=== PATIENT | male | born 1930 | race Caucasian/White ===

== ENCOUNTER 2016-09-23 10:10 | Inpatient (IN) | payer MEDICARE, BC ==
[2016-09-23] MEDS ORDERED: MIDAZOLAM 2 MG/2 ML VIAL IV ONE (12:30)
[2016-09-23] MEDS ORDERED: MIDAZOLAM 2 MG/2 ML VIAL ONE (12:30)
[2016-09-23] MEDS ORDERED: LIDOCAINE 2% INJ 20 MG/ML (20 ML MDV) ONE (12:31)
[2016-09-23] MEDS ORDERED: LIDOCAINE 2% INJ 20 MG/ML SQ ONE (12:31)
[2016-09-23] MEDS ORDERED: SODIUM CHLORIDE 0.9% 1,000 ML IV ONE ×2 (12:31→13:40)
[2016-09-23] MEDS ORDERED: SODIUM CHLORIDE 0.9% 500 ML IV ONE (12:31)
[2016-09-23] MEDS ORDERED: BIVALIRUDIN BOLUS 250 MG/50 ML IV ONE (12:40)
[2016-09-23] MEDS ORDERED: BIVALIRUDIN 250 MG in SODIUM CHLORIDE 0.9% 50 ML IV ONE ×2 (12:41→13:16)
[2016-09-23] MEDS ORDERED: CLOPIDOGREL 75 MG TAB ONE (12:43)
[2016-09-23] MEDS ORDERED: CLOPIDOGREL 75 MG TAB PO ONE (12:47)
[2016-09-23] MEDS: niCARdipine Syringe (1,000 mcg/10 mL) INTRACORON ONE ×3 (13:19→13:39)
[2016-09-23] MEDS ORDERED: NITROGLYCERIN 1000MCG/10ML SYRINGE INTRACORON ONE (13:31)
[2016-09-23] MEDS ORDERED: NITROGLYCERIN SL TABS 0.4 MG TAB SUBLINGUAL PRN (13:48)
[2016-09-23] MEDS ORDERED: RX INFO: IV CONTRAST WAS GIVEN 1 EACH MISC MISCELLANE PRN (13:48)
[2016-09-23] MEDS ORDERED: ATROPINE SULFATE 0.1 MG/ML 10ML SYRINGE IV PRN (13:48)
[2016-09-23] MEDS ORDERED: MAG HYDROX/AL HYDROX/SIMETH 30 ML CUP PO PRN (13:48)
[2016-09-23] MEDS ORDERED: ZOLPIDEM 5 MG TAB PO PRN (13:48)
[2016-09-23] MEDS ORDERED: IOHEXOL 350 MG/ML 125ML BOTTLE INJ ONE (13:48)
[2016-09-23] MEDS ORDERED: SODIUM CHLORIDE 0.9% 1,000 ML IV SCH (14:00)
[2016-09-23 14:13] LABS: Glucose,Whole Blood 116 mg/dL (75-99)
[2016-09-23 19:02] LABS: Basophils % (A) 0 %; CHCM 33.4; Eosinophils % (A) 0 %; HCT 43.3 % (39.0-53.0); HDW 2.32; HGB 14.3 gm/dL (13.0-17.5); Luc # (Auto) 0.32; Luc % (Auto) 3; Lymphocytes # (A) 0.7 k/uL (1.0-4.8); Lymphocytes % (A) 7 %; MCH 32.9 pg (25.0-35.0); MCV 99.4 fL (80.0-100.0); Mean Platelet Volume 9.6; Monocytes # (A) 0.9 k/uL (0-1.0); Monocytes % (A) 9 %; Neutrophils # (A) 8.3 k/uL (1.3-7.7); Neutrophils % (A) 81 %; RBC 4.35 m/uL (4.30-5.90); RDW 13.8 % (11.5-15.5); WBC 10.3 k/uL (3.8-10.6)
[2016-09-23 19:19] LABS: ALT 76 U/L (21-72); AST 156 U/L (17-59); Alkaline Phosphatase 58 U/L (38-126); Anion Gap 8 mmol/L; Blood Urea Nitrogen 38 mg/dL (9-20); Calcium 8.2 mg/dL (8.4-10.2); Carbon Dioxide 24 mmol/L (22-30); Chloride 108 mmol/L (98-107); Glucose 133 mg/dL (74-99); Magnesium 2.1 mg/dL (1.6-2.3); Non-African American GFR(MDRD) 52 (>60 ml/min/1.73 sqM); Sodium 140 mmol/L (137-145); Total Bilirubin 2.4 mg/dL (0.2-1.3); Total Protein 5.6 g/dL (6.3-8.2)
[2016-09-23] MEDS: METOPROLOL TARTRATE 25 MG TAB PO SCH (20:15)
[2016-09-23] MEDS: ATORVASTATIN 80 MG TAB PO SCH (20:15)
--- NOTE | 2016-09-23 22:04 | P.CRDCN ---
History of Present Illness Consult date: 09/23/16 Chief complaint: Chest pain History of present illness: This is a pleasant 85-year-old gentleman was no significant past medical history who presented to the emergency room at [facility] complaining of chest discomfort and was diagnosed with acute inferior ST elevation myocardial infarction. 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 He underwent successful stenting of the RCA with good angiographic results and without any complication. Beside that the patient was found to have intermediate disease involving the proximal LAD by the bifurcation of large diagonal branch. The patient tolerated the procedure very well and he was chest pain-free by the end of the procedure and he was also hemodynamically stable. Past Medical History Past Medical History: Hypertension Additional Past Medical History / Comment(s): Peripheral Neuropathy History of Any Multi-Drug Resistant Organisms: None Reported Past Surgical History: Hernia Repair Past Anesthesia/Blood Transfusion Reactions: No Reported Reaction Past Psychological History: No Psychological Hx Reported Smoking Status: Former smoker Past Alcohol Use History: Rare Past Drug Use History: None Reported - Past Family History Mother History Unknown: Yes Family Medical History: Myocardial Infarction ([place]) Father History Unknown: Yes Family Medical History: Cancer Medications and Allergies Home Medications Medication Instructions Recorded Confirmed Type Aspirin EC [Ecotrin Low Dose] 81 mg PO Q48H 09/23/16 09/23/16 History Biotin 5 mg PO QAM 09/23/16 09/23/16 History Losartan Potassium [Cozaar] 100 mg PO QAM 09/23/16 09/23/16 History Multivitamins, Thera [Multivitamin 1 tab PO DAILY 09/23/16 09/23/16 History (formulary)] Norman-3/Dha/Epa/Fish Oil [Fish Oil 1 cap PO QAM 09/23/16 09/23/16 History EC 1,200 mg Softgel] Allergies Allergy/AdvReac Type Severity Reaction Status Date / Time Penicillins Allergy Anaphylaxis Verified 09/23/16 15:49 prednisone Allergy Anaphylaxis Verified 09/23/16 15:49 Sulfa (Sulfonamide Allergy Anaphylaxis Verified 09/23/16 15:49 Antibiotics) Physical Exam Vitals: Vital Signs Temp Pulse Resp BP Pulse Ox 09/23/16 21:30 63 25 H 113/60 95 09/23/16 21:00 67 12 121/58 95 09/23/16 20:30 72 14 125/66 95 09/23/16 20:00 99 F 76 18 105/57 95 09/23/16 19:30 72 119/64 95 09/23/16 19:10 98.7 F 76 101/51 92 L 09/23/16 19:00 76 101/51 92 L 09/23/16 18:50 98.0 F 76 16 110/53 94 L 09/23/16 18:40 99.0 F 77 108/59 94 L 09/23/16 18:30 73 18 108/59 94 L 09/23/16 18:20 71 114/56 94 L 09/23/16 18:10 73 114/56 95 09/23/16 18:00 83 16 114/56 96 09/23/16 17:50 98.4 F 79 16 119/65 96 09/23/16 17:40 71 116/64 95 09/23/16 17:37 16 09/23/16 17:30 77 18 116/64 96 09/23/16 17:20 72 123/69 96 09/23/16 17:10 74 109/61 96 09/23/16 16:30 65 110/65 97 09/23/16 16:00 98.2 F 66 119/76 97 09/23/16 15:50 98.4 F 69 103/67 97 09/23/16 15:40 70 108/62 97 09/23/16 15:30 98.1 F 67 108/62 88 L 09/23/16 15:20 68 110/62 97 09/23/16 15:10 68 111/60 96 09/23/16 15:00 97.6 F 67 103/62 96 09/23/16 14:50 64 105/58 95 09/23/16 14:40 71 116/67 96 09/23/16 14:30 69 116/67 96 09/23/16 14:10 97.9 F 68 111/62 90 L Intake and Output 09/23/16 09/23/16 09/23/16 06:59 14:59 22:59 Intake Total 434 800 Output Total 750 Balance 434 50 Intake: IV 434 200 Sodium Chloride 0.9% 1, 200 000 ml @ 100 mls/hr IV . Q10H [facility] Rx#:[id number] Intake, IV Titration 400 Amount Sodium Chloride 0.9% 1, 400 000 ml @ 100 mls/hr IV . Q10H [facility] Rx#:[id number] Oral 200 Output: Urine 750 Other: Voiding Method Urinal # Voids 0 Weight 99.79 kg 99.79 kg Patient Weight 09/24/16 06:59 Weight 99.79 kg - Constitutional General appearance: no acute distress - Respiratory Respiratory: bilateral: CTA - Cardiovascular Rhythm: regular Heart sounds: normal: S1, S2 Results 09/24/16 04:45 09/24/16 04:45 Cardiac Enzymes 09/23/16 09/23/16 Range/Units 18:50 18:50 AST 156 H (17-59) U/L Troponin I 40.900 H* (0.000-0.034) ng/mL CBC 09/23/16 Range/Units 18:50 WBC 10.3 (3.8-10.6) k/uL RBC 4.35 (4.30-5.90) m/uL Hgb 14.3 (13.0-17.5) gm/dL Hct 43.3 (39.0-53.0) % Plt Count 124 L (150-450) k/uL Comprehensive Metabolic Panel 09/23/16 Range/Units 18:50 Sodium 140 (137-145) mmol/L Potassium 4.0 (3.5-5.1) mmol/L Chloride 108 H (98-107) mmol/L Carbon Dioxide 24 (22-30) mmol/L BUN 38 H (9-20) mg/dL Creatinine 1.32 H (0.66-1.25) mg/dL Glucose 133 H (74-99) mg/dL Calcium 8.2 L (8.4-10.2) mg/dL AST 156 H (17-59) U/L ALT 76 H (21-72) U/L Alkaline Phosphatase 58 (38-126) U/L Total Protein 5.6 L (6.3-8.2) g/dL Albumin 3.1 L (3.5-5.0) g/dL Current Medications Generic Name Dose Route Start Last Admin Trade Name Freq PRN Reason Stop Dose Admin Al Hydroxide/Mg Hydroxide 30 ml 09/23/16 13:48 Maalox PO Q4HR PRN Heartburn Aspirin 325 mg 09/24/16 09:00 Aspirin PO DAILY [facility] Atorvastatin Calcium 80 mg 09/23/16 21:00 Lipitor PO HS [facility] Atropine Sulfate 0.5 mg 09/23/16 13:48 Atropine IV ONCE PRN Symptomatic Bradycardia Clopidogrel Bisulfate 75 mg 09/24/16 12:00 Plavix PO DAILY [facility] Lisinopril 10 mg 09/24/16 09:00 Zestril PO DAILY [facility] Metoprolol Tartrate 25 mg 09/23/16 21:00 Lopressor PO BID [facility] Miscellaneous Information 1 each 09/23/16 13:48 Rx Info: Iv Contrast Was Given MISCELLANE 09/25/16 13:49 DAILY PRN Per Protocol Nitroglycerin 0.4 mg 09/23/16 13:48 Nitrostat SUBLINGUAL Q5M PRN Chest Pain Zolpidem Tartrate 5 mg 09/23/16 13:48 Ambien PO HS PRN Insomnia Intake and Output 09/23/16 09/23/16 09/23/16 06:59 14:59 22:59 Intake Total 434 800 Output Total 750 Balance 434 50 Intake: IV 434 200 Sodium Chloride 0.9% 1, 200 000 ml @ 100 mls/hr IV . Q10H [facility] Rx#:[id number] Intake, IV Titration 400 Amount Sodium Chloride 0.9% 1, 400 000 ml @ 100 mls/hr IV . Q10H [facility] Rx#:[id number] Oral 200 Output: Urine 750 Other: Voiding Method Urinal # Voids 0 Weight 99.79 kg 99.79 kg Patient Weight 09/24/16 06:59 Weight 99.79 kg 09/23/16 18:50 09/23/16 18:50 Assessment and Plan Plan: This is a pleasant 85-year-old gentleman who was diagnosed with acute inferior ST elevation myocardial infarction and underwent an emergent heart catheterization unsuccessful stenting of the RCA with good angiographic results. The patient will be admitted to the intensive care unit. He will be on dual antiplatelet therapy and statin. We'll obtain an echocardiogram to assess LV function. Follow-up with him.
[2016-09-24] MEDS ORDERED: HEPARIN SODIUM,PORCINE 5,000 UNIT/ML 1 ML VIAL IV ONE (00:23)
[2016-09-24] MEDS ORDERED: DILTIAZEM 125 MG in SODIUM CHLORIDE 0.9% 100 ML IV SCH (00:30)
[2016-09-24] MEDS: HEPARIN SODIUM,PORCINE/D5W PMX 25,000 UNIT in DEXTROSE/WATER 1 500ML.BAG IV SCH (00:52)
[2016-09-24 04:57] LABS: Basophils % (A) 0 %; CH 33.2; CHCM 33.1; Eosinophils % (A) 0 %; HCT 43.3 % (39.0-53.0); HDW 2.33; HGB 14.3 gm/dL (13.0-17.5); Luc # (Auto) 0.42; Luc % (Auto) 4; Lymphocytes # (A) 0.8 k/uL (1.0-4.8); Lymphocytes % (A) 7 %; MCH 33.2 pg (25.0-35.0); MCV 100.6 fL (80.0-100.0); Macrocytosis Slight; Monocytes # (A) 0.9 k/uL (0-1.0); Monocytes % (A) 8 %; Neutrophils # (A) 9.3 k/uL (1.3-7.7); Neutrophils % (A) 81 %; RBC 4.31 m/uL (4.30-5.90); RDW 13.9 % (11.5-15.5); WBC 11.5 k/uL (3.8-10.6); WBC (Perox) 11.74
[2016-09-24] MEDS: HEPARIN SODIUM,PORCINE 5,000 UNIT/ML 1 ML VIAL IV PRN ×2 (05:26→13:16)
[2016-09-24 05:35] LABS: Calcium 8.4 mg/dL (8.4-10.2); Magnesium 2.2 mg/dL (1.6-2.3); Potassium 4.2 mmol/L (3.5-5.1)
[2016-09-24] MEDS ORDERED: DEXTROSE 5% IN WATER 100 ML with AMIODARONE 150 MG IV ONE (08:35)
--- NOTE | 2016-09-24 08:35 | P.PN ---
Subjective Principal diagnosis: Acute inferior ST elevation IL This is a pleasant 85-year-old gentleman with no significant past medical history who presented to the emergency room complaining of chest discomfort and it turned to be an acute inferior ST elevation myocardial infarction. He underwent an emergent heart catheterization and stenting of the RCA with good angiographic results. The presentation of the IL was ablated presentation and the patient was experiencing chest discomfort for the last 3 days. By the end of the procedure we were able to get good flow in the RCA but the PDA and PLV branches of the RCA were full of clots. On follow-up with the patient today, he denies having any chest pain or discomfort but he continues to be short of breath and he also has orthopnea. On physical examination he does have crackles in both lung bases. Hemodynamically he continues to be slightly hypotensive. He is on metoprolol as well as lisinopril. I am going to stop the lisinopril and continue the metoprolol. He went into an A. fib with RVR yesterday and he continues to be in A. fib with reasonably controlled heart rates. He was started on Cardizem which I am going to discontinue and start the patient on amiodarone with bolus and drip. Beside that I will obtain a chest x-ray and BNP. We'll also ask Dr. Schroeder to assess the patient. Objective - Vital Signs Vital signs: Vital Signs Temp 98.5 F 09/24/16 07:30 Pulse 81 09/24/16 07:30 Resp 18 09/24/16 07:30 BP 91/59 09/24/16 07:30 Pulse Ox 93 L 09/24/16 07:30 Intake & Output 09/23/16 09/24/16 09/24/16 18:59 06:59 18:59 Intake Total 1034 584.029 30 Output Total 500 600 Balance 534 -15.971 30 Weight 99.79 kg 94.5 kg Intake: IV 434 520 30 0.9% Normal Saline 140 20 Diltiazem 125 mg In 60 10 Sodium Chloride 0.9% 100 ml @ 10 MG/HR 10 mls/hr IV .[id number] [facility] Rx#: [id number] Sodium Chloride 0.9% 1, 320 000 ml @ 100 mls/hr IV . Q10H [facility] Rx#:[id number] Intake, IV Titration 400 64.029 Amount Heparin Sodium,Porcine/ 64.029 D5w Pmx 25,000 unit In Dextrose/Water 1 500ml. bag @ 7 UNITS/KG/HR 13.97 mls/hr IV .Q24H [facility] Rx#: [id number] Sodium Chloride 0.9% 1, 400 000 ml @ 100 mls/hr IV . Q10H [facility] Rx#:[id number] Oral 200 Output: Urine 500 600 Other: Voiding Method Urinal # Voids 0 # Bowel Movements 1 - Constitutional General appearance: Present: mild distress - Respiratory Respiratory: bilateral: rales - Cardiovascular Rhythm: irregularly irregular Heart sounds: normal: S1, S2 - Labs CBC & Chem 7: 09/24/16 04:45 09/24/16 04:45 Labs: Abnormal Lab Results - Last 24 Hours (Table) 09/23/16 09/23/16 09/23/16 Range/Units 14:10 18:50 18:50 WBC (3.8-10.6) k/uL MCV (80.0-100.0) fL Plt Count 124 L (150-450) k/uL Neutrophils # 8.3 H (1.3-7.7) k/uL Lymphocytes # 0.7 L (1.0-4.8) k/uL APTT (22.0-30.0) sec Chloride 108 H (98-107) mmol/L Carbon Dioxide (22-30) mmol/L BUN 38 H (9-20) mg/dL Creatinine 1.32 H (0.66-1.25) mg/dL Glucose 133 H (74-99) mg/dL POC Glucose (mg/dL) 116 H (75-99) mg/dL Calcium 8.2 L (8.4-10.2) mg/dL Total Bilirubin 2.4 H (0.2-1.3) mg/dL AST 156 H (17-59) U/L ALT 76 H (21-72) U/L Troponin I (0.000-0.034) ng/mL Total Protein 5.6 L (6.3-8.2) g/dL Albumin 3.1 L (3.5-5.0) g/dL 09/23/16 09/24/16 09/24/16 Range/Units 18:50 04:45 04:45 WBC 11.5 H (3.8-10.6) k/uL MCV 100.6 H (80.0-100.0) fL Plt Count 126 L (150-450) k/uL Neutrophils # 9.3 H (1.3-7.7) k/uL Lymphocytes # 0.8 L (1.0-4.8) k/uL APTT (22.0-30.0) sec Chloride 109 H (98-107) mmol/L Carbon Dioxide 20 L (22-30) mmol/L BUN 38 H (9-20) mg/dL Creatinine 1.40 H (0.66-1.25) mg/dL Glucose 121 H (74-99) mg/dL POC Glucose (mg/dL) (75-99) mg/dL Calcium (8.4-10.2) mg/dL Total Bilirubin (0.2-1.3) mg/dL AST (17-59) U/L ALT (21-72) U/L Troponin I 40.900 H* (0.000-0.034) ng/mL Total Protein (6.3-8.2) g/dL Albumin (3.5-5.0) g/dL 09/24/16 Range/Units 04:45 WBC (3.8-10.6) k/uL MCV (80.0-100.0) fL Plt Count (150-450) k/uL Neutrophils # (1.3-7.7) k/uL Lymphocytes # (1.0-4.8) k/uL APTT 37.9 H (22.0-30.0) sec Chloride (98-107) mmol/L Carbon Dioxide (22-30) mmol/L BUN (9-20) mg/dL Creatinine (0.66-1.25) mg/dL Glucose (74-99) mg/dL POC Glucose (mg/dL) (75-99) mg/dL Calcium (8.4-10.2) mg/dL Total Bilirubin (0.2-1.3) mg/dL AST (17-59) U/L ALT (21-72) U/L Troponin I (0.000-0.034) ng/mL Total Protein (6.3-8.2) g/dL Albumin (3.5-5.0) g/dL Assessment and Plan Plan: This is a pleasant 85-year-old gentleman who was diagnosed with acute inferior ST elevation myocardial infarction and underwent an emergent heart catheterization unsuccessful stenting of the RCA with good angiographic results. We'll continue dual antiplatelet therapy and statin. DC lisinopril and continue metoprolol. DC Cardizem drip and start the patient on amiodarone IV. Obtain a chest x-ray and BNP with possible diuresing the patient as well as.
--- NOTE | 2016-09-24 08:56 | XR ---
EXAMINATION TYPE: XR chest 1V portable DATE OF EXAM: 09/24/2016 COMPARISON: NONE HISTORY: Shortness of breath TECHNIQUE: Single frontal view of the chest is obtained. FINDINGS: Heart size is prominent. Patient is rotated however. There are overlying cardiac leads. Th ere is no evident pneumonia or pneumothorax. No sizable effusion. There may be some subsegmental atel ectatic change left lower lobe. IMPRESSION: Borderline enlarged heart size, subsegmental basilar atelectasis is suspected. Follow-up suggested.
[2016-09-24] MEDS ORDERED: LISINOPRIL 10 MG TAB PO SCH (09:00)
[2016-09-24] MEDS: METOPROLOL TARTRATE 25 MG TAB PO SCH (09:02)
[2016-09-24] MEDS: ASPIRIN 325 MG TAB PO SCH (09:02)
[2016-09-24] MEDS: CLOPIDOGREL 75 MG TAB PO SCH (09:03)
[2016-09-24] MEDS ORDERED: NOREPINEPHRIN 4 MG-0.9% NS PMX 4 MG/250 ML ML IV SCH (09:45)
--- NOTE | 2016-09-24 10:16 | HP ---
DATE OF SERVICE: 09/23/2016 CHIEF COMPLAINTS: Chest pains. HISTORY OF PRESENT ILLNESS: This 85-year-old gentleman with past medical history of multiple medical problems including hypertension, hyperlipidemia being followed by [facility] in the outpatient setting was admitted with chest pain. The patient initially went to [facility]. The patient also had some kind of confusion also. The patient also had some intrascapular pain and the ST segment elevation was noted on the EKG. The patient was taken to [facility] via EMS and underwent cardiac catheterization and patient underwent RCA stenting. The patient is being closely monitored at this time. The patient is in ICU at this time. The patient is in ICU at this time. There is no history of any fever, rigors. No history of headache, loss of consciousness or seizures. The initial CBC showed elevated high white count. The patient is followed by Dr. Hakan Quinn in the outpatient setting. PAST MEDICAL HISTORY: Hypertension, hyperlipidemia. Medication list: 1. [place]-3 fatty acid 1 p.o. daily. 2. Multivitamins 1 daily. 3. Cozaar 100 mg q.a.m. 4. Biotin 5 mg q.a.m. 5. Ecotrin 81 mg q.48 hours. ALLERGIES: PENICILLIN, PREDNISONE, SULFA. FAMILY HISTORY: No history of heart disease or strokes in the family. SOCIAL HISTORY: No history of current smoking or alcohol intake. REVIEW OF SYSTEMS: ENT: No diminished hearing or vision. CARDIOVASCULAR: As mentioned earlier. RESPIRATORY: As mentioned earlier. GI: No nausea. : No dysuria. NERVOUS SYSTEM: No numbness or weakness. ALLERGY/IMMUNOLOGY: No asthma or hayfever. MUSCULOSKELETAL: As mentioned earlier. HEMATOLOGY/ONCOLOGY: No history of anemia. ENDOCRINE: No history of diabetes or hypothyroidism. CONSTITUTIONAL: As mentioned earlier. DERMATOLOGY: Negative. RHEUMATOLOGY: Negative. PSYCHIATRY: As mentioned earlier. PHYSICAL EXAMINATION: The patient is alert and oriented x3. Pulse is 79, blood pressure 119/64, respirations 16, temperature 98.4, pulse ox 96% on 2-L. HEENT: Conjunctivae normal. NECK: No jugular venous distention. CARDIOVASCULAR: S1, S2 muffled. RESPIRATORY: Breath sounds diminished at the bases. A few scattered rhonchi and crackles. ABDOMEN: Soft, nontender, no mass palpable. LEGS: No edema, no swelling. NERVOUS SYSTEM: Higher function as mentioned. Moves all four limbs. No focal motor sensory deficits. LYMPHATICS: No lymphadenopathy in the neck, axillae or groin. SKIN: No rash, ulcer or bleeding. LABS: Accu-Cheks 116. ASSESSMENT: 1. Acute ST-segment elevation inferior wall myocardial infarction, status post cardiac catheterization and right coronary artery stenting. 2. Hypertension. 3. History of confusion and change in mental status for further evaluation. RECOMMENDATIONS AND DISCUSSION: In this 85-year-old gentleman who presented with multiple complex medical issues, we well monitor the patient closely. Continue the current medications. Continue symptomatic treatment. Continue with dual antiplatelet agents and beta-blockers, JAI inhibitors. Closely follow with Cardiology. 2-D echo with Doppler. Otherwise, repeat labs in the morning. Will also obtain a CT scan of the brain to rule out any other acute abnormalities. Otherwise will follow the patient closely. I will recommend to closely follow up with Dr. Quinn in the outpatient setting. Further recommendations to follow. [email or web address]
[2016-09-24] MEDS: AMIODARONE 450 MG in DEXTROSE 5% IN WATER 250 ML IV SCH ×4 (10:30→17:21)
--- NOTE | 2016-09-24 11:01 | ECHOF ---
Referral Reason:stemi MEASUREMENTS -------- HEIGHT: 182.9 cm WEIGHT: 99.8 kg BP: 108/59 IVSd: 1.3 cm (0.6 - 1.1) LVIDd: 5.6 cm (3.9 - 5.3) LVPWd: 1.3 cm (0.6 - 1.1) IVSs: 1.6 cm LVIDs: 5.1 cm LVPWs: 1.2 cm LA Diam: 3.1 cm (2.7 - 3.8) Ao Diam: 3.2 cm (2.0 - 3.7) AV Cusp: 1.7 cm (1.5 - 2.6) LA Diam: 3.8 cm (2.7 - 3.8) MV EXCURSION: 20.282 mm (> 18.000) MV EF SLOPE: 83 mm/s (70 - 150) EPSS: 1.2 cm MV E Bj: 0.33 m/s MV DecT: 303 ms MV A Bj: 0.80 m/s MV E/A Ratio: 0.41 RAP: 5.00 mmHg RVSP: 24.76 mmHg FINDINGS -------- Sinus rhythm. This was a technically adequate study. There is mild concentric left ventricular hypertrophy. Overall left ventricular systolic function is low-normal with, an EF between 50 - 55 %. Posterior hypokinesis Inferior basal Hypokinesis The right ventricle is normal in size. The right atrial size is normal. There is mild aortic valve sclerosis. There is no evidence of aortic regurgitation. Mild mitral annular calcification present. Mild mitral regurgitation is present. Mild tricuspid regurgitation present. There is no evidence of pulmonary hypertension. The right ventricular systolic pressure, as measured by Doppler, is 24.76mmHg. Trace/mild (physiologic) pulmonic regurgitation. The aortic root size is normal. There is no pericardial effusion. CONCLUSIONS -------- 1. There is mild concentric left ventricular hypertrophy. 2. The right ventricular systolic pressure, as measured by Doppler, is 24.76mmHg. 3. Trace/mild (physiologic) pulmonic regurgitation. 4. Overall left ventricular systolic function is low-normal with, an EF between 50 - 55 %. 5. Posterior hypokinesis 6. Inferior basal Hypokinesis 7. There is mild aortic valve sclerosis. 8. Mild mitral annular calcification present. 9. Mild mitral regurgitation is present. 10. Mild tricuspid regurgitation present. 11. There is no evidence of pulmonary hypertension. [employer]: Nay Espinoza RDCS
--- NOTE | 2016-09-24 11:35 | P.CNPUL ---
History of Present Illness Consult date: 09/24/16 Requesting physician: Puneet Enriquez Reason for consult: other (Status post acute ST elevation myocardial infarction) Chief complaint: Chest pain History of present illness: This is an 85-year-old white male with history of hypertension, presented yesterday to the ER at [facility] complaining of chest discomfort. Patient was noted to have inferior ST elevation myocardial infarction. 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 Patient underwent stenting of the RCA with good angiographic results. And had no immediate complications. Patient was later transferred to the ICU, overnight the patient developed relatively low blood pressure requiring placement on norepinephrine this morning, chest x-ray showed minimal bibasilar atelectasis, and heart was enlarged. No clear-cut evidence of interstitial edema, but his proBNP level was significantly elevated. Considering the patient's marginal O2 saturations, some shortness of breath, I was asked to see the patient on consultation. Patient is about to be started on norepinephrine as per cardiology for low blood pressure, and considering his blood pressure is marginal, I did not recommend any diuretics at this point yet. Patient denies any headaches no blurred vision no dizziness. Presently no chest pain but has some slight shortness of breath, no cough, no wheezing. No nausea no vomiting no abdominal pain no melena no hematemesis no dysuria and no frequency no urgency. Review of Systems 14 point review of systems were obtained, please refer to pertinent positives and negatives as per HPI. Past Medical History Past Medical History: Hypertension Additional Past Medical History / Comment(s): Peripheral Neuropathy History of Any Multi-Drug Resistant Organisms: None Reported Past Surgical History: Hernia Repair Past Anesthesia/Blood Transfusion Reactions: No Reported Reaction Past Psychological History: No Psychological Hx Reported Smoking Status: Former smoker Past Alcohol Use History: Rare Past Drug Use History: None Reported - Past Family History Mother History Unknown: Yes Family Medical History: Myocardial Infarction ([place]) Father History Unknown: Yes Family Medical History: Cancer Medications and Allergies Home Medications Medication Instructions Recorded Confirmed Type Aspirin EC [Ecotrin Low Dose] 81 mg PO Q48H 09/23/16 09/23/16 History Biotin 5 mg PO QAM 09/23/16 09/23/16 History Losartan Potassium [Cozaar] 100 mg PO QAM 09/23/16 09/23/16 History Multivitamins, Thera [Multivitamin 1 tab PO DAILY 09/23/16 09/23/16 History (formulary)] Valier-3/Dha/Epa/Fish Oil [Fish Oil 1 cap PO QAM 09/23/16 09/23/16 History EC 1,200 mg Softgel] Allergies Allergy/AdvReac Type Severity Reaction Status Date / Time Penicillins Allergy Anaphylaxis Verified 09/23/16 15:49 prednisone Allergy Anaphylaxis Verified 09/23/16 15:49 Sulfa (Sulfonamide Allergy Anaphylaxis Verified 09/23/16 15:49 Antibiotics) Physical Exam Vitals: Vital Signs Temp Pulse Pulse Resp BP BP Pulse Ox 09/24/16 11:00 98.2 F 74 19 96/52 94 L 09/24/16 10:30 85 28 H 77/44 92 L 09/24/16 10:00 79 26 H 82/42 95 09/24/16 09:30 96 26 H 96/49 09/24/16 09:00 91 70 24 88/48 77/49 93 L 09/24/16 08:30 87 28 H 130/74 94 L 09/24/16 08:00 110 H 28 H 91/59 92 L 09/24/16 07:30 98.5 F 81 18 91/59 93 L 09/24/16 07:00 85 27 H 96/62 94 L 09/24/16 06:30 91 21 85/58 95 09/24/16 06:00 92 27 H 85/53 93 L 09/24/16 05:30 91 33 H 92/56 93 L 09/24/16 05:00 96 24 99/55 93 L 09/24/16 04:30 86 13 102/53 94 L 09/24/16 04:00 98.6 F 108 H 20 107/59 94 L 09/24/16 03:56 18 09/24/16 03:30 100 25 H 92/58 92 L 09/24/16 03:00 109 H 25 H 92/58 93 L 09/24/16 02:30 113 H 18 103/60 93 L 09/24/16 02:00 113 H 15 97/58 93 L 09/24/16 01:00 105 H 10 L 94/55 91 L 08/18/17 00:00 98.9 F 69 18 117/58 93 L /17/17 23:34 24 17/17 23:30 72 24 109/58 93 L 17/17 23:00 70 24 108/55 94 L 17/17 22:30 66 15 111/60 94 L 09/23/17 22:00 67 24 106/57 92 L 17/17 21:30 63 25 H 113/60 95 17/17 21:00 67 12 121/58 95 17/17 20:30 72 14 125/66 95 17/17 20:00 99 F 76 18 105/57 95 17/17 19:30 72 119/64 95 17/17 19:10 98.7 F 76 101/51 92 L 17/17 19:00 76 101/51 92 L 17/17 18:50 98.0 F 76 16 110/53 94 L 17/17 18:40 99.0 F 77 108/59 94 L 17/17 18:30 73 18 108/59 94 L 17/17 18:20 71 114/56 94 L 17/17 18:10 73 114/56 95 17/17 18:00 83 16 114/56 96 17/17 17:50 98.4 F 79 16 119/65 96 17/17 17:40 71 116/64 95 17/17 17:37 16 17/17 17:30 77 18 116/64 96 17/17 17:20 72 123/69 96 17/17 17:10 74 109/61 96 17/17 16:30 65 110/65 97 /17/17 16:00 98.2 F 66 119/76 97 /17/17 15:50 98.4 F 69 103/67 97 /17/17 15:40 70 108/62 97 /17/17 15:30 98.1 F 67 108/62 88 L 08/17/17 15:20 68 110/62 97 /17/17 15:10 68 111/60 96 /17/17 15:00 97.6 F 67 103/62 96 /17/17 14:50 64 105/58 95 17/17 14:40 71 116/67 96 09/23/16 14:30 69 116/67 96 09/23/16 14:10 97.9 F 68 111/62 90 L Intake and Output 09/23/16 09/24/16 09/24/16 22:59 06:59 14:59 Intake Total 900 284.029 340.46 Output Total 750 350 350 Balance 150 -65.971 -9.54 Intake: IV 300 220 110 0.9% Normal Saline 140 100 Diltiazem 125 mg In 60 10 Sodium Chloride 0.9% 100 ml @ 10 MG/HR 10 mls/hr IV .[id number] KRUPA Rx#: [id number] Sodium Chloride 0.9% 1, 300 20 000 ml @ 100 mls/hr IV . Q10H KRUPA Rx#:[id number] Intake, IV Titration 400 64.029 230.46 Amount Amiodarone 450 mg In 99.96 Dextrose 5% in Water 250 ml @ 1 MG/MIN 33.33 mls/ hr IV .Q7H31M KRUPA Rx#: [id number] Dextrose 5% in Water 100 100 ml @ 618 mls/hr IV .Q10M ONE with Amiodarone 150 mg Rx#:[id number] Heparin Sodium,Porcine/ 64.029 D5w Pmx 25,000 unit In Dextrose/Water 1 500ml. bag @ 7 UNITS/KG/HR 13.97 mls/hr IV .Q24H KRUPA Rx#: [id number] Norepinephrin 4 mg-0.9% 30.5 Ns Pmx 4 mg In 250 ml @ Titrate IV .Q0M KRUPA Rx#: [id number] Sodium Chloride 0.9% 1, 400 000 ml @ 100 mls/hr IV . Q10H KRUPA Rx#:[id number] Oral 200 Output: Urine 750 350 350 Other: Voiding Method Urinal Urinal Urinal # Voids 1 # Bowel Movements 1 1 Weight 99.79 kg 94.5 kg 94.5 kg Patient Weight 09/25/16 06:59 Weight 94.5 kg Physical Exam: Revealed an 85-year-old white male in no distress. Presently on 4 L nasal cannula O2 saturation is 94%. HEENT:[Neck is supple.] [No neck masses.] [No thyromegaly.] [No JVD.] Chest: [Diminished breath sounds and crackles at the bases, no rhonchi, no wheezes. Cardiac Exam: [Normal S1 and S2, no S3 gallop, no murmur.] Abdomen: [Soft, nontender, no megaly, no rebound, no guarding, normal bowel sounds.] Extremities: [No clubbing, no edema, no cyanosis.] Neurological Exam: [No focal neurologic deficit.] Results - Laboratory Findings CBC and BMP: 09/24/16 04:45 09/24/16 04:45 Abnormal lab findings: Abnormal Labs 09/23/16 09/23/16 09/23/16 14:10 18:50 18:50 WBC MCV Plt Count 124 L Neutrophils # 8.3 H Lymphocytes # 0.7 L APTT Chloride 108 H Carbon Dioxide BUN 38 H Creatinine 1.32 H Glucose 133 H POC Glucose (mg/dL) 116 H Calcium 8.2 L Total Bilirubin 2.4 H AST 156 H ALT 76 H Troponin I Total Protein 5.6 L Albumin 3.1 L 09/23/16 09/24/16 09/24/16 18:50 04:45 04:45 WBC 11.5 H MCV 100.6 H Plt Count 126 L Neutrophils # 9.3 H Lymphocytes # 0.8 L APTT Chloride 109 H Carbon Dioxide 20 L BUN 38 H Creatinine 1.40 H Glucose 121 H POC Glucose (mg/dL) Calcium Total Bilirubin AST ALT Troponin I 40.900 H* Total Protein Albumin 09/24/16 09/24/16 04:45 04:45 WBC MCV Plt Count Neutrophils # Lymphocytes # APTT 37.9 H Chloride Carbon Dioxide BUN Creatinine Glucose POC Glucose (mg/dL) Calcium Total Bilirubin AST ALT Troponin I 44.000 H* Total Protein Albumin - Diagnostic Findings Chest x-ray: image reviewed (Refer to my dictation in the HPI.) Assessment and Plan Plan: Impression: Acute ST elevation inferior wall myocardial infarction, status post emergent cardiac catheterization and successful stenting of the RCA with good angiographic results. Suspect post UT mild congestive heart failure, and hypotension, most likely secondary to ischemic cardiomyopathy and LV dysfunction. Patient will be started on norepinephrine for low blood pressure, will hold on diuretics at this point, but once the blood pressure is better controlled, may even try a trial of diuresis. Remote smoking history, suspect mild component of COPD. Patient will likely benefit from bronchodilators, I will go ahead and recommend Xopenex. Atrial fibrillation with RVR, patient will be placed on amiodarone as per cardiology. He is now off Cardizem, and amiodarone will be started. Summary: Agree with the treatment plan as above, continue to monitor in the intensive care unit, follow-up chest x-ray in a.m., consider diuresis if his pulmonary status gets any worse. Continue incentive spirometry. Time with Patient: Greater than 30
[2016-09-24] MEDS ORDERED: LEVALBUTEROL NEB 1.25 MG/3 ML AMP INHALATION SCH (12:00)
--- NOTE | 2016-09-24 13:39 | P.PN ---
Subjective This is a 84-year-old gentleman that comes in to the hospital with acute chest pain patient is a transfer from [facility] with the ST elevations in to [address] depressions in the inferior leads. Patient underwent emergent cardiac catheterization received a PCI to the RCA. Patient overnight and into atrial fibrillation with rapid ventricular rate was started on Cardizem However patient continued to be in A. fib and was hypotensive hence patient was started on amiodarone patient is currently on a small dose of the vasopressor as well Patient is currently on 5 L supplement oxygen Was a remote smoker Is having any chest pain headaches blurry vision nausea vomiting diarrhea at this time. Objective - Vital Signs Vital signs: Vital Signs Temp 98.2 F 09/24/16 11:00 Pulse 98 09/24/16 13:00 Resp 29 H 09/24/16 13:00 BP 93/57 09/24/16 13:00 Pulse Ox 95 09/24/16 13:00 Intake & Output 09/23/16 09/24/16 09/24/16 18:59 06:59 18:59 Intake Total 1034 584.029 624.635 Output Total 500 600 700 Balance 534 -15.971 -75.365 Weight 99.79 kg 94.5 kg 94.5 kg Intake: IV 434 520 150 0.9% Normal Saline 140 140 Diltiazem 125 mg In 60 10 Sodium Chloride 0.9% 100 ml @ 10 MG/HR 10 mls/hr IV .[id number] KRUPA Rx#: [id number] Sodium Chloride 0.9% 1, 320 000 ml @ 100 mls/hr IV . Q10H KRUPA Rx#:[id number] Intake, IV Titration 400 64.029 474.635 Amount Amiodarone 450 mg In 166.59 Dextrose 5% in Water 250 ml @ 1 MG/MIN 33.33 mls/ hr IV .Q7H31M KRUPA Rx#: [id number] Dextrose 5% in Water 100 100 ml @ 618 mls/hr IV .Q10M ONE with Amiodarone 150 mg Rx#:[id number] Heparin Sodium,Porcine/ 64.029 154.945 D5w Pmx 25,000 unit In Dextrose/Water 1 500ml. bag @ 7 UNITS/KG/HR 13.97 mls/hr IV .Q24H KRUPA Rx#: [id number] Norepinephrin 4 mg-0.9% 53.1 Ns Pmx 4 mg In 250 ml @ Titrate IV .Q0M KRUPA Rx#: [id number] Sodium Chloride 0.9% 1, 400 000 ml @ 100 mls/hr IV . Q10H KRUPA Rx#:[id number] Oral 200 Output: Urine 500 600 700 Other: Voiding Method Urinal Urinal # Voids 0 1 # Bowel Movements 1 1 - Exam Physical exam Gen. appearance oriented 3 in no distress Neck is supple no JVD Lungs trace crackles at the bases. Heart S1-S2 heard regular rate and rhythm no murmurs appreciated Abdomen is soft nontender no organomegaly bowel sounds are intact Neurologically cranial nerves II-12 grossly intact no focal motor or sensory deficits noted Skin no abnormalities appreciated - Labs CBC & Chem 7: 09/24/16 04:45 09/24/16 04:45 Labs: Abnormal Lab Results - Last 24 Hours (Table) 09/23/16 09/23/16 09/23/16 Range/Units 14:10 18:50 18:50 WBC (3.8-10.6) k/uL MCV (80.0-100.0) fL Plt Count 124 L (150-450) k/uL Neutrophils # 8.3 H (1.3-7.7) k/uL Lymphocytes # 0.7 L (1.0-4.8) k/uL APTT (22.0-30.0) sec Chloride 108 H (98-107) mmol/L Carbon Dioxide (22-30) mmol/L BUN 38 H (9-20) mg/dL Creatinine 1.32 H (0.66-1.25) mg/dL Glucose 133 H (74-99) mg/dL POC Glucose (mg/dL) 116 H (75-99) mg/dL Calcium 8.2 L (8.4-10.2) mg/dL Total Bilirubin 2.4 H (0.2-1.3) mg/dL AST 156 H (17-59) U/L ALT 76 H (21-72) U/L Troponin I (0.000-0.034) ng/mL Total Protein 5.6 L (6.3-8.2) g/dL Albumin 3.1 L (3.5-5.0) g/dL 09/23/16 09/24/16 09/24/16 Range/Units 18:50 04:45 04:45 WBC 11.5 H (3.8-10.6) k/uL MCV 100.6 H (80.0-100.0) fL Plt Count 126 L (150-450) k/uL Neutrophils # 9.3 H (1.3-7.7) k/uL Lymphocytes # 0.8 L (1.0-4.8) k/uL APTT (22.0-30.0) sec Chloride 109 H (98-107) mmol/L Carbon Dioxide 20 L (22-30) mmol/L BUN 38 H (9-20) mg/dL Creatinine 1.40 H (0.66-1.25) mg/dL Glucose 121 H (74-99) mg/dL POC Glucose (mg/dL) (75-99) mg/dL Calcium (8.4-10.2) mg/dL Total Bilirubin (0.2-1.3) mg/dL AST (17-59) U/L ALT (21-72) U/L Troponin I 40.900 H* (0.000-0.034) ng/mL Total Protein (6.3-8.2) g/dL Albumin (3.5-5.0) g/dL 09/24/16 09/24/16 09/24/16 Range/Units 04:45 04:45 12:09 WBC (3.8-10.6) k/uL MCV (80.0-100.0) fL Plt Count (150-450) k/uL Neutrophils # (1.3-7.7) k/uL Lymphocytes # (1.0-4.8) k/uL APTT 37.9 H 37.5 H (22.0-30.0) sec Chloride (98-107) mmol/L Carbon Dioxide (22-30) mmol/L BUN (9-20) mg/dL Creatinine (0.66-1.25) mg/dL Glucose (74-99) mg/dL POC Glucose (mg/dL) (75-99) mg/dL Calcium (8.4-10.2) mg/dL Total Bilirubin (0.2-1.3) mg/dL AST (17-59) U/L ALT (21-72) U/L Troponin I 44.000 H* (0.000-0.034) ng/mL Total Protein (6.3-8.2) g/dL Albumin (3.5-5.0) g/dL 09/24/16 Range/Units 12:09 WBC (3.8-10.6) k/uL MCV (80.0-100.0) fL Plt Count (150-450) k/uL Neutrophils # (1.3-7.7) k/uL Lymphocytes # (1.0-4.8) k/uL APTT (22.0-30.0) sec Chloride (98-107) mmol/L Carbon Dioxide (22-30) mmol/L BUN (9-20) mg/dL Creatinine (0.66-1.25) mg/dL Glucose (74-99) mg/dL POC Glucose (mg/dL) (75-99) mg/dL Calcium (8.4-10.2) mg/dL Total Bilirubin (0.2-1.3) mg/dL AST (17-59) U/L ALT (21-72) U/L Troponin I 34.200 H* (0.000-0.034) ng/mL Total Protein (6.3-8.2) g/dL Albumin (3.5-5.0) g/dL Assessment and Plan Plan: #[address] elevation myocardial infarction #2 remote history of smoking #3 acute hypoxemic respiratory failure suspect underlying heart failure #4 hypotension likely due to pump failure #5 essential hypertension, history of #6 new-onset atrial fibrillation with rapid ventricular rate Plan Continue with the IV heparin Patient is undergoing an echocardiogram Chest x-ray was reviewed patient would benefit from a small dose of Lasix however patient is hypotensive and comfortable on 5 L supplemental oxygen continue full ICU support
--- NOTE | 2016-09-24 14:33 | CC ---
DATE OF SERVICE: 09/23/16 PERFORMING PHYSICIAN: Puneet Enriquez M.D., process coach. PROCEDURE PERFORMED: 1. Selective right and left coronary angiogram. 2. Left heart catheterization. 3. Aspiration thrombectomy from the right coronary artery. 4. Successful stenting of the mid right coronary artery using 3.0 x 23 mm Xience JOE with good angiographic results. INDICATIONS: This is a pleasant 85 year old gentleman who was transferred from [facility] after he presented with chest discomfort and he was found to have acute inferior ST elevation myocardial infarction. APPROACH: Right common femoral artery. COMPLICATIONS: None. LEVEL OF SEDATION: Moderate with a sedation length of 90 minutes. PROCEDURE DESCRIPTION: After obtaining informed consent, the patient was brought to the cardiac tree tapping laborer. The right common femoral artery was cannulated using micropuncture technique. The micropuncture wire passed easily. Then, I placed a 6 Slovenian sheath in the right common femoral artery. Then after that, I did selective right and left coronary angiogram using JR4 and JL4 catheters. I did after that, intervene on the RCA. Please see a separate paragraph for that. After that, I did left heart catheterization using 6 Slovenian pigtail catheter. The procedure was completed without any complications. SELECTIVE CORONARY ANGIOGRAM: 1. The right coronary artery is a large caliber vessel and it is a nondominant vessel. It is 100% occluded in the mid portion and seems to be an acute occlusion with contrast staining. 2. The left main is angiographically normal. It bifurcates into the left circumflex and left anterior descending artery. 3. The left circumflex is a large caliber vessel and it is a non-dominant vessel. The proximal circ appeared to have mild disease only and gives rise into the first and second obtuse marginal branches. They seem to be angiographically normal. The mid left circumflex appeared to have mild disease only. The left circumflex distally appeared to have mild disease only as well. 4. The left anterior descending coronary artery: The proximal left anterior descending artery by the bifurcation of a large diag branch appeared to have lesion in the range of 60%. It is involving the ostial of that diag. The LAD in the mid and distal portion appear to be angiographically normal. The diag itself without the ostium appeared to be angiographically normal. HEMODYNAMICS: The left ventricular end diastolic pressure was 12 mmHg and no gradient was identified across the aortic valve. PCI of the RCA: Anticoagulation was initiated using Angiomax. Subsequently I took the JR4 guide and the RCA was engaged. I wired it using the Whisper wire. Subsequently I did advance an aspiration thrombectomy. After that, I did balloon that RCA using 3-0 x 12 mm balloon which was inflated multiple times in the mid portion. The following angiogram showed no flow in the RCA. I decided to aspirate again which I did and then I ballooned RCA again using mid and distal portion using 3-0 balloon. After that, I was able to restore the flow in the RCA. Subsequently, I did deploy 3-0 x 23 mm Xience JOE where the stent was positioned under fluoroscopy guidance and deployed under its nominal pressure. The following angiogram showed good angiographic results. CONCLUSION: 1. Acute inferior ST elevation myocardial infarction. 2. 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 3. Normal left main coronary artery. 4. Normal left circumflex coronary artery. 5. Intermediate disease involving the proximal LAD by the bifurcation of a large diag branch which is involving the lesion as well. POSTPROCEDURE MANAGEMENT: 1. Maximize dual antiplatelet therapy. 2. Risk factor modifications. 3. Follow-up with the patient. ISABELLA
--- NOTE | 2016-09-24 15:15 | CDI ---
In responding to this query, please exercise your independent professional judgment. The [facility] Coding Staff and Clinical Documentation Specialists appreciate your assistance in clarifying documentation, maintaining compliance with coding guidelines, accurately documenting patients condition and capturing severity of illness. The fact that a question is asked does not imply that any particular answer is desired or expected. Communication forms are a method of clarifying documentation and are not made part of the Legal Health Record. Thank you in advance for your clarification. Last Revision, December 2014 Ramila Scott [address] [place] [address] Documentation Clarification Form Date: 09/24/2016 3:08:00 PM From: Mine Garza RN, CCDS Admit Date: 09/23/2016 12:15:00 PM Patient Name: Harrison Thompson Visit Number: [id number] Dr. Abner Burnett Atrial fibrillation is documented in the Progress Notes. History/Risk Factors: Acute inferior wall NM this admission with thrombectomy and stent, CHF, ischemic cardiomyopathy Clinical Indicators: 09/24 Attending Progress Note: "new-onset atrial fibrillation with rapid ventricular rate 09/24 Pulmonary progress Note: "Atrial fibrillation with RVR, patient will be placed on Amiodarone as per cardiology. He is now off Cardizem, and Amiodarone will be started." EKG/telemetry: Atrial Fib Treatment: Consults: Cardiology Cardizem Drip switched to Amio drip In your professional opinion, can you please clarify the type of atrial fibrillation, if known? Chronic/Permanent Paroxysmal Persistent Other, please specify Unable to determine Please document in your progress notes and discharge summary in order to capture severity of illness and risk of mortality. Include clinical findings that support your diagnosis. FYI: Press F11 to launch patient chart Place X here if this finding has no clinical significance, is not applicable or if you are not able to provide any additional documentation. ISABELLA
--- NOTE | 2016-09-24 15:23 | CDI ---
In responding to this query, please exercise your independent professional judgment. The [facility] Coding Staff and Clinical Documentation Specialists appreciate your assistance in clarifying documentation, maintaining compliance with coding guidelines, accurately documenting patients condition and capturing severity of illness. The fact that a question is asked does not imply that any particular answer is desired or expected. Communication forms are a method of clarifying documentation and are not made part of the Legal Health Record. Thank you in advance for your clarification. Last Revision, April 2016 Ramila Scott [address] [place] [address] Documentation Clarification Form Date: 09/24/2016 3:15:00 PM From: Mine Garza RN, CCDS Admit Date: 09/23/2016 12:15:00 PM Patient Name: Harrison Thompson Visit Number: [id number] Dr. Abner Burnett CHF is documented in the Attending and Pulmonary Progress notes. History/Risk Factors: Acute inferior wall [place] this admission with thrombectomy and stent, ischemic cardiomyopathy, hypotension, a-fib rvr Clinical Indicators: 09/24 VS/Pulse OX: HR 69, RR 23, B/P 78/55, Spo2 95% 5l NC BNP: 4510 Echocardiogram Results: 50-55% Chest X Ray: Borderline enlarged heart, subsegemenal basilar atelectasis." Treatment: Consults: cardiology 09/24 Pulmonary: "consider diuresis if his pulmonary status gets any worse." 09/24 Attending: "Chest x-ray was reviewed patient would benefit from a small dose of Lasix however patient is hypotensive and comfortable on 5 L supplemental oxygen. In your professional opinion, can you please clarify the acuity and type of CHF if known? Systolic Heart Failure: Acute Chronic Acute on Chronic Diastolic Heart Failure: Acute Chronic Acute on Chronic Systolic & Diastolic Heart Failure: Acute Chronic Acute on Chronic Unable to determine Other, please specify Please document in your progress notes and discharge summary in order to capture severity of illness and risk of mortality. Include clinical findings that support your diagnosis. FYI: Press F11 to launch patient chart. Place X here if this finding has no clinical significance, is not applicable or if you are not able to provide any additional documentation. [email or web address]
--- NOTE | 2016-09-24 15:44 | CDI ---
In responding to this query, please exercise your independent professional judgment. The [facility] Coding Staff and Clinical Documentation Specialists appreciate your assistance in clarifying documentation, maintaining compliance with coding guidelines, accurately documenting patients condition and capturing severity of illness. The fact that a question is asked does not imply that any particular answer is desired or expected. Communication forms are a method of clarifying documentation and are not made part of the Legal Health Record. Thank you in advance for your clarification. Last Revision, April 2015 Ramila [place] [address] [place] [address] Documentation Clarification Form Date: 09/24/2016 3:24:00 PM From: Mine Garza RN, CCDS Admit Date: 09/23/2016 12:15:00 PM Patient Name: Harrison Thompson Visit Number: [id number] Dr. Abner Burnett Hypotension d/t Pump failure is documented in the progress notes. Patient history/risk factors: Acute Inferior Mi, CHF, ischemic cardiomyopathy, atrial Fib RVR, Acute hypoxic respiratory failure Clinical Indicators: 09/24 Attending: "However patient continued to be in A. fib and was hypotensive hence patient was started on amiodarone patient is currently on a small dose of the vasopressor as well Chest x-ray was reviewed patient would benefit from a small dose of Lasix however patient is hypotensive and comfortable on 5 L supplemental oxygen continue full ICU support hypotension likely due to pump failure." 09/24 Pulmonary: "Suspect post [place] mild congestive heart failure, and hypotension , most likely secondary to ischemic cardiomyopathy and LV dysfunction." 09/24 Vitals: HR 91, RR 26-28, B/P 77/49, 88/48, 93% 4l Treatment: Levophed Gtt titrate for B/P In your professional opinion, can you please specify the type of shock if known ? Cardiogenic Shock o Cause Hypovolemic Shock o Cause Other, please specify Unable to determine Please document in your progress notes and discharge summary in order to capture severity of illness and risk of mortality. Include clinical findings that support your diagnosis. FYI: Press F11 to launch patient chart. Place X here if this finding has no clinical significance, is not applicable or if you are not able to provide any additional documentation. ISABELLA
[2016-09-24] MEDS: LEVALBUTEROL NEB 1.25 MG/3 ML AMP INHALATION SCH (19:54)
[2016-09-24] MEDS: ATORVASTATIN 80 MG TAB PO SCH (20:45)
[2016-09-25] MEDS: HEPARIN SODIUM,PORCINE/D5W PMX 25,000 UNIT in DEXTROSE/WATER 1 500ML.BAG IV SCH (00:15)
[2016-09-25 05:16] LABS: Basophils # (A) 0.1 k/uL (0-0.2); Basophils % (A) 1 %; CH 32.9; CHCM 32.4; Eosinophils % (A) 0 %; HCT 43.7 % (39.0-53.0); HDW 2.33; HGB 13.9 gm/dL (13.0-17.5); Luc % (Auto) 3; Lymphocytes % (A) 11 %; MCH 32.6 pg (25.0-35.0); MCHC 31.9 g/dL (31.0-37.0); MCV 102.1 fL (80.0-100.0); Macrocytosis Slight; Mean Platelet Volume 10.1; Monocytes # (A) 0.8 k/uL (0-1.0); Monocytes % (A) 9 %; Neutrophils # (A) 6.8 k/uL (1.3-7.7); Neutrophils % (A) 76 %; RBC 4.28 m/uL (4.30-5.90); RDW 13.5 % (11.5-15.5); WBC 9.1 k/uL (3.8-10.6); WBC (Perox) 8.74
[2016-09-25 05:31] LABS: Anion Gap 9 mmol/L; Calcium 8.1 mg/dL (8.4-10.2); Carbon Dioxide 18 mmol/L (22-30); Chloride 110 mmol/L (98-107); Glucose 121 mg/dL (74-99); Non-African American GFR(MDRD) 58 (>60 ml/min/1.73 sqM); Sodium 137 mmol/L (137-145)
[2016-09-25 05:35] LABS: Blood Urea Nitrogen 32 mg/dL (9-20); Magnesium 2.2 mg/dL (1.6-2.3); Potassium 4.1 mmol/L (3.5-5.1)
--- NOTE | 2016-09-25 07:17 | XR ---
EXAMINATION TYPE: XR chest 1V portable DATE OF EXAM: 09/25/2016 COMPARISON: Yesterday HISTORY: Short of breath TECHNIQUE: Single frontal view of the chest is obtained. FINDINGS: There is mild pulmonary vascular congestion. There is minimal infiltrate and atelectasis a t the left lung base. There are no hilar masses. There is no definite pleural effusion. IMPRESSION: There is mild congestion that is improved compared to yesterday. Mild infiltrate and ate lectasis at the left lung base without change.
[2016-09-25 07:44] LABS: INR 1.2 (<1.2); Partial Thromboplastin Time 37.9 sec (22.0-30.0); Prothrombin Time 11.7 sec (9.0-12.0)
[2016-09-25] MEDS: LEVALBUTEROL NEB 1.25 MG/3 ML AMP INHALATION SCH ×4 (08:00→19:27)
[2016-09-25] MEDS: AMIODARONE 450 MG in DEXTROSE 5% IN WATER 250 ML IV SCH ×4 (08:40→08:41)
[2016-09-25] MEDS: CLOPIDOGREL 75 MG TAB PO SCH (08:41)
[2016-09-25] MEDS: ASPIRIN 325 MG TAB PO SCH (08:41)
[2016-09-25] MEDS: HEPARIN SODIUM,PORCINE 5,000 UNIT/ML 1 ML VIAL IV PRN (08:44)
[2016-09-25] MEDS: METOPROLOL TARTRATE 25 MG TAB PO SCH ×2 (08:44→20:36)
[2016-09-25] MEDS: AMIODARONE 200 MG TAB PO SCH (08:47)
--- NOTE | 2016-09-25 08:48 | P.PN ---
Subjective Principal diagnosis: ami Patient is status post coronary intervention following an inferior wall NH. Denies any chest discomfort or angina like symptoms now alert and awake sitting in a chair postprocedure went into atrial fibrillation. Past history of atrial fibrillation not known and he was obviously not on anticoagulation for a few days prior to his NH he may have had subtle neurologic symptoms His heart rate is about 114 beats a minute irregular, respirations a mildly increased but I don't see him in any respiratory distress, blood pressure 108/ 52 mmHg. 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 and dominant vessel, mid RCA, successful stenting Also has intermediate disease of the proximal LAD near the bifurcation of a large diagonal branch Atrial fibrillation with RVR new diagnosis past history of smoking May have had mild neurologic symptoms in the days preceding his NH, no prior diagnosis of atrial fibrillation Suggest Start Coumadin for stroke prevention and stop heparin when INR is above 2 Continue aspirin and Plavix for now Start metoprolol 25 mg twice daily Stop IV amiodarone and switched to oral amiodarone 400 mg by mouth daily with a one-month stop date Further management of coronary artery disease and evaluation for peripheral vascular disease as an outpatient Objective - Vital Signs Vital signs: Vital Signs Temp 97.7 F 09/25/16 08:00 Pulse 114 H 09/25/16 08:30 Resp 33 H 09/25/16 08:30 BP 108/52 09/25/16 08:30 Pulse Ox 94 L 09/25/16 08:30 Intake & Output 09/24/16 09/25/16 09/25/16 18:59 06:59 18:59 Intake Total 1086.836 706.432 237.896 Output Total 1050 575 Balance 36.836 131.432 237.896 Weight 94.5 kg 95.3 kg Intake: IV 250 260 20 0.9% Normal Saline 240 260 20 Diltiazem 125 mg In 10 Sodium Chloride 0.9% 100 ml @ 10 MG/HR 10 mls/hr IV .[id number] [facility] Rx#: [id number] Intake, IV Titration 836.836 446.432 217.896 Amount Amiodarone 450 mg In 494.891 Dextrose 5% in Water 250 ml @ 1 MG/MIN 33.33 mls/ hr IV .Q7H31M [facility] Rx#: [id number] Dextrose 5% in Water 100 100 ml @ 618 mls/hr IV .Q10M ONE with Amiodarone 150 mg Rx#:[id number] Heparin Sodium,Porcine/ 154.945 281.026 217.896 D5w Pmx 25,000 unit In Dextrose/Water 1 500ml. bag @ 7 UNITS/KG/HR 13.97 mls/hr IV .Q24H [facility] Rx#: [id number] Norepinephrin 4 mg-0.9% 87.0 165.406 0 Ns Pmx 4 mg In 250 ml @ Titrate IV .Q0M [facility] Rx#: [id number] Output: Urine 1050 575 Other: Voiding Method Urinal Urinal # Voids 1 1 # Bowel Movements 1 1 1 - Labs CBC & Chem 7: 09/25/16 04:41 09/25/16 04:41 Labs: Abnormal Lab Results - Last 24 Hours (Table) 09/24/16 09/24/16 09/24/16 Range/Units 04:45 12:09 12:09 RBC (4.30-5.90) m/uL MCV (80.0-100.0) fL Plt Count (150-450) k/uL INR (<1.2) APTT 37.5 H (22.0-30.0) sec Chloride (98-107) mmol/L Carbon Dioxide (22-30) mmol/L BUN (9-20) mg/dL Glucose (74-99) mg/dL Calcium (8.4-10.2) mg/dL Troponin I 44.000 H* 34.200 H* (0.000-0.034) ng/mL 09/24/16 09/24/16 09/25/16 Range/Units 17:49 17:49 04:41 RBC 4.28 L (4.30-5.90) m/uL MCV 102.1 H (80.0-100.0) fL Plt Count 140 L (150-450) k/uL INR (<1.2) APTT 49.0 H (22.0-30.0) sec Chloride (98-107) mmol/L Carbon Dioxide (22-30) mmol/L BUN (9-20) mg/dL Glucose (74-99) mg/dL Calcium (8.4-10.2) mg/dL Troponin I 30.200 H* (0.000-0.034) ng/mL 09/25/16 09/25/16 Range/Units 04:41 07:25 RBC (4.30-5.90) m/uL MCV (80.0-100.0) fL Plt Count (150-450) k/uL INR 1.2 H (<1.2) APTT 37.9 H (22.0-30.0) sec Chloride 110 H (98-107) mmol/L Carbon Dioxide 18 L (22-30) mmol/L BUN 32 H (9-20) mg/dL Glucose 121 H (74-99) mg/dL Calcium 8.1 L (8.4-10.2) mg/dL Troponin I (0.000-0.034) ng/mL
[2016-09-25] MEDS ORDERED: ASPIRIN 81 MG CHEW PO SCH (09:00)
--- NOTE | 2016-09-25 10:54 | P.PN ---
Subjective This is a 84-year-old gentleman that comes in to the hospital with acute chest pain patient is a transfer from [facility] with the ST elevations in to [address] depressions in the inferior leads. Patient underwent emergent cardiac catheterization received a PCI to the RCA. Patient overnight and into atrial fibrillation with rapid ventricular rate was started on Cardizem However patient continued to be in A. fib and was hypotensive hence patient was started on amiodarone patient is currently on a small dose of the vasopressor as well Patient is currently on 5 L supplement oxygen Was a remote smoker Is having any chest pain headaches blurry vision nausea vomiting diarrhea at this time. Objective - Vital Signs Vital signs: Vital Signs Temp 97.7 F 09/25/16 08:00 Pulse 86 09/25/16 10:00 Resp 21 09/25/16 10:00 BP 97/56 09/25/16 10:00 Pulse Ox 95 09/25/16 10:00 Intake & Output 09/24/16 09/25/16 09/25/16 18:59 06:59 18:59 Intake Total 1086.836 706.432 237.896 Output Total 1050 575 Balance 36.836 131.432 237.896 Weight 94.5 kg 95.3 kg 95.3 kg Intake: IV 250 260 20 0.9% Normal Saline 240 260 20 Diltiazem 125 mg In 10 Sodium Chloride 0.9% 100 ml @ 10 MG/HR 10 mls/hr IV .[id number] [facility] Rx#: [id number] Intake, IV Titration 836.836 446.432 217.896 Amount Amiodarone 450 mg In 494.891 Dextrose 5% in Water 250 ml @ 1 MG/MIN 33.33 mls/ hr IV .Q7H31M [facility] Rx#: [id number] Dextrose 5% in Water 100 100 ml @ 618 mls/hr IV .Q10M ONE with Amiodarone 150 mg Rx#:[id number] Heparin Sodium,Porcine/ 154.945 281.026 217.896 D5w Pmx 25,000 unit In Dextrose/Water 1 500ml. bag @ 7 UNITS/KG/HR 13.97 mls/hr IV .Q24H [facility] Rx#: [id number] Norepinephrin 4 mg-0.9% 87.0 165.406 0 Ns Pmx 4 mg In 250 ml @ Titrate IV .Q0M [facility] Rx#: [id number] Output: Urine 1050 575 Other: Voiding Method Urinal Urinal # Voids 1 1 # Bowel Movements 1 1 1 - Exam Physical exam Gen. appearance oriented 3 in no distress Neck is supple no JVD Lungs trace crackles at the bases. Heart S1-S2 heard irregular no murmurs appreciated Abdomen is soft nontender no organomegaly bowel sounds are intact Neurologically cranial nerves II-12 grossly intact no focal motor or sensory deficits noted Skin no abnormalities appreciated - Labs CBC & Chem 7: 09/25/16 04:41 09/25/16 04:41 Labs: Abnormal Lab Results - Last 24 Hours (Table) 09/24/16 09/24/16 09/24/16 Range/Units 12:09 12:09 17:49 RBC (4.30-5.90) m/uL MCV (80.0-100.0) fL Plt Count (150-450) k/uL INR (<1.2) APTT 37.5 H (22.0-30.0) sec Chloride (98-107) mmol/L Carbon Dioxide (22-30) mmol/L BUN (9-20) mg/dL Glucose (74-99) mg/dL Calcium (8.4-10.2) mg/dL Troponin I 34.200 H* 30.200 H* (0.000-0.034) ng/mL 09/24/16 09/25/16 09/25/16 Range/Units 17:49 04:41 04:41 RBC 4.28 L (4.30-5.90) m/uL MCV 102.1 H (80.0-100.0) fL Plt Count 140 L (150-450) k/uL INR (<1.2) APTT 49.0 H (22.0-30.0) sec Chloride 110 H (98-107) mmol/L Carbon Dioxide 18 L (22-30) mmol/L BUN 32 H (9-20) mg/dL Glucose 121 H (74-99) mg/dL Calcium 8.1 L (8.4-10.2) mg/dL Troponin I (0.000-0.034) ng/mL 09/25/16 Range/Units 07:25 RBC (4.30-5.90) m/uL MCV (80.0-100.0) fL Plt Count (150-450) k/uL INR 1.2 H (<1.2) APTT 37.9 H (22.0-30.0) sec Chloride (98-107) mmol/L Carbon Dioxide (22-30) mmol/L BUN (9-20) mg/dL Glucose (74-99) mg/dL Calcium (8.4-10.2) mg/dL Troponin I (0.000-0.034) ng/mL Assessment and Plan Plan: #[address] elevation myocardial infarction #2 remote history of smoking #3 acute hypoxemic respiratory failure secondary to an 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
--- NOTE | 2016-09-25 12:13 | P.PN ---
Subjective Principal diagnosis: Acute ST elevation myocardial infarction This is an 85-year-old white male with history of hypertension, presented yesterday to the ER at [facility] complaining of chest discomfort. Patient was noted to have inferior ST elevation myocardial infarction. Subsequently, patient was transferred to [facility] and he underwent emergent cardiac catheterization which showed acute total occlusion of the right coronary artery with a large and dominant vessel with occlusion in the midportion. Patient underwent stenting of the RCA with good angiographic results. And had no immediate complications. Patient was later transferred to the ICU, overnight the patient developed relatively low blood pressure requiring placement on norepinephrine this morning, chest x-ray showed minimal bibasilar atelectasis, and heart was enlarged. No clear-cut evidence of interstitial edema, but his proBNP level was significantly elevated. Considering the patient's marginal O2 saturations, some shortness of breath, I was asked to see the patient on consultation. Patient is about to be started on norepinephrine as per cardiology for low blood pressure, and considering his blood pressure is marginal, I did not recommend any diuretics at this point yet. Patient denies any headaches no blurred vision no dizziness. Presently no chest pain but has some slight shortness of breath, no cough, no wheezing. No nausea no vomiting no abdominal pain no melena no hematemesis no dysuria and no frequency no urgency. Patient is doing much per her today on 09/25/2016, blood pressure seems to be improved, patient was treated with amiodarone for his atrial fibrillation with RVR, and responded well. Presently on Plavix, aspirin, and on Coumadin. Chest x-ray is reassuring. Patient feels better, no further episodes of shortness of breath, no chest pain. Urine output seems to be excellent and the patient is hemodynamically stable. Off norepinephrine. CBC is normal. PTT is therapeutic. Basic metabolic profile is normal. Creatinine is 1.20. Troponin is 30.2. Chest x-ray showed no evidence of congestive heart failure, minimal atelectasis noted at the left base. Objective - Vital Signs Vital signs: Vital Signs Temp 97.7 F 09/25/16 08:00 Pulse 90 09/25/16 11:00 Resp 22 09/25/16 11:00 BP 89/47 09/25/16 11:00 Pulse Ox 95 09/25/16 11:00 Intake & Output 09/24/16 09/25/16 09/25/16 18:59 06:59 18:59 Intake Total 1086.836 706.432 297.896 Output Total 1050 575 Balance 36.836 131.432 297.896 Weight 94.5 kg 95.3 kg 95.3 kg Intake: IV 250 260 80 0.9% Normal Saline 240 260 80 Diltiazem 125 mg In 10 Sodium Chloride 0.9% 100 ml @ 10 MG/HR 10 mls/hr IV .[id number] [facility] Rx#: [id number] Intake, IV Titration 836.836 446.432 217.896 Amount Amiodarone 450 mg In 494.891 Dextrose 5% in Water 250 ml @ 1 MG/MIN 33.33 mls/ hr IV .Q7H31M [facility] Rx#: [id number] Dextrose 5% in Water 100 100 ml @ 618 mls/hr IV .Q10M ONE with Amiodarone 150 mg Rx#:[id number] Heparin Sodium,Porcine/ 154.945 281.026 217.896 D5w Pmx 25,000 unit In Dextrose/Water 1 500ml. bag @ 7 UNITS/KG/HR 13.97 mls/hr IV .Q24H [facility] Rx#: [id number] Norepinephrin 4 mg-0.9% 87.0 165.406 0 Ns Pmx 4 mg In 250 ml @ Titrate IV .Q0M [facility] Rx#: [id number] Output: Urine 1050 575 Other: Voiding Method Urinal Urinal Bedside Commode Urinal # Voids 1 2 # Bowel Movements 1 1 1 - Exam Physical Exam: Revealed an 85-year-old white male in no distress. Presently on 4 L nasal cannula O2 saturation is 94%. HEENT:[Neck is supple.] [No neck masses.] [No thyromegaly.] [No JVD.] Chest: [Diminished breath sounds and crackles at the bases, no rhonchi, no wheezes. Cardiac Exam: [Normal S1 and S2, no S3 gallop, no murmur.] Abdomen: [Soft, nontender, no megaly, no rebound, no guarding, normal bowel sounds.] Extremities: [No clubbing, no edema, no cyanosis.] Neurological Exam: [No focal neurologic deficit.] - Labs CBC & Chem 7: 09/25/16 04:41 09/25/16 04:41 Labs: Abnormal Lab Results - Last 24 Hours (Table) 09/24/16 09/24/16 09/24/16 Range/Units 12:09 12:09 17:49 RBC (4.30-5.90) m/uL MCV (80.0-100.0) fL Plt Count (150-450) k/uL INR (<1.2) APTT 37.5 H (22.0-30.0) sec Chloride (98-107) mmol/L Carbon Dioxide (22-30) mmol/L BUN (9-20) mg/dL Glucose (74-99) mg/dL Calcium (8.4-10.2) mg/dL Troponin I 34.200 H* 30.200 H* (0.000-0.034) ng/mL 09/24/16 09/25/16 09/25/16 Range/Units 17:49 04:41 04:41 RBC 4.28 L (4.30-5.90) m/uL MCV 102.1 H (80.0-100.0) fL Plt Count 140 L (150-450) k/uL INR (<1.2) APTT 49.0 H (22.0-30.0) sec Chloride 110 H (98-107) mmol/L Carbon Dioxide 18 L (22-30) mmol/L BUN 32 H (9-20) mg/dL Glucose 121 H (74-99) mg/dL Calcium 8.1 L (8.4-10.2) mg/dL Troponin I (0.000-0.034) ng/mL 09/25/16 Range/Units 07:25 RBC (4.30-5.90) m/uL MCV (80.0-100.0) fL Plt Count (150-450) k/uL INR 1.2 H (<1.2) APTT 37.9 H (22.0-30.0) sec Chloride (98-107) mmol/L Carbon Dioxide (22-30) mmol/L BUN (9-20) mg/dL Glucose (74-99) mg/dL Calcium (8.4-10.2) mg/dL Troponin I (0.000-0.034) ng/mL Assessment and Plan Plan: Impression: Acute ST elevation inferior wall myocardial infarction, status post emergent cardiac catheterization and successful stenting of the RCA with good angiographic results. Suspect post [place] mild congestive heart failure, and hypotension, most likely secondary to ischemic cardiomyopathy and LV dysfunction. Patient will be started on norepinephrine for low blood pressure, will hold on diuretics at this point, but once the blood pressure is better controlled, may even try a trial of diuresis. Remote smoking history, suspect mild component of COPD. patient seems to be doing better with adding Xopenex updrafts 4 times a day and when necessary. Atrial fibrillation with RVR, patient will be placed on amiodarone as per cardiology. He is now off Cardizem, placed on amiodarone instead Summary: Agree with the treatment plan as above, continue updrafts, continue cardiac meds as ordered by cardiology, consider transferring the patient out of the ICU to a monitored bed on selective. Time with Patient: Less than 30
[2016-09-25] MEDS: ATORVASTATIN 80 MG TAB PO SCH (20:35)
[2016-09-25] MEDS: WARFARIN 2.5 MG TAB PO SCH (20:35)
[2016-09-26] MEDS: HEPARIN SODIUM,PORCINE/D5W PMX 25,000 UNIT in DEXTROSE/WATER 1 500ML.BAG IV SCH
[2016-09-26 04:42] LABS: Basophils % (A) 0 %; Eosinophils # (A) 0.1 k/uL (0-0.7); Eosinophils % (A) 1 %; HCT 44.2 % (39.0-53.0); HDW 2.38; HGB 13.8 gm/dL (13.0-17.5); Luc # (Auto) 0.25; Luc % (Auto) 3; Lymphocytes % (A) 13 %; MCH 31.5 pg (25.0-35.0); MCHC 31.3 g/dL (31.0-37.0); MCV 100.6 fL (80.0-100.0); Mean Platelet Volume 9.7; Monocytes # (A) 0.8 k/uL (0-1.0); Monocytes % (A) 10 %; Neutrophils # (A) 5.7 k/uL (1.3-7.7); Neutrophils % (A) 73 %; RDW 13.7 % (11.5-15.5); WBC 7.8 k/uL (3.8-10.6); WBC (Perox) 7.44
[2016-09-26 04:49] LABS: INR 1.2 (<1.2); Prothrombin Time 11.6 sec (9.0-12.0)
[2016-09-26 04:55] LABS: Chloride 110 mmol/L (98-107); Glucose 95 mg/dL (74-99); Potassium 4.4 mmol/L (3.5-5.1)
[2016-09-26 04:56] LABS: Anion Gap 7 mmol/L; Blood Urea Nitrogen 25 mg/dL (9-20); Calcium 8.2 mg/dL (8.4-10.2); Carbon Dioxide 23 mmol/L (22-30); Magnesium 2.1 mg/dL (1.6-2.3); Non-African American GFR(MDRD) 60 (>60 ml/min/1.73 sqM); Sodium 140 mmol/L (137-145)
[2016-09-26] MEDS: LEVALBUTEROL NEB 1.25 MG/3 ML AMP INHALATION SCH ×3 (07:21→20:31)
[2016-09-26] MEDS: AMIODARONE 200 MG TAB PO SCH (08:03)
[2016-09-26] MEDS: CLOPIDOGREL 75 MG TAB PO SCH (08:04)
[2016-09-26] MEDS: METOPROLOL TARTRATE 25 MG TAB PO SCH ×3 (08:04→20:31)
[2016-09-26] MEDS: ASPIRIN 81 MG CHEW PO SCH (08:04)
--- NOTE | 2016-09-26 11:03 | P.PN ---
Subjective Principal diagnosis: Acute ST elevation myocardial infarction This is an 85-year-old white male with history of hypertension, presented yesterday to the ER at [facility] complaining of chest discomfort. Patient was noted to have inferior ST elevation myocardial infarction. Subsequently, patient was transferred to [facility] and he underwent emergent cardiac catheterization which showed acute total occlusion of the right coronary artery with a large and dominant vessel with occlusion in the midportion. Patient underwent stenting of the RCA with good angiographic results. And had no immediate complications. Patient was later transferred to the ICU, overnight the patient developed relatively low blood pressure requiring placement on norepinephrine this morning, chest x-ray showed minimal bibasilar atelectasis, and heart was enlarged. No clear-cut evidence of interstitial edema, but his proBNP level was significantly elevated. Considering the patient's marginal O2 saturations, some shortness of breath, I was asked to see the patient on consultation. Patient is about to be started on norepinephrine as per cardiology for low blood pressure, and considering his blood pressure is marginal, I did not recommend any diuretics at this point yet. Patient denies any headaches no blurred vision no dizziness. Presently no chest pain but has some slight shortness of breath, no cough, no wheezing. No nausea no vomiting no abdominal pain no melena no hematemesis no dysuria and no frequency no urgency. Patient is doing much per her today on 09/25/2016, blood pressure seems to be improved, patient was treated with amiodarone for his atrial fibrillation with RVR, and responded well. Presently on Plavix, aspirin, and on Coumadin. Chest x-ray is reassuring. Patient feels better, no further episodes of shortness of breath, no chest pain. Urine output seems to be excellent and the patient is hemodynamically stable. Off norepinephrine. CBC is normal. PTT is therapeutic. Basic metabolic profile is normal. Creatinine is 1.20. Troponin is 30.2. Chest x-ray showed no evidence of congestive heart failure, minimal atelectasis noted at the left base. Reevaluated today on 09/26/2016, patient is doing well, he is in atrial fibrillation with RVR, his beta lito dose is being adjusted by cardiology. Patient is relatively asymptomatic, denies any chest pain, no shortness of breath, no palpitations, no nausea no vomiting. Labs were reviewed his PTT is therapeutic his CBC is normal basic metabolic profile is normal renal profile is improving BUN is down to 25 creatinine is down to 1.17. No chest x-ray was felt to be necessary today. Objective - Vital Signs Vital signs: Vital Signs Temp 97.8 F 09/26/16 08:00 Pulse 96 09/26/16 10:00 Resp 37 H 09/26/16 10:00 BP 131/62 09/26/16 10:00 Pulse Ox 96 09/26/16 10:00 Intake & Output 09/25/16 09/26/16 09/26/16 18:59 06:59 18:59 Intake Total 720.000 260 60 Output Total 800 300 Balance 720.000 -540 -240 Weight 95.3 kg 94.1 kg 94.1 kg Intake: IV 220 260 60 0.9% Normal Saline 220 260 60 Intake, IV Titration 500.000 Amount Heparin Sodium,Porcine/ 500.000 D5w Pmx 25,000 unit In Dextrose/Water 1 500ml. bag @ 7 UNITS/KG/HR 13.97 mls/hr IV .Q24H [facility] Rx#: [id number] Norepinephrin 4 mg-0.9% 0 Ns Pmx 4 mg In 250 ml @ Titrate IV .Q0M [facility] Rx#: [id number] Output: Urine 800 300 Other: Voiding Method Bedside Commode Bedside Commode Bedside Commode Urinal Urinal Urinal # Voids 1 1 # Bowel Movements 1 - Exam Physical Exam: Revealed an 85-year-old white male in no distress. Presently on 4 L nasal cannula O2 saturation is 94%. HEENT:[Neck is supple.] [No neck masses.] [No thyromegaly.] [No JVD.] Chest: [Diminished breath sounds and crackles at the bases, no rhonchi, no wheezes. Cardiac Exam: [Normal S1 and S2, no S3 gallop, no murmur.] Abdomen: [Soft, nontender, no megaly, no rebound, no guarding, normal bowel sounds.] Extremities: [No clubbing, no edema, no cyanosis.] Neurological Exam: [No focal neurologic deficit.] - Labs CBC & Chem 7: 09/26/16 04:21 09/26/16 04:21 Labs: Abnormal Lab Results - Last 24 Hours (Table) 09/25/16 09/26/16 09/26/16 Range/Units 12:50 04:21 04:21 MCV 100.6 H (80.0-100.0) fL Plt Count 143 L (150-450) k/uL INR (<1.2) APTT 61.4 H (22.0-30.0) sec Chloride 110 H (98-107) mmol/L BUN 25 H (9-20) mg/dL Calcium 8.2 L (8.4-10.2) mg/dL 09/26/16 Range/Units 04:21 MCV (80.0-100.0) fL Plt Count (150-450) k/uL INR 1.2 H (<1.2) APTT 48.0 H (22.0-30.0) sec Chloride (98-107) mmol/L BUN (9-20) mg/dL Calcium (8.4-10.2) mg/dL Assessment and Plan Plan: Impression: Acute ST elevation inferior wall myocardial infarction, status post emergent cardiac catheterization and successful stenting of the RCA with good angiographic results. Suspect post [place] mild congestive heart failure, and hypotension, most likely secondary to ischemic cardiomyopathy and LV dysfunction. Patient will be started on norepinephrine for low blood pressure, will hold on diuretics at this point, but once the blood pressure is better controlled, may even try a trial of diuresis. Remote smoking history, suspect mild component of COPD. patient seems to be doing better with adding Xopenex updrafts 4 times a day and when necessary. Atrial fibrillation with RVR, patient will be placed on amiodarone as per cardiology. He is now off Cardizem, placed on amiodarone instead Recommendation: Continue present treatment plan, continue present cardiac meds, consider transferring the patient out of the ICU to a monitored bed on selective today. Time with Patient: Less than 30
--- NOTE | 2016-09-26 12:29 | PN ---
Mr. Thompson is an 85-year-old male patient who came with ST elevation AR and he underwent coronary stenting. He is completely pain free. His discomfort was intrascapular. He does not remember being confused with slurred speech and not making sense but according to his for three days prior to admission he was having above mentioned symptoms. Today his heart sounds are irregular. He is in atrial fibrillation. This is a new diagnosis for him. I do not hear any carotid bruits bilaterally. Carotid pulses are well palpable. Heart sounds are irregular but there is no murmur, no gallop. Breath sounds are equal bilaterally. No rhonchi, no crackles. Abdomen soft. Extremities are warm. IMPRESSION: 1. Acute myocardial infarction status post coronary intervention and stenting. The patient is on aspirin and Plavix. 2. New diagnosis of atrial fibrillation with rapid ventricular response. 3. Transient ischemic attack-like symptoms which have completely resolved now and the most likely reason for this is uncoagulated atrial fibrillation which is a new diagnosis. Suggest continue triple drug therapy with aspirin, Plavix and Coumadin at this time; daily INRs, statins and I will increase the beta blockers to 25 mg three times a day because his rates at rest are about 100-110 beats per minute. MTDD
[2016-09-26] MEDS: WARFARIN 2.5 MG TAB PO SCH (17:15)
--- NOTE | 2016-09-26 19:37 | P.PN ---
Subjective This is a 84-year-old gentleman that comes in to the hospital with acute chest pain patient is a transfer from [facility] with the ST elevations in to [address] depressions in the inferior leads. Patient underwent emergent cardiac catheterization received a PCI to the RCA. Patient overnight and into atrial fibrillation with rapid ventricular rate was started on Cardizem However patient continued to be in A. fib and was hypotensive hence patient was started on amiodarone patient is currently on a small dose of the vasopressor as well Patient is currently on 5 L supplement oxygen Was a remote smoker Is having any chest pain headaches blurry vision nausea vomiting diarrhea at this time. 08/26/16 no cp, yovany, nausea, vomiting, diarrhea HR is borderline Isolated loose stools reported Objective - Vital Signs Vital signs: Vital Signs Temp 97.6 F 09/26/16 14:02 Pulse 64 09/26/16 14:02 Resp 26 H 09/26/16 14:02 BP 130/60 09/26/16 14:02 Pulse Ox 95 09/26/16 14:02 Intake & Output 09/26/16 09/26/16 09/27/16 06:59 18:59 06:59 Intake Total 260 80 Output Total 800 300 Balance -540 -220 Weight 94.1 kg 94.1 kg Intake: IV 260 80 0.9% Normal Saline 260 80 Output: Urine 800 300 Other: Voiding Method Bedside Commode Bedside Commode Urinal Urinal # Voids 1 - Exam Physical exam Gen. appearance oriented 3 in no distress Neck is supple no JVD Lungs tCTA b/l Heart S1-S2 heard irregular no murmurs appreciated Abdomen is soft nontender no organomegaly bowel sounds are intact Neurologically cranial nerves II-12 grossly intact no focal motor or sensory deficits noted Skin no abnormalities appreciated - Labs CBC & Chem 7: 09/26/16 04:21 09/26/16 04:21 Labs: Abnormal Lab Results - Last 24 Hours (Table) 09/26/16 09/26/16 09/26/16 Range/Units 04:21 04:21 04:21 MCV 100.6 H (80.0-100.0) fL Plt Count 143 L (150-450) k/uL INR 1.2 H (<1.2) APTT 48.0 H (22.0-30.0) sec Chloride 110 H (98-107) mmol/L BUN 25 H (9-20) mg/dL Calcium 8.2 L (8.4-10.2) mg/dL Assessment and Plan Plan: #[address] elevation myocardial infarction #2 remote history of smoking #3 acute hypoxemic respiratory failure secondary to an 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
[2016-09-26] MEDS: ATORVASTATIN 80 MG TAB PO SCH (20:31)
[2016-09-27 06:19] LABS: Basophils % (A) 0 %; CH 32.3; CHCM 32.7; Eosinophils # (A) 0.1 k/uL (0-0.7); Eosinophils % (A) 2 %; HCT 40.6 % (39.0-53.0); HDW 2.39; HGB 13.1 gm/dL (13.0-17.5); Luc # (Auto) 0.19; Luc % (Auto) 3; Lymphocytes # (A) 1.3 k/uL (1.0-4.8); Lymphocytes % (A) 17 %; MCH 32.1 pg (25.0-35.0); MCHC 32.3 g/dL (31.0-37.0); MCV 99.3 fL (80.0-100.0); Mean Platelet Volume 9.1; Monocytes # (A) 0.8 k/uL (0-1.0); Monocytes % (A) 10 %; Neutrophils # (A) 5.2 k/uL (1.3-7.7); Neutrophils % (A) 69 %; RBC 4.09 m/uL (4.30-5.90); RDW 12.8 % (11.5-15.5); WBC 7.6 k/uL (3.8-10.6); WBC (Perox) 7.12
[2016-09-27 06:21] LABS: INR 1.2 (<1.2)
[2016-09-27 06:27] LABS: Anion Gap 9 mmol/L; Blood Urea Nitrogen 23 mg/dL (9-20); Calcium 8.3 mg/dL (8.4-10.2); Carbon Dioxide 21 mmol/L (22-30); Chloride 109 mmol/L (98-107); Glucose 89 mg/dL (74-99); Non-African American GFR(MDRD) 58 (>60 ml/min/1.73 sqM); Potassium 4.4 mmol/L (3.5-5.1); Sodium 139 mmol/L (137-145)
[2016-09-27] MEDS: LEVALBUTEROL NEB 1.25 MG/3 ML AMP INHALATION SCH ×3 (07:43→19:52)
[2016-09-27] MEDS: HEPARIN SODIUM,PORCINE/D5W PMX 25,000 UNIT in DEXTROSE/WATER 1 500ML.BAG IV SCH (08:44)
[2016-09-27] MEDS: AMIODARONE 200 MG TAB PO SCH (09:11)
[2016-09-27] MEDS: CLOPIDOGREL 75 MG TAB PO SCH (09:11)
[2016-09-27] MEDS: ASPIRIN 81 MG CHEW PO SCH (09:11)
[2016-09-27] MEDS: METOPROLOL TARTRATE 25 MG TAB PO SCH (09:12)
--- NOTE | 2016-09-27 11:35 | P.PN ---
Subjective Progress note dated 09/27/2016 This is a 85-year-old patient who was seen by my partner yesterday. He has a history of atrial fibrillation with RVR. Beta lito dose is being adjusted by cardiology. He is asymptomatic and actually was sleeping when I first came into the room. Denies any chest pain shortness breath chest discomfort palpitations nausea vomiting. Other than that the patient seemed be doing relatively well. His a BUN/creatinine seem to be improving. Objective - Vital Signs Vital signs: Vital Signs Temp 98.0 F 09/27/16 04:00 Pulse 87 09/27/16 09:41 Resp 18 09/27/16 07:43 BP 126/67 09/27/16 09:41 Pulse Ox 96 09/27/16 09:41 Intake & Output 09/26/16 09/27/16 09/27/16 18:59 06:59 18:59 Intake Total 80 120 Output Total 300 225 Balance -220 -105 Weight 94.1 kg 97.9 kg Intake: IV 80 0.9% Normal Saline 80 Oral 120 Output: Urine 300 225 Other: Voiding Method Bedside Commode Urinal Urinal # Voids 1 1 - Exam No acute distress, oriented 3. HEENT examination is grossly unremarkable. Mucous membranes are moist. No oral lesions. Neck supple. Full range of motion. No adenopathy or thyromegaly. Neck veins are flat. Cardiovascular examination reveals some irregularity to his heart rhythm. I'm not sure that he still in atrial fibrillation. Heart rate about 90. S1-S2 normal. No murmur. No S3-S4. Lungs reveal mostly clear breath sounds. No wheezes or rhonchi. No crackles. Abdomen soft bowel sounds are heard. No masses or tenderness. Extremities are intact. No cyanosis clubbing or edema. Skin without rash. Neurologic examination is nonfocal, and brief. - Labs CBC & Chem 7: 09/27/16 05:28 09/27/16 05:28 Labs: Abnormal Lab Results - Last 24 Hours (Table) 09/27/16 09/27/16 09/27/16 Range/Units 05:28 05:28 05:28 RBC 4.09 L (4.30-5.90) m/uL INR 1.2 H (<1.2) Chloride 109 H (98-107) mmol/L Carbon Dioxide 21 L (22-30) mmol/L BUN 23 H (9-20) mg/dL Calcium 8.3 L (8.4-10.2) mg/dL Assessment and Plan (1) ST-segment elevation myocardial infarction (STEMI) of inferior wall Status: Acute (2) CHF (congestive heart failure) Status: Acute (3) COPD (chronic obstructive pulmonary disease) Status: Acute (4) Atrial fibrillation Status: Acute Plan: Plan dated 09/27/2016 The patient seemed be doing well. Was in the ICU yesterday. He was transferred out. The patient stable. Actually sleeping when I first came into the room. Denies any chest pain chest discomfort palpitations irregular heartbeat shortness of breath cough wheezing or any other complaints for that matter. We'll continue to follow. Time with Patient: Less than 30
--- NOTE | 2016-09-27 11:58 | P.PN ---
Subjective Principal diagnosis: acute inferior wall [place] This is an 85-year-old gentleman who presented to the hospital with an acute inferior wall myocardial infarction. 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 Patient was also diagnosed here with new onset atrial fibrillation.his heart rate today is in the 140s with ambulation, 108 to 1 teens at rest.we will increase his dose of beta lito to 50 mg one tablet by mouth twice a day today. Blood pressure today 120/60.INR 1.2. Objective - Vital Signs Vital signs: Vital Signs Temp 98.0 F 09/27/16 04:00 Pulse 87 09/27/16 09:41 Resp 18 09/27/16 07:43 BP 126/67 09/27/16 09:41 Pulse Ox 96 09/27/16 09:41 Intake & Output 09/26/16 09/27/16 09/27/16 18:59 06:59 18:59 Intake Total 80 120 Output Total 300 225 Balance -220 -105 Weight 94.1 kg 97.9 kg Intake: IV 80 0.9% Normal Saline 80 Oral 120 Output: Urine 300 225 Other: Voiding Method Bedside Commode Urinal Urinal # Voids 1 1 - Exam PHYSICAL EXAMINATION: HEENT: [Head is atraumatic, normocephalic. Pupils equal, round. Neck is supple. There is no elevated jugular venous pressure.] HEART EXAMINATION: [Heart S1, S2 normal. No murmur or gallop heard.] CHEST EXAMINATION:[ Lungs are clear to auscultation and precussion. No chest wall tenderness is noted on palpation or with deep breathing.] ABDOMEN: [ Soft, nontender. Bowel sounds are heard. No organomegaly noted]. EXTREMITIES:[ 2+ peripheral pulses with no evidence of peripheral edema and no calf tenderness noted]. NEUROLOGIC [patient is awake, alert and oriented -3.] . - Labs CBC & Chem 7: 09/27/16 05:28 09/27/16 05:28 Labs: Abnormal Lab Results - Last 24 Hours (Table) 09/27/16 09/27/16 09/27/16 Range/Units 05:28 05:28 05:28 RBC 4.09 L (4.30-5.90) m/uL INR 1.2 H (<1.2) Chloride 109 H (98-107) mmol/L Carbon Dioxide 21 L (22-30) mmol/L BUN 23 H (9-20) mg/dL Calcium 8.3 L (8.4-10.2) mg/dL Assessment and Plan (1) S/P right coronary artery (RCA) stent placement Status: Acute (2) Paroxysmal a-fib Status: Acute (3) COPD (chronic obstructive pulmonary disease) Status: Acute (4) HTN (hypertension) Status: Acute (5) ST-segment elevation myocardial infarction (STEMI) of inferior wall Status: Acute Plan: From cardiology's perspective, we will increase the patient's dose of beta lito to 50 mg one tablet by mouth twice a day for more optimal heart rate control. Continue Coumadin , along with Plavix and baby aspirin. Monitor daily PT/INR. DNP note has been reviewed, I agree with a documented findings and plan of care. Patient was seen and examined.
--- NOTE | 2016-09-27 12:23 | CDI ---
In responding to this query, please exercise your independent professional judgment. The [facility] Coding Staff and Clinical Documentation Specialists appreciate your assistance in clarifying documentation, maintaining compliance with coding guidelines, accurately documenting patients condition and capturing severity of illness. The fact that a question is asked does not imply that any particular answer is desired or expected. Communication forms are a method of clarifying documentation and are not made part of the Legal Health Record. Thank you in advance for your clarification. Last Revision, April 2015 Ramila [place] [address] [place] [address] Documentation Clarification Form 2nd request Date: 09/24/2016 3:24:00 PM From: Mine Garza RN, CCDS Admit Date: 09/23/2016 12:15:00 PM Patient Name: Harrison Thompson Visit Number: [id number] Dr. Abner Burnett Hypotension d/t Pump failure is documented in the progress notes. Patient history/risk factors: Acute Inferior Mi, CHF, ischemic cardiomyopathy, atrial Fib RVR, Acute hypoxic respiratory failure Clinical Indicators: 09/24 Attending: " However patient continued to be in A. fib and was hypotensive hence patient was started on amiodarone patient is currently on a small dose of the vasopressor as well Chest x-ray was reviewed patient would benefit from a small dose of Lasix however patient is hypotensive and comfortable on 5 L supplemental oxygen continue full ICU support hypotension likely due to pump failure." 09/24 Pulmonary: "Suspect post NE mild congestive heart failure, and hypotension , most likely secondary to ischemic cardiomyopathy and LV dysfunction." 09/24 Vitals: HR 91, RR 26-28, B/P 77/49, 88/48, 93% 4l Treatment: Levophed titrate fro B/P In your professional opinion, can you please specify the type of shock if known ? Cardiogenic Shock o Cause Hypovolemic Shock o Cause Other, please specify Unable to determine Please document in your progress notes and discharge summary in order to capture severity of illness and risk of mortality. Include clinical findings that support your diagnosis. FYI: Press F11 to launch patient chart. Place X here if this finding has no clinical significance, is not applicable or if you are not able to provide any additional documentation. ONEYDAD
[2016-09-27 14:43] VITALS: BMI 29.2
[2016-09-27] MEDS: WARFARIN 2.5 MG TAB PO SCH (17:40)
[2016-09-27] MEDS: ATORVASTATIN 80 MG TAB PO SCH (21:31)
[2016-09-27] MEDS: METOPROLOL TARTRATE 50 MG TAB PO SCH (21:31)
[2016-09-28] MEDS: PANTOPRAZOLE 40 MG TABLET PO SCH (06:21)
[2016-09-28] MEDS: HEPARIN SODIUM,PORCINE/D5W PMX 25,000 UNIT in DEXTROSE/WATER 1 500ML.BAG IV SCH (06:22)
[2016-09-28 06:27] LABS: INR 1.4 (<1.2); Partial Thromboplastin Time 42.8 sec (22.0-30.0); Prothrombin Time 13.7 sec (9.0-12.0)
[2016-09-28] MEDS: LEVALBUTEROL NEB 1.25 MG/3 ML AMP INHALATION SCH ×3 (09:15→20:29)
[2016-09-28] MEDS: METOPROLOL TARTRATE 50 MG TAB PO SCH ×2 (09:58→20:58)
[2016-09-28] MEDS: CLOPIDOGREL 75 MG TAB PO SCH (09:59)
[2016-09-28] MEDS: AMIODARONE 200 MG TAB PO SCH (09:59)
[2016-09-28] MEDS: ASPIRIN 81 MG CHEW PO SCH (09:59)
[2016-09-28] MEDS ORDERED: DIPHENOX-ATROP 2.5-0.025 MG 1 EACH TAB PO PRN (10:52)
--- NOTE | 2016-09-28 10:56 | P.PN ---
Progress Note - Text Patient is doing well. He complains of diarrhea and the nurse will contact the admitting physician. From a cardiac standpoint he needs rate control for atrial fibrillation and he definitely needs bridging with Lovenox if he were to be discharged today on Coumadin. He will go home on triple therapy and follow- up with Dr. Wadsworth See full note by Dr. holley
--- NOTE | 2016-09-28 12:39 | P.PN ---
Subjective Progress note dated 09/27/2016 This is a 85-year-old patient who was seen by my partner yesterday. He has a history of atrial fibrillation with RVR. Beta lito dose is being adjusted by cardiology. He is asymptomatic and actually was sleeping when I first came into the room. Denies any chest pain shortness breath chest discomfort palpitations nausea vomiting. Other than that the patient seemed be doing relatively well. His a BUN/creatinine seem to be improving. Progress note dated 09/28/2016 85-year-old patient with a history of atrial fibrillation and RVR. Beta lito dose is being adjusted by cardiology. Doing relatively well. Mostly asymptomatic. Hoping to be discharged home soon. Denies any chest pain or shortness of breath chest discomfort palpitations nausea vomiting or other complaints for that matter. Seemed be doing relatively well. Likely just waiting for his Coumadin to be adjusted and his PT INR to be therapeutic. Of mag doing relatively well. Feeling well. Objective - Vital Signs Vital signs: Vital Signs Temp 97.5 F L 09/28/16 04:00 Pulse 104 H 09/28/16 09:26 Resp 18 09/28/16 04:00 BP 133/76 09/28/16 04:00 Pulse Ox 94 L 09/28/16 04:00 Intake & Output 09/27/16 09/28/16 09/28/16 18:59 06:59 18:59 Intake Total 480 100 Output Total 225 850 Balance 255 -850 100 Weight 97.9 kg 97.6 kg Intake: Oral 480 100 Output: Urine 225 850 Other: Voiding Method Urinal Urinal # Voids 1 1 # Bowel Movements 1 1 - Exam No acute distress, oriented 3. HEENT examination is grossly unremarkable. Mucous membranes are moist. No oral lesions. Neck supple. Full range of motion. No adenopathy or thyromegaly. Neck veins are flat. Cardiovascular examination reveals some irregularity to his heart rhythm. I'm not sure that he still in atrial fibrillation. Heart rate about 90. S1-S2 normal. No murmur. No S3-S4. Lungs reveal mostly clear breath sounds. No wheezes or rhonchi. No crackles. Abdomen soft bowel sounds are heard. No masses or tenderness. Extremities are intact. No cyanosis clubbing or edema. Skin without rash. Neurologic examination is nonfocal, and brief. - Labs CBC & Chem 7: 09/27/16 05:28 09/27/16 05:28 Labs: Abnormal Lab Results - Last 24 Hours (Table) 09/27/16 09/28/16 Range/Units 13:11 05:56 PT 13.7 H (9.0-12.0) sec INR 1.4 H (<1.2) APTT 46.7 H 42.8 H (22.0-30.0) sec Assessment and Plan (1) ST-segment elevation myocardial infarction (STEMI) of inferior wall Status: Acute (2) CHF (congestive heart failure) Status: Acute (3) COPD (chronic obstructive pulmonary disease) Status: Acute (4) Atrial fibrillation Status: Acute Plan: Plan dated 09/27/2016 The patient seemed be doing well. Was in the ICU yesterday. He was transferred out. The patient stable. Actually sleeping when I first came into the room. Denies any chest pain chest discomfort palpitations irregular heartbeat shortness of breath cough wheezing or any other complaints for that matter. We'll continue to follow. Plan dated 09/28/2016 The patient's doing well. Was in ICU on Tuesday. Transferred out that day. Seems to be relatively stable. The patient's on IV heparin. We for his Coumadin to be therapeutic. We'll continue to follow. Prognosis is guarded. Time with Patient: Less than 30
--- NOTE | 2016-09-28 13:15 | P.PN ---
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 09/27/2016: Patient sitting up in a chair, appears comfortable. No complaints of chest pain. Appetite is good eating 75-100% of his meals, last BM today, ambulatory within the room to and from the bathroom. Heart rate well controlled in the 90s , remains in atrial fibrillation. REVIEW OF SYSTEMS: Done for constitutional ,cardiovascular, GI, pulmonary with relevant findings as above. CURRENT MEDICATIONS Amiodarone, Lipitor, Plavix, heparin, Lopressor, Coumadin. PHYSICAL EXAM VITAL SIGNS: Temperature 97.1, pulse 95, respiratory rate 16, blood pressure 126/84, oxygen saturation 99% on 2 L GENERAL APPEARANCE: Sitting in a chair at the bedside, not in distress. EYES: Pupils equal. Conjunctiva normal. NECK: JVD not raised. Mass not palpable. RESPIRATORY: Respiratory effort normal. Lungs diminished bilaterally to auscultation. CARDIOVASCULAR: Irregular rhythm. No edema. ABDOMEN: Soft. Liver and spleen not palpable. No tenderness. No mass palpable. PSYCHIATRY: Alert and oriented x3. Mood and affect normal. INVESTIGATIONS: CBC unremarkable, INR 1.2, sodium 139, chloride 109, carbon dioxide 21, BUN 23. ASSESSMENT: -Acute ST elevation myocardial infarction status post right coronary artery stent placement -Acute hypoxemic respiratory failure secondary to an acute exacerbation of COPD due to tachyphylaxis -New onset atrial fibrillation with rapid ventricular rate, controlled -Essential hypertension -Acute mental status changes with history of confusion, resolved -Acute on Chronic obstructive pulmonary disease in an ex-smoker, improving PLAN: Increase beta lito to 50 mg twice daily, continue Coumadin, along with Plavix , and a baby aspirin with daily PT/ INR monitoring. Continue nebulized treatments. Discharge planning the next 1-2 days. PUTTY REMOVER statement: Patient was seen and examined by nurse practitioner Rhea Garcia and all elements of the case discussed with attending Dr. Nagel <Karlo Nagel - Last Filed: 09/28/16 21:36> Progress Note - Text Date of service 09/27/2016 Attending note: This is a patient admitted with acute ST elevation OR now has a stent to the RCA. Also been in atrial fibrillation. Feels a bit tired. On examination: Lungs-decreased breath sounds, cardiovascular heart slightly irregular, psych AO 3 Investigations: Telemetry shows atrial fibrillation Assessment and plan Acute ST elevation myocardial infarction followed by right coronary artery stent /acute hypoxic respiratory failure second to COPD exacerbation/new onset atrial fibrillation/essential hypertension/acute delirium from above improved/acute COPD exacerbation and a ex-smoker. Thank you very much medication treatment plan. On IV heparin and Coumadin. Care discussed with the patient.
--- NOTE | 2016-09-28 13:28 | P.PN ---
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 09/28/2016: Patient seen in follow-up, no acute overnight events. Patient complains of multiple episodes of diarrhea and this has gone on since admission., had 1 episode yesterday of black tarry stool noted no further episodes. Tolerating 75 -100% of each meal, last BM 09/28/2016. 09/27/2016: Patient sitting up in a chair, appears comfortable. No complaints of chest pain. Appetite is good eating 75-100% of his meals, last BM today, ambulatory within the room to and from the bathroom. Heart rate well controlled in the 90s , remains in atrial fibrillation. REVIEW OF SYSTEMS: Done for constitutional ,cardiovascular, GI, pulmonary with relevant findings as above. CURRENT MEDICATIONS Amiodarone, Lipitor, Plavix, heparin, Lopressor, Coumadin. PHYSICAL EXAM VITAL SIGNS: Temperature 97.5, pulse 106, respiratory rate 18, blood pressure 133/76, oxygen saturation 94% on room air. GENERAL APPEARANCE: Lying in the bed, appears comfortable EYES: Pupils equal. Conjunctiva normal. NECK: JVD not raised. Mass not palpable. RESPIRATORY: Respiratory effort normal. Lungs diminished bilaterally to auscultation. CARDIOVASCULAR: Irregular rhythm. No edema. ABDOMEN: Soft. Liver and spleen not palpable. No tenderness. No mass palpable. PSYCHIATRY: Alert and oriented x3. Mood and affect calm cooperative INVESTIGATIONS: INR 1.4 ASSESSMENT: -Acute ST elevation myocardial infarction status post right coronary artery stent placement -Acute hypoxemic respiratory failure secondary to an acute exacerbation of COPD due to tachyphylaxis -New onset atrial fibrillation/flutter with rapid ventricular rate, controlled -Essential hypertension -Acute mental status changes with history of confusion, resolved -Acute on Chronic obstructive pulmonary disease in an ex-smoker, improving -Diarrhea unspecified PLAN: Patient to be discharged on triple therapy for anticoagulation. Continue beta lito current dose, may need further adjustment as heart rate continues to be in the low 100s. Diarrhea since taking of admission, await C. difficile results. Discharge planning in 1-2 days. FAMILY SUPPORT COORDINATOR statement: Patient was seen and examined by nurse practitioner Rhea Garcia and all elements of the case discussed with attending Dr. Nagel <Karlo Nagel - Last Filed: 09/28/16 21:37> Progress Note - Text Date of service 09/28/2016 Attending note: Patient feeling better. No chest pain. Remains in atrial fibrillation. Has been out of bed On examination: Lungs-decreased breath sounds, heart sounds irregular, psych AO 3 Investigations-INR 1.4 Assessment and plan: Acute [place]/new onset atrial fibrillation. Continue IV heparin and Coumadin. Follow INR. Care discussed with patient and son at the bedside
--- NOTE | 2016-09-28 14:18 | P.PN ---
Subjective Principal diagnosis: acute inferior wall [place] This is an 85-year-old gentleman who presented to the hospital with an acute inferior wall myocardial infarction. 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 Patient was also diagnosed here with new onset atrial fibrillation.his heart rate today is in the 140s with ambulation, 108 to 1 teens at rest.we will increase his dose of beta lito to 50 mg one tablet by mouth twice a day today. Blood pressure today 120/60.INR 1.2. 09/28/2016 Patient seen and examined this morning, feels well overall, denies chest pain or difficulty in breathing. Patient states he has had several diarrhea stools. Feeling weaker than usual, however much better than yesterday. Continues to be in atrial fibrillation with a controlled ventricular response. INR today is 1.4, we will increase the dose of Coumadin to 5 mg daily, we will also give the patient Lovenox 100 mg subcu twice a day for 3 days, if he is discharged home today we will obtain a PT/INR on and make a follow-up appointment in the office on Tuesday Objective - Vital Signs Vital signs: Vital Signs Temp 98.6 F 09/28/16 08:00 Pulse 100 09/28/16 14:08 Resp 18 09/28/16 12:00 BP 114/66 09/28/16 12:00 Pulse Ox 95 09/28/16 12:00 Intake & Output 09/27/16 09/28/16 09/28/16 18:59 06:59 18:59 Intake Total 480 100 Output Total 225 850 Balance 255 -850 100 Weight 97.9 kg 97.6 kg Intake: Oral 480 100 Output: Urine 225 850 Other: Voiding Method Urinal Urinal # Voids 1 1 # Bowel Movements 1 1 - Exam PHYSICAL EXAMINATION: HEENT: [Head is atraumatic, normocephalic. Pupils equal, round. Neck is supple. There is no elevated jugular venous pressure.] HEART EXAMINATION: [Heart S1, S2 normal. No murmur or gallop heard.] CHEST EXAMINATION:[ Lungs are clear to auscultation and precussion. No chest wall tenderness is noted on palpation or with deep breathing.] ABDOMEN: [ Soft, nontender. Bowel sounds are heard. No organomegaly noted]. EXTREMITIES:[ 2+ peripheral pulses with no evidence of peripheral edema and no calf tenderness noted]. NEUROLOGIC [patient is awake, alert and oriented -3.] . - Labs CBC & Chem 7: 09/27/16 05:28 09/27/16 05:28 Labs: Abnormal Lab Results - Last 24 Hours (Table) 09/28/16 Range/Units 05:56 PT 13.7 H (9.0-12.0) sec INR 1.4 H (<1.2) APTT 42.8 H (22.0-30.0) sec Assessment and Plan (1) S/P right coronary artery (RCA) stent placement Status: Acute (2) Paroxysmal a-fib Status: Acute (3) COPD (chronic obstructive pulmonary disease) Status: Acute (4) HTN (hypertension) Status: Acute (5) ST-segment elevation myocardial infarction (STEMI) of inferior wall Status: Acute Plan: From cardiology's perspective, we'll discontinue the IV heparin and start the patient on Lovenox 100 mg subcu twice a day. Increase dose of Coumadin to 5 mg daily. He may be able to be discharged once cleared by the primary. We will obtain PT/INR on and a follow-up appointment with Dr. Wadsworth will be made on Tuesday. DNP note has been reviewed, I agree with a documented findings and plan of care. Patient was seen and examined.
[2016-09-28] MEDS: ENOXAPARIN 100 MG/ML SYRINGE SQ SCH ×2 (17:09→20:57)
[2016-09-28] MEDS ORDERED: WARFARIN 5 MG TAB PO SCH (18:00)
[2016-09-28] MEDS: ATORVASTATIN 80 MG TAB PO SCH (20:57)
[2016-09-29 05:21] VITALS: RESP 16
[2016-09-29] MEDS: PANTOPRAZOLE 40 MG TABLET PO SCH (06:41)
[2016-09-29 06:48] LABS: INR 2.1 (<1.2); Prothrombin Time 20.1 sec (9.0-12.0)
[2016-09-29 07:14] LABS: Anion Gap 9 mmol/L; Blood Urea Nitrogen 20 mg/dL (9-20); Calcium 8.7 mg/dL (8.4-10.2); Carbon Dioxide 24 mmol/L (22-30); Chloride 108 mmol/L (98-107); Glucose 91 mg/dL (74-99); Non-African American GFR(MDRD) 58 (>60 ml/min/1.73 sqM); Potassium 4.3 mmol/L (3.5-5.1); Sodium 141 mmol/L (137-145)
[2016-09-29] MEDS: LEVALBUTEROL NEB 1.25 MG/3 ML AMP INHALATION SCH ×2 (08:20→13:06)
[2016-09-29] MEDS: ASPIRIN 81 MG CHEW PO SCH (09:13)
[2016-09-29] MEDS: CLOPIDOGREL 75 MG TAB PO SCH (09:13)
[2016-09-29] MEDS: AMIODARONE 200 MG TAB PO SCH (09:13)
[2016-09-29] MEDS: METOPROLOL TARTRATE 50 MG TAB PO SCH (09:13)
[2016-09-29 11:34] VITALS: TEMP 97.2
--- NOTE | 2016-09-29 11:47 | P.PN ---
Subjective Patient is doing well. His INR today is therapeutic. No chest discomfort or shortness of breath sitting comfortably in a chair denies any dizzy spells or palpitations On examination his heart rate is 102 beats a minute irregular afebrile 97.2F, blood pressure 123/71, blood pressures have been in the normal range. Irregular heart sounds breath sounds are clear no rhonchi no crackles abdomen soft nontender extremities warm no edema Impression Acute myocardial infarction status post stenting by Dr. Wadsworth Prior to admission he may have had TIA symptoms according to the that he was a bit confused and had slurred speech New diagnosis of atrial fibrillation, persistent Suggest Anticoagulated with Coumadin INR therapeutic may go home without bridging Increase metoprolol to 75 mg twice daily for improved rate control Stop amiodarone, he remains in atrial fibrillation Continue aspirin and Plavix Follow-up with Dr. Wadsworth within 5-7 days Objective - Vital Signs Vital signs: Vital Signs Temp 97.2 F L 09/29/16 08:00 Pulse 104 H 09/29/16 08:30 Resp 16 09/29/16 08:00 BP 123/71 09/29/16 08:00 Pulse Ox 96 09/29/16 08:00 Intake & Output 09/28/16 09/29/16 09/29/16 18:59 06:59 18:59 Intake Total 280 720 300 Output Total 675 Balance 280 45 300 Weight 97.7 kg Intake: IV 0 0.9% Normal Saline 0 Oral 280 720 300 Output: Urine 675 Other: Voiding Method Urinal # Voids 1 - Labs CBC & Chem 7: 09/27/16 05:28 09/29/16 05:48 Labs: Abnormal Lab Results - Last 24 Hours (Table) 09/29/16 09/29/16 Range/Units 05:48 05:48 PT 20.1 H (9.0-12.0) sec INR 2.1 H (<1.2) Chloride 108 H (98-107) mmol/L
--- NOTE | 2016-09-29 11:47 | CDI ---
In responding to this query, please exercise your independent professional judgment. The [facility] Coding Staff and Clinical Documentation Specialists appreciate your assistance in clarifying documentation, maintaining compliance with coding guidelines, accurately documenting patients condition and capturing severity of illness. The fact that a question is asked does not imply that any particular answer is desired or expected. Communication forms are a method of clarifying documentation and are not made part of the Legal Health Record. Thank you in advance for your clarification. Last Revision, April 2015 Ramila Scott [address] [place] [address] Documentation Clarification Form 3rd request- as events happened while you were coving the patient for the attending Date: 09/24/2016 3:24:00 PM From: Mine Garza RN, CCDS Admit Date: 09/23/2016 12:15:00 PM Patient Name: Harrison Thompson Visit Number: [id number] Dr. Abner Burnett Hypotension d/t Pump failure is documented in the progress notes. Patient history/risk factors: Acute Inferior Mi, CHF, ischemic cardiomyopathy, atrial Fib RVR, Acute hypoxic respiratory failure Clinical Indicators: 09/24 Attending: " However patient continued to be in A. fib and was hypotensive hence patient was started on amiodarone patient is currently on a small dose of the vasopressor as well Chest x-ray was reviewed patient would benefit from a small dose of Lasix however patient is hypotensive and comfortable on 5 L supplemental oxygen continue full ICU support hypotension likely due to pump failure." 09/24 Pulmonary: "Suspect post SD mild congestive heart failure, and hypotension , most likely secondary to ischemic cardiomyopathy and LV dysfunction." 09/24 Vitals: HR 91, RR 26-28, B/P 77/49, 88/48, 93% 4l Treatment: IV Levophed drip titrate or B/P In your professional opinion, can you please specify the type of shock if known ? Cardiogenic Shock o Cause Hypovolemic Shock o Cause Other, please specify Unable to determine Please document in your progress notes and discharge summary in order to capture severity of illness and risk of mortality. Include clinical findings that support your diagnosis. FYI: Press F11 to launch patient chart. Place X here if this finding has no clinical significance, is not applicable or if you are not able to provide any additional documentation. MTDD
[2016-09-29] MEDS: ENOXAPARIN 100 MG/ML SYRINGE SQ SCH (12:13)
--- NOTE | 2016-09-29 12:15 | CDI ---
In responding to this query, please exercise your independent professional judgment. The [facility] Coding Staff and Clinical Documentation Specialists appreciate your assistance in clarifying documentation, maintaining compliance with coding guidelines, accurately documenting patients condition and capturing severity of illness. The fact that a question is asked does not imply that any particular answer is desired or expected. Communication forms are a method of clarifying documentation and are not made part of the Legal Health Record. Thank you in advance for your clarification. Last Revision, April 2015 Ramila [place] [address] [facility] [place] [address] Documentation Clarification Form Date: 09/29/2016 11:48:00 AM From: Mine Garza RN, CCDS Admit Date: 09/23/2016 12:15:00 PM Patient Name: Harrison Thompson Visit Number: [id number] Dr. Karlo Nagel/ Rhea Garcia CNP Altered mental status was documented in the H&P and Progress Notes. 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 ASSESSMENT: History of confusion and change in mental status for further evaluation." Labs: BUN 38/32/25/23, Creatinine 1.32/1.4/1.2/1.19, AST 156, ALT 76, Troponin 40.9/30.2 CXR: mild congestion and infiltrate at left lung base Treatment: Treatment of underlying conditions- O2 titration for acute hypoxic respiratory failure, IVF, anticoagulation for atrial Fib, IVF and Levophed for hypotension In your professional opinion, please clarify the etiology of the altered mental status, if known. Encephalopathy (specify Type and Underlying Medical Illness) Dementia (if know, specify Type and if with/without Behavioral Disturbance) Other condition (please specify) Unable to determine Please document in your progress notes and discharge summary in order to capture severity of illness and risk of mortality. Include clinical findings that support your diagnosis. FYI: Press F11 to launch patient chart. Place X here if this finding has no clinical significance, is not applicable or if you are not able to provide any additional documentation. ONEYDAD
[2016-09-29 12:35] VITALS: BP 116/77
[2016-09-29 13:13] VITALS: PULSE 94
--- NOTE | 2016-09-29 14:30 | P.PN ---
Subjective Progress note dated 09/27/2016 This is a 85-year-old patient who was seen by my partner yesterday. He has a history of atrial fibrillation with RVR. Beta lito dose is being adjusted by cardiology. He is asymptomatic and actually was sleeping when I first came into the room. Denies any chest pain shortness breath chest discomfort palpitations nausea vomiting. Other than that the patient seemed be doing relatively well. His a BUN/creatinine seem to be improving. Progress note dated 09/28/2016 85-year-old patient with a history of atrial fibrillation and RVR. Beta lito dose is being adjusted by cardiology. Doing relatively well. Mostly asymptomatic. Hoping to be discharged home soon. Denies any chest pain or shortness of breath chest discomfort palpitations nausea vomiting or other complaints for that matter. Seemed be doing relatively well. Likely just waiting for his Coumadin to be adjusted and his PT INR to be therapeutic. Of mag doing relatively well. Feeling well. Progress note dated 09/29/2016 85-year-old male with history of atrial fibrillation and RVR. The patient is doing well. Feeling well. Hopefully discharge home soon. Denies any chest pain chest discomfort shortness of breath cough wheezing nausea vomiting diarrhea. Seems like he is at baseline. He is waiting for his Coumadin to be adjusted appropriately and his INR to be between 2 and 3. The patient's feeling well otherwise. Eating well. His been up to the bathroom and his walking the hallways without difficulty. Objective - Vital Signs Vital signs: Vital Signs Temp 97.2 F L 09/29/16 08:00 Pulse 94 09/29/16 13:13 Resp 16 09/29/16 12:00 BP 116/77 09/29/16 12:00 Pulse Ox 98 09/29/16 12:00 Intake & Output 09/28/16 09/29/16 09/29/16 18:59 06:59 18:59 Intake Total 280 720 300 Output Total 675 300 Balance 280 45 0 Weight 97.7 kg Intake: IV 0 0.9% Normal Saline 0 Oral 280 720 300 Output: Urine 675 300 Other: Voiding Method Urinal # Voids 1 - Exam No acute distress, oriented 3. HEENT examination is grossly unremarkable. Mucous membranes are moist. No oral lesions. Neck supple. Full range of motion. No adenopathy or thyromegaly. Neck veins are flat. Cardiovascular examination reveals some irregularity to his heart rhythm. I'm not sure that he still in atrial fibrillation. Heart rate about 90. S1-S2 normal. No murmur. No S3-S4. Lungs reveal mostly clear breath sounds. No wheezes or rhonchi. No crackles. Abdomen soft bowel sounds are heard. No masses or tenderness. Extremities are intact. No cyanosis clubbing or edema. Skin without rash. Neurologic examination is nonfocal, and brief. - Labs CBC & Chem 7: 09/27/16 05:28 09/29/16 05:48 Labs: Abnormal Lab Results - Last 24 Hours (Table) 09/29/16 09/29/16 Range/Units 05:48 05:48 PT 20.1 H (9.0-12.0) sec INR 2.1 H (<1.2) Chloride 108 H (98-107) mmol/L Assessment and Plan (1) ST-segment elevation myocardial infarction (STEMI) of inferior wall Status: Acute (2) CHF (congestive heart failure) Status: Acute (3) COPD (chronic obstructive pulmonary disease) Status: Acute (4) Atrial fibrillation Status: Acute Plan: Plan dated 09/27/2016 The patient seemed be doing well. Was in the ICU yesterday. He was transferred out. The patient stable. Actually sleeping when I first came into the room. Denies any chest pain chest discomfort palpitations irregular heartbeat shortness of breath cough wheezing or any other complaints for that matter. We'll continue to follow. Plan dated 09/28/2016 The patient's doing well. Was in ICU on Tuesday. Transferred out that day. Seems to be relatively stable. The patient's on IV heparin. We for his Coumadin to be therapeutic. We'll continue to follow. Prognosis is guarded. Plan dated 09/29/2016 Discharge plans are underway. The patient seemed be doing relatively well. Stable from the pulmonary cardiology standpoint at this time. Eating well. Ambulating. No major complaints. We'll follow along she still in the hospital. Not sure about discharge date. Time with Patient: Less than 30
--- NOTE | 2016-09-29 15:44 | P.DS ---
<Rhea Garcia - Last Filed: 09/29/16 15:23> Providers Date of admission: 09/23/16 12:15 Expected date of discharge: 09/29/16 Attending physician: Karlo Nagel Consults: 09/23/16 13:49 Consult Physician Routine Consulting Provider: Cardiology Lalito Consult Reason/Comments: Post Interventional patient Do you want consulting provider notified?: Already Contacted 09/24/16 08:31 Consult Physician Routine Consulting Provider: Ariana Schroeder Reason/Comments: shortness Do you want consulting provider notified?: Yes Primary care physician: Cezar Villela [facility] Course: FINAL DIAGNOSES: -Acute ST elevation myocardial infarction status post right coronary artery stent placement -Acute hypoxemic respiratory failure secondary to an acute exacerbation of COPD due to tachyphylaxis -Paroxysmal atrial fibrillation/flutter with rapid ventricular rate, controlled -Essential hypertension -Acute delirium, resolved -Acute on Chronic obstructive pulmonary disease in an ex-smoker, improving -Diarrhea unspecified HOSPTIAL COURSE: 85-year-old gentleman who presented to [facility] with interscapular pain found ST segment elevation on EKG[facility] the RCA.. Developed atrial fibrillation/flutter postprocedure, heparin drip initiated, along with beta lito and amiodarone. Coumadin initiated Received Lovenox bridging. . A. fib/flutter continues however rate controlled, INR 2.1. Alert and oriented 3 through his entire hospital stay, no episodes of confusion or delirium. Patient ambulatory in the room and [facility], tolerating his diet, last BM 09/28/2016. Overall condition improved and therefore patient is stable for discharge. CONSULTANTS: [facility] Dr. Ariana Schroeder of pulmonology PHYSICAL EXAM: CARDIOVASCULAR: Irregular rhythm, controlled rate, no edema noted RESPIRATORY: Effort normal, lung sounds diminished bilaterally. Patient was seen and examined by nurse practitioner Rhea Garcia in all elements of the case discussed with attending Dr. Nagel DISPOSITION: Home with [facility], and the care of his family. Plan - Discharge Summary New Discharge Prescriptions: New Amiodarone [Cordarone] 400 mg PO DAILY #30 tab Atorvastatin [Lipitor] 80 mg PO HS #30 tab Clopidogrel [Plavix] 75 mg PO DAILY #30 tab Levalbuterol Tartrate [Xopenex Hfa Inhaler] 1 puff INHALATION TID #1 inhaler Losartan [Cozaar] 25 mg PO DAILY #30 tab Metoprolol Tartrate [Lopressor] 50 mg PO BID #60 tab Nitroglycerin Sl Tabs [Nitrostat] 0.4 mg SUBLINGUAL Q5M PRN #25 tab PRN Reason: Chest Pain Warfarin [Coumadin] 5 mg PO DAILY@1800 #30 tab Continue Gipsy-3/Dha/Epa/Fish Oil [Fish Oil EC 1,200 mg Softgel] 1 cap PO QAM Multivitamins, Thera [Multivitamin (formulary)] 1 tab PO DAILY Aspirin EC [Ecotrin Low Dose] 81 mg PO Q48H Biotin 5 mg PO QAM Discontinued Losartan Potassium [Cozaar] 100 mg PO QAM Discharge Medication List Aspirin EC [Ecotrin Low Dose] 81 mg PO Q48H 09/23/16 [History] Biotin 5 mg PO QAM 09/23/16 [History] Multivitamins, Thera [Multivitamin (formulary)] 1 tab PO DAILY 09/23/16 [History ] Gipsy-3/Dha/Epa/Fish Oil [Fish Oil EC 1,200 mg Softgel] 1 cap PO QAM 09/23/16 [ History] Amiodarone [Cordarone] 400 mg PO DAILY #30 tab 09/29/16 [Rx] Atorvastatin [Lipitor] 80 mg PO HS #30 tab 09/29/16 [Rx] Clopidogrel [Plavix] 75 mg PO DAILY #30 tab 09/29/16 [Rx] Levalbuterol Tartrate [Xopenex Hfa Inhaler] 1 puff INHALATION TID #1 inhaler [Rx] Losartan [Cozaar] 25 mg PO DAILY #30 tab 09/29/16 [Rx] Metoprolol Tartrate [Lopressor] 50 mg PO BID #60 tab 09/29/16 [Rx] Nitroglycerin Sl Tabs [Nitrostat] 0.4 mg SUBLINGUAL Q5M PRN #25 tab 09/29/16 [Rx ] Warfarin [Coumadin] 5 mg PO DAILY@1800 #30 tab 09/29/16 [Rx] Follow up Appointment(s)/Referral(s): pcp, [Other] - 3 Days (pt informed to make appt) Puneet Enriquez MD [STAFF PHYSICIAN] - 10/07/16 2:45 pm (appt maded for 09/27/16 2: 45pm) [facility], [NON-STAFF] - (home health care ) Ambulatory/Diagnostic Orders: Basic Metabolic Panel [LAB.AMB] Time Frame: 3 Days, Location: Determined By Patient Complete Blood Count w/diff [LAB.AMB] Time Frame: 3 Days, Location: Determined By Patient Prothrombin Time INR [LAB.AMB] Time Frame: 3 Days, Location: Determined By Patient Patient Instructions/Handouts: *Surgery [facility] - After Heart Catheterization - Route Clerk Instructions, Atrial Fibrillation (DC), Electrophysiology Study (DC), Heart Healthy Diet (DC) Discharge Disposition: HOME SELF-CARE <Karlo Nagel - Last Filed: 09/29/16 23:02> Hospital Course: Attending note. Date of service-09/29/2069 This patient was seen and examined by me . I reviewed the note of my nurse practitioner, Ms. Garcia. Discussed with her, additional findings as below. Doing well. No chest pain or shortness of breath. A. fib controlled. On examination: Lungs-clear, cardiovascular-irregular heart sounds Investigations: INR 2.1 Assessment and plan: Acute NH with stent to RCA, persistent atrial fibrillation. Anticoagulated. Stable to go home. Discussed with the patient and brother at the bedside. Discharge planning more than 35 minutes
== END 2016-09-29 16:32 | disposition home health service (06) | DRG 246 ==
LOC: 6ICU 12:15 → 6SEL 09-26 13:39
PROVIDERS: ADMIT Hospitalist; ATTEND Hospitalist
PROC: 4A023N7 Measurement of Cardiac Sampling and Pressure, Left Heart, Percutaneous Approach (ICD-10-PCS; 2016-09-23)
PROC: B2111ZZ Fluoroscopy of Multiple Coronary Arteries using Low Osmolar Contrast (ICD-10-PCS; 2016-09-23)
PROC: 3E073PZ Introduction of Platelet Inhibitor into Coronary Artery, Percutaneous Approach (ICD-10-PCS; 2016-09-23)
PROC: 02C03ZZ Extirpation of Matter from Coronary Artery, One Artery, Percutaneous Approach (ICD-10-PCS; principal; 2016-09-23 12:15)
PROC: 027034Z Dilation of Coronary Artery, One Artery with Drug-eluting Intraluminal Device, Percutaneous Approach (ICD-10-PCS; 2016-09-23 12:15)
DX: I21.19 ST elevation (STEMI) myocardial infarction involving other coronary artery of inferior wall (principal); I50.31 Acute diastolic (congestive) heart failure; J96.01 Acute respiratory failure with hypoxia; R57.0 Cardiogenic shock; I48.92 Unspecified atrial flutter; J44.1 Chronic obstructive pulmonary disease with (acute) exacerbation; F05 Delirium due to known physiological condition; I48.1 Persistent atrial fibrillation; I25.5 Ischemic cardiomyopathy; I11.0 Hypertensive heart disease with heart failure; G62.9 Polyneuropathy, unspecified; E78.5 Hyperlipidemia, unspecified; I25.10 Atherosclerotic heart disease of native coronary artery without angina pectoris; R19.7 Diarrhea, unspecified; Z79.82 Long term (current) use of aspirin; Z79.899 Other long term (current) drug therapy; Z87.891 Personal history of nicotine dependence; Z88.2 Allergy status to sulfonamides; Z88.0 Allergy status to penicillin; Z88.8 Allergy status to other drugs, medicaments and biological substances; Z82.49 Family history of ischemic heart disease and other diseases of the circulatory system
CPT/HCPCS: 71010; 80048; 80053; 82272; 83735; 83880; 84100; 84484; 85025; 85610; 85730; 87324; 93306; 93458; 94640; 94760

== ENCOUNTER → 2017-02-14 | Outpatient (CLI) | payer OTHER ==
[2017-02-14 13:03] LABS: HCT 51.3 % (39.0-53.0); HGB 15.9 gm/dL (13.0-17.5); MCH 30.8 pg (25.0-35.0); MCV 99.4 fL (80.0-100.0); Platelet Count 192 k/uL (150-450); RBC 5.17 m/uL (4.30-5.90); RDW 14.6 % (11.5-15.5); WBC 7.4 k/uL (3.8-10.6)
[2017-02-14 13:59] LABS: Calcium 9.6 mg/dL (8.4-10.2); Potassium 4.3 mmol/L (3.5-5.1)
== END | disposition home or self-care (01) ==
LOC: LABWHC1 10:49
PROVIDERS: ATTEND Internal Medicine Clinical Cardiac Electrophysiology
DX: I48.0 Paroxysmal atrial fibrillation (principal); I49.5 Sick sinus syndrome
CPT/HCPCS: 36415; 80048; 85027

== ENCOUNTER 2017-02-21 13:02 | Day surgery (SDC) | payer BC, MEDICARE, OTHER ==
[2017-02-10 16:38] VITALS: BMI 28.5
[2017-02-21] MEDS ORDERED: CLINDAMYCIN 600 MG in SODIUM CHLORIDE 0.9% IRRIGATIO 250 ML IRRIGATION ONE (13:30)
[2017-02-21] MEDS ORDERED: CLINDAMYCIN 900 MG in DEXTROSE 5% IN WATER 50 ML IVPB ONE ×2 (13:30)
[2017-02-21] MEDS: SODIUM CHLORIDE 0.9% 1,000 ML IV SCH (13:44)
[2017-02-21] MEDS ORDERED: MIDAZOLAM 2 MG/2 ML VIAL ONE (16:55)
[2017-02-21] MEDS ORDERED: MIDAZOLAM 2 MG/2 ML VIAL IV ONE (16:58)
[2017-02-21] MEDS ORDERED: LIDOCAINE 1% INJ 10MG/ML (20 ML MDV) SQ ONE (17:03)
[2017-02-21] MEDS ORDERED: fentaNYL (PF) 50 MCG/ML 2 ML AMP ONE (17:04)
[2017-02-21] MEDS ORDERED: fentaNYL (PF) 50 MCG/ML 2 ML AMP IV ONE (17:10)
[2017-02-21] MEDS: LIDOCAINE 1% INJ 10MG/ML (20 ML MDV) SQ ONE ×2 (17:10→17:21)
[2017-02-21] MEDS ORDERED: IOHEXOL 350 MG/ML 50ML BOTTLE INJ ONE (17:17)
[2017-02-21] MEDS ORDERED: HYDROcodone/APAP 5-325MG 1 EACH TAB PO PRN (17:54)
--- NOTE | 2017-02-21 18:34 | LTR ---
DATE OF SERVICE: 02/21/[address] Quinn: I had the pleasure of seeing Mr. Harrison Thompson in electrophysiology followup. Mr. Thompson was referred by Dr. 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 He underwent a dual chamber pacemaker implantation successfully without any acute complications. He will continue to follow up with you and Dr. Enriquez as before. Beta blockers will be maximized. Thank you for entrusting me in the care of your patient. Warm regards, Sincerely, MMODL / IJN: [id number] /
--- NOTE | 2017-02-21 18:34 | PCN ---
PROCEDURE NOTE Harrison Thompson is an 86-year-old, male patient, who has known coronary artery disease status post stenting who was on beta blockers. He developed severe symptomatic bradycardia. 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 Needs, a beta lito for coronary artery disease management as well as for atrial fibrillation management. He is brought in for dual-chamber pacemaker implantation followed by reinstitution of beta lito therapy. DESCRIPTION OF PROCEDURE: The patient is brought to the EP lab in a fasting state. Written informed consent was obtained prior to the procedure. The left shoulder area was prepped and draped as per protocol. 1% lidocaine was used for local anesthesia. A 3 cm incision was made parallel to the deltopectoral groove, about 1.5 cm medial to it. The incision was carried down to the level of the pectoralis muscle. A subfascial pocket was made. Hemostasis was assured. The left axillary vein was accessed at 2 point under fluoroscopy and via appropriately-sized introducer sheaths 2 leads were positioned in the right heart. The atrial lead was a passive lead [employer] 45 cm model #7735, serial #[id number]. The P waves were 5 mV, pacing threshold 0.6V at 0.4 milliseconds. Pacing impedance of 606 ohms, 10 V test was negative. Next the RV lead was [employer] passive lead [employer] 59 cm in length. Model #7732 serial #[id number]. This was positioned in the RV apex. R-waves 10 mV, pacing threshold 0.6 V at 0.4 milliseconds. Pacing impedance was 740 ohms, 10 V test negative. Both leads were secured to the underlying pectoralis fascia using 2 nonabsorbable sutures. Pocket was irrigated with antibiotic solution. Leads were connected to the generator (zePASS DR model number L110 serial #[id number]) leads and generator were then placed in the subfascial pocket the wound was closed in 3 layers and dressed per protocol. RESULTS: Successful dual chamber pacemaker implantation for management of symptomatic sick sinus syndrome, tachy-adrian syndrome and paroxysmal atrial fibrillation with RVR. PLAN: Restart beta blockers. Continue anticoagulation. Continue antiplatelet therapy and statins. . Please note, the patient was seen by Dr. Enriquez. Permanent pacemaker was recommended by him for management of tachy-adrian syndrome. The patient will follow up with him in the future. MMGEOFFREY / IJN: [id number] /
[2017-02-21] MEDS ORDERED: ACETAMINOPHEN IV (For NPO) 1,000 MG in EMPTY BAG 1 BAG IVPB ONE (19:00)
[2017-02-21] MEDS: METOPROLOL TARTRATE 12.5 MG TAB PO SCH (20:43)
[2017-02-21] MEDS ORDERED: AMIODARONE 100 MG TAB PO SCH (21:00)
[2017-02-21] MEDS ORDERED: ATORVASTATIN 80 MG TAB PO SCH (21:00)
[2017-02-21] MEDS ORDERED: RIVAROXABAN 15 MG TAB PO SCH (21:00)
[2017-02-21] MEDS: CLINDAMYCIN 900 MG in DEXTROSE 5% IN WATER 50 ML IVPB SCH ×2 (21:58)
[2017-02-22] MEDS ORDERED: ACETAMINOPHEN TAB 325 MG TAB PO PRN (01:00)
[2017-02-22 03:38] VITALS: PULSE 50
[2017-02-22] MEDS: CLINDAMYCIN 900 MG in DEXTROSE 5% IN WATER 50 ML IVPB SCH ×6 (03:54→15:20)
[2017-02-22] MEDS: SODIUM CHLORIDE 0.9% 1,000 ML IV SCH (04:57)
--- NOTE | 2017-02-22 07:45 | XR ---
EXAMINATION TYPE: XR chest 2V DATE OF EXAM: 02/22/2017 COMPARISON: Prior chest x-ray 09/25/2016 HISTORY: Lead placement check TECHNIQUE: Frontal and lateral views of the chest are obtained. FINDINGS: There are prominent lung volumes possibly representing COPD. Interstitium is increased. Ca rdiac mediastinal silhouette, pulmonary vascularity and jose ramon are stable. Interval placement of a gene rator the left pectoral region, leads in the right atrium and ventricle. No evident pneumothorax or p leural effusion. IMPRESSION: No evident complication status post pacemaker placement. Correlate for possible luminary venous hypertension and interstitial edema.
[2017-02-22 07:56] VITALS: RESP 18
[2017-02-22] MEDS: METOPROLOL TARTRATE 12.5 MG TAB PO SCH (08:49)
[2017-02-22] MEDS ORDERED: LOSARTAN 25 MG TAB PO SCH (09:00)
[2017-02-22] MEDS ORDERED: FUROSEMIDE 20 MG TAB PO SCH (09:00)
[2017-02-22] MEDS ORDERED: CLOPIDOGREL 75 MG TAB PO SCH (09:00)
[2017-02-22 11:33] VITALS: BP 122/65; TEMP 97.2
--- NOTE | 2017-02-24 09:45 | P.PCN ---
Date of Procedure: 02/21/17 Preoperative Diagnosis: Patient underwent EP procedure under conscious sedation/moderate sedation, monitoring of the level of consciousness and physiologic parameters including but not limited to vital signs and oxygenation. Patient tolerated the procedure well without any acute complications. Start time: 1700 Stop time: 1750
--- NOTE | 2017-03-02 12:50 | DS ---
DISCHARGE SUMMARY This is an 86-year-old male patient of Dr. Enriquez referred for dual-chamber pacemaker implantation for severe bradycardia, sick sinus syndrome, tachy-adrian syndrome, and atrial fibrillation with RVR. He did well overnight. His heart rate and blood pressure are within normal range. His pacemaker site is healing well. His blood pressure is 129/65 mmHg. Heart rate in the 80s. Afebrile 97.3 degrees Fahrenheit. Heart sounds S1, S2 normal. No murmurs, no gallops, no rub. Pacemaker site has healed well. There is no hematoma. Extremities are warm, no edema. IMPRESSION: 1. Paroxysmal atrial fibrillation with RVR. 2. Sick sinus syndrome with severe bradycardia. 3. Tachy-adrian syndrome. PLAN: Discharge home today and follow up in the [facility] in 5 days and follow up with Dr. Enriquez as before. Beta blockers can now be restarted. MMODL / IJN: [id number] /
== END 2017-02-22 16:43 | disposition home or self-care (01) ==
LOC: CATHEP 13:02 → 3OBS 17:50 → CATHEP 02-22 16:43
PROVIDERS: ATTEND Internal Medicine Clinical Cardiac Electrophysiology
DX: I49.5 Sick sinus syndrome (principal); I48.0 Paroxysmal atrial fibrillation; I25.10 Atherosclerotic heart disease of native coronary artery without angina pectoris; Z95.5 Presence of coronary angioplasty implant and graft; I10 Essential (primary) hypertension; E78.5 Hyperlipidemia, unspecified; Z79.01 Long term (current) use of anticoagulants; Z79.02 Long term (current) use of antithrombotics/antiplatelets; Z79.899 Other long term (current) drug therapy; Z88.0 Allergy status to penicillin; Z88.2 Allergy status to sulfonamides; Z88.8 Allergy status to other drugs, medicaments and biological substances; Z87.891 Personal history of nicotine dependence
CPT/HCPCS: 33208; 71046; C1785; C1898; J2250; J2001; J3010; J0131; Q9967

== ENCOUNTER 2020-02-22 12:41 | Inpatient (IN) | payer OTHER, MEDICARE ==
[2020-02-22] MEDS ORDERED: IPRATROPIUM-ALBUTEROL 3 ML NEB INHALATION STA (13:41)
--- NOTE | 2020-02-22 13:41 | ED ---
General Adult HPI - General Chief complaint: Shortness of Breath Stated complaint: SOB Time Seen by Provider: 02/22/20 12:48 Source: patient, family, RN notes reviewed Mode of arrival: wheelchair Limitations: physical limitation - History of Present Illness Initial comments: Patient is a pleasant 89-year-old male presenting to the emergency department w ith stress of breath and fatigue. Onset of symptoms was a week or so ago. Patient has dyspnea but does increase with exertion. No cough. No chest pain. Patient is having some Swelling. Patient does have history of similar symptoms previously and was getting better however this has worsened over the past week. Patient has been fatigued and did have a couple falls recently this week. No serious injury. - Related Data Home Medications Medication Instructions Recorded Confirmed Biotin 5 mg PO QAM 09/23/16 02/21/17 Multivitamins, Thera [Multivitamin 1 tab PO DAILY 09/23/16 02/21/17 (formulary)] Amiodarone [Cordarone] 100 mg PO HS 02/10/17 02/21/17 Co Q 10(Dose Unknown) 1 cap PO DAILY 02/10/17 02/21/17 Furosemide [Lasix] 20 mg PO DAILY 02/10/17 02/21/17 L.acidoph,Paracasei, B.lactis 1 each PO DAILY 02/10/17 02/21/17 [Probiotic] Levalbuterol Tartrate [Xopenex Hfa 1 puff INHALATION TID PRN 02/10/17 02/10/17 Inhaler] Metoprolol Tartrate [Lopressor] 12.5 mg PO BID 02/10/17 02/21/17 Rivaroxaban [Xarelto] 15 mg PO HS 02/10/17 02/21/17 Ubiquinol(Dose Unknown) 1 tab PO DAILY 02/10/17 02/21/17 Previous Rx's Medication Instructions Recorded Atorvastatin [Lipitor] 80 mg PO HS #30 tab 09/29/16 Clopidogrel [Plavix] 75 mg PO DAILY #30 tab 09/29/16 Losartan [Cozaar] 25 mg PO DAILY #30 tab 09/29/16 Nitroglycerin Sl Tabs [Nitrostat] 0.4 mg SUBLINGUAL Q5M PRN #25 tab 09/29/16 Allergies Allergy/AdvReac Type Severity Reaction Status Date / Time Penicillins Allergy Anaphylaxis Verified 02/22/20 12:47 prednisone Allergy Anaphylaxis Verified 02/22/20 12:47 Sulfa (Sulfonamide Allergy Anaphylaxis Verified 02/22/20 12:47 Antibiotics) Review of Systems ROS Statement: Those systems with pertinent positive or pertinent negative responses have been documented in the HPI. ROS Other: All systems not noted in ROS Statement are negative. Constitutional: Denies: fever Eyes: Denies: eye pain ENT: Denies: ear pain Respiratory: Reports: dyspnea Cardiovascular: Denies: chest pain Endocrine: Reports: fatigue Gastrointestinal: Denies: abdominal pain Genitourinary: Denies: dysuria Musculoskeletal: Denies: back pain Skin: Reports: rash (Chronic erythema) Neurological: Denies: headache Past Medical History Past Medical History: Hyperlipidemia, Hypertension, Myocardial Infarction ([place]), Pneumonia Additional Past Medical History / Comment(s): Peripheral Neuropathy , see Dr Hever Kingsley&Cayden, has shakes from [place],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 but is using straight cane, 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 per spouse Last Myocardial Infarction Date:: 2016 History of Any Multi-Drug Resistant Organisms: None Reported Past Surgical History: Heart Catheterization With Stent, Hernia Repair Additional Past Surgical History / Comment(s): 2 stents, rosa m cataracts Past Anesthesia/Blood Transfusion Reactions: Family History of Problems w/ Anesthesia Additional Past Anesthesia/Blood Transfusion Reaction / Comment(s): family and self- diff coming out per spouse Date of Last Stent Placement:: 2016 Past Psychological History: No Psychological Hx Reported Smoking Status: Former smoker Past Alcohol Use History: None Reported Past Drug Use History: None Reported - Past Family History Mother History Unknown: Yes Family Medical History: Myocardial Infarction ([place]) Father History Unknown: Yes Family Medical History: Cancer General Exam Limitations: physical limitation General appearance: alert, in no apparent distress Head exam: Present: atraumatic Eye exam: Present: normal appearance Neck exam: Present: normal inspection Respiratory exam: Present: wheezes Cardiovascular Exam: Present: regular rate, normal rhythm GI/Abdominal exam: Present: soft. Absent: tenderness Extremities exam: Present: pedal edema. Absent: calf tenderness Neurological exam: Present: alert. Absent: motor sensory deficit Psychiatric exam: Present: normal affect, normal mood Skin exam: Present: erythema (Left tanner) Course Vital Signs 02/22/20 02/22/20 02/22/20 12:43 12:59 13:05 Temperature 98.6 F 97.6 F Pulse Rate 83 76 Respiratory 22 20 20 Rate Blood Pressure 147/72 132/66 O2 Sat by Pulse 95 95 Oximetry EKG Findings - EKG Comments: EKG Findings:: Sinus rhythm at 77. VA 178. QRS 80. QT 444. QTC 502. Left axis. Inferior Q waves. No acute ST change. Medical Decision Making - Medical Decision Making Patient reevaluated. Patient and family updated. Case discussed with Dr. Pereira, who will admit for Dr. Nagel, who admits for Dr. Rajput - Lab Data Result diagrams: 02/22/20 14:07 02/22/20 14:07 Lab Results 02/22/20 02/22/20 02/22/20 Range/Units 14:07 14:07 14:07 WBC 10.0 (3.8-10.6) k/uL RBC 3.92 L (4.30-5.90) m/uL Hgb 12.8 L (13.0-17.5) gm/dL Hct 37.2 L (39.0-53.0) % MCV 94.8 (80.0-100.0) fL MCH 32.5 (25.0-35.0) pg MCHC 34.3 (31.0-37.0) g/dL RDW 13.7 (11.5-15.5) % Plt Count 208 (150-450) k/uL MPV 9.1 Neutrophils % 74 % Lymphocytes % 10 % Monocytes % 10 % Eosinophils % 2 % Basophils % 1 % Neutrophils # 7.4 (1.3-7.7) k/uL Lymphocytes # 1.0 (1.0-4.8) k/uL Monocytes # 1.0 (0-1.0) k/uL Eosinophils # 0.2 (0-0.7) k/uL Basophils # 0.1 (0-0.2) k/uL PT 12.7 H (9.0-12.0) sec INR 1.2 H (<1.2) APTT 32.5 H (22.0-30.0) sec Sodium 137 (137-145) mmol/L Potassium 3.9 (3.5-5.1) mmol/L Chloride 103 (98-107) mmol/L Carbon Dioxide 26 (22-30) mmol/L Anion Gap 8 mmol/L BUN 30 H (9-20) mg/dL Creatinine 2.42 H (0.66-1.25) mg/dL Est GFR (CKD-EPI)AfAm 27 (>60 ml/min/1.73 sqM) Est GFR (CKD-EPI)NonAf 23 (>60 ml/min/1.73 sqM) Glucose 100 H (74-99) mg/dL Plasma Lactic Acid Rito (0.7-2.0) mmol/L Calcium 8.6 (8.4-10.2) mg/dL Total Bilirubin 0.9 (0.2-1.3) mg/dL AST 27 (17-59) U/L ALT 15 (4-49) U/L Alkaline Phosphatase 91 (38-126) U/L Troponin I (0.000-0.034) ng/mL NT-Pro-B Natriuret Pep pg/mL Total Protein 6.9 (6.3-8.2) g/dL Albumin 3.5 (3.5-5.0) g/dL Urine Color Urine Appearance (Clear) Urine pH (5.0-8.0) Ur Specific [place] (1.001-1.035) Urine Protein (Negative) Urine Glucose (UA) (Negative) Urine Ketones (Negative) Urine Blood (Negative) Urine Nitrite (Negative) Urine Bilirubin (Negative) Urine Urobilinogen (<2.0) mg/dL Ur Leukocyte Esterase (Negative) Coronavirus (PCR) (Not Detectd) 02/22/20 02/22/20 02/22/20 Range/Units 14:07 14:07 14:07 WBC (3.8-10.6) k/uL RBC (4.30-5.90) m/uL Hgb (13.0-17.5) gm/dL Hct (39.0-53.0) % MCV (80.0-100.0) fL MCH (25.0-35.0) pg MCHC (31.0-37.0) g/dL RDW (11.5-15.5) % Plt Count (150-450) k/uL MPV Neutrophils % % Lymphocytes % % Monocytes % % Eosinophils % % Basophils % % Neutrophils # (1.3-7.7) k/uL Lymphocytes # (1.0-4.8) k/uL Monocytes # (0-1.0) k/uL Eosinophils # (0-0.7) k/uL Basophils # (0-0.2) k/uL PT (9.0-12.0) sec INR (<1.2) APTT (22.0-30.0) sec Sodium (137-145) mmol/L Potassium (3.5-5.1) mmol/L Chloride (98-107) mmol/L Carbon Dioxide (22-30) mmol/L Anion Gap mmol/L BUN (9-20) mg/dL Creatinine (0.66-1.25) mg/dL Est GFR (CKD-EPI)AfAm (>60 ml/min/1.73 sqM) Est GFR (CKD-EPI)NonAf (>60 ml/min/1.73 sqM) Glucose (74-99) mg/dL Plasma Lactic Acid Rito 1.3 (0.7-2.0) mmol/L Calcium (8.4-10.2) mg/dL Total Bilirubin (0.2-1.3) mg/dL AST (17-59) U/L ALT (4-49) U/L Alkaline Phosphatase (38-126) U/L Troponin I <0.012 (0.000-0.034) ng/mL NT-Pro-B Natriuret Pep 1000 pg/mL Total Protein (6.3-8.2) g/dL Albumin (3.5-5.0) g/dL Urine Color Urine Appearance (Clear) Urine pH (5.0-8.0) Ur Specific [place] (1.001-1.035) Urine Protein (Negative) Urine Glucose (UA) (Negative) Urine Ketones (Negative) Urine Blood (Negative) Urine Nitrite (Negative) Urine Bilirubin (Negative) Urine Urobilinogen (<2.0) mg/dL Ur Leukocyte Esterase (Negative) Coronavirus (PCR) (Not Detectd) 02/22/20 02/22/20 Range/Units 14:07 14:12 WBC (3.8-10.6) k/uL RBC (4.30-5.90) m/uL Hgb (13.0-17.5) gm/dL Hct (39.0-53.0) % MCV (80.0-100.0) fL MCH (25.0-35.0) pg MCHC (31.0-37.0) g/dL RDW (11.5-15.5) % Plt Count (150-450) k/uL MPV Neutrophils % % Lymphocytes % % Monocytes % % Eosinophils % % Basophils % % Neutrophils # (1.3-7.7) k/uL Lymphocytes # (1.0-4.8) k/uL Monocytes # (0-1.0) k/uL Eosinophils # (0-0.7) k/uL Basophils # (0-0.2) k/uL PT (9.0-12.0) sec INR (<1.2) APTT (22.0-30.0) sec Sodium (137-145) mmol/L Potassium (3.5-5.1) mmol/L Chloride (98-107) mmol/L Carbon Dioxide (22-30) mmol/L Anion Gap mmol/L BUN (9-20) mg/dL Creatinine (0.66-1.25) mg/dL Est GFR (CKD-EPI)AfAm (>60 ml/min/1.73 sqM) Est GFR (CKD-EPI)NonAf (>60 ml/min/1.73 sqM) Glucose (74-99) mg/dL Plasma Lactic Acid Rito (0.7-2.0) mmol/L Calcium (8.4-10.2) mg/dL Total Bilirubin (0.2-1.3) mg/dL AST (17-59) U/L ALT (4-49) U/L Alkaline Phosphatase (38-126) U/L Troponin I (0.000-0.034) ng/mL NT-Pro-B Natriuret Pep pg/mL Total Protein (6.3-8.2) g/dL Albumin (3.5-5.0) g/dL Urine Color Yellow Urine Appearance Clear (Clear) Urine pH 5.0 (5.0-8.0) Ur Specific [place] 1.015 (1.001-1.035) Urine Protein Trace H (Negative) Urine Glucose (UA) Negative (Negative) Urine Ketones Negative (Negative) Urine Blood Negative (Negative) Urine Nitrite Negative (Negative) Urine Bilirubin Negative (Negative) Urine Urobilinogen <2.0 (<2.0) mg/dL Ur Leukocyte Esterase Negative (Negative) Coronavirus (PCR) Not Detected (Not Detectd) - Radiology Data Radiology results: image reviewed (Chest x-ray concerning for CHF.) Disposition Clinical Impression: CHF (congestive heart failure), Renal insufficiency Disposition: ADMITTED IP TO THIS HOSP Is patient prescribed a controlled substance at d/c from ED?: No Referrals: Mateo Whitman MD [Primary Care Provider] - 1-2 days Decision Time: 15:09
[2020-02-22 14:28] LABS: Basophils # (A) 0.1 k/uL (0-0.2); Basophils % (A) 1 %; Eosinophils # (A) 0.2 k/uL (0-0.7); Eosinophils % (A) 2 %; HCT 37.2 % (39.0-53.0); HGB 12.8 gm/dL (13.0-17.5); Lymphocytes % (A) 10 %; MCH 32.5 pg (25.0-35.0); MCHC 34.3 g/dL (31.0-37.0); MCV 94.8 fL (80.0-100.0); Mean Platelet Volume 9.1; Monocytes % (A) 10 %; Neutrophils # (A) 7.4 k/uL (1.3-7.7); Neutrophils % (A) 74 %; Platelet Count 208 k/uL (150-450); RBC 3.92 m/uL (4.30-5.90); RDW 13.7 % (11.5-15.5)
[2020-02-22 14:31] LABS: Appearance,Urine Clear (Clear); Bilirubin,Urine Negative (Negative); Blood,Urine Negative (Negative); Color,Urine Yellow; Glucose,Urine (UA) Negative (Negative); Ketones,Urine Negative (Negative); Leukocyte Esterase,Urine Negative (Negative); Nitrite,Urine Negative (Negative); Protein,Urine Trace (Negative); Specific Gravity,Urine 1.015 (1.001-1.035); Urobilinogen,Urine <2.0 mg/dL (<2.0)
--- NOTE | 2020-02-22 14:38 | XR ---
EXAMINATION TYPE: XR chest 2V DATE OF EXAM: 02/22/2020 COMPARISON: Chest x-ray February 22, 2017 HISTORY: Increased shortness of breath TECHNIQUE: Frontal and lateral views of the chest are obtained. FINDINGS: Persistent cardiomegaly with dual lead pacemaker. Chronic reticular changes slightly more prominent on current study. No pleural effusion or pneumothorax bilaterally. The osseous structures a re intact. IMPRESSION: Correlate for CHF exacerbation as there is suggestion of the mild interstitial edema rosa m aterally on background chronic parenchymal changes.
[2020-02-22 14:41] LABS: Albumin 3.5 g/dL (3.5-5.0); Calcium 8.6 mg/dL (8.4-10.2); Potassium 3.9 mmol/L (3.5-5.1); Total Bilirubin 0.9 mg/dL (0.2-1.3); Total Protein 6.9 g/dL (6.3-8.2)
[2020-02-22 14:47] LABS: INR 1.2 (<1.2); Partial Thromboplastin Time 32.5 sec (22.0-30.0); Prothrombin Time 12.7 sec (9.0-12.0)
[2020-02-22] MEDS ORDERED: ASPIRIN 325 MG TAB PO STA (15:09)
[2020-02-22] MEDS: FUROSEMIDE 10 MG/ML 4 ML VIAL IV SCH (16:53)
[2020-02-22] MEDS ORDERED: NALOXONE 0.4 MG/ML 1 ML VIAL IV PRN (16:59)
[2020-02-22] MEDS ORDERED: VANCOMYCIN IV PER PHARMACY 1 EACH MISC MISCELLANE PRN (17:01)
--- NOTE | 2020-02-22 17:14 | P.HPIM ---
History of Present Illness H&P Date: 02/22/20 Chief Complaint: sob 89-year-old male presenting to the emergency department with shortness of breath and fatigue. In addition he has been having cough that is not much productive, pleuritic chest pain as well as worsening redness and swelling of his left lower extremity. Onset of symptoms was a week or so ago. According to the visiting home nurse his pulse ox was in the upper 80s on room air. Due to general weakness patient fell twice over the past week. No head trauma. He has chronic diarrhea, no changes in that. No nausea or vomiting. No fevers or chills. No known sick contacts. In the emergency department evaluation revealed normal vital signs. Labs were unremarkable except for elevated BUN at 30 and creatinine at 2.4. Baseline creatinine from 2 years ago was 1.8. Chest x-ray revealed mild interstitial edema, correlate for CHF. Review of Systems Complete review of system performed, pertinent positives per HPI otherwise negative Past Medical History Past Medical History: Hyperlipidemia, Hypertension, Myocardial Infarction ([place]), Pneumonia Additional Past Medical History / Comment(s): Peripheral Neuropathy , see Dr Kathleen H&P, 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 but is using straight cane, 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 per spouse Last Myocardial Infarction Date:: 2016 History of Any Multi-Drug Resistant Organisms: None Reported Past Surgical History: Heart Catheterization With Stent, Hernia Repair Additional Past Surgical History / Comment(s): 2 stents, rosa m cataracts Past Anesthesia/Blood Transfusion Reactions: Family History of Problems w/ Anesthesia Additional Past Anesthesia/Blood Transfusion Reaction / Comment(s): family and self- diff coming out per spouse Date of Last Stent Placement:: 2016 Past Psychological History: No Psychological Hx Reported Smoking Status: Former smoker Past Alcohol Use History: None Reported Past Drug Use History: None Reported - Past Family History Mother History Unknown: Yes Family Medical History: Myocardial Infarction ([place]) Father History Unknown: Yes Family Medical History: Cancer Medications and Allergies Home Medications Medication Instructions Recorded Confirmed Type Biotin 5 mg PO MOWEFR 09/23/16 02/22/20 History Multivitamins, Thera [Multivitamin 1 tab PO DAILY 09/23/16 02/22/20 History (formulary)] Losartan [Cozaar] 25 mg PO DAILY #30 tab 09/29/16 02/22/20 Rx Nitroglycerin Sl Tabs [Nitrostat] 0.4 mg SUBLINGUAL Q5M PRN #25 tab 09/29/16 02/22/20 Rx Amiodarone [Cordarone] 100 mg PO HS 02/10/17 02/22/20 History Furosemide [Lasix] 20 mg PO DAILY 02/10/17 02/22/20 History Levalbuterol Tartrate [Xopenex Hfa 2 puff INHALATION RT-TID PRN 02/10/17 02/22/20 History Inhaler] Rivaroxaban [Xarelto] 15 mg PO HS 02/10/17 02/22/20 History Albuterol Sulfate [Ventolin HFA] 2 puff INHALATION RT-BID PRN 02/22/20 02/22/20 History Allopurinol [Zyloprim] 100 mg PO DAILY 02/22/20 02/22/20 History Atorvastatin [Lipitor] 20 mg PO HS 02/22/20 02/22/20 History Calcitriol [Rocaltrol] 0.5 mcg PO WE 02/22/20 02/22/20 History Cholecalciferol [Vitamin D3 (25 2,000 unit PO DAILY 02/22/20 02/22/20 History Mcg = 1000 Iu)] Furosemide [Lasix] 40 mg PO DAILY 02/22/20 02/22/20 History Levothyroxine Sodium [Synthroid] 50 mcg PO DAILY 02/22/20 02/22/20 History Metoprolol Tartrate [Lopressor] 25 mg PO BID 02/22/20 02/22/20 History Pregabalin 75 mg PO DAILY 02/22/20 02/22/20 History Tamsulosin [Flomax] 0.4 mg PO HS 02/22/20 02/22/20 History amLODIPine [Norvasc] 5 mg PO DAILY 02/22/20 02/22/20 History Allergies Allergy/AdvReac Type Severity Reaction Status Date / Time Penicillins Allergy Anaphylaxis Verified 02/22/20 12:47 prednisone Allergy Anaphylaxis Verified 02/22/20 12:47 Sulfa (Sulfonamide Allergy Anaphylaxis Verified 02/22/20 12:47 Antibiotics) Physical Exam Vitals: Vital Signs Temp Pulse Resp BP Pulse Ox 02/22/20 16:06 74 02/22/20 13:05 97.6 F 76 20 132/66 95 02/22/20 12:59 20 02/22/20 12:43 98.6 F 83 22 147/72 95 Intake and Output 02/22/20 02/22/20 02/22/20 06:59 14:59 22:59 Other: Weight 104.326 kg Constitutional: No acute distress, conversant, pleasant Eyes:Anicteric sclerae, moist conjunctiva, no lid-lag, PERRLA, ENMT: Oropharynx clear, no erythema, exudates Neck: Supple, FROM, no masses, or JVD, No carotid bruits, No thyromegaly Lungs: Clear to auscultation, Clear to percussion, Normal respiratory effort, no accessory muscle use Cardiovascular: Heart regular in rate and rhythm, No murmurs, gallops, or rubs, No peripheral edema Abdominal: Soft, Nontender, no guarding, rebound or rigidity, Normoactive bowel sounds, No hepatomegaly, No splenomegaly, No palpable mass Skin: Normal temperature, tone, texture, turgor, no induration, No subcutaneous nodules, No rash, lesions, No ulcers Extremities: Left leg with swelling and erythema, chronic skin changes. Nontender. No digital cyanosis, No clubbing, Pedal pulses intact and symmetrical, Radial pulses intact and symmetrical, No calf tenderness Psychiatric: Alert and oriented to person, place and time, appropriate affect, intact judgement Neuro: Muscles Strength 5/5 in all 4 extremities, Sensation to light touch grossly present throughout, Cranial nerves II-XII grossly intact, no focal senso ry deficits Results CBC & Chem 7: 02/22/20 14:07 02/22/20 14:07 Labs: Abnormal Lab Results - Last 24 Hours (Table) 02/22/20 02/22/20 02/22/20 Range/Units 14:07 14:07 14:07 RBC 3.92 L (4.30-5.90) m/uL Hgb 12.8 L (13.0-17.5) gm/dL Hct 37.2 L (39.0-53.0) % PT 12.7 H (9.0-12.0) sec INR 1.2 H (<1.2) APTT 32.5 H (22.0-30.0) sec BUN 30 H (9-20) mg/dL Creatinine 2.42 H (0.66-1.25) mg/dL Glucose 100 H (74-99) mg/dL Urine Protein (Negative) 02/22/20 Range/Units 14:12 RBC (4.30-5.90) m/uL Hgb (13.0-17.5) gm/dL Hct (39.0-53.0) % PT (9.0-12.0) sec INR (<1.2) APTT (22.0-30.0) sec BUN (9-20) mg/dL Creatinine (0.66-1.25) mg/dL Glucose (74-99) mg/dL Urine Protein Trace H (Negative) Assessment and Plan Plan: Acute left lower extremity cellulitis Start clindamycin and doxycycline Patient high risk due to receiving antibiotics recently. Follow up clinically. Acute on chronic congestive heart failure exacerbation According to family echo and stress testing was done recently Consult cardiology Lasix IV twice a day 40 mg. Hold losartan due to renal failure Acute on chronic renal failure Baseline creatinine is not clear to me Monitor creatinine daily Hold losartan Avoid nephrotoxic medications Chronic Hypertension Sick sinus syndrome status post pacemaker Hyperlipidemia Gout BPH All stable Resume meds Admit to inpatient, expected length of stay more than 2 midnights.
[2020-02-22] MEDS ORDERED: VANCOMYCIN 1,750 MG in SODIUM CHLORIDE 0.9% 500 ML 500 ML IVPB ONE (18:00)
[2020-02-22] MEDS: CLINDAMYCIN 300 MG in DEXTROSE 5% IN WATER 50 ML IVPB SCH ×4 (18:23→23:51)
[2020-02-22] MEDS: DOXYCYCLINE 100 MG CAP PO SCH (20:55)
[2020-02-22] MEDS: METOPROLOL TARTRATE 25 MG TAB PO SCH (20:55)
[2020-02-22] MEDS: RIVAROXABAN 15 MG TAB PO SCH (20:55)
[2020-02-22] MEDS: TAMSULOSIN 0.4 MG CAP.ER.24H PO SCH (20:55)
[2020-02-22] MEDS: ATORVASTATIN 20 MG TAB PO SCH (20:55)
[2020-02-22] MEDS: AMIODARONE 100 MG TAB PO SCH (21:05)
[2020-02-23] MEDS: FUROSEMIDE 10 MG/ML 4 ML VIAL IV SCH (03:21)
[2020-02-23] MEDS: LEVOTHYROXINE 50 MCG TAB PO SCH (06:13)
[2020-02-23 07:27] LABS: Basophils % (A) 0 %; Eosinophils # (A) 0.3 k/uL (0-0.7); Eosinophils % (A) 3 %; HCT 35.1 % (39.0-53.0); HGB 11.8 gm/dL (13.0-17.5); Lymphocytes # (A) 0.9 k/uL (1.0-4.8); Lymphocytes % (A) 12 %; MCH 31.8 pg (25.0-35.0); MCHC 33.5 g/dL (31.0-37.0); MCV 94.9 fL (80.0-100.0); Monocytes # (A) 0.5 k/uL (0-1.0); Monocytes % (A) 7 %; Neutrophils # (A) 5.5 k/uL (1.3-7.7); Neutrophils % (A) 74 %; Platelet Count 177 k/uL (150-450); RBC 3.69 m/uL (4.30-5.90); RDW 13.6 % (11.5-15.5); WBC 7.4 k/uL (3.8-10.6)
[2020-02-23 07:38] LABS: Calcium 8.3 mg/dL (8.4-10.2); Magnesium 1.9 mg/dL (1.6-2.3); Phosphorus 3.5 mg/dL (2.5-4.5); Potassium 3.5 mmol/L (3.5-5.1); Total Bilirubin 0.9 mg/dL (0.2-1.3); Total Protein 5.9 g/dL (6.3-8.2)
[2020-02-23] MEDS: CLINDAMYCIN 300 MG in DEXTROSE 5% IN WATER 50 ML IVPB SCH ×6 (07:48→23:28)
[2020-02-23] MEDS: DOXYCYCLINE 100 MG CAP PO SCH ×2 (07:48→20:17)
[2020-02-23] MEDS: METOPROLOL TARTRATE 25 MG TAB PO SCH ×2 (07:48→20:17)
[2020-02-23] MEDS: amLODIPine 5 MG TAB PO SCH (07:48)
[2020-02-23] MEDS: allopurinoL 100 MG TAB PO SCH (07:48)
[2020-02-23] MEDS: PREGABALIN 75 MG CAP PO SCH (07:48)
[2020-02-23] MEDS ORDERED: VANCOMYCIN 1,750 MG in SODIUM CHLORIDE 0.9% 500 ML 500 ML IVPB ONE (09:00)
[2020-02-23] MEDS ORDERED: ASPIRIN 325 MG TAB PO SCH (09:00)
[2020-02-23 10:36] VITALS: BMI 31.4
--- NOTE | 2020-02-23 12:32 | P.CRDCN ---
<Kaylin Fox - Last Filed: 02/23/20 14:18> History of Present Illness History of present illness: HISTORY OF PRESENTING ILLNESS This is a pleasant 89-year-old male past medical history significant for tachybradycardia syndrome status post permanent pacemaker implantation, paroxysmal atrial fibrillation on long-term anticoagulation, chronic kidney disease, hypertension, coronary artery disease, chronic nicotine dependence and dyslipidemia. He follows in the office with Dr. Enriquez. We have been asked to see in consultation for heart failure. He is seen and examined resting comfortably in bed in no acute distress. He states over the previous couple weeks he has been experiencing consistent diarrhea. He has a home care nurse that comes regularly. He has been on oral antibiotics in the outpatient setting secondary to lower extremity cellulitis. She was at his house on and he was noted to be somewhat short of breath. According to the patient a chest x-ray was ordered and he was told was normal. However yesterday she felt extremely weak, fatigued and short of breath so he came to the hospital for further evaluation. He denies symptoms of chest pain, dizziness or palpitations. He has fallen a couple of times over the previous couple of weeks secondary to weakness. Specifically he fell once in the bathroom and had to lay on the floor for about 20 minutes until he had the strength to roll over and stand up. He states he had an episode of diarrhea this morning. He was started on IV diuretics on admission. DIAGNOSTICS EKG reveals sinus mechanism with evidence of old inferior wall infarct in no acute ST or T wave abnormalities noted. Telemetry tracings indicate sinus mechanism. Chest xray mild interstitial edema with chronic parenchymal changes. Laboratory reviewed, WBC 7.4, hemoglobin 11.8, platelets 177, sodium 139, potassium 3.5, creatinine and admission 2.40 2 repeat today 1.98, cardiac enzymes negative 1, magnesium 1.9, NT proBNP 1000. Current cardiac medications include amlodipine 5 mg daily, Xarelto 15 mg daily, Lopressor 25 mg twice a day, losartan 25 mg daily, Lasix 60 mg daily, atorvastatin 20 mg daily and amiodarone 100 mg at bedtime. Most recent echocardiogram obtained in the office June 2019 reveals preserved LV systolic function with ejection fraction 55%, moderately dilated left atrium and normal valves. REVIEW OF SYSTEMS At the time of my exam: CONSTITUTIONAL: Denies fever or chills. CARDIOVASCULAR: Denies chest pain, shortness of breath, orthopnea, PND or palpitations. RESPIRATORY: Denies cough. GASTROINTESTINAL: Denies abdominal pain, diarrhea, constipation, nausea or vomiting. MUSCULOSKELETAL: Denies myalgias. NEUROLOGIC: Denies numbness, tingling, headacbe or weakness. ENDOCRINE: Denies fatigue, weight change, polydipsia or polyurina. GENITOURINARY: Denies burning, hematuria or urgency with micturation. HEMATOLOGIC: Denies history of anemia or bleeding. PHYSICAL EXAMINATION Blood pressure 102/55 heart rate 57 afebrile and maintaining oxygen saturation on nasal cannula. CONSTITUTIONAL: No apparent distress. HEENT: Head is normocephalic. Pupils are equal, round. Sclerae anicteric. Mucous membranes of the mouth are moist. No JVD. No carotid bruit. CHEST EXAMINATION: Lungs are clear to auscultation. No chest wall tenderness is noted on palpation or with deep breathing. HEART EXAMINATION: Regular rate and rhythm. S1, S2 heard. No murmurs, gallops or rub. ABDOMEN: Soft, nontender. Positive bowel sounds. EXTREMITIES: 2+ peripheral pulses, left lower extremity edema and erythema and no calf tenderness. NEUROLOGIC EXAMINATION: Patient is awake, alert and oriented x3. ASSESSMENT Generalized weakness Diarrhea Lower extremity cellulitis Paroxysmal atrial fibrillation on long-term anticoagulation Acute on chronic kidney disease Coronary artery disease Hypertension Dyslipidemia PLAN Clinically the patient is euvolemic. Lower extremity edema is secondary to cellulitis. Discontinue IV diuretics. Hold oral diuretics pending repeat renal function in the morning. Check lower extremity doppler. Thank you kindly for this consultation. Nurse Practitioner note has been reviewed, I agree with a documented findings and plan of care. Patient was seen and examined. Past Medical History Past Medical History: Hyperlipidemia, Hypertension, Myocardial Infarction ([place]), Pneumonia Additional Past Medical History / Comment(s): Peripheral Neuropathy , see Dr Hever Kingsley&Cayden, 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,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 but is using straight cane, 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 per spouse Last Myocardial Infarction Date:: 2016 History of Any Multi-Drug Resistant Organisms: None Reported Past Surgical History: Heart Catheterization With Stent, Hernia Repair Additional Past Surgical History / Comment(s): 2 stents, rosa m cataracts Past Anesthesia/Blood Transfusion Reactions: Family History of Problems w/ Anesthesia Additional Past Anesthesia/Blood Transfusion Reaction / Comment(s): family and self- diff coming out per spouse Date of Last Stent Placement:: 2016 Past Psychological History: No Psychological Hx Reported Smoking Status: Former smoker Past Alcohol Use History: None Reported Additional Past Alcohol Use History / Comment(s): quit smoking Sep 2016, started smoking age 23 Past Drug Use History: None Reported - Past Family History Mother History Unknown: Yes Family Medical History: Myocardial Infarction ([place]) Father History Unknown: Yes Family Medical History: Cancer Medications and Allergies Home Medications Medication Instructions Recorded Confirmed Type Biotin 5 mg PO MOWEFR 09/23/16 02/22/20 History Multivitamins, Thera [Multivitamin 1 tab PO DAILY 09/23/16 02/22/20 History (formulary)] Losartan [Cozaar] 25 mg PO DAILY #30 tab 09/29/16 02/22/20 Rx Nitroglycerin Sl Tabs [Nitrostat] 0.4 mg SUBLINGUAL Q5M PRN #25 tab 09/29/16 02/22/20 Rx Amiodarone [Cordarone] 100 mg PO HS 02/10/17 02/22/20 History Furosemide [Lasix] 20 mg PO DAILY 02/10/17 02/22/20 History Levalbuterol Tartrate [Xopenex Hfa 2 puff INHALATION RT-TID PRN 02/10/17 02/22/20 History Inhaler] Rivaroxaban [Xarelto] 15 mg PO HS 02/10/17 02/22/20 History Albuterol Sulfate [Ventolin HFA] 2 puff INHALATION RT-BID PRN 02/22/20 02/22/20 History Allopurinol [Zyloprim] 100 mg PO DAILY 02/22/20 02/22/20 History Atorvastatin [Lipitor] 20 mg PO HS 02/22/20 02/22/20 History Calcitriol [Rocaltrol] 0.5 mcg PO WE 02/22/20 02/22/20 History Cholecalciferol [Vitamin D3 (25 2,000 unit PO DAILY 02/22/20 02/22/20 History Mcg = 1000 Iu)] Furosemide [Lasix] 40 mg PO DAILY 02/22/20 02/22/20 History Levothyroxine Sodium [Synthroid] 50 mcg PO DAILY 02/22/20 02/22/20 History Metoprolol Tartrate [Lopressor] 25 mg PO BID 02/22/20 02/22/20 History Pregabalin 75 mg PO DAILY 02/22/20 02/22/20 History Tamsulosin [Flomax] 0.4 mg PO HS 02/22/20 02/22/20 History amLODIPine [Norvasc] 5 mg PO DAILY 02/22/20 02/22/20 History Allergies Allergy/AdvReac Type Severity Reaction Status Date / Time Penicillins Allergy Anaphylaxis Verified 02/22/20 12:47 prednisone Allergy Anaphylaxis Verified 02/22/20 12:47 Sulfa (Sulfonamide Allergy Anaphylaxis Verified 02/22/20 12:47 Antibiotics) Physical Exam Vitals: Vital Signs Temp Pulse Pulse Resp BP BP Pulse Ox 02/23/20 07:47 97.0 F L 69 20 123/68 93 L 02/23/20 04:00 97.9 F 67 18 118/59 94 L 02/23/20 00:00 98.6 F 58 L 18 111/53 93 L 02/22/20 20:53 69 131/54 02/22/20 19:44 97.6 F 61 18 118/58 97 02/22/20 18:27 98.7 F 48 L 20 145/70 96 02/22/20 18:23 97.7 F 66 18 120/60 96 02/22/20 16:58 97.6 F 74 18 113/54 94 L 02/22/20 16:22 97.6 F 68 16 128/78 98 02/22/20 16:17 70 02/22/20 16:06 74 02/22/20 13:05 97.6 F 76 20 132/66 95 02/22/20 12:59 20 02/22/20 12:43 98.6 F 83 22 147/72 95 Intake and Output 02/22/20 02/23/20 02/23/20 22:59 06:59 14:59 Intake Total 125 Output Total 860 Balance -860 125 Intake: Oral 125 Output: Urine 860 Other: Voiding Method Toilet Toilet Toilet Urinal Urinal Urinal # Voids 1 # Bowel Movements 1 Weight 104.326 kg 105.2 kg Results 02/23/20 06:38 02/23/20 06:38 Cardiac Enzymes 02/22/20 02/22/2021 Range/Units 14:07 14:07 06:38 AST 27 26 (17-59) U/L Troponin I <0.012 (0.000-0.034) ng/mL Coagulation 02/22/20 Range/Units 14:07 PT 12.7 H (9.0-12.0) sec APTT 32.5 H (22.0-30.0) sec CBC 02/22/20 02/23/20 Range/Units 14:07 06:38 WBC 10.0 7.4 (3.8-10.6) k/uL RBC 3.92 L 3.69 L (4.30-5.90) m/uL Hgb 12.8 L 11.8 L (13.0-17.5) gm/dL Hct 37.2 L 35.1 L (39.0-53.0) % Plt Count 208 177 (150-450) k/uL Comprehensive Metabolic Panel 02/22/20 02/23/20 Range/Units 14:07 06:38 Sodium 137 139 (137-145) mmol/L Potassium 3.9 3.5 (3.5-5.1) mmol/L Chloride 103 103 (98-107) mmol/L Carbon Dioxide 26 29 (22-30) mmol/L BUN 30 H 29 H (9-20) mg/dL Creatinine 2.42 H 1.98 H (0.66-1.25) mg/dL Glucose 100 H 86 (74-99) mg/dL Calcium 8.6 8.3 L (8.4-10.2) mg/dL AST 27 26 (17-59) U/L ALT 15 15 (4-49) U/L Alkaline Phosphatase 91 74 (38-126) U/L Total Protein 6.9 5.9 L (6.3-8.2) g/dL Albumin 3.5 3.0 L (3.5-5.0) g/dL Current Medications Generic Name Dose Route Start Last Admin Trade Name Freq PRN Reason Stop Dose Admin Allopurinol 100 mg 02/23/20 09:00 02/23/20 07:48 Allopurinol 100 Mg Tab PO 100 mg DAILY KRUPA Administration Amiodarone HCl 100 mg 02/22/20 21:00 02/22/20 21:05 Amiodarone 100 Mg Tab PO 100 mg HS KRUPA Administration Amlodipine Besylate 5 mg 02/23/20 09:00 02/23/20 07:48 Amlodipine 5 Mg Tab PO 5 mg DAILY KRUPA Administration Aspirin 81 mg 02/24/20 09:00 Aspirin 81 Mg PO DAILY KRUPA Atorvastatin Calcium 20 mg 02/22/20 21:00 02/22/20 20:55 Atorvastatin 20 Mg Tab PO 20 mg HS KRUPA Administration Doxycycline Monohydrate 100 mg 02/22/20 21:00 02/23/20 07:48 Doxycycline 100 Mg Cap PO 100 mg BID KRUPA Administration Clindamycin Phosphate 300 mg/ 52 mls @ 50 mls/hr 02/22/20 17:30 02/23/20 07:48 Dextrose/Water IVPB 50 mls/hr Q8HR KRUPA Administration Levothyroxine Sodium 50 mcg 02/23/20 06:30 02/23/20 06:13 Levothyroxine 50 Mcg Tab PO 50 mcg DAILY@0630 KRUPA Administration Metoprolol Tartrate 25 mg 02/22/20 21:00 02/23/20 07:48 Metoprolol Tartrate 25 Mg Tab PO 25 mg BID KRUPA Administration Naloxone HCl 0.2 mg 02/22/20 16:59 Naloxone 0.4 Mg/Ml 1 Ml Vial IV Q2M PRN Opioid Reversal Pregabalin 75 mg 02/23/20 09:00 02/23/20 07:48 Pregabalin 75 Mg Cap PO 75 mg DAILY KRUPA Administration Rivaroxaban 15 mg 02/22/20 21:00 02/22/20 20:55 Rivaroxaban 15 Mg Tab PO 15 mg HS KRUPA Administration Sodium Chloride 10 ml 02/22/20 21:00 02/23/20 07:49 Sodium Chloride 0.9% Flush 10 Ml Syringe IV 10 ml BID KRUPA Administration Tamsulosin HCl 0.4 mg 02/22/20 21:00 02/22/20 20:55 Tamsulosin 0.4 Mg Cap.Er.24h PO 0.4 mg HS KRUPA Administration Intake and Output 02/22/20 02/23/20 02/23/20 22:59 06:59 14:59 Intake Total 125 Output Total 860 Balance -860 125 Intake: Oral 125 Output: Urine 860 Other: Voiding Method Toilet Toilet Toilet Urinal Urinal Urinal # Voids 1 # Bowel Movements 1 Weight 104.326 kg 105.2 kg 02/23/20 06:38 02/23/20 06:38 <Torito Alcantar - Last Filed: 02/23/20 15:10> History of Present Illness History of present illness: Unclear why increased LE edema over last 1 month. Hold diuretics as suspect majority related to venous insufficiency. Continue antibiotics. Further recommendations to follow, monitor Cr. Torito Alcantar, DO Physical Exam Vitals: Vital Signs Temp Pulse Pulse Resp BP BP Pulse Ox 02/23/20 11:44 97.8 F 57 L 18 102/55 94 L 02/23/20 07:47 97.0 F L 69 20 123/68 93 L 02/23/20 04:00 97.9 F 67 18 118/59 94 L 02/23/20 00:00 98.6 F 58 L 18 111/53 93 L 02/22/20 20:53 69 131/54 02/22/20 19:44 97.6 F 61 18 118/58 97 02/22/20 18:27 98.7 F 48 L 20 145/70 96 02/22/20 18:23 97.7 F 66 18 120/60 96 02/22/20 16:58 97.6 F 74 18 113/54 94 L 02/22/20 16:22 97.6 F 68 16 128/78 98 02/22/20 16:17 70 02/22/20 16:06 74 Intake and Output 02/23/20 02/23/20 02/23/20 06:59 14:59 22:59 Intake Total 605 Output Total 860 500 Balance -860 105 Intake: Oral 605 Output: Urine 860 500 Other: Voiding Method Toilet Toilet Urinal Urinal # Voids 1 2 # Bowel Movements 1 Weight 105.2 kg 105.2 kg Results 02/23/20 06:38 02/23/20 06:38 Cardiac Enzymes 02/23/20 Range/Units 06:38 AST 26 (17-59) U/L CBC 02/23/20 Range/Units 06:38 WBC 7.4 (3.8-10.6) k/uL RBC 3.69 L (4.30-5.90) m/uL Hgb 11.8 L (13.0-17.5) gm/dL Hct 35.1 L (39.0-53.0) % Plt Count 177 (150-450) k/uL Comprehensive Metabolic Panel 02/23/20 Range/Units 06:38 Sodium 139 (137-145) mmol/L Potassium 3.5 (3.5-5.1) mmol/L Chloride 103 (98-107) mmol/L Carbon Dioxide 29 (22-30) mmol/L BUN 29 H (9-20) mg/dL Creatinine 1.98 H (0.66-1.25) mg/dL Glucose 86 (74-99) mg/dL Calcium 8.3 L (8.4-10.2) mg/dL AST 26 (17-59) U/L ALT 15 (4-49) U/L Alkaline Phosphatase 74 (38-126) U/L Total Protein 5.9 L (6.3-8.2) g/dL Albumin 3.0 L (3.5-5.0) g/dL Current Medications Generic Name Dose Route Start Last Admin Trade Name Freq PRN Reason Stop Dose Admin Allopurinol 100 mg 02/23/20 09:00 02/23/20 07:48 Allopurinol 100 Mg Tab PO 100 mg DAILY KRUPA Administration Amiodarone HCl 100 mg 02/22/20 21:00 02/22/20 21:05 Amiodarone 100 Mg Tab PO 100 mg HS KRUPA Administration Amlodipine Besylate 5 mg 02/23/20 09:00 02/23/20 07:48 Amlodipine 5 Mg Tab PO 5 mg DAILY KRUPA Administration Aspirin 81 mg 02/24/20 09:00 Aspirin 81 Mg PO DAILY KRUPA Atorvastatin Calcium 20 mg 02/22/20 21:00 02/22/20 20:55 Atorvastatin 20 Mg Tab PO 20 mg HS KRUPA Administration Doxycycline Monohydrate 100 mg 02/22/20 21:00 02/23/20 07:48 Doxycycline 100 Mg Cap PO 100 mg BID KRUPA Administration Clindamycin Phosphate 300 mg/ 52 mls @ 50 mls/hr 02/22/20 17:30 02/23/20 07:48 Dextrose/Water IVPB 50 mls/hr Q8HR KRUPA Administration Levothyroxine Sodium 50 mcg 02/23/20 06:30 02/23/20 06:13 Levothyroxine 50 Mcg Tab PO 50 mcg DAILY@0630 KRUPA Administration Metoprolol Tartrate 25 mg 02/22/20 21:00 02/23/20 07:48 Metoprolol Tartrate 25 Mg Tab PO 25 mg BID KRUPA Administration Naloxone HCl 0.2 mg 02/22/20 16:59 Naloxone 0.4 Mg/Ml 1 Ml Vial IV Q2M PRN Opioid Reversal Pregabalin 75 mg 02/23/20 09:00 02/23/20 07:48 Pregabalin 75 Mg Cap PO 75 mg DAILY KRUPA Administration Rivaroxaban 15 mg 02/22/20 21:00 02/22/20 20:55 Rivaroxaban 15 Mg Tab PO 15 mg HS KRUPA Administration Sodium Chloride 10 ml 02/22/20 21:00 02/23/20 07:49 Sodium Chloride 0.9% Flush 10 Ml Syringe IV 10 ml BID KRUPA Administration Tamsulosin HCl 0.4 mg 02/22/20 21:00 02/22/20 20:55 Tamsulosin 0.4 Mg Cap.Er.24h PO 0.4 mg HS KRUPA Administration Intake and Output 02/23/20 02/23/20 02/23/20 06:59 14:59 22:59 Intake Total 605 Output Total 860 500 Balance -860 105 Intake: Oral 605 Output: Urine 860 500 Other: Voiding Method Toilet Toilet Urinal Urinal # Voids 1 2 # Bowel Movements 1 Weight 105.2 kg 105.2 kg Patient Weight 02/24/20 06:59 Weight 105.2 kg 02/23/20 06:38 02/23/20 06:38
--- NOTE | 2020-02-23 15:02 | P.PN ---
Subjective Progress Note Date: 02/23/20 Principal diagnosis: General weakness Patient is feeling much better now. He diuresed well with Lasix, his breathing is easier. Swelling in his legs is improved. No fevers or chills. No cough or shortness of breath. Objective - Vital Signs Vital signs: Vital Signs Temp 97.8 F 02/23/20 11:44 Pulse 57 L 02/23/20 11:44 Resp 18 02/23/20 11:44 BP 102/55 02/23/20 11:44 Pulse Ox 94 L 02/23/20 11:44 Intake & Output 02/22/20 02/23/20 02/23/20 18:59 06:59 18:59 Intake Total 605 Output Total 860 500 Balance -860 105 Weight 104.326 kg 105.2 kg 105.2 kg Intake: Oral 605 Output: Urine 860 500 Other: Voiding Method Toilet Toilet Urinal Urinal # Voids 1 2 # Bowel Movements 1 - Labs CBC & Chem 7: 02/23/20 06:38 02/23/20 06:38 Labs: Abnormal Lab Results - Last 24 Hours (Table) 02/23/20 02/23/20 Range/Units 06:38 06:38 RBC 3.69 L (4.30-5.90) m/uL Hgb 11.8 L (13.0-17.5) gm/dL Hct 35.1 L (39.0-53.0) % Lymphocytes # 0.9 L (1.0-4.8) k/uL BUN 29 H (9-20) mg/dL Creatinine 1.98 H (0.66-1.25) mg/dL Calcium 8.3 L (8.4-10.2) mg/dL Total Protein 5.9 L (6.3-8.2) g/dL Albumin 3.0 L (3.5-5.0) g/dL Assessment and Plan Plan: Acute left lower extremity cellulitis Continue clindamycin and doxycycline Improved. Acute on chronic diastolic congestive heart failure exacerbation EF is normal as of June of last year according to cardiology notes. Cardiology following, holding lasix as patient is currently euvolemic. Hold losartan due to renal failure Acute on chronic renal failure Baseline creatinine is not clear to me Creatinine improved today. Hold losartan Avoid nephrotoxic medications Chronic Hypertension Sick sinus syndrome status post pacemaker Hyperlipidemia Gout BPH All stable Resume meds
--- NOTE | 2020-02-23 17:22 | US ---
EXAMINATION TYPE: US venous doppler duplex LE DATE OF EXAM: 02/23/2020 2:57 PM COMPARISON: NONE CLINICAL HISTORY: swelling. SIDE PERFORMED: Bilateral TECHNIQUE: The lower extremity deep venous system is examined utilizing real time linear array sonog sammie with graded compression, doppler sonography and color-flow sonography. VESSELS IMAGED: Common Femoral Vein Deep Femoral Vein Greater Saphenous Vein * Femoral Vein Popliteal Vein Small Saphenous Vein * Proximal Calf Veins (* superficial vessels) Right Leg: Negative for DVT Left Leg: Negative for DVT unable to reach left leg for augment (inpatient, portable exam.) IMPRESSION: No DVT of the bilateral lower extremity, within limitation of this study.
[2020-02-23] MEDS: TAMSULOSIN 0.4 MG CAP.ER.24H PO SCH (20:17)
[2020-02-23] MEDS: RIVAROXABAN 15 MG TAB PO SCH (20:17)
[2020-02-23] MEDS: ATORVASTATIN 20 MG TAB PO SCH (20:17)
[2020-02-23] MEDS: AMIODARONE 100 MG TAB PO SCH (20:17)
[2020-02-24] MEDS: LEVOTHYROXINE 50 MCG TAB PO SCH (06:28)
[2020-02-24] MEDS ORDERED: ASPIRIN 81 MG PO SCH (09:00)
[2020-02-24] MEDS: METOPROLOL TARTRATE 25 MG TAB PO SCH (09:18)
[2020-02-24] MEDS: amLODIPine 5 MG TAB PO SCH (09:18)
[2020-02-24] MEDS: PREGABALIN 75 MG CAP PO SCH (09:18)
[2020-02-24] MEDS: allopurinoL 100 MG TAB PO SCH (09:18)
[2020-02-24] MEDS: DOXYCYCLINE 100 MG CAP PO SCH (09:19)
[2020-02-24] MEDS: CLINDAMYCIN 300 MG in DEXTROSE 5% IN WATER 50 ML IVPB SCH ×2 (09:27)
[2020-02-24 10:00] LABS: Calcium 8.6 mg/dL (8.4-10.2); Potassium 3.4 mmol/L (3.5-5.1)
[2020-02-24] MEDS ORDERED: POTASSIUM CHLORIDE ER 20 MEQ TAB.ER PO STA (11:32)
--- NOTE | 2020-02-24 12:19 | P.PN ---
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 He follows in the office with Dr. Enriquez. Patient was seen and examined resting comfortably lying flat in bed in no acute distress. He denies symptoms of chest pain, shortness of breath, dizziness or palpitations. Blood pressure 131/62 heart rate 78 afebrile maintaining oxygen saturation on room air. Laboratory data reviewed, sodium 141, potassium 3.4, creatinine 1.74. Bilateral lower extremity Doppler negative for DVT. PHYSICAL EXAMINATION CONSTITUTIONAL: No apparent distress. HEENT: Head is normocephalic. Pupils are equal, round. Sclerae anicteric. Mucous membranes of the mouth are moist. No JVD. No carotid bruit. CHEST EXAMINATION: Lungs are clear to auscultation. No chest wall tenderness is noted on palpation or with deep breathing. HEART EXAMINATION: Regular rate and rhythm. S1, S2 heard. No murmurs, gallops or rub. EXTREMITIES: 2+ peripheral pulses, Sukhdeep wraps in place bilaterally and no calf tenderness. ASSESSMENT Generalized weakness Diarrhea Lower extremity cellulitis Hypokalemia Paroxysmal atrial fibrillation on long-term anticoagulation Acute on chronic kidney disease, improving. Coronary artery disease Hypertension Dyslipidemia PLAN Continue current medical regimen. Give 1 dose of potassium chloride 20 MEQ. Ongoing medical management. We will follow along as needed, follow up with Dr. Enriquez upon discharge. Nurse Practitioner note has been reviewed, I agree with a documented findings and plan of care. Patient was seen and examined. Objective - Vital Signs Vital signs: Vital Signs Temp 97.5 F L 02/24/20 08:00 Pulse 78 02/24/20 08:00 Resp 18 02/24/20 08:00 BP 131/62 02/24/20 08:00 Pulse Ox 96 02/24/20 08:00 Intake & Output 02/23/20 02/24/20 02/24/20 18:59 06:59 18:59 Intake Total 945 125 Output Total 500 850 Balance 445 -850 125 Weight 105.2 kg 101.6 kg Intake: Oral 945 125 Output: Urine 500 850 Other: Voiding Method Toilet Urinal Urinal Urinal # Voids 2 1 # Bowel Movements 1 - Labs CBC & Chem 7: 02/23/20 06:38 02/24/20 08:26 Labs: Abnormal Lab Results - Last 24 Hours (Table) 02/24/20 Range/Units 08:26 Potassium 3.4 L (3.5-5.1) mmol/L BUN 28 H (9-20) mg/dL Creatinine 1.74 H (0.66-1.25) mg/dL Glucose 105 H (74-99) mg/dL
[2020-02-24 13:20] VITALS: BP 130/65; PULSE 72; RESP 16; TEMP 97
--- NOTE | 2020-02-24 16:02 | P.DS ---
Providers Date of admission: 02/22/20 15:09 Expected date of discharge: 02/24/20 Attending physician: Charles Martinez Consults: 02/22/20 15:09 Consult Physician Routine Consulting Provider: Puneet Enriquez Consult Reason/Comments: chf Do you want consulting provider notified?: Yes Primary care physician: Mateo Whitman MD Hospital Course: 89-year-old male presenting to the emergency department with shortness of breath and fatigue. In addition he has been having cough that is not much productive, pleuritic chest pain as well as worsening redness and swelling of his left lower extremity. Onset of symptoms was a week or so ago. According to the visiting home nurse his pulse ox was in the upper 80s on room air. Due to general weakness patient fell twice over the past week. No head trauma. He has chronic diarrhea, no changes in that. No nausea or vomiting. No fevers or chills. No known sick contacts. In the emergency department evaluation revealed normal vital signs. Labs were unremarkable except for elevated BUN at 30 and creatinine at 2.4. Baseline creatinine from 2 years ago was 1.8. Chest x-ray revealed mild interstitial edema, correlate for CHF. On examination patient had increasing erythema and swelling of his left lower extremity. Due to that he had Doppler ultrasound that was negative for DVT. He was treated for acute left lower extremity cellulitis with clindamycin and doxycycline. That showed improvement upon discharge. Patient was in addition given Lasix twice daily 40 mg for diuresis. Back in June patient already had an echocardiogram that showed normal EF. His congestive heart failure was likely due to diastolic dysfunction. Patient was seen by cardiology service who agreed with the management. His acute renal failure was most likely secondary to cardiorenal syndrome. Renal function improved with diuresis. Losartan which was held during the admission was continued upon discharge. Discharge diagnoses Acute on chronic diastolic congestive heart failure exacerbation Acute left lower extremity cellulitis Acute on chronic renal failure Hypertension Sick sinus syndrome status post pacemaker Hyperlipidemia Gout BPH Plan - Discharge Summary Discharge Rx Participant: Yes New Discharge Prescriptions: New Clindamycin HCl 300 mg PO Q8HR 5 Days #15 cap Doxycycline Hyclate 100 mg PO BID 5 Days #10 tab Continue Multivitamins, Thera [Multivitamin (formulary)] 1 tab PO DAILY Biotin 5 mg PO MOWEFR Losartan [Cozaar] 25 mg PO DAILY #30 tab Nitroglycerin Sl Tabs [Nitrostat] 0.4 mg SUBLINGUAL Q5M PRN #25 tab PRN Reason: Chest Pain Rivaroxaban [Xarelto] 15 mg PO HS Amiodarone [Cordarone] 100 mg PO HS Levalbuterol Tartrate [Xopenex Hfa Inhaler] 2 puff INHALATION RT-TID PRN PRN Reason: Shortness Of Breath Tamsulosin [Flomax] 0.4 mg PO HS Albuterol Sulfate [Ventolin HFA] 2 puff INHALATION RT-BID PRN PRN Reason: Shortness Of Breath Pregabalin 75 mg PO DAILY Metoprolol Tartrate [Lopressor] 25 mg PO BID Levothyroxine Sodium [Synthroid] 50 mcg PO DAILY Cholecalciferol [Vitamin D3 (25 Mcg = 1000 Iu)] 2,000 unit PO DAILY Calcitriol [Rocaltrol] 0.5 mcg PO WE amLODIPine [Norvasc] 5 mg PO DAILY Atorvastatin [Lipitor] 20 mg PO HS Allopurinol [Zyloprim] 100 mg PO DAILY Furosemide [Lasix] 20 mg PO DAILY 30 Days #30 Discontinued Furosemide [Lasix] 40 mg PO DAILY Discharge Medication List Biotin 5 mg PO MOWEFR 09/23/16 [History] Multivitamins, Thera [Multivitamin (formulary)] 1 tab PO DAILY 09/23/16 [History] Losartan [Cozaar] 25 mg PO DAILY #30 tab 09/29/16 [Rx] Nitroglycerin Sl Tabs [Nitrostat] 0.4 mg SUBLINGUAL Q5M PRN #25 tab 09/29/16 [Rx] Amiodarone [Cordarone] 100 mg PO HS 02/10/17 [History] Levalbuterol Tartrate [Xopenex Hfa Inhaler] 2 puff INHALATION RT-TID PRN 02/10/17 [History] Rivaroxaban [Xarelto] 15 mg PO HS 02/10/17 [History] Albuterol Sulfate [Ventolin HFA] 2 puff INHALATION RT-BID PRN 02/22/20 [History] Allopurinol [Zyloprim] 100 mg PO DAILY 02/22/20 [History] Atorvastatin [Lipitor] 20 mg PO HS 02/22/20 [History] Calcitriol [Rocaltrol] 0.5 mcg PO WE 02/22/20 [History] Cholecalciferol [Vitamin D3 (25 Mcg = 1000 Iu)] 2,000 unit PO DAILY 02/22/20 [History] Levothyroxine Sodium [Synthroid] 50 mcg PO DAILY 02/22/20 [History] Metoprolol Tartrate [Lopressor] 25 mg PO BID 02/22/20 [History] Pregabalin 75 mg PO DAILY 02/22/20 [History] Tamsulosin [Flomax] 0.4 mg PO HS 02/22/20 [History] amLODIPine [Norvasc] 5 mg PO DAILY 02/22/20 [History] Clindamycin HCl 300 mg PO Q8HR 5 Days #15 cap 02/24/20 [Rx] Doxycycline Hyclate 100 mg PO BID 5 Days #10 tab 02/24/20 [Rx] Furosemide [Lasix] 20 mg PO DAILY 30 Days #30 02/24/20 [Rx] Follow up Appointment(s)/Referral(s): Mateo Whitman MD [Primary Care Provider] - 1-2 days (call the office tomorrow to make your appointment) Puneet Enriquez MD [STAFF PHYSICIAN] - 2 Weeks (please call the office tomorrow to make appointment) Patient Instructions/Handouts: Heart Failure (DC)
== END 2020-02-24 15:52 | disposition home or self-care (01) | DRG 291 ==
LOC: EC 12:41 → 3SCARD 15:09
PROVIDERS: ADMIT Internal Medicine; ATTEND Internal Medicine
DX: I13.0 Hypertensive heart and chronic kidney disease with heart failure and stage 1 through stage 4 chronic kidney disease, or unspecified chronic kidney disease (principal); I50.33 Acute on chronic diastolic (congestive) heart failure; N17.9 Acute kidney failure, unspecified; L03.116 Cellulitis of left lower limb; N40.0 Benign prostatic hyperplasia without lower urinary tract symptoms; M10.9 Gout, unspecified; I49.5 Sick sinus syndrome; Z20.828 Contact with and (suspected) exposure to other viral communicable diseases; E78.5 Hyperlipidemia, unspecified; E87.6 Hypokalemia; K52.9 Noninfective gastroenteritis and colitis, unspecified; I48.0 Paroxysmal atrial fibrillation; I25.10 Atherosclerotic heart disease of native coronary artery without angina pectoris; N18.9 Chronic kidney disease, unspecified; G62.9 Polyneuropathy, unspecified; Z91.81 History of falling; Z79.899 Other long term (current) drug therapy; Z79.02 Long term (current) use of antithrombotics/antiplatelets; Z88.2 Allergy status to sulfonamides; Z88.8 Allergy status to other drugs, medicaments and biological substances; Z88.0 Allergy status to penicillin; I25.2 Old myocardial infarction; Z87.01 Personal history of pneumonia (recurrent); Z98.42 Cataract extraction status, left eye; Z98.41 Cataract extraction status, right eye; Z98.890 Other specified postprocedural states; Z87.891 Personal history of nicotine dependence; Z82.49 Family history of ischemic heart disease and other diseases of the circulatory system; Z80.9 Family history of malignant neoplasm, unspecified; Z95.5 Presence of coronary angioplasty implant and graft; Z79.890 Hormone replacement therapy; Z79.01 Long term (current) use of anticoagulants; Z95.0 Presence of cardiac pacemaker
CPT/HCPCS: 36415; 71046; 80048; 80053; 81003; 83605; 83735; 83880; 84100; 84484; 85025; 85610; 85730; 87635; 93005; 93970; 94640; 99285

== ENCOUNTER 2020-10-19 22:47 | Inpatient (IN) | payer OTHER, MEDICARE, BC ==
--- NOTE | 2020-10-19 23:30 | ED ---
Recheck HPI - General Chief Complaint: ENT Stated Complaint: ENT Time Seen by Provider: 10/19/20 22:56 Source: patient, EMS, RN notes reviewed, old records reviewed Mode of arrival: EMS Limitations: no limitations - History of Present Illness Initial Comments: This is a 89-year-old male transferred for evaluation of esophageal mass. Patient accepted in transfer for feel of need for oncology consult. Patient has no significant current complaints here in the ER symptoms are managed well MD Complaint: wound re-check -: unknown Returns Today for: Called Because of Abnormal Lab/Test, persistent/worsening pain related to initial visit Symptoms Since Prior Visit: worsening pain Context: planned re-check Associated Symptoms: malaise, nausea Treatments Prior to Arrival: Given Pain Meds on - Related Data Home Medications Medication Instructions Recorded Confirmed Multivitamins, Thera [Multivitamin 1 tab PO DAILY 09/23/16 10/20/20 (formulary)] Amiodarone [Cordarone] 100 mg PO HS 02/10/17 10/20/20 Levalbuterol Tartrate [Xopenex Hfa 2 puff INHALATION RT-TID PRN 02/10/17 10/20/20 Inhaler] Rivaroxaban [Xarelto] 15 mg PO HS 02/10/17 10/20/20 Albuterol Sulfate [Ventolin HFA] 2 puff INHALATION RT-BID PRN 02/22/20 10/20/20 Allopurinol [Zyloprim] 100 mg PO DAILY 02/22/20 10/20/20 Atorvastatin [Lipitor] 20 mg PO HS 02/22/20 10/20/20 Cholecalciferol [Vitamin D3 (25 50 mcg PO DAILY 02/22/20 10/20/20 Mcg = 1000 Iu)] Levothyroxine Sodium [Synthroid] 50 mcg PO DAILY 02/22/20 10/20/20 Metoprolol Tartrate [Lopressor] 25 mg PO BID 02/22/20 10/20/20 Tamsulosin [Flomax] 0.4 mg PO HS 02/22/20 10/20/20 calcitrioL [Rocaltrol] 0.5 mcg PO WE 02/22/20 10/20/20 Furosemide [Lasix] 20 mg PO DAILY 10/20/20 10/20/20 Nitroglycerin Sl Tabs [Nitrostat] 0.4 mg SL Q5M PRN 10/20/20 10/20/20 Vitamin C/Biotin [Hair, Skin and 1 tab PO MOWEFR 10/20/20 10/20/20 Nails Chew] Previous Rx's Medication Instructions Recorded cefTRIAXone [Rocephin] 2 gm IVPB HS each 10/30/20 Allergies Allergy/AdvReac Type Severity Reaction Status Date / Time Penicillins Allergy Anaphylaxis Verified 10/20/20 08:52 prednisone Allergy Anaphylaxis Verified 10/20/20 08:52 Sulfa (Sulfonamide Allergy Anaphylaxis Verified 10/20/20 08:52 Antibiotics) Review of Systems ROS Statement: Those systems with pertinent positive or pertinent negative responses have been documented in the HPI. ROS Other: All systems not noted in ROS Statement are negative. Past Medical History Past Medical History: Hyperlipidemia, Hypertension, Myocardial Infarction (OR), Pneumonia Additional Past Medical History / Comment(s): Peripheral Neuropathy , see Dr Hever Kingsley&Cayden, has shakes from [employer],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 but is using straight cane, 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 per spouse, esophageal mass Last Myocardial Infarction Date:: 2016 History of Any Multi-Drug Resistant Organisms: None Reported Past Surgical History: Heart Catheterization With Stent, Hernia Repair Additional Past Surgical History / Comment(s): 2 stents, rosa m cataracts Past Anesthesia/Blood Transfusion Reactions: Family History of Problems w/ Anesthesia Additional Past Anesthesia/Blood Transfusion Reaction / Comment(s): family and self- diff coming out per spouse Date of Last Stent Placement:: 2016 Past Psychological History: No Psychological Hx Reported Smoking Status: Former smoker Past Alcohol Use History: None Reported Past Drug Use History: None Reported - Past Family History Mother History Unknown: Yes Family Medical History: Myocardial Infarction (OR) Father History Unknown: Yes Family Medical History: Cancer General Exam Limitations: no limitations General appearance: alert, in no apparent distress Head exam: Present: atraumatic, normocephalic, normal inspection Eye exam: Present: normal appearance, PERRL, EOMI. Absent: scleral icterus, conjunctival injection, periorbital swelling ENT exam: Present: normal exam, mucous membranes moist Neck exam: Present: normal inspection. Absent: tenderness, meningismus, lymphadenopathy Respiratory exam: Present: normal lung sounds bilaterally. Absent: respiratory distress, wheezes, rales, rhonchi, stridor Cardiovascular Exam: Present: regular rate, normal rhythm, normal heart sounds. Absent: systolic murmur, diastolic murmur, rubs, gallop, clicks GI/Abdominal exam: Present: soft, normal bowel sounds. Absent: distended, te nderness, guarding, rebound, rigid Extremities exam: Present: normal inspection, full ROM, normal capillary refill. Absent: tenderness, pedal edema, joint swelling, calf tenderness Back exam: Present: normal inspection Neurological exam: Present: alert, oriented X3, CN II-XII intact Psychiatric exam: Present: normal affect, normal mood Skin exam: Present: warm, dry, intact, normal color. Absent: rash Course Vital Signs 10/19/20 10/20/20 10/20/20 22:50 00:31 03:44 Temperature 98.9 F Pulse Rate 72 72 73 Respiratory 22 18 18 Rate Blood Pressure 113/76 120/59 118/68 O2 Sat by Pulse 96 97 96 Oximetry 10/20/20 10/20/20 07:13 08:34 Temperature Pulse Rate 73 75 Respiratory 16 18 Rate Blood Pressure 119/64 136/80 O2 Sat by Pulse 93 L 94 L Oximetry - Reevaluation(s) Reevaluation #1: Medical record is reviewed Patient symptoms improved here in the ER Patient informed results and questions answered Patient is in no acute distress Medical Decision Making - Medical Decision Making 89 male accepted in transfer for esophageal mass oncology to evaluate. Patient has no current significant complaints pain is controlled resting comfortably - Lab Data Result diagrams: 10/27/20 05:05 10/30/20 05:27 Lab Results 10/20/20 10/20/20 10/21/20 Range/Units 01:22 09:21 06:05 WBC 6.3 (3.8-10.6) k/uL RBC 3.59 L (4.30-5.90) m/uL Hgb 12.0 L (13.0-17.5) gm/dL Hct 36.1 L (39.0-53.0) % MCV 100.7 H (80.0-100.0) fL MCH 33.3 (25.0-35.0) pg MCHC 33.1 (31.0-37.0) g/dL RDW 13.1 (11.5-15.5) % Plt Count 194 (150-450) k/uL MPV 8.9 Neutrophils % 74 % Lymphocytes % 13 % Monocytes % 7 % Eosinophils % 3 % Basophils % 0 % Neutrophils # 4.6 (1.3-7.7) k/uL Lymphocytes # 0.8 L (1.0-4.8) k/uL Monocytes # 0.5 (0-1.0) k/uL Eosinophils # 0.2 (0-0.7) k/uL Basophils # 0.0 (0-0.2) k/uL Sodium (137-145) mmol/L Potassium (3.5-5.1) mmol/L Chloride (98-107) mmol/L Carbon Dioxide (22-30) mmol/L Anion Gap mmol/L BUN (9-20) mg/dL Creatinine 1.29 H (0.66-1.25) mg/dL Est GFR (CKD-EPI)AfAm 57 (>60 ml/min/1.73 sqM) Est GFR (CKD-EPI)NonAf 50 (>60 ml/min/1.73 sqM) Glucose (74-99) mg/dL Calcium (8.4-10.2) mg/dL Phosphorus (2.5-4.5) mg/dL Magnesium (1.6-2.3) mg/dL Total Bilirubin (0.2-1.3) mg/dL AST (17-59) U/L ALT (4-49) U/L Alkaline Phosphatase (38-126) U/L Total Protein (6.3-8.2) g/dL Albumin (3.5-5.0) g/dL Globulin g/dL Albumin/Globulin Ratio Coronavirus (PCR) Not Detected (Not Detectd) 10/21/20 Range/Units 06:05 WBC (3.8-10.6) k/uL RBC (4.30-5.90) m/uL Hgb (13.0-17.5) gm/dL Hct (39.0-53.0) % MCV (80.0-100.0) fL MCH (25.0-35.0) pg MCHC (31.0-37.0) g/dL RDW (11.5-15.5) % Plt Count (150-450) k/uL MPV Neutrophils % % Lymphocytes % % Monocytes % % Eosinophils % % Basophils % % Neutrophils # (1.3-7.7) k/uL Lymphocytes # (1.0-4.8) k/uL Monocytes # (0-1.0) k/uL Eosinophils # (0-0.7) k/uL Basophils # (0-0.2) k/uL Sodium 138 (137-145) mmol/L Potassium 3.7 (3.5-5.1) mmol/L Chloride 106 (98-107) mmol/L Carbon Dioxide 25 (22-30) mmol/L Anion Gap 7 mmol/L BUN 16 (9-20) mg/dL Creatinine 1.07 (0.66-1.25) mg/dL Est GFR (CKD-EPI)AfAm 72 (>60 ml/min/1.73 sqM) Est GFR (CKD-EPI)NonAf 63 (>60 ml/min/1.73 sqM) Glucose 98 (74-99) mg/dL Calcium 8.5 (8.4-10.2) mg/dL Phosphorus 3.2 (2.5-4.5) mg/dL Magnesium 1.9 (1.6-2.3) mg/dL Total Bilirubin 0.7 (0.2-1.3) mg/dL AST 25 (17-59) U/L ALT 13 (4-49) U/L Alkaline Phosphatase 69 (38-126) U/L Total Protein 5.9 L (6.3-8.2) g/dL Albumin 2.8 L (3.5-5.0) g/dL Globulin 3.1 g/dL Albumin/Globulin Ratio 0.9 Coronavirus (PCR) (Not Detectd) - Radiology Data Radiology results: report reviewed Disposition Clinical Impression: Esophageal mass, Bilateral cellulitis of lower leg Disposition: ADMITTED IP TO THIS HOSP Condition: Fair Is patient prescribed a controlled substance at d/c from ED?: No
[2020-10-20] MEDS ORDERED: NALOXONE 0.4 MG/ML 1 ML VIAL IV PRN (00:28)
[2020-10-20] MEDS ORDERED: MORPHINE SULFATE 4 MG/ML SYRINGE IV PRN (00:28)
[2020-10-20] MEDS ORDERED: ONDANSETRON 4 MG/2 ML VIAL IVP PRN (00:28)
[2020-10-20] MEDS ORDERED: VANCOMYCIN IV PER PHARMACY 1 EACH MISC MISCELLANE PRN (00:30)
[2020-10-20] MEDS ORDERED: VANCOMYCIN 1,750 MG in SODIUM CHLORIDE 0.9% 500 ML 500 ML IVPB ONE (00:45)
[2020-10-20] MEDS: SODIUM CHLORIDE 0.9% 1,000 ML IV SCH ×3 (01:01→16:34)
[2020-10-20] MEDS ORDERED: ALBUTEROL NEBULIZED 2.5 MG/3 ML INHALATION PRN (10:47)
[2020-10-20] MEDS ORDERED: NITROGLYCERIN SL TABS 0.4 MG TAB SUBLINGUAL PRN (10:47)
[2020-10-20] MEDS: PREGABALIN 75 MG CAP PO SCH (11:45)
[2020-10-20] MEDS: FUROSEMIDE 40 MG TAB PO SCH (11:45)
[2020-10-20] MEDS: amLODIPine 5 MG TAB PO SCH (11:45)
[2020-10-20] MEDS: LEVOTHYROXINE 50 MCG TAB PO SCH (11:48)
[2020-10-20] MEDS: LOSARTAN 25 MG TAB PO SCH (11:48)
[2020-10-20] MEDS: allopurinoL 100 MG TAB PO SCH (11:48)
[2020-10-20] MEDS: METOPROLOL TARTRATE 25 MG TAB PO SCH ×2 (11:48→20:25)
[2020-10-20] MEDS ORDERED: ACETAMINOPHEN TAB 325 MG TAB PO PRN (16:50)
[2020-10-20] MEDS ORDERED: BENZOCAINE/MENTHOL LOZENG 1 EACH LOZENGE MUCOUS MEM PRN (16:50)
--- NOTE | 2020-10-20 17:11 | P.HPIM ---
History of Present Illness H&P Date: 10/20/20 Chief Complaint: dysphagia Patient is an 89-year-old male with a history of hypertension, dyslipidemia, and prior myocardial infarction who presented as a transfer from [facility]. Apparently in the ER there he had undergone a CAT scan which showed an esophageal mass. There he underwent a CT of the thorax without contrast which showed masslike circumferential thickening of the mid esophagus with proximal dilatation and air fluid level. Recommendation for direct visualization due to underlying mass. Enlarged right paratracheal lymph node at the thoracic inlet measuring 13 mm. CBC showed a hemoglobin of 12.3 was otherwise unremarkable. PT PTT were both high at 19.1 and 45.5. He is on have a BUN of 22, creatinine 1.67 patient does have a history of chronic kidney disease. Troponin and BNP were negative. COVID-19 was not detected. EKG demonstrated normal sinus rhythm at a rate of 63 Patient seen and examined at bedside. He states that he has been struggling for several months with on and off chest congestion and runny nose. He has had some progressive shortness of breath. He apparently was trialed on an antibiotic with not much help. He had been seeing Dr. Rajput and had a chest x-ray which was read as unremarkable. Over the last 2 weeks he has developed difficulty swallowing both solids and liquids. He reports that he gets quite significant cough with white colored sputum. He reports it is usually worse and sitting forward, not as bad when lying flat, and eating does not provoke his cough. The last one week he has noted hoarseness of his voice. He denies any recent weight loss. His appetite has been low. He states that when he swallows he gets increased burning in his chest. He denies any recent diarrhea. Father did have a history of throat cancer. He reports that one week ago he noted some swelling and redness discoloration of his right toes since that time he has been wrapping both legs. He states he saw a technical sales associate who did x-rays but was not started on antibiotics. Pertinent positives and negatives as discussed in HPI, a complete review of systems was performed and all other systems are negative. General: non toxic, no distress, appears at stated age Derm: swelling warmth adn erythema of the lright thrid toes with fore foot, warm, dry Head: atraumatic, normocephalic, symmetric Eyes: EOMI, no lid lag, anicteric sclera, pupils equal round reactive to light ENT: Nose and ears atraumatic, no thrush, no pharyngeal erythema Neck: No thyromegaly, no cervical lymphadenopathy, trachea midline, supple Mouth: no lip lesion, mucus membranes moist Cardiovascular: S1S2 reg, no murmur, positive posterior tibial pulse bilateral, no edema, capillary refill less than 2 seconds Lungs: clear to ascultation bilateral, no ronchi, no rales, no wheeze, no accessory muscle use Abdominal: soft, nontender to palpation, no guarding, no appreciable organomegaly, normal bowel sounds Ext: no gross muscle atrophy, muscle strength muscle strength 5 out of 5 in all 4 extremities, no contractures Neuro: CN II-XI grossly intact, light touch intact all 4 extremities, finger to nose within normal limits, Psych: Alert, oriented, appropriate affect Esophageal mass was circumferential thickening and enlarged lymph node -Consult surgery for direct visualization -Liquids only -Nothing by mouth after midnight Right lower extremity cellulitis -With swelling of right third toe concern for possible osteomyelitis -Check right foot x-ray -vanco -Check CRP for baseline HTN HLD CAD with hx of VT - norvasc, cozaar, lopressor, lasix - lipitor Hx of A fib and SSS - Hold xarelto for biiopsy - amio Neuropathy - pregabalin - supportive care CKD III - rocaltrol - avoid nephrotoxic agents The patient is placed in observation with an anticipated less than 2 midnight stay for evaluation of dysphagia. Surrogate decision-maker: jen CODE STATUS: DNR DVT prophylaxis: SCDS Discussed with: Patient, nursing Anticipated discharge date: in 2-[address]: home A total of 70 minutes was spent on the care of this complex patient more than 50% of the time was spent in counseling and care coordination. Past Medical History Past Medical History: Hyperlipidemia, Hypertension, Myocardial Infarction (VT), Pneumonia Additional Past Medical History / Comment(s): Peripheral Neuropathy , see Dr Hever Kingsley&Cayden, 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,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 but is using straight cane, 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 per spouse, esophageal mass Last Myocardial Infarction Date:: 2016 History of Any Multi-Drug Resistant Organisms: None Reported Past Surgical History: Heart Catheterization With Stent, Hernia Repair Additional Past Surgical History / Comment(s): 2 stents, rosa m cataracts Past Anesthesia/Blood Transfusion Reactions: Family History of Problems w/ Anesthesia Additional Past Anesthesia/Blood Transfusion Reaction / Comment(s): family and self- diff coming out per spouse Date of Last Stent Placement:: 2016 Smoking Status: Former smoker - Past Family History Mother History Unknown: Yes Family Medical History: Myocardial Infarction (VT) Father History Unknown: Yes Family Medical History: Cancer Medications and Allergies Home Medications Medication Instructions Recorded Confirmed Type Multivitamins, Thera [Multivitamin 1 tab PO DAILY 09/23/16 10/20/20 History (formulary)] Amiodarone [Cordarone] 100 mg PO HS 02/10/17 10/20/20 History Levalbuterol Tartrate [Xopenex Hfa 2 puff INHALATION RT-TID PRN 02/10/17 10/20/20 History Inhaler] Rivaroxaban [Xarelto] 15 mg PO HS 02/10/17 10/20/20 History Albuterol Sulfate [Ventolin HFA] 2 puff INHALATION RT-BID PRN 02/22/20 10/20/20 History Allopurinol [Zyloprim] 100 mg PO DAILY 02/22/20 10/20/20 History Atorvastatin [Lipitor] 20 mg PO HS 02/22/20 10/20/20 History Cholecalciferol [Vitamin D3 (25 50 mcg PO DAILY 02/22/20 10/20/20 History Mcg = 1000 Iu)] Levothyroxine Sodium [Synthroid] 50 mcg PO DAILY 02/22/20 10/20/20 History Metoprolol Tartrate [Lopressor] 25 mg PO BID 02/22/20 10/20/20 History Pregabalin 75 mg PO DAILY 02/22/20 10/20/20 History Tamsulosin [Flomax] 0.4 mg PO HS 02/22/20 10/20/20 History amLODIPine [Norvasc] 5 mg PO DAILY 02/22/20 10/20/20 History calcitrioL [Rocaltrol] 0.5 mcg PO WE 02/22/20 10/20/20 History Doxycycline Monohydrate [Monodox] 100 mg PO Q12H 10/20/20 10/20/20 History Furosemide [Lasix] 20 mg PO DAILY 10/20/20 10/20/20 History Furosemide [Lasix] 40 mg PO DAILY 10/20/20 10/20/20 History Losartan [Cozaar] 25 mg PO DAILY 10/20/20 10/20/20 History Nitroglycerin Sl Tabs [Nitrostat] 0.4 mg SL Q5M PRN 10/20/20 10/20/20 History Vitamin C/Biotin [Hair, Skin and 1 tab PO MOWEFR 10/20/20 10/20/20 History Nails Chew] Allergies Allergy/AdvReac Type Severity Reaction Status Date / Time Penicillins Allergy Anaphylaxis Verified 10/20/20 08:52 prednisone Allergy Anaphylaxis Verified 10/20/20 08:52 Sulfa (Sulfonamide Allergy Anaphylaxis Verified 10/20/20 08:52 Antibiotics) Physical Exam Osteopathic Statement: *. No significant issues noted on an osteopathic structural exam other than those noted in the History and Physical/Consult. Vitals: Vital Signs Temp Pulse Pulse Resp BP BP Pulse Ox 10/20/20 12:48 97.5 F L 72 17 126/66 94 L 10/20/20 10:29 97.8 F 81 19 128/68 96 10/20/20 08:34 75 18 136/80 94 L 10/20/20 07:13 73 16 119/64 93 L 10/20/20 03:44 73 18 118/68 96 10/20/20 00:31 72 18 120/59 97 10/19/20 22:50 98.9 F 72 22 113/76 96 Intake and Output 10/20/20 10/20/20 10/20/20 06:59 14:59 22:59 Output Total 500 Balance -500 Output: Urine 500 Other: Voiding Method Toilet Urinal # Voids 2 # Bowel Movements 1 Weight 106.594 kg Results CBC & Chem 7: 10/20/20 09:21 Labs: Abnormal Lab Results - Last 24 Hours (Table) 10/20/20 Range/Units 09: Creatinine 1.29 H (0.66-1.25) mg/dL Thrombosis Risk Factor Assmnt - Choose All That Apply Each Factor Represents 1 point: Medical pt on bed rest, Swollen legs (current) Each Risk Factor Represents 3 Points: Age 75 years or older, Family history of DVT/PE Thrombosis Risk Factor Assessment Total Risk Factor Score: 8 Thrombosis Risk Factor Assessment Level: High Risk
--- NOTE | 2020-10-20 17:36 | XR ---
EXAMINATION TYPE: XR foot complete RT DATE OF EXAM: 10/20/2020 COMPARISON: NONE HISTORY: Foot pain TECHNIQUE: 3 views FINDINGS: There is moderate plantar calcaneal spurring. There is soft tissue swelling of the forefoot . There is some soft tissue swelling of the third toe compared to the other toes. I see no definite f ocal bone destruction. There is some demineralization of the distal phalanx of the third toe compared to the other toes. There is no evidence of a fracture. IMPRESSION: Soft tissue swelling. Demineralization of the distal phalanx of the third toe could relat e to developing osteomyelitis.
[2020-10-20] MEDS: DEXTROSE 5%-0.45% NACL 1,000 ML IV SCH (20:24)
[2020-10-20] MEDS: AMIODARONE 100 MG TAB PO SCH (20:25)
[2020-10-20] MEDS: ATORVASTATIN 20 MG TAB PO SCH (20:25)
[2020-10-20] MEDS: TAMSULOSIN 0.4 MG CAP.ER.24H PO SCH (20:25)
[2020-10-20] MEDS ORDERED: RIVAROXABAN 15 MG TAB PO SCH (21:00)
[2020-10-20] MEDS: VANCOMYCIN 1,750 MG in SODIUM CHLORIDE 0.9% 500 ML 500 ML IVPB SCH (21:07)
[2020-10-20] MEDS: ALBUTEROL NEBULIZED 2.5 MG/3 ML INHALATION PRN (21:18)
[2020-10-21] MEDS: LEVOTHYROXINE 50 MCG TAB PO SCH (06:21)
[2020-10-21 06:56] LABS: Basophils % (A) 0 %; Eosinophils # (A) 0.2 k/uL (0-0.7); Eosinophils % (A) 3 %; HCT 36.1 % (39.0-53.0); Lymphocytes # (A) 0.8 k/uL (1.0-4.8); Lymphocytes % (A) 13 %; MCH 33.3 pg (25.0-35.0); MCHC 33.1 g/dL (31.0-37.0); MCV 100.7 fL (80.0-100.0); Mean Platelet Volume 8.9; Monocytes # (A) 0.5 k/uL (0-1.0); Monocytes % (A) 7 %; Neutrophils # (A) 4.6 k/uL (1.3-7.7); Neutrophils % (A) 74 %; Platelet Count 194 k/uL (150-450); RBC 3.59 m/uL (4.30-5.90); RDW 13.1 % (11.5-15.5); WBC 6.3 k/uL (3.8-10.6)
[2020-10-21 07:06] LABS: ALT 13 U/L (4-49); AST 25 U/L (17-59); African American GFR (CKD) 72 (>60 ml/min/1.73 sqM); Albumin 2.8 g/dL (3.5-5.0); Albumin/Globulin Ratio 0.9; Alkaline Phosphatase 69 U/L (38-126); Anion Gap 7 mmol/L; Blood Urea Nitrogen 16 mg/dL (9-20); Calcium 8.5 mg/dL (8.4-10.2); Carbon Dioxide 25 mmol/L (22-30); Chloride 106 mmol/L (98-107); Globulin 3.1 g/dL; Glucose 98 mg/dL (74-99); Magnesium 1.9 mg/dL (1.6-2.3); Non-African American GFR(CKD) 63 (>60 ml/min/1.73 sqM); Phosphorus 3.2 mg/dL (2.5-4.5); Potassium 3.7 mmol/L (3.5-5.1); Sodium 138 mmol/L (137-145); Total Bilirubin 0.7 mg/dL (0.2-1.3); Total Protein 5.9 g/dL (6.3-8.2)
[2020-10-21] MEDS: METOPROLOL TARTRATE 25 MG TAB PO SCH ×2 (09:19→21:04)
[2020-10-21] MEDS: MULTIVITAMINS, THERA 1 EACH TAB PO SCH (09:19)
[2020-10-21] MEDS: PREGABALIN 75 MG CAP PO SCH (09:19)
[2020-10-21] MEDS: LOSARTAN 25 MG TAB PO SCH (09:20)
[2020-10-21] MEDS: allopurinoL 100 MG TAB PO SCH (09:20)
[2020-10-21] MEDS: amLODIPine 5 MG TAB PO SCH (09:20)
[2020-10-21] MEDS: CHOLECALCIFEROL 25 MCG (1000 IU) TABLET PO SCH (09:20)
[2020-10-21] MEDS: FUROSEMIDE 20 MG TAB PO SCH (09:25)
[2020-10-21] MEDS: FUROSEMIDE 40 MG TAB PO SCH (09:25)
--- NOTE | 2020-10-21 10:36 | P.CONS ---
History of Present Illness - Reason for Consult Consult date: 10/21/20 wound care - History of Present Illness This is an 89-year-old patient being seen on 5 [address]. for cellulitis to bilateral lower extremities is typically the third digit of the right foot. Patient has no open ulcerations. An x-ray impression: Soft tissue swelling. Demineralization of the distal phalanx of the third toe could relate to developing osteomyelitis. She has no open ulcerations. He does have erythema to bilateral lower extremities and third digit of the right foot. Patient's past medical history significant for hypertension, dyslipidemia, prior SD. Review Of Systems: Constitutional: No fever, no chills, no night sweats. No weight change. No weakness, fatigue or lethargy. No daytime sleepiness. Integumentary: no wounds, no lesions. No rash or pruritus. No unusual bruising. No change in hair or nails. Physical exam: General Appearance: Alert, cooperative, no distress, appears stated age. Skin: See HPI all other Skin color, texture, tugor normal, no rashes or lesions. Neurologic: Alert oriented x3 Assessment: 1. Bilateral cellulitis 2. Osteomyelitis third digit right foot Plan: 1. May apply zinc barrier cream to bilateral lower extremities and third digit of the right foot. Wrap with rolled gauze and Sukhdeep wrap. Change daily. Patient may benefit from hyperbaric oxygen therapy upon discharge was he's completed 4 weeks of antibiotics for osteomyelitis. At this time patient has no open ulcerations. Thank you for the consultation any questions please contact the wound care [facility] note has been reviewed and discussed with Dr. Adams and the impression and plan of care has been directed as dictated. 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 per spouse, esophageal mass Last Myocardial Infarction Date:: 2016 History of Any Multi-Drug Resistant Organisms: None Reported Past Surgical History: Heart Catheterization With Stent, Hernia Repair Additional Past Surgical History / Comment(s): 2 stents, rosa m cataracts Past Anesthesia/Blood Transfusion Reactions: Family History of Problems w/ Anesthesia Additional Past Anesthesia/Blood Transfusion Reaction / Comm: family and self- diff coming out per spouse Date of Last Stent Placement:: 2016 Smoking Status: Former smoker - Past Family History Mother History Unknown: Yes Family Medical History: Myocardial Infarction (SD) Father History Unknown: Yes Family Medical History: Cancer Medications and Allergies Home Medications Medication Instructions Recorded Confirmed Type Multivitamins, Thera [Multivitamin 1 tab PO DAILY 09/23/16 10/20/20 History (formulary)] Amiodarone [Cordarone] 100 mg PO HS 02/10/17 10/20/20 History Levalbuterol Tartrate [Xopenex Hfa 2 puff INHALATION RT-TID PRN 02/10/17 10/20/20 History Inhaler] Rivaroxaban [Xarelto] 15 mg PO HS 02/10/17 10/20/20 History Albuterol Sulfate [Ventolin HFA] 2 puff INHALATION RT-BID PRN 02/22/20 10/20/20 History Allopurinol [Zyloprim] 100 mg PO DAILY 02/22/20 10/20/20 History Atorvastatin [Lipitor] 20 mg PO HS 02/22/20 10/20/20 History Cholecalciferol [Vitamin D3 (25 50 mcg PO DAILY 02/22/20 10/20/20 History Mcg = 1000 Iu)] Levothyroxine Sodium [Synthroid] 50 mcg PO DAILY 02/22/20 10/20/20 History Metoprolol Tartrate [Lopressor] 25 mg PO BID 02/22/20 10/20/20 History Pregabalin 75 mg PO DAILY 02/22/20 10/20/20 History Tamsulosin [Flomax] 0.4 mg PO HS 02/22/20 10/20/20 History amLODIPine [Norvasc] 5 mg PO DAILY 02/22/20 10/20/20 History calcitrioL [Rocaltrol] 0.5 mcg PO WE 02/22/20 10/20/20 History Doxycycline Monohydrate [Monodox] 100 mg PO Q12H 10/20/20 10/20/20 History Furosemide [Lasix] 20 mg PO DAILY 10/20/20 10/20/20 History Furosemide [Lasix] 40 mg PO DAILY 10/20/20 10/20/20 History Losartan [Cozaar] 25 mg PO DAILY 10/20/20 10/20/20 History Nitroglycerin Sl Tabs [Nitrostat] 0.4 mg SL Q5M PRN 10/20/20 10/20/20 History Vitamin C/Biotin [Hair, Skin and 1 tab PO MOWEFR 10/20/20 10/20/20 History Nails Chew] Allergies Allergy/AdvReac Type Severity Reaction Status Date / Time Penicillins Allergy Anaphylaxis Verified 10/20/20 08:52 prednisone Allergy Anaphylaxis Verified 10/20/20 08:52 Sulfa (Sulfonamide Allergy Anaphylaxis Verified 10/20/20 08:52 Antibiotics) Physical Exam Vitals: Vital Signs Temp Pulse Pulse Resp BP BP Pulse Ox 10/21/20 08:37 98.8 F 82 20 138/68 10/21/20 04:35 99.1 F 62 22 141/61 93 L 10/20/20 21:33 74 10/20/20 21:21 94 L 10/20/20 21:20 74 10/20/20 19:15 98.5 F 85 22 131/56 94 L 10/20/20 12:48 97.5 F L 72 17 126/66 94 L Intake and Output 10/20/20 10/21/20 10/21/20 22:59 06:59 14:59 Intake Total 100 Output Total 500 Balance -500 100 Intake: Oral 100 Output: Urine 500 Other: Voiding Method Urinal Diaper Incontinent # Voids 1 4 # Bowel Movements 1 Results CBC & Chem 7: 10/21/20 06:05 10/21/20 06:05 Labs: Abnormal Lab Results - Last 24 Hours (Table) 10/21/20 10/21/20 Range/Units 06:05 06:05 RBC 3.59 L (4.30-5.90) m/uL Hgb 12.0 L (13.0-17.5) gm/dL Hct 36.1 L (39.0-53.0) % MCV 100.7 H (80.0-100.0) fL Lymphocytes # 0.8 L (1.0-4.8) k/uL Total Protein 5.9 L (6.3-8.2) g/dL Albumin 2.8 L (3.5-5.0) g/dL Assessment and Plan (1) Bilateral cellulitis of lower leg Current Visit: Yes Status: Acute Code(s): L03.116 - CELLULITIS OF LEFT LOWER LIMB; L03.115 - CELLULITIS OF RIGHT LOWER LIMB SNOMED Code(s): 419671098 (2) Osteomyelitis Current Visit: Yes Status: Acute Code(s): M86.9 - OSTEOMYELITIS, UNSPECIFIED SNOMED Code(s): 90078075
[2020-10-21] MEDS: DEXTROSE 5%-0.45% NACL 1,000 ML IV SCH ×2 (11:19→21:04)
--- NOTE | 2020-10-21 13:24 | P.GSCN ---
History of Present Illness Consult date: 10/21/20 History of present illness: CHIEF COMPLAINT: Dysphagia HISTORY OF PRESENT ILLNESS: This is a 89-year-old male with a history of hypertension, hyperlipidemia, myocardial infarction, atrial fibrillation anticoagulated with Xarelto, chronic kidney disease, coronary artery disease with prior cardiac stents. His last doses Xarelto was on Tuesday. He also has a father with throat cancer. Patient was a transfer from [facility]. Apparently he had gone to the ER there due to worsening difficulty swallowing. They had done a computed tomography scan of the thorax without contrast that showed masslike circumferential thickening of the mid esophagus with proximal dilation an air-fluid level. Recommendation for direct visualization due to underlying mass. Enlarged right paratracheal lymph node at the thoracic inlet measuring 13 mm. Therefore patient was transferred to [facility] for evaluation of the esophageal mass. Surgical consult was then placed. Patient reports that he has had difficulty with swallowing for about 2 months. He has difficulty with both liquid and solids. She denies any weight loss. Denies any chills or night sweats. He has having diarrhea. He also has cellulitis and osteomyelitis on the right foot and is currently on antibiotics. Patient reports that when he swallows liquids or solids it feels like it gets stuck in the center of his chest. He denies any nausea or vomiting. PAST MEDICAL HISTORY: See list. PAST SURGICAL HISTORY: See list. MEDICATIONS: See list. ALLERGIES: See list. SOCIAL HISTORY: No illicit drug use. REVIEW OF SYSTEMS: CONSTITUTIONAL: Denies fever or chills. HEENT: Denies blurred vision, vision changes, or eye pain. Denies hemoptysis CARDIOVASCULAR: Denies chest pain or pressure. RESPIRATORY: No shortness of breath. GASTROINTESTINAL: See HPI for pertinent findings HEMATOLOGIC: Denies bleeding disorders. GENITOURINARY: Denies any blood in urine or increased urinary frequency. SKIN: Denies pruitis. Denies rash. PHYSICAL EXAM: VITAL SIGNS: Reviewed GENERAL: Well-developed in no acute distress. HEENT: No sclera icterus. Extraocular movements grossly intact. Moist buccal mucosa. Head is atraumatic, normocephalic. No nasal drainage. No palpable masses of the neck ABDOMEN: Soft. Nondistended. Nontender NEUROLOGIC: Alert and oriented. Cranial nerves II through XII grossly intact. LABORATORY DATA: WBC 6.3 hemoglobin is 02/06/1994 sodium 138 potassium is 3.7 creatinine 1.07 magnesium 1.9 LFTs normal Albumin 2.8 Covid not detected IMAGING: ASSESSMENT: 1. Dysphagia 2. Esophageal mass noted on computed tomography scan completed at [facility] PLAN: -Upper GI ordered for evaluation of dysphagia -Patient scheduled for EGD tomorrow, 10/22/[address] Rivera -Continue to hold Xarelto -Keep patient nothing by mouth after midnight Thank you for this consultation Physician Medical Record Librarians Teacher note has been reviewed by physician. Signing provider agrees with the documented findings, assessment, and plan of care. 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 per spouse, esophageal mass Last Myocardial Infarction Date:: 2016 History of Any Multi-Drug Resistant Organisms: None Reported Past Surgical History: Heart Catheterization With Stent, Hernia Repair Additional Past Surgical History / Comment(s): 2 stents, rosa m cataracts Past Anesthesia/Blood Transfusion Reactions: Family History of Problems w/ Anesthesia Additional Past Anesthesia/Blood Transfusion Reaction / Comm: family and self- diff coming out per spouse Date of Last Stent Placement:: 2016 Smoking Status: Former smoker - Past Family History Mother History Unknown: Yes Family Medical History: Myocardial Infarction (AL) Father History Unknown: Yes Family Medical History: Cancer Medications and Allergies Home Medications Medication Instructions Recorded Confirmed Type Multivitamins, Thera [Multivitamin 1 tab PO DAILY 09/23/16 10/20/20 History (formulary)] Amiodarone [Cordarone] 100 mg PO HS 02/10/17 10/20/20 History Levalbuterol Tartrate [Xopenex Hfa 2 puff INHALATION RT-TID PRN 02/10/17 10/20/20 History Inhaler] Rivaroxaban [Xarelto] 15 mg PO HS 02/10/17 10/20/20 History Albuterol Sulfate [Ventolin HFA] 2 puff INHALATION RT-BID PRN 02/22/20 10/20/20 History Allopurinol [Zyloprim] 100 mg PO DAILY 02/22/20 10/20/20 History Atorvastatin [Lipitor] 20 mg PO HS 02/22/20 10/20/20 History Cholecalciferol [Vitamin D3 (25 50 mcg PO DAILY 02/22/20 10/20/20 History Mcg = 1000 Iu)] Levothyroxine Sodium [Synthroid] 50 mcg PO DAILY 02/22/20 10/20/20 History Metoprolol Tartrate [Lopressor] 25 mg PO BID 02/22/20 10/20/20 History Pregabalin 75 mg PO DAILY 02/22/20 10/20/20 History Tamsulosin [Flomax] 0.4 mg PO HS 02/22/20 10/20/20 History amLODIPine [Norvasc] 5 mg PO DAILY 02/22/20 10/20/20 History calcitrioL [Rocaltrol] 0.5 mcg PO WE 02/22/20 10/20/20 History Doxycycline Monohydrate [Monodox] 100 mg PO Q12H 10/20/20 10/20/20 History Furosemide [Lasix] 20 mg PO DAILY 10/20/20 10/20/20 History Furosemide [Lasix] 40 mg PO DAILY 10/20/20 10/20/20 History Losartan [Cozaar] 25 mg PO DAILY 10/20/20 10/20/20 History Nitroglycerin Sl Tabs [Nitrostat] 0.4 mg SL Q5M PRN 10/20/20 10/20/20 History Vitamin C/Biotin [Hair, Skin and 1 tab PO MOWEFR 10/20/20 10/20/20 History Nails Chew] Allergies Allergy/AdvReac Type Severity Reaction Status Date / Time Penicillins Allergy Anaphylaxis Verified 10/20/20 08:52 prednisone Allergy Anaphylaxis Verified 10/20/20 08:52 Sulfa (Sulfonamide Allergy Anaphylaxis Verified 10/20/20 08:52 Antibiotics) Surgical - Exam Vital Signs Temp Pulse Resp BP Pulse Ox 98.9 F 72 22 113/76 96 10/19/20 22:50 10/19/20 22:50 10/19/20 22:50 10/19/20 22:50 10/19/20 22:50 Results - Labs 10/21/20 06:05 10/21/20 06:05 Abnormal Lab Results - Last 24 Hours (Table) 10/21/20 10/21/20 Range/Units 06:05 06:05 RBC 3.59 L (4.30-5.90) m/uL Hgb 12.0 L (13.0-17.5) gm/dL Hct 36.1 L (39.0-53.0) % MCV 100.7 H (80.0-100.0) fL Lymphocytes # 0.8 L (1.0-4.8) k/uL Total Protein 5.9 L (6.3-8.2) g/dL Albumin 2.8 L (3.5-5.0) g/dL Diabetes panel 10/21/20 Range/Units 06:05 Sodium 138 (137-145) mmol/L Potassium 3.7 (3.5-5.1) mmol/L Chloride 106 (98-107) mmol/L Carbon Dioxide 25 (22-30) mmol/L BUN 16 (9-20) mg/dL Creatinine 1.07 (0.66-1.25) mg/dL Glucose 98 (74-99) mg/dL Calcium 8.5 (8.4-10.2) mg/dL AST 25 (17-59) U/L ALT 13 (4-49) U/L Alkaline Phosphatase 69 (38-126) U/L Total Protein 5.9 L (6.3-8.2) g/dL Albumin 2.8 L (3.5-5.0) g/dL Calcium panel 10/21/20 Range/Units 06:05 Calcium 8.5 (8.4-10.2) mg/dL Phosphorus 3.2 (2.5-4.5) mg/dL Albumin 2.8 L (3.5-5.0) g/dL Pituitary panel 10/21/20 Range/Units 06:05 Sodium 138 (137-145) mmol/L Potassium 3.7 (3.5-5.1) mmol/L Chloride 106 (98-107) mmol/L Carbon Dioxide 25 (22-30) mmol/L BUN 16 (9-20) mg/dL Creatinine 1.07 (0.66-1.25) mg/dL Glucose 98 (74-99) mg/dL Calcium 8.5 (8.4-10.2) mg/dL Adrenal panel 10/21/20 Range/Units 06:05 Sodium 138 (137-145) mmol/L Potassium 3.7 (3.5-5.1) mmol/L Chloride 106 (98-107) mmol/L Carbon Dioxide 25 (22-30) mmol/L BUN 16 (9-20) mg/dL Creatinine 1.07 (0.66-1.25) mg/dL Glucose 98 (74-99) mg/dL Calcium 8.5 (8.4-10.2) mg/dL Total Bilirubin 0.7 (0.2-1.3) mg/dL AST 25 (17-59) U/L ALT 13 (4-49) U/L Alkaline Phosphatase 69 (38-126) U/L Total Protein 5.9 L (6.3-8.2) g/dL Albumin 2.8 L (3.5-5.0) g/dL
--- NOTE | 2020-10-21 15:03 | FL ---
EXAMINATION TYPE: FL UGI w esophagus DATE OF EXAM: 10/21/2020 COMPARISON: Correlation outside CT 10/19/2020 HISTORY: 89-year-old male trouble swallowing, dysphagia, possible esophageal mass. TECHNIQUE: A single contrast esophagram and UGI study is performed. A total of 1 minute 51 seconds of fluoroscopic time was utilized during procedure and 41 images obtai simone. FINDINGS: There is raquel aspiration with swallow was. Hypopharyngeal anatomy is maintained. There is a segment of fixed, irregular annular narrowing within the mid thoracic esophagus that cause s a moderate luminal narrowing. No hiatal hernia seen. Due to the patient's aspiration and mid esophageal stricture, air contrast was not utilized. This degroot its assessment of the stomach. No raquel cardiac forming lesion is seen. Mucosal prominence at the lev el of the proximal gastric body most likely due to nondistention. The C-loop of the duodenum shows no gross abnormality. IMPRESSION: 1. Repeated episodes of large raquel aspiration. 2. 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 The lumen is moderately narrowed here. 3. Only single contrast was utilized due to the aspiration and stricture. This limits assessment of t he stomach. Prominent folds along the proximal gastric body probably due to the nondistention. Gastri tis is also possible.
--- NOTE | 2020-10-21 19:13 | P.PN ---
Subjective Progress Note Date: 10/21/20 ([place] charting seen at 0915) Principal diagnosis: Dysphagia Patient is an 89-year-old male with a history of hypertension, dyslipidemia, and prior myocardial infarction who presented as a transfer from [facility]. Apparently in the ER there he had undergone a CAT scan which showed an esophageal mass. There he underwent a CT of the thorax without contrast which showed masslike circumferential thickening of the mid esophagus with proximal dilatation and air fluid level. Recommendation for direct visualization due to underlying mass. Enlarged right paratracheal lymph node at the thoracic inlet measuring 13 mm. CBC showed a hemoglobin of 12.3 was otherwise unremarkable. PT PTT were both high at 19.1 and 45.5. He is on have a BUN of 22, creatinine 1.67 patient does have a history of chronic kidney disease. Troponin and BNP were negative. COVID-19 was not detected. EKG demonstrated normal sinus rhythm at a rate of 63. He was found to have a right toe that was red and swollen, x-ray showed possible osteo and he has was started on keflex and ID was consulted. Seen and examined at bedside. He feels as though his congestion is somewhat better than yesterday. Continues to not be able to swallow well. Denies any nausea or vomiting General: non toxic, no distress, appears at stated age Derm: Dressing in place over bilateral legs. Right third toe with warmth, erythema, and swelling. Head: atraumatic, normocephalic, symmetric Eyes: EOMI, no lid lag, anicteric sclera Mouth: no lip lesion, mucus membranes moist Cardiovascular: S1S2 reg, no murmur, positive posterior tibial pulse bilateral, Lungs: Coarse breath sounds bilateral, no rhonchi, no rales , no accessory muscle use Abdominal: soft, nontender to palpation, no guarding, no appreciable organomegaly Ext: no gross muscle atrophy, no edema, no contractures Neuro: CN II-XI grossly intact, no focal neuro deficits Psych: Alert, oriented, appropriate affect Esophageal mass was circumferential thickening and enlarged lymph node -Consult surgery: EGD in AM -Barrium Swallow with dysphagia -strict NPO Right lower extremity cellulitis with osteo of the right third toe -With swelling of right third toe concern for possible osteomyelitis -Check right foot x-ray -vanco and vanco -Check CRP for baseline HTN HLD CAD with hx of DC - norvasc, cozaar, lopressor, lasix - lipitor Hx of A fib and SSS - Hold xarelto for biiopsy - amio Neuropathy - pregabalin - supportive care CKD III - rocaltrol - avoid nephrotoxic agents DVT prophylaxis: SCDS Discussed with: Patient, nursing Anticipated discharge date: in 2-[address]: home A total of 35 minutes was spent on the care of this complex patient more than 50% of the time was spent in counseling and care coordination. Objective - Vital Signs Vital signs: Vital Signs Temp 98.6 F 10/21/20 11:45 Pulse 58 L 10/21/20 11:45 Resp 20 10/21/20 11:45 BP 135/69 10/21/20 11:45 Pulse Ox 90 L 10/21/20 11:45 Intake & Output 10/21/20 10/21/20 10/22/20 06:59 18:59 06:59 Intake Total 100 900 Balance 100 900 Intake: Intake, IV Titration 900 Amount Dextrose 5%-0.45% NaCl 1, 900 000 ml @ 75 mls/hr IV . [id number] [facility] Rx#:[id number] Oral 100 Other: Voiding Method Urinal Diaper Incontinent # Voids 4 # Bowel Movements 4 - Labs CBC & Chem 7: 10/21/20 06:05 10/21/20 06:05 Labs: Abnormal Lab Results - Last 24 Hours (Table) 10/21/20 10/21/20 Range/Units 06:05 06:05 RBC 3.59 L (4.30-5.90) m/uL Hgb 12.0 L (13.0-17.5) gm/dL Hct 36.1 L (39.0-53.0) % MCV 100.7 H (80.0-100.0) fL Lymphocytes # 0.8 L (1.0-4.8) k/uL Total Protein 5.9 L (6.3-8.2) g/dL Albumin 2.8 L (3.5-5.0) g/dL
[2020-10-21] MEDS: ATORVASTATIN 20 MG TAB PO SCH (21:04)
[2020-10-21] MEDS: VANCOMYCIN 1,750 MG in SODIUM CHLORIDE 0.9% 500 ML 500 ML IVPB SCH (21:04)
[2020-10-21] MEDS: AMIODARONE 100 MG TAB PO SCH (21:04)
[2020-10-21] MEDS: TAMSULOSIN 0.4 MG CAP.ER.24H PO SCH (21:04)
[2020-10-22] MEDS: LEVOTHYROXINE 50 MCG TAB PO SCH (05:58)
[2020-10-22 06:55] LABS: Basophils % (A) 0 %; Eosinophils # (A) 0.2 k/uL (0-0.7); Eosinophils % (A) 2 %; HCT 36.4 % (39.0-53.0); HGB 12.2 gm/dL (13.0-17.5); Lymphocytes % (A) 13 %; MCH 33.1 pg (25.0-35.0); MCHC 33.4 g/dL (31.0-37.0); MCV 99.1 fL (80.0-100.0); Mean Platelet Volume 8.4; Monocytes # (A) 0.7 k/uL (0-1.0); Monocytes % (A) 9 %; Neutrophils # (A) 5.2 k/uL (1.3-7.7); Neutrophils % (A) 71 %; Platelet Count 219 k/uL (150-450); RBC 3.67 m/uL (4.30-5.90); WBC 7.3 k/uL (3.8-10.6)
[2020-10-22 07:09] LABS: African American GFR (CKD) 63 (>60 ml/min/1.73 sqM); Anion Gap 7 mmol/L; Blood Urea Nitrogen 14 mg/dL (9-20); Carbon Dioxide 26 mmol/L (22-30); Chloride 105 mmol/L (98-107); Glucose 105 mg/dL (74-99); Magnesium 1.8 mg/dL (1.6-2.3); Non-African American GFR(CKD) 54 (>60 ml/min/1.73 sqM); Phosphorus 2.9 mg/dL (2.5-4.5); Potassium 3.6 mmol/L (3.5-5.1); Sodium 138 mmol/L (137-145)
--- NOTE | 2020-10-22 08:04 | P.CONS ---
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 Requesting physician: Neelam Vargas - Chief Complaint difficulty swallowing and right 3rd toe sweeling x days - History of Present Illness History of present illness : Patient is 89-year-old male presenting to the ER yesterday as a transfer from [facility] apparently the patient did have a CT scan which shows possible esophageal mass for the patient has been transferred to this facility for further evaluation patient apparently having some chest discomfort off and on for the last 3 months and seem to have some difficulty swallowing all the last few weeks, patient also noticed to have a increasing swelling to the lower extremity and more marked swelling of the right second and third toe patient denies having any history of any trauma patient did have a discomfort to the toe especially when it is touched or bumped intensity is 3-4 out of 10 and mostly dull with associated swelling and redness however there is no drainage and the patient did not have any fever during this admission patient did have a normal white count x-rays were obtained which show soft tissue swelling demineralization of the distal phalanx of the third toe could relate to developing osteomyelitis that has prompted this infectious dis ease consultation patient has been started on cefazolin 1 g every 6 hours and vancomycin patient did have a upper GI barium swallow with evidence of large raquel aspiration segment of irregular structure within the mid thorax esophagus suggestive of esophageal cancer ID was consulted for concern for the right third toe osteomyelitis patient currently do not have any open wound however has been seen by the wound care team already and they are recommending some barrier cream to the leg Review of system: CONSTITUTIONAL: Positive for weakness however denies fever. EYES: No complaint. ENT: No complaint. RESPIRATORY: No complaint. CARDIOVASCULAR: No complaint. GENITOURINARY: No complaint. GASTROINTESTINAL: As per history of present illness. MUSCULOSKELETAL: As per history of present illness. INTEGUMENTARY: No complaint. PSYCHOLOGIC: No complaint. ENDOCRINE: No complaint. NEUROLOGIC: No complaint. Past medical history : Reviewed, documented below Past surgical history : Reviewed, documented below Social history: Reviewed, documented below Medications: Reviewed, as documented below EXAMINATION: Vital sigans= Reviewed and documented below GENERAL DESCRIPTION: Elderly male up in the chair, no distress. No tachypnea or accessory muscle of respiration use. HEENT: Shows Pallor , no scleral icterus. Oral mucous membrane is dry. NECK: Trachea central, no thyromegaly. LUNGS: Unlabored breathing. Clear to auscultation anteriorly. No wheeze or crackle. HEART: S1, S2, regular rate and rhythm. ABDOMEN: Soft, no tenderness , guarding or rigidity EXTREMITIES: Right second and third toe are swollen slightly right currently with no open wound or any drainage. SKIN: No rash, no masses palpable. NEUROLOGICAL: The patient is awake, alert, oriented x3, mood and affect normal. LABS AND RADIOLOGY: Reviewed results see below Assessment : 1-patient with right second and third toe swelling more marked on the right third toe in this patient who did have an abnormal x-ray suspicious for osteomyelitis of the distal phalanx patient do not have any history of any trauma and no antibiotic exposure more likely dealing with gram-positive skin heriberto to be the likely pathogen and less likely MRSA Plan: 1-we will obtain inflammatory markers 2-cefazolin dose adjusted to 2 g every 8 hours and discontinue vancomycin 3-recommend either podiatry or vascular surgery evaluation for possible biopsy of deep cultures to determine infecting pathogen We will follow on clinical condition and cultures to further adjust medication if needed Thank you for this consultation we will follow the patient along with you Past Medical History Past Medical History: Hyperlipidemia, Hypertension, Myocardial Infarction (OK), Pneumonia Additional Past Medical History / Comment(s): Peripheral Neuropathy , see Dr Hever Kingsley&Cayden, 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,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 but is using straight cane, 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 per spouse, esophageal mass Last Myocardial Infarction Date:: 2016 History of Any Multi-Drug Resistant Organisms: None Reported Past Surgical History: Heart Catheterization With Stent, Hernia Repair Additional Past Surgical History / Comment(s): 2 stents, rosa m cataracts Past Anesthesia/Blood Transfusion Reactions: Family History of Problems w/ Anesthesia Additional Past Anesthesia/Blood Transfusion Reaction / Comm: family and self- d iff coming out per spouse Date of Last Stent Placement:: 2016 Smoking Status: Former smoker - Past Family History Mother History Unknown: Yes Family Medical History: Myocardial Infarction (OK) Father History Unknown: Yes Family Medical History: Cancer Medications and Allergies Home Medications Medication Instructions Recorded Confirmed Type Multivitamins, Thera [Multivitamin 1 tab PO DAILY 09/23/16 10/20/20 History (formulary)] Amiodarone [Cordarone] 100 mg PO HS 02/10/17 10/20/20 History Levalbuterol Tartrate [Xopenex Hfa 2 puff INHALATION RT-TID PRN 02/10/17 10/20/20 History Inhaler] Rivaroxaban [Xarelto] 15 mg PO HS 02/10/17 10/20/20 History Albuterol Sulfate [Ventolin HFA] 2 puff INHALATION RT-BID PRN 02/22/20 10/20/20 History Allopurinol [Zyloprim] 100 mg PO DAILY 02/22/20 10/20/20 History Atorvastatin [Lipitor] 20 mg PO HS 02/22/20 10/20/20 History Cholecalciferol [Vitamin D3 (25 50 mcg PO DAILY 02/22/20 10/20/20 History Mcg = 1000 Iu)] Levothyroxine Sodium [Synthroid] 50 mcg PO DAILY 02/22/20 10/20/20 History Metoprolol Tartrate [Lopressor] 25 mg PO BID 02/22/20 10/20/20 History Pregabalin 75 mg PO DAILY 02/22/20 10/20/20 History Tamsulosin [Flomax] 0.4 mg PO HS 02/22/20 10/20/20 History amLODIPine [Norvasc] 5 mg PO DAILY 02/22/20 10/20/20 History calcitrioL [Rocaltrol] 0.5 mcg PO WE 02/22/20 10/20/20 History Doxycycline Monohydrate [Monodox] 100 mg PO Q12H 10/20/20 10/20/20 History Furosemide [Lasix] 20 mg PO DAILY 10/20/20 10/20/20 History Furosemide [Lasix] 40 mg PO DAILY 10/20/20 10/20/20 History Losartan [Cozaar] 25 mg PO DAILY 10/20/20 10/20/20 History Nitroglycerin Sl Tabs [Nitrostat] 0.4 mg SL Q5M PRN 10/20/20 10/20/20 History Vitamin C/Biotin [Hair, Skin and 1 tab PO MOWEFR 10/20/20 10/20/20 History Nails Chew] Allergies Allergy/AdvReac Type Severity Reaction Status Date / Time Penicillins Allergy Anaphylaxis Verified 10/20/20 08:52 prednisone Allergy Anaphylaxis Verified 10/20/20 08:52 Sulfa (Sulfonamide Allergy Anaphylaxis Verified 10/20/20 08:52 Antibiotics) Physical Exam Vitals: Vital Signs Temp Pulse Pulse Resp BP BP Pulse Ox 10/21/20 11:45 98.6 F 58 L 20 135/69 90 L 10/21/20 08:37 98.8 F 82 20 138/68 10/21/20 04:35 99.1 F 62 22 141/61 93 L 10/20/20 21:33 74 10/20/20 21:21 94 L 10/20/20 21:20 74 10/20/20 19:15 98.5 F 85 22 131/56 94 L Intake and Output 10/21/20 10/21/20 10/21/20 06:59 14:59 22:59 Intake Total 100 900 Balance 100 900 Intake: Intake, IV Titration 900 Amount Dextrose 5%-0.45% NaCl 1, 900 000 ml @ 75 mls/hr IV . [id number] [facility] Rx#:[id number] Oral 100 Other: # Voids 4 # Bowel Movements 4 Results CBC & Chem 7: 10/22/20 06:06 10/22/20 06:06 Labs: Abnormal Lab Results - Last 24 Hours (Table) 10/21/20 10/21/20 Range/Units 06:05 06:05 RBC 3.59 L (4.30-5.90) m/uL Hgb 12.0 L (13.0-17.5) gm/dL Hct 36.1 L (39.0-53.0) % MCV 100.7 H (80.0-100.0) fL Lymphocytes # 0.8 L (1.0-4.8) k/uL Total Protein 5.9 L (6.3-8.2) g/dL Albumin 2.8 L (3.5-5.0) g/dL
[2020-10-22] MEDS: FUROSEMIDE 20 MG TAB PO SCH (14:13)
[2020-10-22] MEDS: FUROSEMIDE 40 MG TAB PO SCH (14:13)
[2020-10-22] MEDS: CHOLECALCIFEROL 25 MCG (1000 IU) TABLET PO SCH (14:13)
[2020-10-22] MEDS: amLODIPine 5 MG TAB PO SCH (14:13)
[2020-10-22] MEDS: allopurinoL 100 MG TAB PO SCH (14:13)
[2020-10-22] MEDS: LOSARTAN 25 MG TAB PO SCH (14:13)
[2020-10-22] MEDS: PREGABALIN 75 MG CAP PO SCH (14:14)
[2020-10-22] MEDS: METOPROLOL TARTRATE 25 MG TAB PO SCH (14:14)
[2020-10-22] MEDS: MULTIVITAMINS, THERA 1 EACH TAB PO SCH (14:14)
[2020-10-22] MEDS ORDERED: PROPOFOL 10 MG/ML 20 ML VIAL IV ONE (14:40)
[2020-10-22] MEDS ORDERED: LIDOCAINE 1% INJ 10MG/ML (20 ML MDV) ONE (14:40)
--- NOTE | 2020-10-22 14:50 | CDI ---
Documentation Clarification Form Date: 10/22/2020 02:35:06 PM From: Anabel Maldonado RN CCDS Admit Date: 10/21/2020 10:30:00 AM Patient Name: Harrison Thompson Visit Number: [id number] Discharge Date: ATTENTION: The Clinical Documentation Specialists (CDI) and [facility] Coding Staff appreciate your assistance in clarifying documentation. Please respond to the clarification below the line at the bottom and electronically sign. The CDI & [facility] Coding staff will review the response and follow-up if needed. Please note: Queries are made part of the Legal Health Record. If you have any questions, please contact the author of this message via ITS. Dr. Neelam Vargas Your patient is receiving the following: Lasix 10/20 to current and Lopressor 10/20 to current. Please clarify what condition/diagnosis is being treated. History/Risk Factors: 89-year-old male presents to the ED as a transfer from [facility] for esophageal mass. Medical History: HLD, HTN and MN Clinical indicators: VSS: 10/19 B/P 113/76; HR 72; Temp 98.9 F Oral; RR 22; SpO2 96% 4L nasal cannula ECHO: 09/23/16 Trace mild pulmonic regurgitation. Overall left ventricular systolic function is low normal with an EF 50-55%. Posterior hypokinesis. Inferior basal hypokinesis mild aortic valve sclerosis mild mitral annular calcification present mild regurgitation present mild tricuspid regurgitation present. Treatment: 10/20 to current Lasix 40mg PO Daily; 10/21 to current Lasix 20mg PO Daily; 10/20 to current Lopressor 25mg PO BID. What diagnosis are you treating with Lasix and Lopressor? [ ] Chronic Diastolic Heart Failure [ ] No additional diagnosis [ ] Other, please specify [ ] Unable to determine (Template Last Reviewed: March 2020) This is an appropriate query. This is COMPLETELY unrelated to this hospital stay and this echo is from 2017. ISABELLA
[2020-10-22] MEDS ORDERED: IV FLUID CONTINUATION 400 ML IV ONE (14:53)
--- NOTE | 2020-10-22 14:55 | P.OP ---
Date of Procedure: 10/22/20 Preoperative Diagnosis: Esophageal mass Postoperative Diagnosis: Esophageal mass midesophagus pathology pending Procedure(s) Performed: EGD Anesthesia: MAC Surgeon: Valentino Rivera Pathology: other (Esophagus) Condition: stable Description of Procedure: Patient's placed on the endoscopy table lateral position. He received IV sed ation. The gastroscope placed oropharynx passed in the esophagus. In the midportion esophagus there was a definite narrowing of the esophagus. The mucosa appeared to be inflamed. The scope was placed through this. The distal esophagus appeared normal. Scope was placed and stomach. Scope was placed through the pylorus. The first and second portion of duodenum appeared normal. Scope was then brought back and the antrum this appeared normal. Scope was retroflexed and remainder stomach appeared normal. The GE junction was at 40 cm. The distal esophagus appeared normal. In the midportion esophagus at approximately 25-30 cm smita there was a irregular narrowing of the esophagus. The mucosa appeared to be inflamed. This was biopsied. Scope was withdrawn and the proximal esophagus appeared normal. Scope was withdrawn for patient.
--- NOTE | 2020-10-22 15:10 | CDI ---
Documentation Clarification Form Date: 10/22/2020 02:52:39 PM From: Anabel Maldonado RN CCDS Admit Date: 10/21/2020 10:30:00 AM Patient Name: Harrison Thompson Visit Number: [id number] Discharge Date: ATTENTION: The Clinical Documentation Specialists (CDI) and [facility] Coding Staff appreciate your assistance in clarifying documentation. Please respond to the clarification below the line at the bottom and electronically sign. The CDI & [facility] Coding staff will review the response and follow-up if needed. Please note: Queries are made part of the Legal Health Record. If you have any questions, please contact the author of this message via ITS. Dr. Neelam Vargas Your patient is receiving the following: Oxygen via nasal cannula, 10/19 to current 10/22. Please clarify what condition/diagnosis is being treated. History/Risk Factors: 89-year-old male presents to the ED as a transfer from [facility] for esophageal mass. The patient has had progressive shortness of breath. Medical History: HLD, HTN and ND. 10/20, H&P Clinical indicators: VSS: 10/19 B/P 113/76, HR 72, Temp 98.9 F Oral, RR 22, SpO2 96% 4L nasal cannula 10/20 00:31 10/20 RR 16, SpO2 96% 2L nasal cannula; 10/20 07:13 RR 16, SpO2 93% 4L nasal cannula, 10/21 11:45 RR 20, SpO2 90% room air, 10/21 20:01 RR 18, SpO2 95% 3L nasal cannula, 10/22 05:00 RR 18, SpO2 94% 3L nasal cannula, 10/22 12:36 RR 16, SpO2 94% room air. Lung / Breathing Assessment: 10/20 H&P Clear to auscultation bilateral. Treatment: 10/20 to current Ventolin 2.5mg Inhalation RT TID PRN Shortness of breath. Oxygen via nasal cannula. What diagnosis are you treating with oxygen via nasal cannula? [ ] Acute respiratory Failure [ ] Acute respiratory Insufficiency [ ] Chronic respiratory Failure [ ] Acute on chronic respiratory Failure [ ] No additional diagnosis [ ] Other, please specify [ ] Unable to determine (Template Last Reviewed: March 2020) Patient does not have respiratory failure and is currently on room air. This is likely a reflection of inaccurate charting of how many liters he is on. MTDD
[2020-10-22] MEDS: DEXTROSE 5%-0.45% NACL 1,000 ML IV SCH ×2 (15:51→21:07)
--- NOTE | 2020-10-22 17:25 | PN ---
PROGRESS NOTE DATE OF SERVICE: 10/22/2020 REASON FOR FOLLOWUP: Right third toe cellulitis and concern for underlying osteomyelitis. INTERVAL HISTORY: The patient is afebrile. He is breathing comfortably. Denies having any chest pain, shortness of breath or cough. No abdominal pain or any worsening pain to the right third toe. PHYSICAL EXAMINATION: Blood pressure is 136/68 with a pulse of 72, temperature 98.1. He is 93% on room air. GENERAL DESCRIPTION: General description is an elderly male lying in bed in no distress. RESPIRATORY SYSTEM: Unlabored breathing. Clear to auscultation anteriorly. HEART: S1, S2. Regular rate and rhythm. ABDOMEN: Soft. No tenderness. Right third toe remains swollen. No open wound or any drainage. LABS: The patient's sed rate 108. CRP 7.1. DIAGNOSTIC IMPRESSION AND PLAN: Patient with right third toe swelling, redness, concerning for underlying osteomyelitis. Possible consultation with Vascular Surgery for cultures to guide further antibiotic therapy. This was discussed with the admitting physician. Continue cefazolin and monitor his clinical course closely. MMODL / IJN: [id number] /
[2020-10-22] MEDS ORDERED: LABETALOL 5 MG/ML VIAL MDV IVP PRN (20:14)
--- NOTE | 2020-10-22 20:25 | P.PN ---
Subjective Progress Note Date: 10/22/20 (delayed charting seen at 1530) Principal diagnosis: Dysphagia Patient is an 89-year-old male with a history of hypertension, dyslipidemia, and prior myocardial infarction who presented as a transfer from [facility]. Apparently in the ER there he had undergone a CAT scan which showed an esophageal mass. There he underwent a CT of the thorax without contrast whic h showed masslike circumferential thickening of the mid esophagus with proximal dilatation and air fluid level. Recommendation for direct visualization due to underlying mass. Enlarged right paratracheal lymph node at the thoracic inlet measuring 13 mm. CBC showed a hemoglobin of 12.3 was otherwise unremarkable. PT PTT were both high at 19.1 and 45.5. He is on have a BUN of 22, creatinine 1.67 patient does have a history of chronic kidney disease. Troponin and BNP were negative. COVID-19 was not detected. EKG demonstrated normal sinus rhythm at a rate of 63. He was found to have a right toe that was red and swollen, x- ray showed possible osteo and he has was started on keflex and ID was consulted. He was seen by vascular surgery. Seen and examined at bedside. Feeling altered from anesthesia. no chest pain, still wtih choking with attempting to swallow. No nausea D/w daughter in room and son over the phone cellulitis vs osteo, need for a way to feed patient after General: non toxic, no distress, appears at stated age Derm: Dressing in place over bilateral legs. Right third toe with warmth, erythema, and swelling (improving). Head: atraumatic, normocephalic, symmetric Eyes: EOMI, no lid lag, anicteric sclera Mouth: no lip lesion, mucus membranes moist Cardiovascular: S1S2 reg, no murmur, positive posterior tibial pulse bilateral, Lungs: Coarse breath sounds bilateral, no rhonchi, no rales , no accessory muscle use Abdominal: soft, nontender to palpation, no guarding, no appreciable organomegaly Ext: no gross muscle atrophy, no edema, no contractures Neuro: CN II-XI grossly intact, no focal neuro deficits Psych: Alert, oriented, appropriate affect Esophageal mass was circumferential thickening and enlarged lymph node -Biopsy pending - Case D/W surgery- want to await biopsy results prior to addressing how to achieve entral nutrition -strict NPO - consult oncology Dysphagia - Strict NPO - change orals to IV if able - Will need esophageal stent vs peg for nutrition Right lower extremity cellulitis with osteo of the right third toe -With swelling of right third toe concern for possible osteomyelitis - ID recs -cefazolin -Check CRP for baseline HTN HLD CAD with hx of IA Hx of A fib and SSS Neuropathy CKD III - avoid nephrotoxic agents DVT prophylaxis: SCDS Discussed with: Patient, nursing, Dr. Rivera Anticipated discharge date: in 2-[address]: home A total of 35 minutes was spent on the care of this complex patient more than 50% of the time was spent in counseling and care coordination. Objective - Vital Signs Vital signs: Vital Signs Temp 98.1 F 10/22/20 12:36 Pulse 72 10/22/20 15:18 Resp 17 10/22/20 15:18 BP 136/68 10/22/20 15:18 Pulse Ox 93 L 10/22/20 15:18 Intake & Output 10/22/20 10/22/20 10/23/20 06:59 18:59 06:59 Intake Total 585 1100 Balance 585 1100 Intake: IV 200 Intake, IV Titration 575 900 Amount Dextrose 5%-0.45% NaCl 1, 525 900 000 ml @ 75 mls/hr IV . [id number] Rx#:[id number] ceFAZolin 1,000 mg In 50 Sodium Chloride 0.9% 50 ml @ 100 mls/hr IVPB Q6H [facility] Rx#:[id number] Oral 10 Other: Voiding Method Urinal Urinal # Voids 2 - Labs CBC & Chem 7: 10/22/20 06:06 10/22/20 06:06 Labs: Abnormal Lab Results - Last 24 Hours (Table) 10/22/20 10/22/20 10/22/20 Range/Units 06:00 06:00 06:06 RBC 3.67 L (4.30-5.90) m/uL Hgb 12.2 L (13.0-17.5) gm/dL Hct 36.4 L (39.0-53.0) % ESR 108 H (0-15) mm/hr Glucose (74-99) mg/dL C-Reactive Protein 7.1 H (<1.0) mg/dL 10/22/20 Range/Units 06:06 RBC (4.30-5.90) m/uL Hgb (13.0-17.5) gm/dL Hct (39.0-53.0) % ESR (0-15) mm/hr Glucose 105 H (74-99) mg/dL C-Reactive Protein (<1.0) mg/dL
[2020-10-22] MEDS: ATORVASTATIN 20 MG TAB PO SCH (20:52)
[2020-10-22] MEDS: FAMOTIDINE 20 MG/2 ML VIAL IV SCH (21:07)
[2020-10-23 05:36] LABS: African American GFR (CKD) 66 (>60 ml/min/1.73 sqM); Anion Gap 10 mmol/L; Blood Urea Nitrogen 11 mg/dL (9-20); Carbon Dioxide 25 mmol/L (22-30); Chloride 105 mmol/L (98-107); Glucose 108 mg/dL (74-99); Magnesium 1.9 mg/dL (1.6-2.3); Non-African American GFR(CKD) 57 (>60 ml/min/1.73 sqM); Phosphorus 3.1 mg/dL (2.5-4.5); Potassium 3.5 mmol/L (3.5-5.1); Sodium 140 mmol/L (137-145)
[2020-10-23] MEDS: FAMOTIDINE 20 MG/2 ML VIAL IV SCH (08:15)
[2020-10-23] MEDS: LEVOTHYROXINE IVP 100 MCG/5 ML VIAL IV SCH (08:15)
--- NOTE | 2020-10-23 11:43 | P.PN ---
Subjective Progress Note Date: 10/23/20 Pt is doing well today, awaiting results of biopsy prior to deciding on stent vs PEG tube for enteral feeding. ST consult pending. Objective - Vital Signs Vital signs: Vital Signs Temp 98.3 F 10/23/20 04:09 Pulse 87 10/23/20 08:00 Resp 18 10/23/20 08:00 BP 154/60 10/23/20 04:09 Pulse Ox 95 10/23/20 04:09 Intake & Output 10/22/20 10/23/20 10/23/20 18:59 06:59 18:59 Intake Total 1100 1550 Balance 1100 1550 Intake: IV 200 Intake, IV Titration 900 950 Amount Dextrose 5%-0.45% NaCl 1, 900 900 000 ml @ 75 mls/hr IV . [id number] [facility] Rx#:[id number] ceFAZolin 2 gm In Sodium 50 Chloride 0.9% 50 ml @ 100 mls/hr IVPB Q8HR [facility] Rx# :[id number] Oral 600 Other: Voiding Method Urinal Urinal Urinal # Voids 2 3 - Exam Gen: awake, alert HEENT: normocephalic, atraumatic, good hearing acuity, moist mucous membranes Resp: good air exchange, breathing comfortably with no accessory muscle use CVS: good distal perfusion x 4, GI: soft, NTTP, ND : no SPT, no CVAT, hodge catheter not present MSK: no pitting edema, no clubbing Neuro: non-focal, moving all extremities Psych: cooperative, euthymic mood - Labs CBC & Chem 7: 10/22/20 06:06 10/23/20 04:10 Labs: Abnormal Lab Results - Last 24 Hours (Table) 10/23/20 Range/Units 04:10 Glucose 108 H (74-99) mg/dL Assessment and Plan Assessment: Esophageal mass was circumferential thickening and enlarged lymph node Dysphagia - Biopsy pending - Case D/W surgery- want to await biopsy results prior to addressing how to achieve entral nutrition - strict NPO - consult oncology - Will need esophageal stent vs peg for nutrition Right lower extremity cellulitis with osteo of the right third toe -With swelling of right third toe concern for possible osteomyelitis - ID recs - cefazolin - Check CRP for baseline HTN HLD CAD with hx of [place] Hx of A fib and SSS Neuropathy CKD III - avoid nephrotoxic agents
--- NOTE | 2020-10-23 12:25 | P.PN ---
Subjective Progress Note Date: 10/23/20 CHIEF COMPLAINT: Dysphagia HISTORY OF PRESENT ILLNESS: Patient has an esophageal mass in the mid esophagus. He is status post EGD. Pathology report pending. He is currently nothing by mouth due to him having raquel aspiration on upper GI. Patient is afebrile. Denies any abdominal pain. Does have mild cough. Discussed case with oncologist. Dr. Reed is recommending esophageal stent placement. Sodium 140 potassium 3.5 albumin 2.8 PHYSICAL EXAM: VITAL SIGNS: Reviewed. GENERAL: Well-developed in no acute distress. HEENT: No sclera icterus. Extraocular movements grossly intact. Moist buccal m ucosa. Head is atraumatic, normocephalic. ABDOMEN: Soft. Nondistended. Nontender. NEUROLOGIC: Alert and oriented. Cranial nerves II through XII grossly intact. ASSESSMENT: 1. Esophageal mass status post EGD PLAN: -Awaiting biopsy results from EGD -Patient may require J-tube placement for nutrition support -Patient may require an esophageal stent placement. Recommend to await biopsy results before proceeding with this procedure. Patient would likely require transfer to another facility for this procedure. -Keep patient nothing by mouth -Consult interventional radiology for PICC line placement -Consult dietitian for initiation of TPN -Patient to be evaluated by speech therapy Physician Nursery Supervisor note has been reviewed by physician. Signing provider agrees with the documented findings, assessment, and plan of care. Objective - Vital Signs Vital signs: Vital Signs Temp 97.9 F 10/23/20 12:14 Pulse 59 L 10/23/20 12:14 Resp 17 10/23/20 12:14 BP 141/78 10/23/20 12:14 Pulse Ox 97 10/23/20 12:14 Intake & Output 10/22/20 10/23/20 10/23/20 18:59 06:59 18:59 Intake Total 1100 1550 Balance 1100 1550 Intake: IV 200 Intake, IV Titration 900 950 Amount Dextrose 5%-0.45% NaCl 1, 900 900 000 ml @ 75 mls/hr IV . [id number] Rx#:[id number] ceFAZolin 2 gm In Sodium 50 Chloride 0.9% 50 ml @ 100 mls/hr IVPB Q8HR [facility] Rx# :[id number] Oral 600 Other: Voiding Method Urinal Urinal Urinal # Voids 2 3 - Labs CBC & Chem 7: 10/22/20 06:06 10/23/20 04:10 Labs: Abnormal Lab Results - Last 24 Hours (Table) 10/23/20 Range/Units 04:10 Glucose 108 H (74-99) mg/dL
[2020-10-23] MEDS: ZINC OXIDE 20% OINT 28.4 GM TUBE TOPICAL SCH (13:45)
[2020-10-23] MEDS ORDERED: LIDOCAINE 1% INJ 10MG/ML (20 ML MDV) SQ ONE (14:28)
[2020-10-23 14:33] LABS: INR 1.2 (<1.2)
[2020-10-23 14:37] VITALS: BMI 31.8
--- NOTE | 2020-10-23 14:58 | IR ---
EXAMINATION TYPE: IR cvc insert >=5 years DATE OF EXAM: 10/23/2020 COMPARISON: NONE CLINICAL HISTORY: Esophageal mass, needs long-term intravenous access for total parenteral nutrition PROCEDURE: Hand hygiene obtained with soap and water and alcohol-based hand rub. After informed consent, the skin overlying the right basilic vein was localized with ultrasound and n oted to be compressible and patent. An ultrasound image was obtained and submitted on the patient's chart. The overlying skin was prepped and draped and Lidocaine was used for local anesthesia. A ski n сергей was made with a scalpel. Access was gained to the vein under ultrasound guidance with a 21 ga uge needle and a 0.018 inch wire was advanced. Access site was dilated with Peel-Away sheath and cat heter tailored to the appropriate length and advanced such that the distal tip is at the cavoatrial j unction. Spot image was obtained verifying placement. Catheter was fixed to the skin and a sterile dressing was placed following hemostasis. Catheter was aspirated and flushed with saline. Patient w as discharged in stable condition without complication.Maximal barrier technique is utilized. Ultras ound image is documented on the chart. Ultrasound used with sterile technique. Fluoro time and fluoroscopic images submitted to document procedure: 1.5 minutes fluoroscopy time, 71 intraoperative images document the procedure IMPRESSION: STATUS POST ULTRASOUND AND FLUOROSCOPIC GUIDED PICC LINE PLACEMENT, READY FOR USE. THIS PROCEDURE WAS PERFORMED BY THE UNDERSIGNED.
[2020-10-23] MEDS ORDERED: POTASSIUM CHLORIDE 10 MEQ in WATER FOR INJECTION 1 100ML.BAG IVPB ONE (16:00)
[2020-10-23] MEDS ORDERED: MVI, ADULT NO.4 WITH VIT K 10 ML, TRACE (CONC-1ML/DOSE) 1 ML in AMINO ACID 5%-D20W+LYTE... IV SCH ×3 (17:00)
[2020-10-23] MEDS: DEXTROSE 5%-0.45% NACL 1,000 ML IV SCH (17:45)
[2020-10-23 18:26] LABS: Glucose,Whole Blood 114 mg/dL (75-99)
[2020-10-23] MEDS: ALBUTEROL NEBULIZED 2.5 MG/3 ML INHALATION PRN (19:24)
[2020-10-23] MEDS: ATORVASTATIN 20 MG TAB PO SCH (19:39)
--- NOTE | 2020-10-23 20:28 | P.CONS ---
History of Present Illness - Reason for Consult Consult date: 10/23/20 eso mass Requesting physician: Neelam Vargas - Chief Complaint BLE cellulitis, dysphagia - History of Present Illness Mr. Song is very pleasant 89 year old male that we have been asked to see in regards to an esophageal mass that has been biopsied, path pending. Pt states that he had had about 1 mo of dysphagia, he has to concentrate to swallow his own secretions, he will feel a fullness in the throat, no pain with swallowing, does cough with ingestion of some foods/fluids. No history of cancer, denies sweats, wt loss, chest pain, abd pain, acute changes in bowel or bladder habits, bleeding, unusual fatigue. He has Hx smoking quitting 15 years ago. 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, esophageal mass Last Myocardial Infarction Date:: 2016 History of Any Multi-Drug Resistant Organisms: None Reported Past Surgical History: Heart Catheterization With Stent, Hernia Repair Additional Past Surgical History / Comment(s): 2 stents, rosa m cataracts Past Anesthesia/Blood Transfusion Reactions: Family History of Problems w/ Anesthesia Additional Past Anesthesia/Blood Transfusion Reaction / Comm: family and self- diff coming out per spouse Date of Last Stent Placement:: 2016 Past Psychological History: No Psychological Hx Reported Smoking Status: Former smoker Past Alcohol Use History: None Reported Past Drug Use History: None Reported - Past Family History Mother History Unknown: Yes Family Medical History: Myocardial Infarction ([place]) Father History Unknown: Yes Family Medical History: Cancer Medications and Allergies Home Medications Medication Instructions Recorded Confirmed Type Multivitamins, Thera [Multivitamin 1 tab PO DAILY 09/23/16 10/20/20 History (formulary)] Amiodarone [Cordarone] 100 mg PO HS 02/10/17 10/20/20 History Levalbuterol Tartrate [Xopenex Hfa 2 puff INHALATION RT-TID PRN 02/10/17 10/20/20 History Inhaler] Rivaroxaban [Xarelto] 15 mg PO HS 02/10/17 10/20/20 History Albuterol Sulfate [Ventolin HFA] 2 puff INHALATION RT-BID PRN 02/22/20 10/20/20 History Allopurinol [Zyloprim] 100 mg PO DAILY 02/22/20 10/20/20 History Atorvastatin [Lipitor] 20 mg PO HS 02/22/20 10/20/20 History Cholecalciferol [Vitamin D3 (25 50 mcg PO DAILY 02/22/20 10/20/20 History Mcg = 1000 Iu)] Levothyroxine Sodium [Synthroid] 50 mcg PO DAILY 02/22/20 10/20/20 History Metoprolol Tartrate [Lopressor] 25 mg PO BID 02/22/20 10/20/20 History Pregabalin 75 mg PO DAILY 02/22/20 10/20/20 History Tamsulosin [Flomax] 0.4 mg PO HS 02/22/20 10/20/20 History amLODIPine [Norvasc] 5 mg PO DAILY 02/22/20 10/20/20 History calcitrioL [Rocaltrol] 0.5 mcg PO WE 02/22/20 10/20/20 History Doxycycline Monohydrate [Monodox] 100 mg PO Q12H 10/20/20 10/20/20 History Furosemide [Lasix] 20 mg PO DAILY 10/20/20 10/20/20 History Furosemide [Lasix] 40 mg PO DAILY 10/20/20 10/20/20 History Losartan [Cozaar] 25 mg PO DAILY 10/20/20 10/20/20 History Nitroglycerin Sl Tabs [Nitrostat] 0.4 mg SL Q5M PRN 10/20/20 10/20/20 History Vitamin C/Biotin [Hair, Skin and 1 tab PO MOWEFR 10/20/20 10/20/20 History Nails Chew] Allergies Allergy/AdvReac Type Severity Reaction Status Date / Time Penicillins Allergy Anaphylaxis Verified 10/20/20 08:52 prednisone Allergy Anaphylaxis Verified 10/20/20 08:52 Sulfa (Sulfonamide Allergy Anaphylaxis Verified 10/20/20 08:52 Antibiotics) Physical Exam Vitals: Vital Signs Temp Pulse Resp BP BP Pulse Ox 10/23/20 12:14 97.9 F 59 L 17 141/78 97 10/23/20 08:00 87 18 10/23/20 04:09 98.3 F 87 18 154/60 95 10/22/20 20:16 98.7 F 81 16 148/72 95 10/22/20 20:05 81 16 10/22/20 15:18 72 17 136/68 93 L Intake and Output 10/22/20 10/23/20 10/23/20 22:59 06:59 14:59 Intake Total 900 1550 Balance 900 1550 Intake: Intake, IV Titration 900 950 Amount Dextrose 5%-0.45% NaCl 1, 900 900 000 ml @ 75 mls/hr IV . [id number] [facility] Rx#:[id number] ceFAZolin 2 gm In Sodium 50 Chloride 0.9% 50 ml @ 100 mls/hr IVPB Q8HR [facility] Rx# :[id number] Oral 600 Other: Voiding Method Urinal Urinal # Voids 2 3 - Constitutional General appearance: average body habitus, cooperative, no acute distress - EENT Eyes: anicteric sclerae, EOMI ENT: hearing grossly normal, normal oropharynx - Neck Neck: no lymphadenopathy - Respiratory Respiratory: bilateral: rhonchi (few scattered) - Cardiovascular Rhythm: regular Heart sounds: normal: S1, S2 Abnormal Heart Sounds: no systolic murmur, no diastolic murmur, no rub, no S3 Gallop, no S4 Gallop, no click, no other leg Peripheral Edema: bilateral: 1+ foot Peripheral Edema: bilateral: 2+ - Gastrointestinal General gastrointestinal: no absent bowel sounds, no decreased bowel sounds, no distended, no hepatomegaly, no hyperactive bowel sounds, normal bowel sounds, no organomegaly, no rigid, no scaphoid, soft, no splenomegaly, no tenderness, no umbilical hernia, no ventral hernia - Integumentary BLE are wrapped with heri bandages - Neurologic Neurologic: CNII-XII intact - Musculoskeletal Musculoskeletal: generalized weakness, strength equal bilaterally - Psychiatric Psychiatric: A&O x's 3, appropriate affect, intact judgment & insight Results CBC & Chem 7: 10/22/20 06:06 10/23/20 04:10 Labs: Abnormal Lab Results - Last 24 Hours (Table) 10/23/20 Range/Units 04:10 Glucose 108 H (74-99) mg/dL Comments: Upper GI/barium report reviewed Assessment and Plan (1) Esophageal mass Narrative/Plan: Dr. Reed discussed with pt high suspicion for malignancy based on symptoms and findings on operative note. Pending biopsy results, if positive specimen will be sent for molecular testing, Her2. Options for maintaining nutritional status were discussed. Doboff may be uncomfortable as alternate feeding method is going to be of a rather prolonged duration. PEG insertion could interfere with surgery-if pt is a surgical candidate. Stent is an option to keep esophagus patent enough for nutrition and would surgery if it is an option for treatment- this was discussed amongst the MDs. After review of options and recommendation for stent, pt is agreeable to the same. Plan is for eso stent placement early next week. After discharge PET scan for staging will be planned outpt Followup after scan for prognosis, treatment options and development of plan Current Visit: Yes Status: Acute Priority: High Code(s): K22.8 - OTHER SPECIFIED DISEASES OF ESOPHAGUS SNOMED Code(s): 920732365 Plan: Doctor attests: I performed a history and physical examination of this patient, developed impression and plan of care, discussed with dictator. I agree with dictators note, documented as a scribe.
[2020-10-24 00:29] LABS: Glucose,Whole Blood 171 mg/dL (75-99)
[2020-10-24] MEDS: DEXTROSE 5%-0.45% NACL 1,000 ML IV SCH ×2 (01:32→17:44)
--- NOTE | 2020-10-24 05:21 | PN ---
PROGRESS NOTE DATE OF SERVICE: 10/23/2020 REASON FOR FOLLOWUP: Right third toe cellulitis, concern for osteomyelitis. INTERVAL HISTORY: The patient is afebrile. He is breathing comfortably. Denies having any chest pain. No shortness of breath, cough, no abdominal pain or any worsening pain to the right foot. PHYSICAL EXAMINATION: Blood pressure 157/72 with a pulse of 80, temperature 97.9. He is 100% on 2 L nasal cannula. General description is an elderly male up in the bed in no distress. Respiratory system: Unlabored breathing, clear to auscultation anteriorly. Heart S1, S2. Regular rate and rhythm. Abdomen: Soft, no tenderness. Right foot is currently dressed. No obvious drainage on the dressing. LABS: INR is 1.2, BUN of 11, creatinine 1.15. DIAGNOSTIC IMPRESSION AND PLAN: Patient with right third toe swelling concerning for underlying osteomyelitis waiting for possible biopsy and cultures. Continue cefazolin. Discharge antibiotic based on culture report. Continue supportive care. MMODL / IJN: [id number] /
[2020-10-24 05:55] LABS: Glucose,Whole Blood 132 mg/dL (75-99)
[2020-10-24 06:42] LABS: Ionized Calcium 5.1 mg/dL (4.5-5.3)
[2020-10-24 06:51] LABS: African American GFR (CKD) 76 (>60 ml/min/1.73 sqM); Anion Gap 8 mmol/L; Blood Urea Nitrogen 9 mg/dL (9-20); Calcium 8.8 mg/dL (8.4-10.2); Carbon Dioxide 26 mmol/L (22-30); Chloride 105 mmol/L (98-107); Glucose 142 mg/dL (74-99); Magnesium 1.9 mg/dL (1.6-2.3); Non-African American GFR(CKD) 66 (>60 ml/min/1.73 sqM); Potassium 3.3 mmol/L (3.5-5.1); Sodium 139 mmol/L (137-145)
[2020-10-24 08:12] LABS: Glucose,Whole Blood 123 mg/dL (75-99)
[2020-10-24] MEDS: FAMOTIDINE 20 MG/2 ML VIAL IV SCH (08:55)
[2020-10-24] MEDS: LEVOTHYROXINE IVP 100 MCG/5 ML VIAL IV SCH (08:56)
[2020-10-24] MEDS: FAT EMULSION 20% 250 ML in EMPTY BAG 1 BAG IV SCH (08:56)
[2020-10-24] MEDS: MAGNESIUM SULFATE-D5W PMX 1 GM in DEXTROSE/WATER 1 100ML.BAG IVPB SCH ×2 (09:57→13:14)
--- NOTE | 2020-10-24 10:31 | P.PN ---
Subjective Progress Note Date: 10/24/20 Pt has been seen by oncology, who recommend esophageal stent early next week. Pending surgical evaluation of cellulitis vs osteomyelitis for cultures. Ongoing cefazolin. Objective - Vital Signs Vital signs: Vital Signs Temp 97.7 F 10/24/20 07:44 Pulse 90 10/24/20 07:44 Resp 12 10/24/20 07:44 BP 158/66 10/24/20 07:44 Pulse Ox 94 L 10/24/20 08:35 Intake & Output 10/23/20 10/24/20 10/24/20 18:59 06:59 18:59 Intake Total 1310 Balance 1310 Weight 106.594 kg Intake: Intake, IV Titration 1310 Amount Dextrose 5%-0.45% NaCl 1, 900 000 ml @ 75 mls/hr IV . [id number] [facility] Rx#:[id number] Mvi, Adult No.4 with Vit 360 K 10 ml Trace (Conc-1Ml/ Dose) 1 ml In Amino Acid 5%-D20w+Lytes*E* 1,000 ml @ 30 mls/hr IV .Q24H [facility] Rx#:[id number] ceFAZolin 2 gm In Sodium 50 Chloride 0.9% 50 ml @ 100 mls/hr IVPB Q8HR [facility] Rx# :[id number] Other: Voiding Method Urinal Urinal # Voids 6 3 - Exam Gen: awake, alert HEENT: normocephalic, atraumatic, good hearing acuity, moist mucous membranes Resp: good air exchange, breathing comfortably with no accessory muscle use CVS: good distal perfusion x 4, GI: soft, NTTP, ND : no SPT, no CVAT, hodge catheter not present MSK: no pitting edema, no clubbing Neuro: non-focal, moving all extremities Psych: cooperative, euthymic mood - Labs CBC & Chem 7: 10/22/20 06:06 10/24/20 06:18 Labs: Abnormal Lab Results - Last 24 Hours (Table) 10/23/20 10/23/20 10/24/20 Range/Units 14:06 18:25 00:27 INR 1.2 H (<1.2) Potassium (3.5-5.1) mmol/L Glucose (74-99) mg/dL POC Glucose (mg/dL) 114 H 171 H (75-99) mg/dL 10/24/20 10/24/20 10/24/20 Range/Units 05:54 06:18 08:10 INR (<1.2) Potassium 3.3 L (3.5-5.1) mmol/L Glucose 142 H (74-99) mg/dL POC Glucose (mg/dL) 132 H 123 H (75-99) mg/dL Assessment and Plan Assessment: Esophageal mass was circumferential thickening and enlarged lymph node Dysphagia - Biopsy pending - Case D/W surgery- want to await biopsy results prior to addressing how to achieve entral nutrition - strict NPO - consult oncology - Will need esophageal stent Right lower extremity cellulitis with osteo of the right third toe -With swelling of right third toe concern for possible osteomyelitis - ID recs - cefazolin - Check CRP for baseline - pending surgical evaluation HTN HLD CAD with hx of [place] Hx of A fib and SSS Neuropathy CKD III - avoid nephrotoxic agents
--- NOTE | 2020-10-24 11:20 | P.PN ---
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 He is status post EGD with biopsy. Pathology report pending. He is currently nothing by mouth due to him having raquel aspiration on upper GI. Patient is afebrile. Denies any abdominal pain. Does have mild cough. Discussed case with oncologist yesterday. Dr. Reed is recommending esophageal stent placement. Patient is status post PICC line placement and has been started on TPN. He is afebrile. Sodium 139 potassium 3.3 creatinine 1.02 magnesium 1.9 PHYSICAL EXAM: VITAL SIGNS: Reviewed. GENERAL: Well-developed in no acute distress. HEENT: No sclera icterus. Extraocular movements grossly intact. Moist buccal mucosa. Head is atraumatic, normocephalic. ABDOMEN: Soft. Nondistended. Nontender. NEUROLOGIC: Alert and oriented. Cranial nerves II through XII grossly intact. ASSESSMENT: 1. Esophageal mass status post EGD PLAN: -Awaiting biopsy results from EGD -Continue TPN for nutrition support -Patient may require J-tube placement for nutrition support -Patient may require an esophageal stent placement. Recommend to await biopsy results before proceeding with this procedure. Patient would likely require transfer to another facility for this procedure. -Keep patient nothing by mouth -Pharmacy replacing magnesium and potassium Physician Policy Officer note has been reviewed by physician. Signing provider agrees with the documented findings, assessment, and plan of care. Objective - Vital Signs Vital signs: Vital Signs Temp 97.7 F 10/24/20 07:44 Pulse 90 10/24/20 07:44 Resp 12 10/24/20 07:44 BP 158/66 10/24/20 07:44 Pulse Ox 94 L 10/24/20 08:35 Intake & Output 10/23/20 10/24/20 10/24/20 18:59 06:59 18:59 Intake Total 1310 Balance 1310 Weight 106.594 kg Intake: Intake, IV Titration 1310 Amount Dextrose 5%-0.45% NaCl 1, 900 000 ml @ 75 mls/hr IV . [id number] [facility] Rx#:[id number] Mvi, Adult No.4 with Vit 360 K 10 ml Trace (Conc-1Ml/ Dose) 1 ml In Amino Acid 5%-D20w+Lytes*E* 1,000 ml @ 30 mls/hr IV .Q24H [facility] Rx#:[id number] ceFAZolin 2 gm In Sodium 50 Chloride 0.9% 50 ml @ 100 mls/hr IVPB Q8HR [facility] Rx# :[id number] Other: Voiding Method Urinal Urinal # Voids 6 3 - Labs CBC & Chem 7: 10/22/20 06:06 10/24/20 06:18 Labs: Abnormal Lab Results - Last 24 Hours (Table) 10/23/20 10/23/20 10/24/20 Range/Units 14:06 18:25 00:27 INR 1.2 H (<1.2) Potassium (3.5-5.1) mmol/L Glucose (74-99) mg/dL POC Glucose (mg/dL) 114 H 171 H (75-99) mg/dL 10/24/20 10/24/20 10/24/20 Range/Units 05:54 06:18 08:10 INR (<1.2) Potassium 3.3 L (3.5-5.1) mmol/L Glucose 142 H (74-99) mg/dL POC Glucose (mg/dL) 132 H 123 H (75-99) mg/dL
[2020-10-24] MEDS: POTASSIUM CHLORIDE 20 MEQ in WATER FOR INJECTION 1 100ML.BAG IVPB SCH ×2 (11:24→16:40)
[2020-10-24 12:27] LABS: Glucose,Whole Blood 151 mg/dL (75-99)
[2020-10-24 13:04] LABS: Ferritin 184.8 ng/mL (22.0-322.0)
[2020-10-24] MEDS: ZINC OXIDE 20% OINT 28.4 GM TUBE TOPICAL SCH (14:40)
[2020-10-24 14:49] LABS: % Iron Saturation 9.09 (15.00-50.00); Iron 19 ug/dL (65-175); Total Iron Binding Capacity 209 ug/dL (228-460)
--- NOTE | 2020-10-24 17:35 | P.PN ---
Subjective Progress Note Date: 10/24/20 Principal diagnosis: esophageal mass, dysphagia In f/u today pt has been started on TPN, no new c/o today, his BLE extremity cellulitis is being treated and some of the swelling is gone. Objective - Vital Signs Vital signs: Vital Signs Temp 98.1 F 10/24/20 13:00 Pulse 90 10/24/20 16:42 Resp 14 10/24/20 13:00 BP 155/69 10/24/20 13:00 Pulse Ox 96 10/24/20 13:00 Intake & Output 10/23/20 10/24/20 10/24/20 18:59 06:59 18:59 Intake Total 1310 Output Total 200 Balance 1310 -200 Weight 106.594 kg 106.594 kg Intake: Intake, IV Titration 1310 Amount Dextrose 5%-0.45% NaCl 1, 900 000 ml @ 75 mls/hr IV . [id number] [facility] Rx#:[id number] Mvi, Adult No.4 with Vit 360 K 10 ml Trace (Conc-1Ml/ Dose) 1 ml In Amino Acid 5%-D20w+Lytes*E* 1,000 ml @ 30 mls/hr IV .Q24H [facility] Rx#:[id number] ceFAZolin 2 gm In Sodium 50 Chloride 0.9% 50 ml @ 100 mls/hr IVPB Q8HR [facility] Rx# :[id number] Output: Urine 200 Other: Voiding Method Urinal Urinal Urinal # Voids 6 3 - Constitutional General appearance: Present: average body habitus, cooperative, no acute distress - EENT Eyes: Present: anicteric sclerae, EOMI ENT: Present: hearing grossly normal - Respiratory Respiratory: bilateral: CTA - Neurologic Neurologic: Present: CNII-XII intact - Musculoskeletal Musculoskeletal: Present: generalized weakness, strength equal bilaterally - Psychiatric Psychiatric: Present: A&O x's 3, appropriate affect, intact judgment & insight - Labs CBC & Chem 7: 10/22/20 06:06 10/24/20 06:18 Labs: Abnormal Lab Results - Last 24 Hours (Table) 10/23/20 10/24/20 10/24/20 Range/Units 18:25 00:27 05:54 Potassium (3.5-5.1) mmol/L Glucose (74-99) mg/dL POC Glucose (mg/dL) 114 H 171 H 132 H (75-99) mg/dL Iron (65-175) ug/dL TIBC (228-460) ug/dL % Saturation (15.00-50.00) 10/24/20 10/24/20 10/24/20 Range/Units 06:18 08:10 12:25 Potassium 3.3 L (3.5-5.1) mmol/L Glucose 142 H (74-99) mg/dL POC Glucose (mg/dL) 123 H 151 H (75-99) mg/dL Iron 19 L (65-175) ug/dL TIBC 209 L (228-460) ug/dL % Saturation 9.09 L (15.00-50.00) Assessment and Plan (1) Esophageal mass Narrative/Plan: Dr. Reed discussed with pt daughter in law what was discussed with pt-high suspicion for malignancy based on symptoms and findings on operative note. Pending biopsy results, if positive specimen will be sent for molecular testing, Her2. After discharge PET scan for staging will be planned outpt. Followup with Med Onc after scan for prognosis, treatment options and development of plan. As for nutrition-pt is on TPN currently. Understand that Surgery is considering a C-Coae-hbtic Dr. Reed states is reasonable and will not cause interfere with esophagus surgery if pt is a surgical candidate. Misunderstood plan for stent-would have to be scheduled to be done at an [facility] facility. Current Visit: Yes Status: Acute Priority: High Code(s): K22.8 - OTHER SPECIFIED DISEASES OF ESOPHAGUS SNOMED Code(s): 646997186 Plan: Doctor attests: I performed a history and physical examination of this patient, developed impression and plan of care, discussed with dictator. I agree with dictators note, documented as a scribe.
[2020-10-24 17:39] LABS: Glucose,Whole Blood 139 mg/dL (75-99)
--- NOTE | 2020-10-24 18:08 | PN ---
PROGRESS NOTE DATE OF SERVICE: 10/24/2020 REASON FOR FOLLOWUP: Right third toe cellulitis with a question of osteomyelitis. INTERVAL HISTORY: The patient is afebrile. He is breathing comfortably. Denies any worsening pain in the right third toe. No chest pain, shortness of breath or cough. No abdominal pain or diarrhea. PHYSICAL EXAMINATION: Blood pressure 155/69, pulse of 79, temperature 98.1. He is 96% on 2 L nasal cannula. GENERAL DESCRIPTION: General description is an elderly male up in a chair in no distress. RESPIRATORY SYSTEM: Unlabored breathing. Clear to auscultation anteriorly. HEART: S1, S2. Regular rate and rhythm. ABDOMEN: Soft. No tenderness. Right third toe remains swollen and red. No open wound or any drainage. LABS: No new labs have been obtained today. DIAGNOSTIC IMPRESSION AND PLAN: Patient with right third toe cellulitis with abnormal x-ray suspicious for osteomyelitis. Unfortunately we are not able to get any cultures to determine infection and pathogen. The patient cefazolin; to continue for now while monitoring his clinical course closely. MMODL / IJN: [id number] /
[2020-10-24] MEDS: INSULIN ASPART (NovoLOG) 100 UNIT/ML VIAL SQ SCH ×2 (18:13→23:44)
[2020-10-24] MEDS: ATORVASTATIN 20 MG TAB PO SCH (19:47)
[2020-10-24] MEDS: 1: MVI, ADULT NO.4 WITH VIT K 10 ML, TRACE (CONC-1ML/DOSE) 1 ML in AMINO ACID 5%-D20W+LY IV SCH ×3 (21:27)
[2020-10-24 23:41] LABS: Glucose,Whole Blood 132 mg/dL (75-99)
[2020-10-25 06:02] LABS: Glucose,Whole Blood 110 mg/dL (75-99)
[2020-10-25] MEDS: INSULIN ASPART (NovoLOG) 100 UNIT/ML VIAL SQ SCH ×4 (06:02→23:47)
[2020-10-25 07:52] LABS: African American GFR (CKD) 81 (>60 ml/min/1.73 sqM); Anion Gap 8 mmol/L; Blood Urea Nitrogen 12 mg/dL (9-20); Calcium 8.9 mg/dL (8.4-10.2); Carbon Dioxide 25 mmol/L (22-30); Chloride 107 mmol/L (98-107); Glucose 117 mg/dL (74-99); Magnesium 2.3 mg/dL (1.6-2.3); Non-African American GFR(CKD) 70 (>60 ml/min/1.73 sqM); Phosphorus 2.9 mg/dL (2.5-4.5); Potassium 3.7 mmol/L (3.5-5.1); Sodium 140 mmol/L (137-145)
[2020-10-25] MEDS: ALBUTEROL NEBULIZED 2.5 MG/3 ML INHALATION PRN ×2 (11:00→20:08)
[2020-10-25] MEDS: LEVOTHYROXINE IVP 100 MCG/5 ML VIAL IV SCH (11:24)
[2020-10-25] MEDS: FAT EMULSION 20% 250 ML in EMPTY BAG 1 BAG IV SCH (11:24)
[2020-10-25] MEDS: 1: MVI, ADULT NO.4 WITH VIT K 10 ML, TRACE (CONC-1ML/DOSE) 1 ML in AMINO ACID 5%-D20W+LY IV SCH ×6 (11:24→21:19)
[2020-10-25] MEDS: FAMOTIDINE 20 MG/2 ML VIAL IV SCH (11:24)
[2020-10-25 11:33] LABS: Glucose,Whole Blood 112 mg/dL (75-99)
--- NOTE | 2020-10-25 11:49 | P.PN ---
Progress Note - Text Progress Note Date: 10/25/20 Patient had some confusion last night. He currently has a sitter. On exam vital signs are stable. Abdomen soft. Recently diagnosed esophageal cancer. Patient will have evaluation by cardiovascular thoracic surgeon.
[2020-10-25 12:55] LABS: HCT 38.3 % (39.0-53.0); HGB 12.5 gm/dL (13.0-17.5); MCH 32.7 pg (25.0-35.0); MCHC 32.6 g/dL (31.0-37.0); MCV 100.2 fL (80.0-100.0); Mean Platelet Volume 8.5; Platelet Count 212 k/uL (150-450); RBC 3.82 m/uL (4.30-5.90); RDW 12.9 % (11.5-15.5); WBC 7.1 k/uL (3.8-10.6)
[2020-10-25] MEDS: ZINC OXIDE 20% OINT 28.4 GM TUBE TOPICAL SCH (14:12)
[2020-10-25] MEDS: POTASSIUM CHLORIDE 10 MEQ in WATER FOR INJECTION 1 100ML.BAG IVPB SCH ×2 (14:12→16:13)
[2020-10-25] MEDS: ENOXAPARIN 40 MG/0.4 ML SYRINGE SQ SCH (14:12)
--- NOTE | 2020-10-25 15:04 | P.PN ---
Subjective Progress Note Date: 10/25/20 Principal diagnosis: Dysphagia Patient is an 89-year-old male with a history of hypertension, dyslipidemia, and prior myocardial infarction who presented as a transfer from [facility]. Apparently in the ER there he had undergone a CAT scan which showed an esophageal mass. There he underwent a CT of the thorax without contrast which showed masslike circumferential thickening of the mid esophagus with proximal dilatation and air fluid level. Recommendation for direct visualization due to underlying mass. Enlarged right paratracheal lymph node at the thoracic inlet measuring 13 mm. CBC showed a hemoglobin of 12.3 was otherwise unremarkable. PT PTT were both high at 19.1 and 45.5. He is on have a BUN of 22, creatinine 1.67 patient does have a history of chronic kidney disease. Troponin and BNP were negative. COVID-19 was not detected. EKG demonstrated normal sinus rhythm at a rate of 63. He was found to have a right toe that was red and swollen, x-ray showed possible osteo and he has was started on keflex and ID was consulted. He was seen by vascular surgery who did not feel there is need for operative management at this point for his toe. 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 He underwent barium esophagram which showed raquel aspiration and he was subsequently made nothing by mouth and started on TPN. He was seen by oncology who is awaiting biomarkers. Seen and examined at bedside.he is feeling slightly confused today. He is alert and oriented to self and situation but could not recall why his in the hospital. He denied any chest pain, shortness of breath, nausea, or vomiting. General: non toxic, no distress, appears at stated age Derm: Dressing in place over bilateral legs. Right third toe with warmth, erythema, and swelling (improving). Head: atraumatic, normocephalic, symmetric Eyes: EOMI, no lid lag, anicteric sclera Mouth: no lip lesion, mucus membranes moist Cardiovascular: S1S2 reg, no murmur, positive posterior tibial pulse bilateral, Lungs: Coarse breath sounds bilateral, no rhonchi, no rales , no accessory muscle use Abdominal: soft, nontender to palpation, no guarding, no appreciable organomegaly Ext: no gross muscle atrophy, no edema, no contractures Neuro: CN II-XI grossly intact, muscle strength 5 out of 5 in bilateral upper extremities and 4-5 bilateral lower extremity cellulitis intact all 4 extremities. Following commands appropriately. Psych: Alert, oriented to self, location, and year. 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 - Case D/W surgery: - Consult cardiothoracic surgery for possible esophagectomy - Determination of what type of feeding tube depending on input from cardiothoracic surgery -strict NPO: On TPN -Oncology recommendations appreciated Dysphagia - Strict NPO - On IV Synthroid -On TPN -We'll plan on feeding tube for nutrition, awaiting cardiothoracic evaluation to determine what type Acute encephalopathy -Likely multifactorial -Check stat CBC, lactic acid -Check head CT -Frequent reorientation Right lower extremity cellulitis with probable osteo of the right third toe - ID recs -cefazolin - ESR and CRP mildly elevated -Per vascular surgery no indication for operative management at this time HTN, controlled -Currently off all oral medications -Multidose IV antihypertensive medications as needed HLD -Off statins secondary to nothing by mouth status CAD with hx of [place] Hx of A fib and SSS- Off Xarelto as currently nothing by mouth -On Lovenox prophylactic dosing -If patient has J-tube likely will need to choose a Doppler medication other than Xarelto ever believe this is required to be taken in the stomach, we'll need to evaluate further if Eliquis can be given via J-tube Neuropathy -Lyrica on hold CKD III - avoid nephrotoxic agents DVT prophylaxis: SCDS Discussed with: Patient, nursing, Dr. Rivera Anticipated discharge date: in 2-[address]: home A total of 35 minutes was spent on the care of this complex patient more than 50% of the time was spent in counseling and care coordination. Active Medications Generic Name Dose Route Start Last Admin Trade Name Freq PRN Reason Stop Dose Admin Albuterol Sulfate 2.5 mg 10/20/20 10:47 10/25/20 11:00 Albuterol Nebulized 2.5 Mg/3 Ml INHALATION 2.5 mg RT-TID PRN Administration Shortness Of Breath Benzocaine/Menthol 1 each 10/20/20 16:50 Benzocaine/Menthol Lozeng 1 Each Lozenge MUCOUS MEM Q4HR PRN Sore Throat Enoxaparin Sodium 40 mg 10/25/20 11:45 10/25/20 14:12 Enoxaparin 40 Mg/0.4 Ml Syringe SQ 40 mg DAILY KRUPA Administration Famotidine 20 mg 10/22/20 20:30 10/25/20 11:24 Famotidine 20 Mg/2 Ml Vial IV 20 mg DAILY KRUPA Administration Cefazolin Sodium 2 gm/ Sodium 50 mls @ 100 mls/hr 10/22/20 08:15 10/25/20 11:24 Chloride IVPB 100 mls/hr Q8HR KRUPA Administration Parenteral Vitamin Supplement 1,011 mls @ 80 mls/hr 10/24/20 17:00 10/24/20 21:27 10 ml/ Zinc/Copper/Manganese/ IV 10/25/20 22:59 80 mls/hr Selenium 1 ml/ Amino Ac/ .BY DURATION KRUPA Administration Electrol/Dextrose/Calcium Amino Ac/Electrol/Dextrose/Calcium 1,000 mls @ 80 mls/hr 10/24/20 17:00 10/25/20 11:24 Clinimix E 5%-20% Solution IV 10/25/20 22:59 80 mls/hr .BY DURATION KRUPA Administration Fat Emulsion Intravenous 250 250 mls @ 21 mls/hr 10/24/20 09:00 10/25/20 11:24 ml/ IV Solution IV 21 mls/hr DAILY KRUPA Administration Potassium Chloride 10 meq/ IV 100 mls @ 100 mls/hr 10/25/20 14:00 10/25/20 14:12 Solution IVPB 10/25/20 15:59 100 mls/hr Q1H KRUPA Administration Protocol Parenteral Vitamin Supplement 1,021 mls @ 80 mls/hr 10/25/20 23:00 10 ml/ Zinc/Copper/Manganese/ IV Selenium 1 ml/ Potassium .BY DURATION KRUPA Chloride 20 meq/ Amino Ac/ Electrol/Dextrose/Calcium Potassium Chloride 20 meq/ 1,010 mls @ 80 mls/hr 10/25/20 23:00 Amino Ac/Electrol/Dextrose/ IV Calcium .BY DURATION KRUPA Insulin Aspart 0 unit 10/24/20 17:45 10/25/20 12:34 Insulin Aspart (Novolog) 100 Unit/Ml Vial SQ Not Given Q6H [facility] Protocol Levothyroxine Sodium 37.5 mcg 10/23/20 09:00 10/25/20 11:24 Levothyroxine Ivp 100 Mcg/5 Ml Vial IV 37.5 mcg DAILY KRUPA Administration Morphine Sulfate 4 mg 10/20/20 00:28 Morphine Sulfate 4 Mg/Ml Syringe IV Q4HR PRN Severe Pain Multi-Ingredient Ointment 1 applic 10/23/20 11:00 10/25/20 14:12 Zinc Oxide 20% Oint 28.4 Gm Tube TOPICAL 1 applic DAILY KRUPA Administration Protocol Naloxone HCl 0.2 mg 10/20/20 00:28 Naloxone 0.4 Mg/Ml 1 Ml Vial IV Q2M PRN Opioid Reversal Nitroglycerin 0.4 mg 10/20/20 10:47 Nitroglycerin Sl Tabs 0.4 Mg Tab SUBLINGUAL Q5M PRN Chest Pain Ondansetron HCl 4 mg 10/20/20 00:28 Ondansetron 4 Mg/2 Ml Vial IVP Q8HR PRN Nausea And Vomiting Sodium Chloride 10 ml 10/23/20 14:54 Sodium Chloride 0.9% Flush 10 Ml Syringe IV Q4HR PRN PICC Line Sodium Chloride 10 ml 10/30/20 09:00 Sodium Chloride 0.9% Flush 10 Ml Syringe IV WEEKLY KRUPA Sodium Chloride 20 ml 10/23/20 14:54 Sodium Chloride 0.9% Flush 10 Ml Syringe IV Q4HR PRN PICC Line Objective - Vital Signs Vital signs: Vital Signs Temp 98.2 F 10/25/20 12:42 Pulse 84 10/25/20 12:42 Resp 17 10/25/20 12:42 BP 157/71 10/25/20 12:42 Pulse Ox 95 10/25/20 04:50 Intake & Output 10/24/20 10/25/20 10/25/20 18:59 06:59 18:59 Output Total 200 Balance -200 Weight 106.594 kg Output: Urine 200 Other: Voiding Method Urinal Bedside Commode Bedside Commode Urinal Urinal # Voids 1 4 - Labs CBC & Chem 7: 10/25/20 12:25 10/25/20 06:05 Labs: Abnormal Lab Results - Last 24 Hours (Table) 10/24/20 10/24/20 10/25/20 Range/Units 17:37 23:39 06:00 RBC (4.30-5.90) m/uL Hgb (13.0-17.5) gm/dL Hct (39.0-53.0) % MCV (80.0-100.0) fL Glucose (74-99) mg/dL POC Glucose (mg/dL) 139 H 132 H 110 H (75-99) mg/dL 10/25/20 10/25/20 10/25/20 Range/Units 06:05 11:32 12:25 RBC 3.82 L (4.30-5.90) m/uL Hgb 12.5 L (13.0-17.5) gm/dL Hct 38.3 L (39.0-53.0) % MCV 100.2 H (80.0-100.0) fL Glucose 117 H (74-99) mg/dL POC Glucose (mg/dL) 112 H (75-99) mg/dL
--- NOTE | 2020-10-25 15:27 | CT ---
EXAMINATION TYPE: CT brain wo con DATE OF EXAM: 10/25/2020 COMPARISON: None HISTORY: Confusion CT DLP: 1149.3 mGycm Automated exposure control for dose reduction was used. There is cerebral cortical atrophy. There is no mass effect nor midline shift. There is no evidence o f intracranial hemorrhage. There is hypodensity in the periventricular white matter. Calvarium is int act. IMPRESSION: Cerebral atrophy and chronic small vessel ischemia. No acute intracranial abnormality.
--- NOTE | 2020-10-25 17:16 | PN ---
PROGRESS NOTE DATE OF SERVICE: 10/25/2020 REASON FOR FOLLOWUP: Right third toe osteomyelitis. INTERVAL HISTORY: The patient is afebrile. He is breathing comfortably. Denies having any chest pain or shortness of breath or cough. No abdominal pain. The family is concerned about more swelling to the foot and third toe area but no drainage. PHYSICAL EXAMINATION: Blood pressure 157/71, pulse 84, temperature 98.2. He is 99% on 2 L nasal cannula. GENERAL DESCRIPTION: General description is an elderly male lying in bed in no distress. RESPIRATORY SYSTEM: Unlabored breathing. Clear to auscultation anteriorly. HEART: S1, S2. Regular rate and rhythm. ABDOMEN: Soft. No tenderness. Right foot is currently dressed. No obvious drainage on the dressing. LABS: Hemoglobin is 12.5, white count 7.1. BUN of 12, creatinine 0.97. DIAGNOSTIC IMPRESSION AND PLAN: Patient with right third toe swelling, concern for underlying osteomyelitis. We still do not have the infecting pathogen. Recommend vascular surgery evaluation for possible I and D, cultures. Empiric cefazolin to continue and continue supportive care. MMODL / IJN: [id number] /
[2020-10-25 17:39] LABS: Glucose,Whole Blood 104 mg/dL (75-99)
[2020-10-25 23:51] LABS: Glucose,Whole Blood 140 mg/dL (75-99)
[2020-10-26 06:02] LABS: Glucose,Whole Blood 147 mg/dL (75-99)
[2020-10-26] MEDS: INSULIN ASPART (NovoLOG) 100 UNIT/ML VIAL SQ SCH ×4 (06:02→23:55)
[2020-10-26] MEDS: 1: MVI, ADULT NO.4 WITH VIT K 10 ML, TRACE (CONC-1ML/DOSE) 1 ML, POTASSIUM CHLORIDE 20 M IV SCH ×8 (06:05→11:23)
[2020-10-26 07:10] LABS: African American GFR (CKD) 80 (>60 ml/min/1.73 sqM); Anion Gap 7 mmol/L; Blood Urea Nitrogen 15 mg/dL (9-20); Calcium 8.9 mg/dL (8.4-10.2); Carbon Dioxide 25 mmol/L (22-30); Chloride 107 mmol/L (98-107); Glucose 130 mg/dL (74-99); Magnesium 2.2 mg/dL (1.6-2.3); Non-African American GFR(CKD) 69 (>60 ml/min/1.73 sqM); Phosphorus 3.8 mg/dL (2.5-4.5); Potassium 4.3 mmol/L (3.5-5.1); Sodium 139 mmol/L (137-145)
[2020-10-26] MEDS: ALBUTEROL NEBULIZED 2.5 MG/3 ML INHALATION PRN (07:54)
[2020-10-26] MEDS: FAT EMULSION 20% 250 ML in EMPTY BAG 1 BAG IV SCH (09:44)
[2020-10-26] MEDS: FAMOTIDINE 20 MG/2 ML VIAL IV SCH (09:44)
[2020-10-26] MEDS: LEVOTHYROXINE IVP 100 MCG/5 ML VIAL IV SCH (09:45)
[2020-10-26] MEDS: ENOXAPARIN 40 MG/0.4 ML SYRINGE SQ SCH (09:45)
--- NOTE | 2020-10-26 11:23 | P.GSCN ---
History of Present Illness Consult date: 10/26/20 Reason for Consult: Esophageal mass, with esophageal biopsy showing positive for carcinoma in situ. Requesting physician: Neelam Maya History of present illness: This is an 89-year-old gentleman who follows with visiting physician's for his primary care service. 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 Over the past couple of months patient reports that he has been having some difficulty with food and liquids getting caught in his throat. He also reports that he has been having some hoarseness in his voice associated with the difficulty swallowing. He denies any recent fever, chills, nausea, vomiting, weight loss, constipation, hemoptysis or hematemesis. The patient also reports over the past year he has been having episodes of diarrhea almost daily. Due to the difficulty with food getting caught in his throat he presented to the emergency department at [facility] where he underwent a CAT scan of his chest which showed an esophageal mass with masslike circumferential thickening of the mid esophagus with proximal dilation air fluid level. It also demonstrated an enlarged right paratracheal lymph node at the thoracic inlet measuring 13 mm. Subsequently due to the patient's presenting symptoms and findings on his computed tomography scan he was transferred to [facility] for further evaluation and treatment recommendations. 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 It was negative for Ocrrea's esophagus. An upper GI swallow study was also completed which showed repeated episodes of large raquel aspiration, a segment of irregular stricture within the mid thoracic esophagus highly suggestive of esophageal cancer, and the lumen to be moderately narrowed. The patient was subsequently made nothing by mouth and a PICC line was placed by interventional radiology with parental nutrition initiated. Subsequently, due to the findings on the above-mentioned studies and the patient's presenting symptoms a consult was placed to Dr. Yoselyn Arizmendi from cardiothoracic surgery for further evaluation and treatment recommendations. Review of Systems A 14 point review of systems was completed and was negative except as mentioned in the HPI. Past Medical History Past Medical History: Atrial Fibrillation, Asthma, Coronary Artery Disease (CAD), Hearing Disorder / Deafness, Hyperlipidemia, Hypertension, Myocardial Infarction ([place]), Pneumonia, Renal Disease (Chronic kidney disease stage III), Skin Disorder, Sleep Apnea/CPAP/BIPAP (Sleep apnea without home CPAP use) Additional Past Medical History / Comment(s): Peripheral Neuropathy , see Dr Hever Kingsley&Cayden, has shakes from [employer],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 but is using straight cane, 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 per spouse, esophageal mass, oxygen dependent at home with 2 L nasal cannula Last Myocardial Infarction Date:: 2016 History of Any Multi-Drug Resistant Organisms: None Reported Past Surgical History: Appendectomy, Cholecystectomy, Heart Catheterization With Stent, Hernia Repair, Tonsillectomy Additional Past Surgical History / Comment(s): 2 stents, rosa m cataracts Past Anesthesia/Blood Transfusion Reactions: Family History of Problems w/ Anesthesia Additional Past Anesthesia/Blood Transfusion Reaction / Comm: family and self- diff coming out per spouse Date of Last Stent Placement:: 2016 Past Psychological History: No Psychological Hx Reported Smoking Status: Former smoker (Quit smoking 15-20 years ago) Past Alcohol Use History: None Reported Past Drug Use History: None Reported - Past Family History Mother History Unknown: Yes Family Medical History: Myocardial Infarction ([place]) Father History Unknown: Yes Family Medical History: Cancer Additional Family Medical History / Comment(s): Throat cancer Medications and Allergies Home Medications Medication Instructions Recorded Confirmed Type Multivitamins, Thera [Multivitamin 1 tab PO DAILY 09/23/16 10/20/20 History (formulary)] Amiodarone [Cordarone] 100 mg PO HS 02/10/17 10/20/20 History Levalbuterol Tartrate [Xopenex Hfa 2 puff INHALATION RT-TID PRN 02/10/17 10/20/20 History Inhaler] Rivaroxaban [Xarelto] 15 mg PO HS 02/10/17 10/20/20 History Albuterol Sulfate [Ventolin HFA] 2 puff INHALATION RT-BID PRN 02/22/20 10/20/20 History Allopurinol [Zyloprim] 100 mg PO DAILY 02/22/20 10/20/20 History Atorvastatin [Lipitor] 20 mg PO HS 02/22/20 10/20/20 History Cholecalciferol [Vitamin D3 (25 50 mcg PO DAILY 02/22/20 10/20/20 History Mcg = 1000 Iu)] Levothyroxine Sodium [Synthroid] 50 mcg PO DAILY 02/22/20 10/20/20 History Metoprolol Tartrate [Lopressor] 25 mg PO BID 02/22/20 10/20/20 History Pregabalin 75 mg PO DAILY 02/22/20 10/20/20 History Tamsulosin [Flomax] 0.4 mg PO HS 02/22/20 10/20/20 History amLODIPine [Norvasc] 5 mg PO DAILY 02/22/20 10/20/20 History calcitrioL [Rocaltrol] 0.5 mcg PO WE 02/22/20 10/20/20 History Doxycycline Monohydrate [Monodox] 100 mg PO Q12H 10/20/20 10/20/20 History Furosemide [Lasix] 20 mg PO DAILY 10/20/20 10/20/20 History Furosemide [Lasix] 40 mg PO DAILY 10/20/20 10/20/20 History Losartan [Cozaar] 25 mg PO DAILY 10/20/20 10/20/20 History Nitroglycerin Sl Tabs [Nitrostat] 0.4 mg SL Q5M PRN 10/20/20 10/20/20 History Vitamin C/Biotin [Hair, Skin and 1 tab PO MOWEFR 10/20/20 10/20/20 History Nails Chew] Allergies Allergy/AdvReac Type Severity Reaction Status Date / Time Penicillins Allergy Anaphylaxis Verified 10/20/20 08:52 prednisone Allergy Anaphylaxis Verified 10/20/20 08:52 Sulfa (Sulfonamide Allergy Anaphylaxis Verified 10/20/20 08:52 Antibiotics) Surgical - Exam Vital Signs Temp Pulse Resp BP Pulse Ox 98.9 F 72 22 113/76 96 10/19/20 22:50 10/19/20 22:50 10/19/20 22:50 10/19/20 22:50 10/19/20 22:50 - General well developed, well nourished, no distress, no pain, chronically ill, obese - Eyes PERRL, normal ocular movement, no pale, no icteric - ENT normal pinna, normal nares, normal mucosa, no congestion, decreased hearing, dentures (upper plate) - Neck Neck is supple, no lymphadenopathy. no masses, no bruits, trachea midline, no venous distension - Respiratory Lung sounds with few expiratory wheezes scattered throughout, diminished to his bilateral bases. Respirations are symmetrical and nonlabored. - Cardiovascular Regular rhythm and rate. S1 and S2 present, negative for S3, gallop or murmur. +1 edema to his bilateral lower extremities. - Abdomen Abdomen is soft, nontender and nondistended. Active bowel sounds present to all 4 abdominal quadrants. No guarding or rigidity. No organomegaly appreciated. Nothing by mouth at this time. Parental nutrition. - Genitourinary deferred. - Rectum deffered. - Integumentary Dressings clean, dry and intact to his bilateral lower extremities. no rash, no growths - Neurologic Cranial nerves II through XII intact. normal coordination, normal sensation - Musculoskeletal Generalized weakness, strength equal bilateral. - Psychiatric oriented to time, oriented to person, oriented to place, speech is normal, memory intact Results - Labs 10/25/20 12:25 10/26/20 06:30 Abnormal Lab Results - Last 24 Hours (Table) 10/25/20 10/25/20 10/25/20 Range/Units 11:32 12:25 17:38 RBC 3.82 L (4.30-5.90) m/uL Hgb 12.5 L (13.0-17.5) gm/dL Hct 38.3 L (39.0-53.0) % MCV 100.2 H (80.0-100.0) fL Glucose (74-99) mg/dL POC Glucose (mg/dL) 112 H 104 H (75-99) mg/dL 10/25/20 10/26/20 10/26/20 Range/Units 23:46 06:00 06:30 RBC (4.30-5.90) m/uL Hgb (13.0-17.5) gm/dL Hct (39.0-53.0) % MCV (80.0-100.0) fL Glucose 130 H (74-99) mg/dL POC Glucose (mg/dL) 140 H 147 H (75-99) mg/dL Diabetes panel 10/26/20 Range/Units 06:30 Sodium 139 (137-145) mmol/L Potassium 4.3 (3.5-5.1) mmol/L Chloride 107 (98-107) mmol/L Carbon Dioxide 25 (22-30) mmol/L BUN 15 (9-20) mg/dL Creatinine 0.98 (0.66-1.25) mg/dL Glucose 130 H (74-99) mg/dL Calcium 8.9 (8.4-10.2) mg/dL Thyroid panel 10/25/20 Range/Units 12:25 TSH 1.420 (0.465-4.680) mIU/L Calcium panel 10/26/20 Range/Units 06:30 Calcium 8.9 (8.4-10.2) mg/dL Phosphorus 3.8 (2.5-4.5) mg/dL Pituitary panel 10/25/20 10/26/20 Range/Units 12:25 06:30 Sodium 139 (137-145) mmol/L Potassium 4.3 (3.5-5.1) mmol/L Chloride 107 (98-107) mmol/L Carbon Dioxide 25 (22-30) mmol/L BUN 15 (9-20) mg/dL Creatinine 0.98 (0.66-1.25) mg/dL Glucose 130 H (74-99) mg/dL Calcium 8.9 (8.4-10.2) mg/dL TSH 1.420 (0.465-4.680) mIU/L Adrenal panel 10/26/20 Range/Units 06:30 Sodium 139 (137-145) mmol/L Potassium 4.3 (3.5-5.1) mmol/L Chloride 107 (98-107) mmol/L Carbon Dioxide 25 (22-30) mmol/L BUN 15 (9-20) mg/dL Creatinine 0.98 (0.66-1.25) mg/dL Glucose 130 H (74-99) mg/dL Calcium 8.9 (8.4-10.2) mg/dL - Imaging Chest x-ray: report reviewed, image reviewed CT scan - chest: report reviewed, image reviewed Assessment and Plan Assessment: 1. 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 Dysphagia, secondary to above 3. Bilateral lower extremity cellulitis 4. History of hypertension 5. History of hyperlipidemia 6. History of coronary artery disease status post stent placement 7. History of myocardial infarction 8. History of chronic kidney disease stage III 9. History of atrial fibrillation on Xarelto for anticoagulation 10. History of sick sinus syndrome status post permanent pacemaker placement 11. Remote history of nicotine dependence Plan: The patient was seen and examined at his bedside on the fifth floor oncology unit. His chart and diagnostics were reviewed. His case was discussed in detail with Dr. Yoselyn Arizmendi from cardiothoracic surgery. Dr. Arizmendi did discuss with Dr. Maya recommendations for care. At this time recommend that the patient would probably benefit from an esophageal stent placement. More recommendations follow-up based on patient's clinical course. Medical management other comorbidities per primary care service. Thank you Dr. Maya for this consult and we look forward to working with you in the care of this patient. Time with Patient: Greater than 30
--- NOTE | 2020-10-26 12:07 | P.PN ---
Progress Note - Text Progress Note Date: 10/26/20 Patient remained stable. Her urethra surgeries been consult. The recommendation is for an esophageal stent. On exam vitals are stable abdomen soft. We'll continue supportive care.
[2020-10-26 13:06] LABS: Glucose,Whole Blood 154 mg/dL (75-99)
--- NOTE | 2020-10-26 14:04 | P.PN ---
Subjective Progress Note Date: 10/26/20 (delayed charting seen at 1030 and 1230) Principal diagnosis: Dysphagia Patient is an 89-year-old male with a history of hypertension, dyslipidemia, and prior myocardial infarction who presented as a transfer from [facility]. Apparently in the ER there he had undergone a CAT scan which showed an esophageal mass. There he underwent a CT of the thorax without contrast which showed masslike circumferential thickening of the mid esophagus with proximal dilatation and air fluid level. Recommendation for direct visualization due to underlying mass. Enlarged right paratracheal lymph node at the thoracic inlet measuring 13 mm. CBC showed a hemoglobin of 12.3 was otherwise unremarkable. PT PTT were both high at 19.1 and 45.5. He is on have a BUN of 22, creatinine 1.67 patient does have a history of chronic kidney disease. Troponin and BNP were negative. COVID-19 was not detected. EKG demonstrated normal sinus rhythm at a rate of 63. He was found to have a right toe that was red and swollen, x-ray showed possible osteo and he has was started on keflex and ID was consulted. He was seen by vascular surgery who did not feel there is need for operative management at this point for his toe. 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 He underwent barium esophagram which showed raquel aspiration and he was subsequently made nothing by mouth and started on TPN. He was seen by oncology who is awaiting biomarkers. He was seen by cardiothoracic surgery who recommended esophageal stent which can be placed likely on 10/29. Seen and examined at bedside.he is feeling slightly confused today. Awake and alert. Denies any pain, shortness breath, nausea, vomiting Return to bedside to discuss with family recommendations for stent, they are in agreement. They would like him to be able to eat. They are very anxious about getting a PET scan to determine long-term goals. I also discussed with them that the patient should not return home alone and likely will need more care. They're leaning towards correction facility. General: non toxic, no distress, appears at stated age Derm: Dressing in place over bilateral legs. Right third toe without warmth, decreased erythema, and swelling Head: atraumatic, normocephalic, symmetric Eyes: EOMI, no lid lag, anicteric sclera Mouth: no lip lesion, mucus membranes moist Cardiovascular: S1S2 reg, no murmur, positive posterior tibial pulse bilateral, Lungs: Coarse breath sounds bilateral, no rhonchi, no rales , no accessory muscle use Abdominal: soft, nontender to palpation, no guarding, no appreciable organomegaly Ext: no gross muscle atrophy, no edema, no contractures Neuro: CN II-XI grossly intact,no focal neuro defecits Psych: Alert, oriented to self, location, and year. 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 - Gen surgery recs - D/W Cardio Thorasic surgery and likely esophageal stent early next week - NPO, conitnue TPN -Oncology recommendations appreciated Dysphagia - Strict NPO - On IV Synthroid -On TPN -We'll plan on feeding tube for nutrition, awaiting cardiothoracic evaluation to determine what type Acute encephalopathy -Likely multifactorial - improving Right lower extremity cellulitis with probable osteo of the right third toe - ID recs -cefazolin - ESR and CRP mildly elevated -Per vascular surgery no indication for operative management at this time HTN, controlled -Currently off all oral medications -IV antihypertensive medications as needed HLD -Off statins secondary to nothing by mouth status CAD with hx of HI Hx of A fib and SSS- Off Xarelto as currently nothing by mouth -On Lovenox prophylactic dosing -If patient has J-tube likely will need to choose a Doppler medication other than Xarelto ever believe this is required to be taken in the stomach, we'll need to evaluate further if Eliquis can be given via J-tube Neuropathy -Lyrica on hold CKD III - avoid nephrotoxic agents DVT prophylaxis: SCDS Discussed with: Patient, nursing, Dr. Arizmendi Anticipated discharge date: in 4-[address]: home with help vs snf A total of 35 minutes was spent on the care of this complex patient more than 50% of the time was spent in counseling and care coordination. Objective - Vital Signs Vital signs: Vital Signs Temp 97.7 F 10/26/20 13:00 Pulse 55 L 10/26/20 13:00 Resp 16 10/26/20 13:00 BP 145/64 10/26/20 13:00 Pulse Ox 93 L 10/26/20 13:00 Intake & Output 10/25/20 10/26/20 10/26/20 18:59 06:59 18:59 Intake Total 1262 1010 Balance 1262 1010 Intake: Intake, IV Titration 1262 1010 Amount Amino Acid 5%-D20w+Lytes* 960 E* 1,000 ml @ 80 mls/hr IV .BY DURATION KRUPA Rx#: [id number] Fat Emulsion 20% 250 ml 252 In Empty Bag 1 bag @ 21 mls/hr IV DAILY KRUPA Rx#: [id number] Mvi, Adult No.4 with Vit 960 K 10 ml Trace (Conc-1Ml/ Dose) 1 ml Potassium Chloride 20 meq In Amino Acid 5%-D20w+Lytes*E* 1, 000 ml @ 80 mls/hr IV .BY DURATION KRUPA Rx#: [id number] ceFAZolin 2 gm In Sodium 50 50 Chloride 0.9% 50 ml @ 100 mls/hr IVPB Q8HR KRUPA Rx# :[id number] Other: Voiding Method Bedside Commode Bedside Commode Bedside Commode Urinal Urinal Urinal # Voids 3 - Labs CBC & Chem 7: 10/25/20 12:25 10/26/20 06:30 Labs: Abnormal Lab Results - Last 24 Hours (Table) 10/25/20 10/25/20 10/26/20 Range/Units 17:38 23:46 06:00 Glucose (74-99) mg/dL POC Glucose (mg/dL) 104 H 140 H 147 H (75-99) mg/dL 10/26/20 10/26/20 Range/Units 06:30 13:04 Glucose 130 H (74-99) mg/dL POC Glucose (mg/dL) 154 H (75-99) mg/dL
[2020-10-26] MEDS: ACETAMINOPHEN IV (For NPO) 1,000 MG in EMPTY BAG 1 BAG IVPB PRN (14:34)
[2020-10-26] MEDS: ZINC OXIDE 20% OINT 28.4 GM TUBE TOPICAL SCH (14:39)
[2020-10-26 18:00] LABS: Glucose,Whole Blood 123 mg/dL (75-99)
[2020-10-26] MEDS: 1: MVI, ADULT NO.4 WITH VIT K 10 ML, TRACE (CONC-1ML/DOSE) 1 ML, POTASSIUM CHLORIDE 10 M IV SCH ×4 (18:02)
[2020-10-26 23:48] LABS: Glucose,Whole Blood 121 mg/dL (75-99)
--- NOTE | 2020-10-26 23:49 | PN ---
PROGRESS NOTE DATE OF SERVICE: 10/26/2020 REASON FOR FOLLOW UP: Right third toe cellulitis and concern for underlying osteomyelitis. INTERVAL HISTORY: The patient is afebrile, has been breathing comfortably. Denies having any chest pain, shortness of breath, cough. No abdominal pain, or any worsening pain in the right foot. PHYSICAL EXAMINATION: Blood pressure is 113/82, pulse of 73, temperature of 97.8. He is 95% on room air. General description is an elderly male lying in bed in no distress. Respiratory system: Unlabored breathing. Clear to auscultation anteriorly. Heart S1, S2. Regular rate and rhythm. Abdomen soft, no tenderness. Right 3rd toe swelling and redness has slightly decreased. LABS: BUN of 15, creatinine 0.98. DIAGNOSTIC IMPRESSION AND PLAN: Patient with right third toe cellulitis, concern for underlying osteomyelitis on the basis of abnormal x-ray. Unfortunately we have not been able to get any cultures. In view of the some improvement on cefazolin, could be strep or MSSA. May consider empiric treatment with Rocephin. We will discuss further with the family and the admitting physician. Continue supportive care. MMODL / IJN: [id number] /
[2020-10-27] MEDS: ACETAMINOPHEN IV (For NPO) 1,000 MG in EMPTY BAG 1 BAG IVPB PRN (02:24)
[2020-10-27 05:51] LABS: HGB 12.6 gm/dL (13.0-17.5); MCH 32.4 pg (25.0-35.0); MCHC 33.2 g/dL (31.0-37.0); MCV 97.6 fL (80.0-100.0); Mean Platelet Volume 8.9; Platelet Count 256 k/uL (150-450); RDW 13.6 % (11.5-15.5); WBC 6.4 k/uL (3.8-10.6)
[2020-10-27 06:03] LABS: Glucose,Whole Blood 136 mg/dL (75-99)
[2020-10-27] MEDS: INSULIN ASPART (NovoLOG) 100 UNIT/ML VIAL SQ SCH ×4 (06:03→23:51)
[2020-10-27] MEDS: 1: MVI, ADULT NO.4 WITH VIT K 10 ML, TRACE (CONC-1ML/DOSE) 1 ML, POTASSIUM CHLORIDE 10 M IV SCH ×8 (06:12→23:00)
[2020-10-27 06:22] LABS: African American GFR (CKD) 82 (>60 ml/min/1.73 sqM); Anion Gap 9 mmol/L; Blood Urea Nitrogen 20 mg/dL (9-20); Calcium 8.9 mg/dL (8.4-10.2); Carbon Dioxide 24 mmol/L (22-30); Chloride 107 mmol/L (98-107); Glucose 135 mg/dL (74-99); Magnesium 2.2 mg/dL (1.6-2.3); Non-African American GFR(CKD) 71 (>60 ml/min/1.73 sqM); Phosphorus 3.6 mg/dL (2.5-4.5); Potassium 4.3 mmol/L (3.5-5.1); Sodium 140 mmol/L (137-145)
[2020-10-27] MEDS: ALBUTEROL NEBULIZED 2.5 MG/3 ML INHALATION PRN ×3 (07:41→19:32)
--- NOTE | 2020-10-27 09:08 | P.PN ---
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 Previous medical history of hypertension, hyperlipidemia, coronary artery disease and myocardial infarction status post stent placement, atrial fibrillation on Xarelto for anticoagulation, sick sinus syndrome status post permanent pacemaker placement, chronic kidney disease stage III, previous tobacco dependence The patient was seen and examined on the medical oncology unit this morning with Dr. Arizmendi. He is sitting up in bed and does appear to be short of breath, denies any pain. He does state he's had some liquid stool and is a bit upset about that but otherwise no new concerns. Dr. Arizmendi did discuss with the patient the plans for esophageal stenting this week once the logistics can be worked out, patient is agreeable and had no new questions. Objective - Vital Signs Vital signs: Vital Signs Temp 98.0 F 10/27/20 04:42 Pulse 64 10/27/20 07:53 Resp 20 10/27/20 04:42 BP 144/75 10/27/20 04:42 Pulse Ox 94 L 10/27/20 04:42 Intake & Output 10/26/20 10/27/20 10/27/20 18:59 06:59 18:59 Intake Total 1735 Balance 1735 Intake: Intake, IV Titration 1135 Amount ACETAMINOPHEN IV (For NPO 100 ) 1,000 mg In Empty Bag 1 bag @ 400 mls/hr IVPB Q6HR PRN Rx#:[id number] Potassium Chloride 10 meq 985 In Amino Acid 5%-D20w+ Lytes*E* 1,000 ml @ 80 mls/hr IV .BY DURATION KRUPA Rx#:[id number] ceFAZolin 2 gm In Sodium 50 Chloride 0.9% 50 ml @ 100 mls/hr IVPB Q8HR KRUPA Rx# :[id number] Oral 600 Other: Voiding Method Bedside Commode Bedside Commode Urinal Urinal # Voids 3 4 # Bowel Movements 1 - Exam CONSTITUTIONAL: Appears cooperative, in mild respiratory distress RESPIRATORY: Lungs sounds diminished bilaterally. Respirations even, slightly labored. Currently on room air with oxygen saturation 94%. Strong cough. CARDIOVASCULAR: S1, S2 present. Regular rate and rhythm, sinus rhythm on telemetry. Palpable peripheral pulses bilaterally. Bilateral lower extremity edema present. No calf pain or tenderness noted. GASTROINTESTINAL: Abdomen soft, nontender, nondistended. Active bowel sounds present 4 quadrants. NPO, currently on TPN. Positive bowel movement GENITOURINARY: Continues to void INTEGUMENTARY: Skin is warm and dry, clean, dry and intact dressings present to bilateral lower extremities NEUROLOGIC: Cranial nerves II through XII intact MUSKULOSKELETAL: Able to move all extremities, strength equal bilaterally PSYCHIATRIC: Alert and oriented to person place and time, appropriate affect, intact judgment and insight - Allied health notes Allied health notes reviewed: nursing - Labs CBC & Chem 7: 10/27/20 05:05 10/27/20 05:05 Labs: Abnormal Lab Results - Last 24 Hours (Table) 10/26/20 10/26/20 10/26/20 Range/Units 13:04 17:59 23:47 RBC (4.30-5.90) m/uL Hgb (13.0-17.5) gm/dL Hct (39.0-53.0) % Glucose (74-99) mg/dL POC Glucose (mg/dL) 154 H 123 H 121 H (75-99) mg/dL 10/27/20 10/27/20 10/27/20 Range/Units 05:05 05:05 06:01 RBC 3.90 L (4.30-5.90) m/uL Hgb 12.6 L (13.0-17.5) gm/dL Hct 38.0 L (39.0-53.0) % Glucose 135 H (74-99) mg/dL POC Glucose (mg/dL) 136 H (75-99) mg/dL - Imaging and Cardiology CT scan - chest: report reviewed, image reviewed Assessment and Plan Assessment: 1. 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 Dysphagia, secondary to above 3. Bilateral lower extremity cellulitis present on admission 4. History of hypertension 5. History of hyperlipidemia, treated 6. History of coronary artery disease and myocardial infarction status post stent placement 7. History of atrial fibrillation on Xarelto for anticoagulation 8. History of sick sinus syndrome status post permanent pacemaker placement 9. Chronic kidney disease stage III 10. Previous tobacco dependence 11. Hypothyroid Plan: 1. Plan is for esophageal stent placement with Dr. Hills, timing to be determined 2. Incentive spirometry ordered and should be encouraged 3. Increase activity, ambulate as tolerated 4. Continue TPN for nutritional support 5. Antibiotics per infectious disease 6. GI/DVT prophylaxis 7. Will order chest x-ray for pre-and post comparison as patient has not had an x-ray during this admission 8. Medical management of other comorbidities per primary care service 9. More recommendations to follow Time with Patient: Greater than 30
[2020-10-27] MEDS: ENOXAPARIN 40 MG/0.4 ML SYRINGE SQ SCH (10:24)
[2020-10-27] MEDS: ZINC OXIDE 20% OINT 28.4 GM TUBE TOPICAL SCH (10:24)
[2020-10-27] MEDS: LEVOTHYROXINE IVP 100 MCG/5 ML VIAL IV SCH (10:24)
[2020-10-27] MEDS: FAMOTIDINE 20 MG/2 ML VIAL IV SCH (10:24)
--- NOTE | 2020-10-27 11:18 | P.PN ---
Subjective Progress Note Date: 10/27/20 Principal diagnosis: Dysphagia Patient is an 89-year-old male with a history of hypertension, dyslipidemia, and prior myocardial infarction who presented as a transfer from [facility]. Apparently in the ER there he had undergone a CAT scan which showed an esophageal mass. There he underwent a CT of the thorax without contrast which showed masslike circumferential thickening of the mid esophagus with proximal dilatation and air fluid level. Recommendation for direct visualization due to underlying mass. Enlarged right paratracheal lymph node at the thoracic inlet measuring 13 mm. CBC showed a hemoglobin of 12.3 was otherwise unremarkable. PT PTT were both high at 19.1 and 45.5. He is on have a BUN of 22, creatinine 1.67 patient does have a history of chronic kidney disease. Troponin and BNP were negative. COVID-19 was not detected. EKG demonstrated normal sinus rhythm at a rate of 63. He was found to have a right toe that was red and swollen, x-ray showed possible osteo and he has was started on keflex and ID was consulted. He was seen by vascular surgery who did not feel there is need for operative management at this point for his toe. 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 He underwent barium esophagram which showed raquel aspiration and he was subsequently made nothing by mouth and started on TPN. He was seen by oncology who is awaiting biomarkers. He was s een by cardiothoracic surgery who recommended esophageal stent which can be placed likely this week. Seen and examined at bedside. No complaints at this time, no nausea, breathing, no cough Discussed likely stent this week, patient in agreement. General: non toxic, no distress, appears at stated age Derm: Dressing in place over bilateral legs. Right third toe without warmth, decreased erythema, Swelling present Head: atraumatic, normocephalic, symmetric Eyes: EOMI, no lid lag, anicteric sclera Mouth: no lip lesion, mucus membranes moist Cardiovascular: S1S2 reg, no murmur, positive posterior tibial pulse bilateral, Lungs: Coarse breath sounds bilateral, no rhonchi, no rales , no accessory muscle use Abdominal: soft, nontender to palpation, no guarding, no appreciable organomegaly Ext: no gross muscle atrophy, no edema, no contractures Neuro: CN II-XI grossly intact,no focal neuro defecits Psych: Alert, oriented to self, location, and year. 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 - Gen surgery recs - D/W Cardio Thorasic surgery and likely esophageal stent middle of this week - NPO, conitnue TPN -Oncology recommendations appreciated: Out patient PET and then follow-up Dysphagia - Strict NPO - On IV Synthroid -On TPN -Esophageal Stent this week Acute encephalopathy improved - Likely multifactorial - improving Right lower extremity cellulitis with probable osteo of the right third toe - ID recs -cefazolin - ESR and CRP mildly elevated -Per vascular surgery no indication for operative management at this time HTN, controlled -Currently off all oral medications -IV antihypertensive medications as needed HLD -Off statins secondary to nothing by mouth status CAD with hx of PA Hx of A fib and SSS- Off Xarelto as currently nothing by mouth -On Lovenox prophylactic dosing Neuropathy -Lyrica on hold CKD III - avoid nephrotoxic agents DVT prophylaxis: SCDS Discussed with: Patient, nursing, Dr. Arizmendi Anticipated discharge date: in 3-[address]: home with help vs snf A total of 35 minutes was spent on the care of this complex patient more than 50% of the time was spent in counseling and care coordination. Active Medication List Albuterol Sulfate (Albuterol Nebulized 2.5 Mg/3 Ml) 2.5 mg INHALATION RT-TID PRN PRN Reason: Shortness Of Breath Last Admin: 10/27/20 07:41 Dose: 2.5 mg Documented by: Admin: 10/26/20 07:54 Dose: 2.5 mg Documented by: Admin: 10/25/20 20:08 Dose: 2.5 mg Documented by: Admin: 10/25/20 11:00 Dose: 2.5 mg Documented by: Admin: 10/23/20 19:24 Dose: 2.5 mg Documented by: Admin: 10/20/20 21:18 Dose: 2.5 mg Documented by: SHAHNAZ Benzocaine/Menthol (Benzocaine/Menthol Lozeng 1 Each Lozenge) 1 each MUCOUS MEM Q4HR PRN PRN Reason: Sore Throat Enoxaparin Sodium (Enoxaparin 40 Mg/0.4 Ml Syringe) 40 mg SQ DAILY [facility] Admin: 10/27/20 10:24 Dose: 40 mg Documented by: Admin: 10/26/20 09:45 Dose: 40 mg Documented by: Admin: 10/25/20 14:12 Dose: 40 mg Documented by: FATOUMATA Famotidine (Famotidine 20 Mg/2 Ml Vial) 20 mg IV DAILY [facility] Admin: 10/27/20 10:24 Dose: 20 mg Documented by: Admin: 10/26/20 09:44 Dose: 20 mg Documented by: Admin: 10/25/20 11:24 Dose: 20 mg Documented by: Admin: 10/24/20 08:55 Dose: 20 mg Documented by: Admin: 10/23/20 08:15 Dose: 20 mg Documented by: Admin: 10/22/20 21:07 Dose: 20 mg Documented by: SETH Cefazolin Sodium 2 gm/ Sodium (Chloride) 50 mls @ 100 mls/hr IVPB Q8HR [facility] Admin: 10/27/20 10:24 Dose: 100 mls/hr Documented by: Admin: 10/27/20 00:04 Dose: 100 mls/hr Documented by: Admin: 10/26/20 16:53 Dose: 100 mls/hr Documented by: Admin: 10/26/20 09:45 Dose: 100 mls/hr Documented by: Admin: 10/25/20 23:49 Dose: 100 mls/hr Documented by: Admin: 10/25/20 16:13 Dose: 100 mls/hr Documented by: Admin: 10/25/20 11:24 Dose: 100 mls/hr Documented by: Admin: 10/24/20 23:46 Dose: 100 mls/hr Documented by: Admin: 10/24/20 18:12 Dose: 100 mls/hr Documented by: Admin: 10/24/20 08:56 Dose: 100 mls/hr Documented by: Admin: 10/23/20 23:13 Dose: 100 mls/hr Documented by: Admin: 10/23/20 17:44 Dose: 100 mls/hr Documented by: Admin: 10/23/20 08:37 Dose: 100 mls/hr Documented by: Admin: 10/22/20 23:27 Dose: 100 mls/hr Documented by: Admin: 10/22/20 15:51 Dose: 100 mls/hr Documented by: Admin: 10/22/20 08:56 Dose: 100 mls/hr Documented by: FATOUMATA Fat Emulsion Intravenous 250 (ml/ IV Solution) 250 mls @ 21 mls/hr IV DAILY [facility] Last Admin: 10/26/20 09:44 Dose: 21 mls/hr Documented by: Admin: 10/25/20 11:24 Dose: 21 mls/hr Documented by: Admin: 10/24/20 08:56 Dose: 21 mls/hr Documented by: CAITLYN Parenteral Vitamin Supplement 10 ml/ Zinc/Copper/Manganese/Selenium 1 ml/ Potassium Chloride 10 meq/ Amino Ac/Electrol/Dextrose/Calcium 1,016 mls @ 80 mls/hr IV .BY DURATION [facility] Last Admin: 10/27/20 06:12 Dose: 80 mls/hr Documented by: SETH Cosigned by: CHICO Potassium Chloride 10 meq/Amino Ac/Electrol/Dextrose/Calcium 1,005 mls @ 80 mls/hr IV .BY DURATION [facility] Last Infusion: 10/27/20 06:12 Dose: 0 mls/hr Documented by: SETH Cosigned by: CHICO Admin: 10/26/20 18:02 Dose: 80 mls/hr Documented by: FATOUMATA Cosigned by: VALERIA Acetaminophen 1,000 mg/ IV (Solution) 100 mls @ 400 mls/hr IVPB Q6HR PRN PRN Reason: Breakthrough Pain Stop: 10/27/20 12:14 Last Admin: 10/27/20 02:24 Dose: 400 mls/hr Documented by: Admin: 10/26/20 14:34 Dose: 400 mls/hr Documented by: FATOUMATA Insulin Aspart (Insulin Aspart (Novolog) 100 Unit/Ml Vial) 0 unit SQ Q6H [facility]; Protocol Last Admin: 10/27/20 06:03 Dose: Not Given Documented by: SETH Non-Admin Reason: nurse judgment Admin: 10/26/20 23:55 Dose: Not Given Documented by: SETH Non-Admin Reason: Decreased Blood Glucose Admin: 10/26/20 18:03 Dose: Not Given Documented by: FATOUMATA Non-Admin Reason: Decreased Blood Glucose Admin: 10/26/20 14:12 Dose: Not Given Documented by: FATOUMATA Non-Admin Reason: nurse judgement Admin: 10/26/20 06:02 Dose: Not Given Documented by: SETH Non-Admin Reason: nurse judgment Admin: 10/25/20 23:47 Dose: Not Given Documented by: SETH Non-Admin Reason: nurse judgment; NPO Admin: 10/25/20 17:43 Dose: Not Given Documented by: DANILO Non-Admin Reason: Decreased Blood Glucose Admin: 10/25/20 12:34 Dose: Not Given Documented by: FATOUMATA Non-Admin Reason: Decreased Blood Glucose Admin: 10/25/20 06:02 Dose: Not Given Documented by: SETH Non-Admin Reason: Decreased Blood Glucose Admin: 10/24/20 23:44 Dose: Not Given Documented by: SETH Non-Admin Reason: nurse judgment Admin: 10/24/20 18:13 Dose: Not Given Documented by: CAITLYN Non-Izzy Reason: Decreased Blood Glucose Levothyroxine Sodium (Levothyroxine Ivp 100 Mcg/5 Ml Vial) 37.5 mcg IV DAILY [facility] Last Admin: 10/27/20 10:24 Dose: 37.5 mcg Documented by: Admin: 10/26/20 09:45 Dose: 37.5 mcg Documented by: Admin: 10/25/20 11:24 Dose: 37.5 mcg Documented by: Admin: 10/24/20 08:56 Dose: 37.5 mcg Documented by: Admin: 10/23/20 08:15 Dose: 37.5 mcg Documented by: CAITLYN Morphine Sulfate (Morphine Sulfate 4 Mg/Ml Syringe) 4 mg IV Q4HR PRN PRN Reason: Severe Pain Multi-Ingredient Ointment (Zinc Oxide 20% Oint 28.4 Gm Tube) 1 applic TOPICAL DAILY [facility]; Protocol Last Admin: 10/27/20 10:24 Dose: 1 applic Documented by: Admin: 10/26/20 14:39 Dose: 1 applic Documented by: Admin: 10/25/20 14:12 Dose: 1 applic Documented by: Admin: 10/24/20 14:40 Dose: 1 applic Documented by: Admin: 10/23/20 13:45 Dose: 1 applic Documented by: REBECCA Naloxone HCl (Naloxone 0.4 Mg/Ml 1 Ml Vial) 0.2 mg IV Q2M PRN PRN Reason: Opioid Reversal Nitroglycerin (Nitroglycerin Sl Tabs 0.4 Mg Tab) 0.4 mg SUBLINGUAL Q5M PRN PRN Reason: Chest Pain Ondansetron HCl (Ondansetron 4 Mg/2 Ml Vial) 4 mg IVP Q8HR PRN PRN Reason: Nausea And Vomiting Sodium Chloride (Sodium Chloride 0.9% Flush 10 Ml Syringe) 10 ml IV Q4HR PRN PRN Reason: PICC Line Sodium Chloride (Sodium Chloride 0.9% Flush 10 Ml Syringe) 10 ml IV WEEKLY [facility] Sodium Chloride (Sodium Chloride 0.9% Flush 10 Ml Syringe) 20 ml IV Q4HR PRN PRN Reason: PICC Line Discontinued Medications Acetaminophen (Acetaminophen Tab 325 Mg Tab) 650 mg PO Q6HR PRN PRN Reason: Mild Pain or Fever > 100.5 Albuterol Sulfate (Albuterol Nebulized 2.5 Mg/3 Ml) 2.5 mg INHALATION RT-BID PRN PRN Reason: Shortness Of Breath Allopurinol (Allopurinol 100 Mg Tab) 100 mg PO DAILY [facility] Last Admin: 10/22/20 14:13 Dose: Not Given Documented by: FATOUMATA Non-Admin Reason: NPO Admin: 10/21/20 09:20 Dose: 100 mg Documented by: Admin: 10/20/20 11:48 Dose: 100 mg Documented by: PHILLIP Amiodarone HCl (Amiodarone 100 Mg Tab) 100 mg PO HS [facility] Last Admin: 10/21/20 21:04 Dose: 100 mg Documented by: Admin: 10/20/20 20:25 Dose: 100 mg Documented by: CHICO Amlodipine Besylate (Amlodipine 5 Mg Tab) 5 mg PO DAILY [facility] Last Admin: 10/22/20 14:13 Dose: Not Given Documented by: FATOUMATA Non-Admin Reason: NPO Admin: 10/21/20 09:20 Dose: 5 mg Documented by: Admin: 10/20/20 11:45 Dose: 5 mg Documented by: PHILLIP Atorvastatin Calcium (Atorvastatin 20 Mg Tab) 20 mg PO HS [facility] Last Admin: 10/24/20 19:47 Dose: Not Given Documented by: SETH Non-Admin Reason: NPO Admin: 10/23/20 19:39 Dose: Not Given Documented by: SETH Non-Admin Reason: NPO Admin: 10/22/20 20:52 Dose: Not Given Documented by: SETH Non-Admin Reason: NPO Admin: 10/21/20 21:04 Dose: 20 mg Documented by: Admin: 10/20/20 20:25 Dose: 20 mg Documented by: CHICO Calcitriol (Calcitriol 0.25 Mcg Cap) 0.5 mcg PO WE [facility] Last Admin: 10/22/20 14:13 Dose: Not Given Documented by: FATOUMATA Non-Admin Reason: NPO Cholecalciferol (Cholecalciferol 25 Mcg (1000 Iu) Tablet) 50 mcg PO DAILY [facility] Last Admin: 10/22/20 14:13 Dose: Not Given Documented by: FATOUMATA Non-Admin Reason: NPO Admin: 10/21/20 09:20 Dose: 50 mcg Documented by: YURY Furosemide (Furosemide 20 Mg Tab) 20 mg PO DAILY [facility] Last Admin: 10/22/20 14:13 Dose: Not Given Documented by: FATOUMATA Non-Admin Reason: NPO Admin: 10/21/20 09:25 Dose: 20 mg Documented by: YURY Furosemide (Furosemide 40 Mg Tab) 40 mg PO DAILY [facility] Last Admin: 10/22/20 14:13 Dose: Not Given Documented by: FATOUMATA Non-Admin Reason: NPO Admin: 10/21/20 09:25 Dose: 40 mg Documented by: Admin: 10/20/20 11:45 Dose: 40 mg Documented by: PHILLIP Sodium Chloride (Saline 0.9%) 1,000 mls @ 130 mls/hr IV .[id number] [facility] Last Admin: 10/20/20 16:34 Dose: 130 mls/hr Documented by: Admin: 10/20/20 09:01 Dose: 130 mls/hr Documented by: Admin: 10/20/20 01:01 Dose: 130 mls/hr Documented by: MARIMAR Ceftriaxone Sodium 1 gm/ (Sodium Chloride) 50 mls @ 100 mls/hr IVPB Q12HR [facility] Last Admin: 10/20/20 09:01 Dose: 100 mls/hr Documented by: CABRERA Vancomycin HCl 1,750 mg/ (Sodium Chloride) 500 mls @ 167 mls/hr IVPB ONCE ONE Stop: 10/20/20 03:44 Last Admin: 10/20/20 01:02 Dose: 167 mls/hr Documented by: MARIMAR Vancomycin HCl 1,750 mg/ (Sodium Chloride) 500 mls @ 167 mls/hr IVPB Q24H [facility] Last Admin: 10/21/20 21:04 Dose: 167 mls/hr Documented by: Admin: 10/20/20 21:07 Dose: 167 mls/hr Documented by: CHICO Dextrose/Sodium Chloride (Dextrose 5%-1/2ns Iv Soln) 1,000 mls @ 75 mls/hr IV .[id number] [facility] Last Admin: 10/24/20 17:44 Dose: Not Given Documented by: CAITLYN Non-Admin Reason: d/c Admin: 10/24/20 01:32 Dose: 75 mls/hr Documented by: Admin: 10/23/20 17:45 Dose: 75 mls/hr Documented by: Admin: 10/22/20 21:07 Dose: 75 mls/hr Documented by: Admin: 10/22/20 15:51 Dose: 75 mls/hr Documented by: Admin: 10/21/20 21:04 Dose: 75 mls/hr Documented by: Admin: 10/21/20 11:19 Dose: Not Given Documented by: YURY Non-Admin Reason: infusing Admin: 10/20/20 20:24 Dose: 75 mls/hr Documented by: CHICO Cefazolin Sodium 1,000 mg/ (Sodium Chloride) 50 mls @ 100 mls/hr IVPB Q6H [facility] Last Admin: 10/22/20 10:05 Dose: Not Given Documented by: FATOUMATA Non-Admin Reason: dcd Admin: 10/22/20 03:09 Dose: 100 mls/hr Documented by: Admin: 10/21/20 19:34 Dose: 100 mls/hr Documented by: Admin: 10/21/20 14:24 Dose: 100 mls/hr Documented by: Admin: 10/21/20 09:20 Dose: 100 mls/hr Documented by: Admin: 10/21/20 02:39 Dose: 100 mls/hr Documented by: Admin: 10/20/20 20:24 Dose: 100 mls/hr Documented by: CHICO Parenteral Vitamin Supplement 10 ml/ Zinc/Copper/Manganese/Selenium 1 ml/ Amino Ac/Electrol/Dextrose/Calcium 1,011 mls @ 30 mls/hr IV .Q24H [facility] Stop: 10/24/20 16:59 Last Admin: 10/23/20 17:53 Dose: 30 mls/hr Documented by: CAITLYN Mendozaigned by: AWAIS Parenteral Vitamin Supplement 10 ml/ Zinc/Copper/Manganese/Selenium 1 ml/ Amino Ac/Electrol/Dextrose/Calcium 1,011 mls @ 80 mls/hr IV .BY DURATION [facility] Stop: 10/25/20 22:59 Last Admin: 10/25/20 21:19 Dose: Not Given Documented by: SETH Non-Admin Reason: Discontinued at 2300 tonight Admin: 10/24/20 21:27 Dose: 80 mls/hr Documented by: SETH Mendozaigned by: LOXTOKR Amino Ac/Electrol/Dextrose/Calcium (Clinimix E 5%-20% Solution) 1,000 mls @ 80 mls/hr IV .BY DURATION [facility] Stop: 10/25/20 22:59 Last Admin: 10/25/20 11:24 Dose: 80 mls/hr Documented by: FATOUMATA Mendozaigned by: VALERIA Potassium Chloride 10 meq/ IV (Solution) 100 mls @ 100 mls/hr IVPB ONCE ONE Stop: 10/23/20 16:59 Last Admin: 10/23/20 18:10 Dose: 100 mls/hr Documented by: CAITLYN Potassium Chloride 20 meq/ IV (Solution) 100 mls @ 50 mls/hr IVPB Q2H [facility] Stop: 10/24/20 13:29 Last Admin: 10/24/20 16:40 Dose: 50 mls/hr Documented by: Admin: 10/24/20 11:24 Dose: 50 mls/hr Documented by: CAITLYN Magnesium Sulfate/Dextrose 1 (gm/ IV Solution) 100 mls @ 100 mls/hr IVPB Q1H [facility] Stop: 10/24/20 11:29 Last Admin: 10/24/20 13:14 Dose: 100 mls/hr Documented by: Admin: 10/24/20 09:57 Dose: 100 mls/hr Documented by: CAITLYN Potassium Chloride 10 meq/ IV (Solution) 100 mls @ 100 mls/hr IVPB Q1H [facility]; Protocol Stop: 10/25/20 15:59 Last Admin: 10/25/20 16:13 Dose: 100 mls/hr Documented by: Admin: 10/25/20 14:12 Dose: 100 mls/hr Documented by: FATOUMATA Parenteral Vitamin Supplement 10 ml/ Zinc/Copper/Manganese/Selenium 1 ml/ Potassium Chloride 20 meq/ Amino Ac/Electrol/Dextrose/Calcium 1,021 mls @ 80 mls/hr IV .BY DURATION [facility] Stop: 10/26/20 17:59 Last Admin: 10/26/20 06:05 Dose: 80 mls/hr Documented by: SETH Cosigned by: NATALIATOKR Potassium Chloride 20 meq/Amino Ac/Electrol/Dextrose/Calcium 1,010 mls @ 80 mls/hr IV .BY DURATION [facility] Stop: 10/26/20 17:59 Last Admin: 10/26/20 11:23 Dose: Not Given Documented by: SANTA Non-Admin Reason: last bag hung 7 hrs later; RX retimed to fix Levothyroxine Sodium (Levothyroxine 50 Mcg Tab) 50 mcg PO 0630 [facility] Last Admin: 10/22/20 05:58 Dose: 50 mcg Documented by: Admin: 10/21/20 06:21 Dose: 50 mcg Documented by: Admin: 10/20/20 11:48 Dose: 50 mcg Documented by: PHILLIP Losartan Potassium (Losartan 25 Mg Tab) 25 mg PO DAILY [facility] Last Admin: 10/22/20 14:13 Dose: Not Given Documented by: FATOUMATA Non-Admin Reason: NPO Admin: 10/21/20 09:20 Dose: 25 mg Documented by: Admin: 10/20/20 11:48 Dose: 25 mg Documented by: PHILLIP Metoprolol Tartrate (Metoprolol Tartrate 25 Mg Tab) 25 mg PO BID [facility] Last Admin: 10/22/20 14:14 Dose: Not Given Documented by: FATOUMATA Non-Admin Reason: NPO Admin: 10/21/20 21:04 Dose: 25 mg Documented by: Admin: 10/21/20 09:19 Dose: 25 mg Documented by: Admin: 10/20/20 20:25 Dose: 25 mg Documented by: Admin: 10/20/20 11:48 Dose: Not Given Documented by: PHILLIP Non-Admin Reason: . Miscellaneous Information (Vancomycin Iv Per Pharmacy 1 Each Misc) 1 each MISCELLANE DIRECTED PRN; Protocol PRN Reason: Per Protocol Multivitamins (Multivitamins, Thera 1 Each Tab) 1 each PO DAILY [facility] Last Admin: 10/22/20 14:14 Dose: Not Given Documented by: FATOUMATA Non-Admin Reason: NPO Admin: 10/21/20 09:19 Dose: 1 each Documented by: YURY Pregabalin (Pregabalin 75 Mg Cap) 75 mg PO DAILY [facility] Last Admin: 10/22/20 14:14 Dose: Not Given Documented by: FATOUMATA Non-Admin Reason: NPO Admin: 10/21/20 09:19 Dose: 75 mg Documented by: Admin: 10/20/20 11:45 Dose: 75 mg Documented by: PHILLIP Rivaroxaban (Rivaroxaban 15 Mg Tab) 15 mg PO HS [facility]; Protocol Tamsulosin HCl (Tamsulosin 0.4 Mg Cap.Er.24h) 0.4 mg PO HS [facility] Last Admin: 10/21/20 21:04 Dose: 0.4 mg Documented by: Admin: 10/20/20 20:25 Dose: 0.4 mg Documented by: CHICO Objective - Vital Signs Vital signs: Vital Signs Temp 98.0 F 10/27/20 04:42 Pulse 64 10/27/20 07:53 Resp 20 10/27/20 04:42 BP 144/75 10/27/20 04:42 Pulse Ox 94 L 10/27/20 04:42 Intake & Output 10/26/20 10/27/20 10/27/20 18:59 06:59 18:59 Intake Total 1735 Balance 1735 Intake: Intake, IV Titration 1135 Amount ACETAMINOPHEN IV (For NPO 100 ) 1,000 mg In Empty Bag 1 bag @ 400 mls/hr IVPB Q6HR PRN Rx#:[id number] Potassium Chloride 10 meq 985 In Amino Acid 5%-D20w+ Lytes*E* 1,000 ml @ 80 mls/hr IV .BY DURATION [facility] Rx#:[id number] ceFAZolin 2 gm In Sodium 50 Chloride 0.9% 50 ml @ 100 mls/hr IVPB Q8HR [facility] Rx# :[id number] Oral 600 Other: Voiding Method Bedside Commode Bedside Commode Urinal Urinal # Voids 3 4 # Bowel Movements 1 - Labs CBC & Chem 7: 10/27/20 05:05 10/27/20 05:05 Labs: Abnormal Lab Results - Last 24 Hours (Table) 10/26/20 10/26/20 10/26/20 Range/Units 13:04 17:59 23:47 RBC (4.30-5.90) m/uL Hgb (13.0-17.5) gm/dL Hct (39.0-53.0) % Glucose (74-99) mg/dL POC Glucose (mg/dL) 154 H 123 H 121 H (75-99) mg/dL 10/27/20 10/27/20 10/27/20 Range/Units 05:05 05:05 06:01 RBC 3.90 L (4.30-5.90) m/uL Hgb 12.6 L (13.0-17.5) gm/dL Hct 38.0 L (39.0-53.0) % Glucose 135 H (74-99) mg/dL POC Glucose (mg/dL) 136 H (75-99) mg/dL
[2020-10-27 11:47] LABS: Glucose,Whole Blood 153 mg/dL (75-99)
[2020-10-27] MEDS: FAT EMULSION 20% 250 ML in EMPTY BAG 1 BAG IV SCH (12:03)
--- NOTE | 2020-10-27 14:08 | P.PN ---
Subjective Progress Note Date: 10/27/20 CHIEF COMPLAINT: Dysphagia HISTORY OF PRESENT ILLNESS: Patient has an esophageal mass in the mid esophagus. He is status post EGD with biopsy. Pathology report carcinoma in situ cannot exclude superficial lamina propria invasive disease. Patient evaluated by cardiothoracic surgery and awaiting date for esophageal stent placement. Patient is currently on TPN for nutrition support. He has no new complaints. Afebrile. WBC 6.4 hemoglobin 12.6 PHYSICAL EXAM: VITAL SIGNS: Reviewed. GENERAL: Well-developed in no acute distress. HEENT: No sclera icterus. Extraocular movements grossly intact. Moist buccal mucosa. Head is atraumatic, normocephalic. ABDOMEN: Soft. Nondistended. Nontender. NEUROLOGIC: Alert and oriented. Cranial nerves II through XII grossly intact. ASSESSMENT: 1. Esophageal mass status post EGD PLAN: -Awaiting esophageal stent placement per cardiothoracic team -Continue TPN for nutrition support -Patient may require J-tube placement for nutrition support -Keep patient nothing by mouth Physician Occupational Therapy Manager note has been reviewed by physician. Signing provider agrees with the documented findings, assessment, and plan of care. Objective - Vital Signs Vital signs: Vital Signs Temp 97.8 F 10/27/20 13:00 Pulse 54 L 10/27/20 13:00 Resp 20 10/27/20 13:00 BP 141/66 10/27/20 13:00 Pulse Ox 92 L 10/27/20 13:00 Intake & Output 10/26/20 10/27/20 10/27/20 18:59 06:59 18:59 Intake Total 1735 Balance 1735 Weight 106.594 kg Intake: Intake, IV Titration 1135 Amount ACETAMINOPHEN IV (For NPO 100 ) 1,000 mg In Empty Bag 1 bag @ 400 mls/hr IVPB Q6HR PRN Rx#:[id number] Potassium Chloride 10 meq 985 In Amino Acid 5%-D20w+ Lytes*E* 1,000 ml @ 80 mls/hr IV .BY DURATION [facility] Rx#:[id number] ceFAZolin 2 gm In Sodium 50 Chloride 0.9% 50 ml @ 100 mls/hr IVPB Q8HR [facility] Rx# :[id number] Oral 600 Other: Voiding Method Bedside Commode Bedside Commode Bedside Commode Urinal Urinal Urinal # Voids 3 4 # Bowel Movements 1 - Labs CBC & Chem 7: 09/20/21 05:05 10/27/20 05:05 Labs: Abnormal Lab Results - Last 24 Hours (Table) 10/26/20 10/26/20 10/27/20 Range/Units 17:59 23:47 05:05 RBC (4.30-5.90) m/uL Hgb (13.0-17.5) gm/dL Hct (39.0-53.0) % Glucose 135 H (74-99) mg/dL POC Glucose (mg/dL) 123 H 121 H (75-99) mg/dL 10/27/20 10/27/20 10/27/20 Range/Units 05:05 06:01 11:46 RBC 3.90 L (4.30-5.90) m/uL Hgb 12.6 L (13.0-17.5) gm/dL Hct 38.0 L (39.0-53.0) % Glucose (74-99) mg/dL POC Glucose (mg/dL) 136 H 153 H (75-99) mg/dL
--- NOTE | 2020-10-27 15:56 | XR ---
EXAMINATION TYPE: XR chest 2V DATE OF EXAM: 10/27/2020 COMPARISON: Chest x-ray 02/22/2020 HISTORY: Preop esophageal stent, cough TECHNIQUE: Frontal and lateral views of the chest are obtained. FINDINGS: There is no pleural effusion or pneumothorax seen. The cardiac silhouette size is promine nt, possibly accentuated by technique. Right-sided PICC line is present, distal tip is overlying the superior vena cava. There are overlying leads, pacemaker is stable with leads in the right atrium an d ventricle. Some minimal patchy basilar density is noted, retained contrast is noted within the colo n. The osseous structures are intact. IMPRESSION: May be some basilar atelectasis or interstitial changes, scarring within the lungs. Over lying heart size.
[2020-10-27] MEDS ORDERED: ACETAMINOPHEN IV (For NPO) 1,000 MG in EMPTY BAG 1 BAG IVPB PRN (16:24)
[2020-10-27 17:49] LABS: Glucose,Whole Blood 125 mg/dL (75-99)
--- NOTE | 2020-10-27 20:05 | P.PN ---
Subjective Progress Note Date: 10/27/20 Principal diagnosis: esophageal mass, dysphagia In f/u today pt has been started on TPN, no new c/o today, his BLE extremity cellulitis is improving, he can still manage his own secretions. Objective - Vital Signs Vital signs: Vital Signs Temp 98.0 F 10/27/20 04:42 Pulse 64 10/27/20 07:53 Resp 20 10/27/20 04:42 BP 144/75 10/27/20 04:42 Pulse Ox 94 L 10/27/20 04:42 Intake & Output 10/26/20 10/27/20 10/27/20 18:59 06:59 18:59 Intake Total 1735 Balance 1735 Intake: Intake, IV Titration 1135 Amount ACETAMINOPHEN IV (For NPO 100 ) 1,000 mg In Empty Bag 1 bag @ 400 mls/hr IVPB Q6HR PRN Rx#:[id number] Potassium Chloride 10 meq 985 In Amino Acid 5%-D20w+ Lytes*E* 1,000 ml @ 80 mls/hr IV .BY DURATION [facility] Rx#:[id number] ceFAZolin 2 gm In Sodium 50 Chloride 0.9% 50 ml @ 100 mls/hr IVPB Q8HR [facility] Rx# :[id number] Oral 600 Other: Voiding Method Bedside Commode Bedside Commode Urinal Urinal # Voids 3 4 # Bowel Movements 1 - Constitutional General appearance: Present: average body habitus, cooperative, no acute distress - EENT Eyes: Present: anicteric sclerae, EOMI ENT: Present: hearing grossly normal, normal oropharynx - Respiratory Respiratory: bilateral: CTA, diminished - Cardiovascular Rhythm: regular Heart sounds: normal: S1, S2 Abnormal Heart Sounds: Absent: systolic murmur, diastolic murmur, rub, S3 Gallop, S4 Gallop, click, other - Peripheral edema leg Peripheral Edema: bilateral: Trace - Gastrointestinal General gastrointestinal: Present: normal bowel sounds, soft - Neurologic Neurologic: Present: CNII-XII intact - Musculoskeletal Musculoskeletal: Present: generalized weakness, strength equal bilaterally - Psychiatric Psychiatric: Present: A&O x's 3, appropriate affect, intact judgment & insight - Labs CBC & Chem 7: 10/27/20 05:05 10/27/20 05:05 Labs: Abnormal Lab Results - Last 24 Hours (Table) 10/26/20 10/26/20 10/26/20 Range/Units 13:04 17:59 23:47 RBC (4.30-5.90) m/uL Hgb (13.0-17.5) gm/dL Hct (39.0-53.0) % Glucose (74-99) mg/dL POC Glucose (mg/dL) 154 H 123 H 121 H (75-99) mg/dL 10/27/20 10/27/20 10/27/20 Range/Units 05:05 05:05 06:01 RBC 3.90 L (4.30-5.90) m/uL Hgb 12.6 L (13.0-17.5) gm/dL Hct 38.0 L (39.0-53.0) % Glucose 135 H (74-99) mg/dL POC Glucose (mg/dL) 136 H (75-99) mg/dL - Imaging and Cardiology CT Scan - head: report reviewed Assessment and Plan (1) Esophageal mass Narrative/Plan: Reviewed path with pt, high grade dysplasia, 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 Her2 pending. He is going to have esophageal stent placed by CTS. CT of the brain without contrast was neg for malignancy or bleed. Plan for staging PET outpt. F/U with Medical Oncologist for plan of care after PET. Current Visit: Yes Status: Acute Priority: High Code(s): K22.8 - OTHER SPE CIFIED DISEASES OF ESOPHAGUS SNOMED Code(s): 232557383
[2020-10-27 23:48] LABS: Glucose,Whole Blood 147 mg/dL (75-99)
[2020-10-28 05:53] LABS: Glucose,Whole Blood 126 mg/dL (75-99)
[2020-10-28] MEDS: INSULIN ASPART (NovoLOG) 100 UNIT/ML VIAL SQ SCH ×3 (05:57→17:28)
--- NOTE | 2020-10-28 06:05 | PN ---
PROGRESS NOTE DATE OF SERVICE: 10/27/2020 REASON FOR FOLLOWUP: Right 3rd toe cellulitis and concern for osteomyelitis. INTERVAL HISTORY: The patient is afebrile. The patient is currently breathing comfortably. Patient denies having any chest pain. No shortness of breath, cough, no abdominal pain, or any worsening pain in the right foot. PHYSICAL EXAMINATION: Blood pressure is 151/66, pulse of 73, temperature 98.2. He is 93% on room air. General description is an elderly male lying in bed in no distress. Respiratory system: Unlabored breathing, clear to auscultation anteriorly. Heart S1, S2. Regular rate and rhythm. Abdomen: Soft. No tenderness. The right third toe swelling and redness has slightly decreased. LABS: Hemoglobin is 12 with white count 6.4. DIAGNOSTIC IMPRESSION AND PLAN: Patient with left third toe cellulitis, concern for underlying osteo. Unfortunately not able to get cultures to determine the infected pathogen. Some clinical response to cefazolin. Antibiotic has been adjusted to Rocephin for easy home administration. Recheck inflammatory markers tomorrow and monitor clinical course closely. MMODL / IJN: [id number] /
[2020-10-28 06:45] LABS: ALT 6 U/L (4-49); AST 24 U/L (17-59); African American GFR (CKD) 75 (>60 ml/min/1.73 sqM); Albumin 3.1 g/dL (3.5-5.0); Albumin/Globulin Ratio 0.9; Alkaline Phosphatase 80 U/L (38-126); Anion Gap 9 mmol/L; Blood Urea Nitrogen 22 mg/dL (9-20); Calcium 9.1 mg/dL (8.4-10.2); Carbon Dioxide 25 mmol/L (22-30); Chloride 105 mmol/L (98-107); Globulin 3.4 g/dL; Glucose 128 mg/dL (74-99); Magnesium 2.2 mg/dL (1.6-2.3); Non-African American GFR(CKD) 65 (>60 ml/min/1.73 sqM); Phosphorus 3.7 mg/dL (2.5-4.5); Sodium 139 mmol/L (137-145); Total Bilirubin 0.3 mg/dL (0.2-1.3); Total Protein 6.5 g/dL (6.3-8.2)
[2020-10-28 06:47] LABS: Potassium 4.4 mmol/L (3.5-5.1)
[2020-10-28 08:46] LABS: C Reactive Protein 4.5 mg/dL (<1.0)
[2020-10-28 09:06] LABS: Methylmalonic Acid 0.3 umol/L (<0.40)
[2020-10-28] MEDS: FAMOTIDINE 20 MG/2 ML VIAL IV SCH (09:33)
[2020-10-28] MEDS: LEVOTHYROXINE IVP 100 MCG/5 ML VIAL IV SCH (09:33)
[2020-10-28] MEDS: ZINC OXIDE 20% OINT 28.4 GM TUBE TOPICAL SCH (09:34)
[2020-10-28] MEDS: ENOXAPARIN 40 MG/0.4 ML SYRINGE SQ SCH (09:34)
[2020-10-28] MEDS: FAT EMULSION 20% 250 ML in EMPTY BAG 1 BAG IV SCH (09:34)
--- NOTE | 2020-10-28 10:12 | P.PN ---
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 Past medical history significant for hypertension, hyperlipidemia, coronary artery disease and myocardial infarction status post stent placement, atrial fibrillation on Xarelto for anticoagulation, sick sinus syndrome status post permanent pacemaker placement, chronic kidney disease stage III, remote history of tobacco abuse. The patient was seen in follow-up today at his bedside on the fifth floor medical oncology unit. Currently sitting up to the bedside chair, is awake, alert and oriented 3 and in no acute distress. He is having some episodes of forgetfulness. He denies any complaints of pain or shortness of breath at this time. He does continue to complain of episodes of diarrhea. TPN infusing for nutritional support through his PICC line. He is scheduled for an esophageal stent placement tomorrow 10/29/2020 to be performed by Dr. Tristin Hills. The patient remains nothing by mouth. Objective - Vital Signs Vital signs: Vital Signs Temp 98.3 F 10/28/20 04:42 Pulse 67 10/28/20 04:42 Resp 16 10/28/20 04:42 BP 150/66 10/28/20 04:42 Pulse Ox 95 10/28/20 04:42 Intake & Output 10/27/20 10/28/20 10/28/20 18:59 06:59 18:59 Intake Total 850 Balance 850 Weight 106.594 kg Intake: Intake, IV Titration 850 Amount Mvi, Adult No.4 with Vit 800 K 10 ml Trace (Conc-1Ml/ Dose) 1 ml Potassium Chloride 10 meq In Amino Acid 5%-D20w+Lytes*E* 1, 000 ml @ 80 mls/hr IV .BY DURATION [facility] Rx#: [id number] cefTRIAXone 2 gm In 50 Sodium Chloride 0.9% 50 ml @ 100 mls/hr IVPB HS [facility] Rx#:[id number] Other: Voiding Method Bedside Commode Bedside Commode Urinal Urinal # Voids 3 2 - Exam CONSTITUTIONAL: Sitting up to the bedside chair on the fifth floor medical oncology unit, appears comfortable, cooperative, no apparent acute distress. HEENT: Neck is supple, no JVD, no lymphadenopathy. RESPIRATORY: Lungs sounds essentially clear throughout, diminished to his bilateral bases. Respirations are symmetrical and nonlabored. Currently on room air with oxygen saturations 95%. Able to achieve 2500 mL on his incentive spirometry. Strong cough. CARDIOVASCULAR: Regular rhythm and rate. S1 and S2 present, negative for S3, gallop or murmur. Palpable peripheral pulses bilaterally, +1 edema to his bilateral lower extremities. GASTROINTESTINAL: Abdomen soft, nontender, nondistended. Active bowel sounds present 4 quadrants. No guarding or rigidity. Remains nothing by mouth, receiving TPN for nutritional support. GENITOURINARY: Continues to void INTEGUMENTARY: Skin is warm and dry with no evidence of clubbing or cyanosis. Dressing clean dry and intact to his bilateral lower extremities. NEUROLOGIC: Cranial nerves II through XII intact. No focal deficits. MUSKULOSKELETAL: Able to move all extremities, strength equal bilaterally, generalized weakness. PSYCHIATRIC: Alert and oriented to person place and time, appropriate affect, intact judgment and insight. Episodes of forgetfulness. - Labs CBC & Chem 7: 10/27/20 05:05 10/28/20 05:53 Labs: Abnormal Lab Results - Last 24 Hours (Table) 10/27/20 10/27/20 10/27/20 Range/Units 11:46 17:48 23:45 BUN (9-20) mg/dL Glucose (74-99) mg/dL POC Glucose (mg/dL) 153 H 125 H 147 H (75-99) mg/dL C-Reactive Protein (<1.0) mg/dL Albumin (3.5-5.0) g/dL 10/28/20 10/28/20 Range/Units 05:52 05:53 BUN 22 H (9-20) mg/dL Glucose 128 H (74-99) mg/dL POC Glucose (mg/dL) 126 H (75-99) mg/dL C-Reactive Protein 4.5 H (<1.0) mg/dL Albumin 3.1 L (3.5-5.0) g/dL Assessment and Plan Assessment: 1. 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 Dysphagia, secondary to above 3. Bilateral lower extremity cellulitis 4. History of hypertension 5. History of hyperlipidemia 6. History of coronary artery disease status post stent placement 7. History of myocardial infarction 8. History of chronic kidney disease stage III 9. History of atrial fibrillation on Xarelto for anticoagulation 10. History of sick sinus syndrome status post permanent pacemaker placement 11. Remote history of nicotine dependence 12. Thyroid disorder Plan: 1. The patient is scheduled for an esophageal stent placement tomorrow 10/29/2020 to be performed by Dr. Tristin Hills. 2. Encourage use of his incentive spirometry 10 times every hour while awake. 3. Increase activity as tolerated. Out of bed 3 times a day as tolerated. 4. Continue TPN for nutritional support. The patient remains nothing by mouth. 5. Continue GI and DVT prophylaxis. 6. Medical management and other comorbidities per primary care service. 7. Antibiotic management and recommendations per infectious disease. 8. More recommendations to follow based on patient's clinical course. Time with Patient: Less than 30
[2020-10-28 11:35] LABS: Glucose,Whole Blood 120 mg/dL (75-99)
[2020-10-28] MEDS: 1: MVI, ADULT NO.4 WITH VIT K 10 ML, TRACE (CONC-1ML/DOSE) 1 ML, POTASSIUM CHLORIDE 10 M IV SCH ×8 (12:48→22:52)
--- NOTE | 2020-10-28 13:56 | P.PN ---
Subjective Progress Note Date: 10/28/20 Patient was seen and evaluated by me this morning. He was sitting up in the chair. He does not have any complaint. Objective - Vital Signs Vital signs: Vital Signs Temp 97.8 F 10/28/20 11:15 Pulse 61 10/28/20 11:15 Resp 18 10/28/20 11:15 BP 148/70 10/28/20 11:15 Pulse Ox 94 L 10/28/20 11:15 Intake & Output 10/27/20 10/28/20 10/28/20 18:59 06:59 18:59 Intake Total 1016 850 Balance 1016 850 Weight 106.594 kg Intake: Intake, IV Titration 1016 850 Amount Mvi, Adult No.4 with Vit 1016 800 K 10 ml Trace (Conc-1Ml/ Dose) 1 ml Potassium Chloride 10 meq In Amino Acid 5%-D20w+Lytes*E* 1, 000 ml @ 80 mls/hr IV .BY DURATION [facility] Rx#: [id number] cefTRIAXone 2 gm In 50 Sodium Chloride 0.9% 50 ml @ 100 mls/hr IVPB HS [facility] Rx#:[id number] Other: Voiding Method Bedside Commode Bedside Commode Bedside Commode Urinal Urinal Urinal # Voids 3 2 - Exam General: The patient is awake and alert, in no distress Eye: there is normal conjunctiva bilaterally. Neck: The neck is supple, there is no JVD. Cardiovascular: Normal S1-S2, no S3-S4, no murmurs. Respiratory: Lungs clear to auscultation bilaterally Gastrointestinal: Abdomen is soft, nontender Musculoskeletal: There is no pedal edema. Neurological:. Speech is normal. Skin: Skin is warm and dry - Labs CBC & Chem 7: 10/27/20 05:05 10/28/20 05:53 Labs: Abnormal Lab Results - Last 24 Hours (Table) 10/27/20 10/27/20 10/28/20 Range/Units 17:48 23:45 05:52 ESR (0-20) mm/Hr BUN (9-20) mg/dL Glucose (74-99) mg/dL POC Glucose (mg/dL) 125 H 147 H 126 H (75-99) mg/dL C-Reactive Protein (<1.0) mg/dL Albumin (3.5-5.0) g/dL 10/28/20 10/28/20 10/28/20 Range/Units 05:53 05:53 11:33 ESR 72 H (0-20) mm/Hr BUN 22 H (9-20) mg/dL Glucose 128 H (74-99) mg/dL POC Glucose (mg/dL) 120 H (75-99) mg/dL C-Reactive Protein 4.5 H (<1.0) mg/dL Albumin 3.1 L (3.5-5.0) g/dL Assessment and Plan Assessment: Patient is an 89-year-old male with a history of hypertension, dyslipidemia, and prior myocardial infarction who presented as a transfer from [facility]. Apparently in the ER there he had undergone a CAT scan which showed an esophageal mass. There he underwent a CT of the thorax without contrast which showed masslike circumferential thickening of the mid esophagus with proximal dilatation and air fluid level. Recommendation for direct visualization due to underlying mass. Enlarged right paratracheal lymph node at the thoracic inlet measuring 13 mm. CBC showed a hemoglobin of 12.3 was otherwise unremarkable. PT PTT were both high at 19.1 and 45.5. He is on have a BUN of 22, creatinine 1.67 patient does have a history of chronic kidney disease. Troponin and BNP were negative. COVID-19 was not detected. EKG demonstrated normal sinus rhythm at a rate of 63. He was found to have a right toe that was red and swollen, x-ray showed possible osteo and he has was started on keflex and ID was consulted. He was seen by vascular surgery who did not feel there is need for operative management at this point for his toe. 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 He underwent barium esophagram which showed raquel aspiration and he was subsequently made nothing by mouth and started on TPN. He was seen by oncology who is awaiting biomarkers. He was seen by cardiothoracic surgery who recommended esophageal stent which can be placed likely this week. 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 - D/W Thorasic surgery and plan for esophageal stent tomorrow - NPO, conitnue TPN -Oncology recommendations appreciated: Out patient PET and then follow-up Dysphagia - Strict NPO - On IV Synthroid -On TPN -Esophageal Stent this week Acute encephalopathy improved - Likely multifactorial - improving Right lower extremity cellulitis with probable osteo of the right third toe - ID recs -cefazolin - ESR and CRP mildly elevated -Per vascular surgery no indication for operative management at this time HTN, controlled -Currently off all oral medications -IV antihypertensive medications as needed HLD -Off statins secondary to nothing by mouth status CAD with hx of [place] Hx of A fib and SSS- Off Xarelto as currently nothing by mouth -On Lovenox prophylactic dosing Neuropathy -Lyrica on hold CKD III - avoid nephrotoxic agents DVT prophylaxis: SCDS Discussed with: Patient, nursing, Dr. Arizmendi Anticipated discharge date: in 3-[address]: home with help vs snf A total of 35 minutes was spent on the care of this complex patient more than 50% of the time was spent in counseling and care coordination.
[2020-10-28] MEDS ORDERED: MORPHINE SULFATE 2 MG/ML SYRINGE IV PRN (13:59)
--- NOTE | 2020-10-28 14:56 | P.PN ---
Subjective Progress Note Date: 10/28/20 CHIEF COMPLAINT: Dysphagia HISTORY OF PRESENT ILLNESS: Patient has an esophageal mass in the mid esophagus. He is status post EGD with biopsy. Pathology report carcinoma in situ cannot exclude superficial lamina propria invasive disease. Patient is currently on TPN for nutrition support. He has no new complaints. Afebrile. PHYSICAL EXAM: VITAL SIGNS: Reviewed. GENERAL: Well-developed in no acute distress. HEENT: No sclera icterus. Extraocular movements grossly intact. Moist buccal mucosa. Head is atraumatic, normocephalic. ABDOMEN: Soft. Nondistended. Nontender. NEUROLOGIC: Alert and oriented. Cranial nerves II through XII grossly intact. ASSESSMENT: 1. Esophageal mass status post EGD PLAN: -Patient scheduled for esophageal stent placement with cardiothoracic team jesus chahal -Continue TPN for nutrition support -Patient may require J-tube placement for nutrition support if esophageal stent does not improve his swallowing -Keep patient nothing by mouth Physician Highway Maintenance Technician note has been reviewed by physician. Signing provider agrees with the documented findings, assessment, and plan of care. Objective - Vital Signs Vital signs: Vital Signs Temp 97.8 F 10/28/20 11:15 Pulse 61 10/28/20 11:15 Resp 18 10/28/20 11:15 BP 148/70 10/28/20 11:15 Pulse Ox 94 L 10/28/20 11:15 Intake & Output 10/27/20 10/28/20 10/28/20 18:59 06:59 18:59 Intake Total 1016 850 Balance 1016 850 Weight 106.594 kg Intake: Intake, IV Titration 1016 850 Amount Mvi, Adult No.4 with Vit 1016 800 K 10 ml Trace (Conc-1Ml/ Dose) 1 ml Potassium Chloride 10 meq In Amino Acid 5%-D20w+Lytes*E* 1, 000 ml @ 80 mls/hr IV .BY DURATION [facility] Rx#: [id number] cefTRIAXone 2 gm In 50 Sodium Chloride 0.9% 50 ml @ 100 mls/hr IVPB HS [facility] Rx#:[id number] Other: Voiding Method Bedside Commode Bedside Commode Bedside Commode Urinal Urinal Urinal # Voids 3 2 - Labs CBC & Chem 7: 10/27/20 05:05 10/28/20 05:53 Labs: Abnormal Lab Results - Last 24 Hours (Table) 10/27/20 10/27/20 10/28/20 Range/Units 17:48 23:45 05:52 ESR (0-20) mm/Hr BUN (9-20) mg/dL Glucose (74-99) mg/dL POC Glucose (mg/dL) 125 H 147 H 126 H (75-99) mg/dL C-Reactive Protein (<1.0) mg/dL Albumin (3.5-5.0) g/dL 10/28/20 10/28/20 10/28/20 Range/Units 05:53 05:53 11:33 ESR 72 H (0-20) mm/Hr BUN 22 H (9-20) mg/dL Glucose 128 H (74-99) mg/dL POC Glucose (mg/dL) 120 H (75-99) mg/dL C-Reactive Protein 4.5 H (<1.0) mg/dL Albumin 3.1 L (3.5-5.0) g/dL
--- NOTE | 2020-10-28 15:09 | CDI ---
Documentation Clarification Form Date: 10/28/2020 02:31:44 PM From: Anabel Maldonado RN CCDS Admit Date: 10/21/2020 10:30:00 AM Patient Name: Harrison Thompson Visit Number: [id number] Discharge Date: ATTENTION: The Clinical Documentation Specialists (CDI) and [facility] Coding Staff appreciate your assistance in clarifying documentation. Please respond to the clarification below the line at the bottom and electronically sign. The CDI & [facility] Coding staff will review the response and follow-up if needed. Please note: Queries are made part of the Legal Health Record. If you have any questions, please contact the author of this message via ITS. Dr. Charles Martinez, Encephalopathy is documented 10/25 10/28 in Medicine progress notes. Acute encephalopathy Additional clarification regarding the type of encephalopathy is requested. History/Risk Factors: 89- year-old male presents to the ED as a transfer from [facility] for Esophageal mass. Medical history: 2017 [place], Charcot Ariana Tooth and HTN Clinical Indicators: Admitted with Esophageal mass, Dysphagia and Right lower extremity cellulitis. CT/MRI Brain: 10/25 Cerebral atrophy and chronic small vessel ischemia. Foot xray 10/20 soft tissue swelling. Demineralization of the distal phalanx of the third toe could relate to developing osteomyelitis. 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 Treatment: 10/20 - 10/22 Cefazolin 1,000Mmg IVPB Q6HR, 10/22 10/27 Cefazolin 2gm IVPB Q8HR. 10/27 Ceftriaxone 2gm IVPB HS [facility]. 10/27 to current Tylenol 650mg IVPB Q6HR PRN Breakthrough. Please clarify the type of encephalopathy, if known: [ ] Metabolic Encephalopathy [ ] Other, please specify [X ] Unable to determine (Template Last Revised: April 2020) MTDD
--- NOTE | 2020-10-28 16:14 | CT ---
EXAMINATION TYPE: CT chest wo con DATE OF EXAM: 10/28/2020 COMPARISON: Chest x-ray from yesterday HISTORY: Pre OP. CT DLP: 495.6 mGycm. Automated Exposure Control for Dose Reduction was Utilized. TECHNIQUE: CT scan of the thorax is performed without IV contrast. FINDINGS: LUNGS: Mild to moderate underlying emphysematous change greatest in the anterior upper lungs. Mild in tralobular septal thickening with slight nodularity greatest in the lower lungs with areas of groundg lass opacity consistent with interstitial and alveolar edema. Incidental 8 mm calcified nodule or jia ign granuloma left lung base on axial image 51. No pleural effusion or pneumothorax. MEDIASTINUM: Lack of IV contrast is noted to limit evaluation for mediastinal and especially hilar a denopathy. There is enlarged subcarinal lymph node 2.8 x 1.6 cm axial image 29. This is Near site of esophageal wall thickening and lumen diameter narrowing. Proximal gas-filled dilatation is noted. Car diomegaly is present. Dual lead pacemaker redemonstrated. Trace Pericardial effusion is seen. There i s calcification at level of mitral and aortic valve. OTHER: Stomach poorly distended and thus suboptimally evaluated. Gallbladder has increased density co nsistent with vicarious excretion or gallbladder sludge. The latter is suspected. Contrast from recen t upper GI study remains present in the right colon causing streak artifact. Small degree of subareol ar gynecomastia bilaterally is present. Slight scoliotic curvature with straightening of spine on sag ittal images. [id number] multilevel spurring and disc space narrowing. Some cortical thinning i n both kidneys with thin-walled cyst partially imaged. IMPRESSION: Chronic emphysematous changes with lower lung alveolar and interstitial edema and/or less likely atypical infiltrates. Suspect fluid overload state or mild CHF exacerbation. 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 Adjacent suspicious enlarged subca rinal lymph node noted.
[2020-10-28 17:13] LABS: Glucose,Whole Blood 138 mg/dL (75-99)
[2020-10-28] MEDS: LACTATED RINGERS 1,000 ML IV SCH (17:29)
--- NOTE | 2020-10-28 18:30 | PN ---
PROGRESS NOTE DATE OF SERVICE: 10/28/2020 REASON FOR FOLLOWUP: Right third toe cellulitis with concern for osteomyelitis. INTERVAL HISTORY: The patient is afebrile. The patient is currently breathing comfortably. Denies having any chest pain, shortness of breath. No cough. No abdominal pain or any worsening pain to the right foot or 3rd toe. PHYSICAL EXAMINATION: Blood pressure is 148/70 with a pulse of 51, temperature is 97.8. He is 94% on room air. General description is an elderly male lying in bed in no distress. Respiratory system: Unlabored breathing, clear to auscultation anteriorly. Heart S1, S2. Regular rate and rhythm. Abdomen soft, no tenderness. Right foot is currently dressed. No obvious drainage on the dressing. LABS: BUN of 23, creatinine 1.03. Sedimentation rate is down to 72 from initial high of 108 and CRP is down to 4.5. DIAGNOSTIC IMPRESSION AND PLAN: Patient with right third toe cellulitis, concern for osteomyelitis. Currently, empirically treated with cefazolin as we were not able to get a culture. In view of overall improvement in the CRP and a sedimentation rate, possibly on the right track. Continue with Rocephin. PICC line and outpatient followup. Continue supportive care. MMODL / IJN: [id number] /
[2020-10-29 00:09] LABS: Glucose,Whole Blood 130 mg/dL (75-99)
[2020-10-29] MEDS: INSULIN ASPART (NovoLOG) 100 UNIT/ML VIAL SQ SCH ×4 (01:30→17:55)
[2020-10-29] MEDS: 1: MVI, ADULT NO.4 WITH VIT K 10 ML, TRACE (CONC-1ML/DOSE) 1 ML, POTASSIUM CHLORIDE 10 M IV SCH ×9 (04:21→20:35)
[2020-10-29 05:39] LABS: ALT 9 U/L (4-49); AST 34 U/L (17-59); African American GFR (CKD) 73 (>60 ml/min/1.73 sqM); Albumin 3.1 g/dL (3.5-5.0); Albumin/Globulin Ratio 0.9; Alkaline Phosphatase 101 U/L (38-126); Anion Gap 6 mmol/L; Blood Urea Nitrogen 24 mg/dL (9-20); Carbon Dioxide 24 mmol/L (22-30); Chloride 106 mmol/L (98-107); Globulin 3.3 g/dL; Glucose 116 mg/dL (74-99); Magnesium 2.2 mg/dL (1.6-2.3); Non-African American GFR(CKD) 64 (>60 ml/min/1.73 sqM); Phosphorus 3.6 mg/dL (2.5-4.5); Potassium 4.5 mmol/L (3.5-5.1); Sodium 136 mmol/L (137-145); Total Bilirubin 0.4 mg/dL (0.2-1.3); Total Protein 6.4 g/dL (6.3-8.2)
[2020-10-29 05:52] LABS: Glucose,Whole Blood 137 mg/dL (75-99)
[2020-10-29] MEDS ORDERED: HYDROmorphone 0.5 MG/0.5 ML SYRINGE IVP PRN (07:00)
[2020-10-29] MEDS ORDERED: IV FLUID CONTINUATION 1,000 ML IV ONE (08:02)
--- NOTE | 2020-10-29 08:23 | FL ---
Fluoroscopy HISTORY: Esophageal stent 3 minutes 38 seconds fluoroscopy time supplied to the referring clinician. 10 intraoperative C-arm i mages document the procedure. See dictated report from cardiothoracic surgery.
[2020-10-29] MEDS: ENOXAPARIN 40 MG/0.4 ML SYRINGE SQ SCH (08:28)
[2020-10-29] MEDS: LEVOTHYROXINE IVP 100 MCG/5 ML VIAL IV SCH (08:30)
[2020-10-29] MEDS: FAT EMULSION 20% 250 ML in EMPTY BAG 1 BAG IV SCH (08:30)
[2020-10-29] MEDS: FAMOTIDINE 20 MG/2 ML VIAL IV SCH (08:30)
[2020-10-29] MEDS: ZINC OXIDE 20% OINT 28.4 GM TUBE TOPICAL SCH (08:31)
--- NOTE | 2020-10-29 10:20 | P.OP ---
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 Was able to pass the endoscope the tumor. Stent was deployed good patency and placement of the proximal below the cricopharyngeus and the distal just above the lower esophageal sphincter Description of Procedure: Patient was brought to the endoscopy suite. Was placed supine on the x-ray table. IV sedation was given. Endoscope was placed in the mouth and passed into the esophagus without difficulty. He advanced the endoscope to the tumor. Passage through the tumor was somewhat tight but we were able to pass through the tumor and advanced scope into the stomach. We then pulled back noting the level of the lower esophageal sphincter, the lower level of the tumor, the upper level of the tumor, and the cricopharyngeus. X-ray markers were placed externally on the patient at the lower and upper ends of the tumor. A guidewire was placed into the stomach and left in place on removal of the scope. A [employer] 10.5-Malian 20 mm x 150 mm fully covered stent Was advanced over the wire. The mid-smita of the stent was positioned between the 2 markers representing the top and the bottom of the tumor under fluoroscopy. The stent was then carefully and gradually deployed at this level. Final endoscopy revealed the distal extent of the stent just above the lower esophageal sphincter and the proximal extent of the stent several centimeters below the cricopharyngeus. Guidewire and endoscope were removed and the patient was transferred to recovery in stable condition. Recommendation is for maintaining the patient's head of bed elevated and feeding the patient only while upright in a chair.
--- NOTE | 2020-10-29 11:19 | P.PN ---
Subjective Progress Note Date: 10/29/20 Principal diagnosis: esophageal mass, dysphagia Pt just had eso stent placed, he is getting a lot of mucus and couging but, denies pain, hiccups, heartburn. He is going to be trialed on some liquid and very soft foods to see how he does. His BLE cellulitis is better, less swel ling, he is getting around with walker Objective - Vital Signs Vital signs: Vital Signs Temp 98.2 F 10/29/20 08:25 Pulse 67 10/29/20 08:25 Resp 20 10/29/20 08:25 BP 153/69 10/29/20 08:25 Pulse Ox 91 L 10/29/20 08:50 Intake & Output 10/28/20 10/29/20 10/29/20 18:59 06:59 18:59 Intake Total 1215 200 Balance 1215 200 Intake: IV 200 Intake, IV Titration 1215 Amount Fat Emulsion 20% 250 ml 160 In Empty Bag 1 bag @ 21 mls/hr IV DAILY KRUPA Rx#: [id number] Potassium Chloride 10 meq 1005 In Amino Acid 5%-D20w+ Lytes*E* 1,000 ml @ 80 mls/hr IV .BY DURATION KRUPA Rx#:[id number] cefTRIAXone 2 gm In 50 Sodium Chloride 0.9% 50 ml @ 100 mls/hr IVPB HS KRUPA Rx#:[id number] Other: Voiding Method Bedside Commode Bedside Commode Bedside Commode Urinal Urinal Urinal Diaper Diaper # Voids 2 1 # Bowel Movements 1 - Constitutional General appearance: Present: average body habitus, cooperative, no acute distress - EENT Eyes: Present: anicteric sclerae, EOMI ENT: Present: hearing grossly normal - Respiratory Respiratory: bilateral: rhonchi (scattered anterior) - Cardiovascular Rhythm: regular Heart sounds: normal: S1, S2 Abnormal Heart Sounds: Present: systolic murmur. Absent: diastolic murmur, rub, S3 Gallop, S4 Gallop, click, other - Peripheral edema leg Peripheral Edema: bilateral: Trace (wrapped, less redness, improved) - Gastrointestinal General gastrointestinal: Present: normal bowel sounds, soft - Neurologic Neurologic: Present: CNII-XII intact - Musculoskeletal Musculoskeletal: Present: generalized weakness, strength equal bilaterally - Psychiatric Psychiatric: Present: A&O x's 3, appropriate affect - Labs CBC & Chem 7: 09/20/21 05:05 10/29/20 04:55 Labs: Abnormal Lab Results - Last 24 Hours (Table) 10/28/20 10/28/20 10/29/20 Range/Units 11:33 17:10 00:07 Sodium (137-145) mmol/L BUN (9-20) mg/dL Glucose (74-99) mg/dL POC Glucose (mg/dL) 120 H 138 H 130 H (75-99) mg/dL Albumin (3.5-5.0) g/dL 10/29/20 10/29/20 Range/Units 04:55 05:50 Sodium 136 L (137-145) mmol/L BUN 24 H (9-20) mg/dL Glucose 116 H (74-99) mg/dL POC Glucose (mg/dL) 137 H (75-99) mg/dL Albumin 3.1 L (3.5-5.0) g/dL Assessment and Plan (1) Esophageal mass Narrative/Plan: Reviewed path with pt, high grade dysplasia, 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 Her2 pending. He had esophageal stent placed by CTS. Pending to see if he tolerates swallowing CT of the brain without contrast was neg for malignancy or bleed. Plan for staging PET outpt-sched for 11/09 BUT awaiting [facility] approval F/U with Medical Oncologist for plan of care after PET date confirmed. Current Visit: Yes Status: Acute Priority: High Code(s): K22.8 - OTHER SPECIFIED DISEASES OF ESOPHAGUS SNOMED Code(s): 341653451
[2020-10-29 12:30] LABS: Glucose,Whole Blood 147 mg/dL (75-99)
--- NOTE | 2020-10-29 12:46 | XR ---
EXAMINATION TYPE: XR chest 1V portable DATE OF EXAM: 10/29/2020 COMPARISON: Chest x-ray 10/27/2020 HISTORY: Status post esophageal stent TECHNIQUE: Single frontal view of the chest is obtained. FINDINGS: Esophageal stent has been placed in the interval. Proximal aspect of the stent is at the l evel of the transverse aorta, distal aspect coursing towards the stomach but not well seen due to dagoberto hnique. No other significant interval change. IMPRESSION: Postprocedural findings.
--- NOTE | 2020-10-29 13:33 | P.PN ---
Subjective Progress Note Date: 10/29/20 CHIEF COMPLAINT: Dysphagia HISTORY OF PRESENT ILLNESS: Patient has an esophageal mass in the mid esophagus. He is status post EGD with biopsy. Pathology report carcinoma in situ cannot exclude superficial lamina propria invasive disease. Patient is currently on TPN for nutrition support. Patient does have a congested cough. He is status post esophageal stent placement. He has been started on a ground diet. Afebrile. PHYSICAL EXAM: VITAL SIGNS: Reviewed. GENERAL: Well-developed in no acute distress. HEENT: No sclera icterus. Extraocular movements grossly intact. Moist buccal mucosa. Head is atraumatic, normocephalic. ABDOMEN: Soft. Nondistended. Nontender. NEUROLOGIC: Alert and oriented. Cranial nerves II through XII grossly intact. ASSESSMENT: 1. Esophageal mass status post EGD PLAN: -Continue TPN for nutrition support until oral intake has improved -Patient may require J-tube placement for nutrition support if esophageal stent does not improve his swallowing -Continue supportive care Physician X Ray Tech note has been reviewed by physician. Signing provider agrees with the documented findings, assessment, and plan of care. Objective - Vital Signs Vital signs: Vital Signs Temp 98.1 F 10/29/20 12:16 Pulse 49 L 10/29/20 12:16 Resp 20 10/29/20 12:16 BP 159/69 10/29/20 12:16 Pulse Ox 95 10/29/20 12:16 Intake & Output 10/28/20 10/29/20 10/29/20 18:59 06:59 18:59 Intake Total 1215 200 Balance 1215 200 Intake: IV 200 Intake, IV Titration 1215 Amount Fat Emulsion 20% 250 ml 160 In Empty Bag 1 bag @ 21 mls/hr IV DAILY KRUPA Rx#: [id number] Potassium Chloride 10 meq 1005 In Amino Acid 5%-D20w+ Lytes*E* 1,000 ml @ 80 mls/hr IV .BY DURATION KRUPA Rx#:[id number] cefTRIAXone 2 gm In 50 Sodium Chloride 0.9% 50 ml @ 100 mls/hr IVPB HS KRUPA Rx#:[id number] Other: Voiding Method Bedside Commode Bedside Commode Bedside Commode Urinal Urinal Urinal Diaper Diaper # Voids 2 1 # Bowel Movements 1 - Labs CBC & Chem 7: 10/27/20 05:05 10/29/20 04:55 Labs: Abnormal Lab Results - Last 24 Hours (Table) 10/28/20 10/29/20 10/29/20 Range/Units 17:10 00:07 04:55 Sodium 136 L (137-145) mmol/L BUN 24 H (9-20) mg/dL Glucose 116 H (74-99) mg/dL POC Glucose (mg/dL) 138 H 130 H (75-99) mg/dL Albumin 3.1 L (3.5-5.0) g/dL 10/29/20 10/29/20 Range/Units 05:50 12:29 Sodium (137-145) mmol/L BUN (9-20) mg/dL Glucose (74-99) mg/dL POC Glucose (mg/dL) 137 H 147 H (75-99) mg/dL Albumin (3.5-5.0) g/dL
--- NOTE | 2020-10-29 15:32 | PN ---
PROGRESS NOTE DATE OF SERVICE: 10/29/2020 REASON FOR FOLLOWUP: Right third toe cellulitis with a question of osteomyelitis. INTERVAL HISTORY: The patient is afebrile. He has been breathing comfortably. No chest pain, shortness of breath. No abdominal pain. Still has significant swelling to the lower extremity. No open wound to the right third toe or any drainage. PHYSICAL EXAMINATION: Blood pressure 159/69, pulse 49, temperature 98.1. He is 95% on room air. GENERAL DESCRIPTION: General description is an elderly male lying in bed in no distress. RESPIRATORY SYSTEM: Unlabored breathing. Clear to auscultation anteriorly. HEART: S1, S2. Regular rate and rhythm. ABDOMEN: Soft. No tenderness. Right third toe swelling persists; slightly decreased. No drainage. LABS: BUN of 24, creatinine 1.05. DIAGNOSTIC IMPRESSION AND PLAN: Patient with right third toe cellulitis concerning for underlying osteomyelitis, for which the patient is currently covered with Rocephin 2 grams daily; to continue to finish his 6-week course of therapy and close outpatient followup. Continue supportive care. MMODL / IJN: [id number] /
[2020-10-29 17:17] LABS: Glucose,Whole Blood 146 mg/dL (75-99)
[2020-10-29] MEDS: LACTATED RINGERS 1,000 ML IV SCH (20:44)
[2020-10-29 23:55] LABS: Glucose,Whole Blood 132 mg/dL (75-99)
[2020-10-30] MEDS: INSULIN ASPART (NovoLOG) 100 UNIT/ML VIAL SQ SCH ×4 (02:23→16:05)
[2020-10-30 05:46] LABS: Glucose,Whole Blood 142 mg/dL (75-99)
[2020-10-30] MEDS: FAT EMULSION 20% 250 ML in EMPTY BAG 1 BAG IV SCH (06:45)
[2020-10-30] MEDS: 1: MVI, ADULT NO.4 WITH VIT K 10 ML, TRACE (CONC-1ML/DOSE) 1 ML, POTASSIUM CHLORIDE 10 M IV SCH ×5 (06:45)
[2020-10-30 07:05] LABS: African American GFR (CKD) 60 (>60 ml/min/1.73 sqM); Anion Gap 9 mmol/L; Blood Urea Nitrogen 32 mg/dL (9-20); Calcium 9.1 mg/dL (8.4-10.2); Carbon Dioxide 23 mmol/L (22-30); Chloride 106 mmol/L (98-107); Glucose 145 mg/dL (74-99); Non-African American GFR(CKD) 51 (>60 ml/min/1.73 sqM); Potassium 4.6 mmol/L (3.5-5.1); Sodium 138 mmol/L (137-145)
--- NOTE | 2020-10-30 07:55 | XR ---
EXAMINATION TYPE: XR chest 2V DATE OF EXAM: 10/30/2020 COMPARISON: 10/29/2020 TECHNIQUE: PA and lateral views submitted. HISTORY: Postsurgical FINDINGS: Cardiomegaly and cardiac device is diffuse interstitial pattern noted. Bilateral infiltrate and pleur al effusion greater on the left. No sizable pneumothorax. PICC line. IMPRESSION: 1. Correlate for mild CHF versus diffuse pneumonia. Findings stable.
[2020-10-30] MEDS: ENOXAPARIN 40 MG/0.4 ML SYRINGE SQ SCH (10:09)
[2020-10-30] MEDS: FAMOTIDINE 20 MG/2 ML VIAL IV SCH (10:09)
[2020-10-30] MEDS: ZINC OXIDE 20% OINT 28.4 GM TUBE TOPICAL SCH (10:10)
[2020-10-30] MEDS: LEVOTHYROXINE IVP 100 MCG/5 ML VIAL IV SCH (10:10)
--- NOTE | 2020-10-30 10:22 | P.PN ---
Subjective Progress Note Date: 10/30/20 Principal diagnosis: Esophageal mass with circumferential thickening, biopsy showing carcinoma in situ with possible crossing the lamina propria, dysphagia, bilateral lower extremity cellulitis present on admission. Past medical history significant for hypertension, hyperlipidemia, coronary artery disease and myocardial infarction status post stent placement, atrial fibrillation on Xarelto for anticoagulation, sick sinus syndrome status post permanent pacemaker placement, chronic kidney disease stage III, remote history of tobacco abuse. POD #1 esophagoscopy with placement of coated esophageal stent under fluoroscopic guidance. The patient was seen in follow-up today 10/30/2020 at his bedside on the fifth floor medical oncology unit. Currently he is lying in bed with his head of the bed elevated, he is awake, alert and oriented 3 and is in no acute distress. He does have some episodes of forgetfulness. He reports that he feels pretty good this morning and denies any complaints of pain or shortness of breath at this time. He has been started on a dysphagia level II, ground diet and reports that he has been tolerating intake. Oxygen saturation are 93% on room air and he is achieving 2500 mL on his incentive spirometry with encouragement. He remains afebrile the last 24 hours. Objective - Vital Signs Vital signs: Vital Signs Temp 97.7 F 10/30/20 05:00 Pulse 67 10/30/20 05:00 Resp 16 10/30/20 05:00 BP 153/71 10/30/20 05:00 Pulse Ox 92 L 10/30/20 05:00 Intake & Output 10/29/20 10/30/20 10/30/20 18:59 06:59 18:59 Intake Total 200 Balance 200 Intake: IV 200 Other: Voiding Method Bedside Commode Bedside Commode Urinal Urinal Diaper Diaper # Voids 2 3 # Bowel Movements 1 - Exam CONSTITUTIONAL: Lying in bed with his head of the bed elevated on the fifth floor medical oncology unit, appears comfortable, cooperative, no apparent acute distress. HEENT: Neck is supple, no JVD, no lymphadenopathy. RESPIRATORY: Lungs sounds essentially clear throughout, diminished to his bilateral bases. Respirations are symmetrical and nonlabored. Currently on room air with oxygen saturations 93%. Able to achieve 2500 mL on his incentive spirometry. Strong cough. CARDIOVASCULAR: Regular rhythm and rate. S1 and S2 present, negative for S3, gallop or murmur. Palpable peripheral pulses bilaterally, +1 edema to his bilateral lower extremities. GASTROINTESTINAL: Abdomen soft, nontender, nondistended. Active bowel sounds present 4 quadrants. No guarding or rigidity. GENITOURINARY: Continues to void INTEGUMENTARY: Skin is warm and dry with no evidence of clubbing or cyanosis. Dressing clean dry and intact to his bilateral lower extremities. NEUROLOGIC: Cranial nerves II through XII intact. No focal deficits. MUSKULOSKELETAL: Able to move all extremities, strength equal bilaterally, generalized weakness. PSYCHIATRIC: Alert and oriented to person place and time, appropriate affect, intact judgment and insight. Episodes of forgetfulness. - Allied health notes Allied health notes reviewed: nursing - Labs CBC & Chem 7: 10/27/20 05:05 10/30/20 05:27 Labs: Abnormal Lab Results - Last 24 Hours (Table) 10/29/20 10/29/20 10/29/20 Range/Units 12:29 17:15 23:53 BUN (9-20) mg/dL Glucose (74-99) mg/dL POC Glucose (mg/dL) 147 H 146 H 132 H (75-99) mg/dL 10/30/20 10/30/20 Range/Units 05:27 05:43 BUN 32 H (9-20) mg/dL Glucose 145 H (74-99) mg/dL POC Glucose (mg/dL) 142 H (75-99) mg/dL - Imaging and Cardiology Chest x-ray: report reviewed, image reviewed Assessment and Plan Assessment: 1. Esophageal mass with circumferential thickening, biopsy showing carcinoma in situ with possible crossing the lamina propria, status post esophagoscopy with placement of coated esophageal stent under fluoroscopic guidance 2. Dysphagia, secondary to above 3. Bilateral lower extremity cellulitis 4. History of hypertension 5. History of hyperlipidemia 6. History of coronary artery disease status post stent placement 7. History of myocardial infarction 8. History of chronic kidney disease stage III 9. History of atrial fibrillation on Xarelto for anticoagulation 10. History of sick sinus syndrome status post permanent pacemaker placement 11. Remote history of nicotine dependence 12. Thyroid disorder Plan: 1. The patient is to be out of bed for all meals, sit up 2 hours after eating 4 regurgitation precautions. When in bed his head of the bed is to be elevated at 30. 2. Encourage use of his incentive spirometry 10 times every hour while awake. 3. Increase activity as tolerated. Out of bed for all meals. 4. Nutritional support orders per primary care service and other consultants. 5. Continue GI and DVT prophylaxis. 6. Medical management and other comorbidities per primary care service. 7. Antibiotic management and recommendations per infectious disease. 8. We will continue to follow the patient on an as-needed basis. Please feel free to call for any further questions or assistance. Time with Patient: Greater than 30
[2020-10-30 11:17] VITALS: RESP 20; TEMP 98
--- NOTE | 2020-10-30 13:17 | P.PN ---
Subjective Progress Note Date: 10/30/20 Principal diagnosis: esophageal mass, dysphagia Pt has been tolerating oral intake that is been given to him, no nausea or vomiting, he will occasionally have a cough but nothing persistent, consistent or progressive, denies mediastinal or epigastric pain, hiccups, heartburn. His BLE cellulitis continues to improve, bilateral lower extremity swelling continues to improve, he is getting around with walker Objective - Vital Signs Vital signs: Vital Signs Temp 98 F 10/30/20 11:16 Pulse 77 10/30/20 11:16 Resp 20 10/30/20 11:16 BP 144/77 10/30/20 11:16 Pulse Ox 94 L 10/30/20 11:16 Intake & Output 10/29/20 10/30/20 10/30/20 18:59 06:59 18:59 Intake Total 200 Balance 200 Intake: IV 200 Other: Voiding Method Bedside Commode Bedside Commode Bedside Commode Urinal Urinal Urinal Diaper Diaper Diaper # Voids 2 3 # Bowel Movements 1 - Constitutional General appearance: Present: average body habitus, cooperative, no acute distress - EENT Eyes: Present: anicteric sclerae, EOMI ENT: Present: hearing grossly normal, normal oropharynx - Respiratory Respiratory: bilateral: CTA - Cardiovascular Heart sounds: normal: S1, S2 - Peripheral edema leg Peripheral Edema: bilateral: 1+ - Gastrointestinal General gastrointestinal: Present: normal bowel sounds, soft - Musculoskeletal Musculoskeletal: Present: generalized weakness, strength equal bilaterally - Psychiatric Psychiatric: Present: A&O x's 3, appropriate affect - Labs CBC & Chem 7: 10/27/20 05:05 10/30/20 05:27 Labs: Abnormal Lab Results - Last 24 Hours (Table) 10/29/20 10/29/20 10/30/20 Range/Units 17:15 23:53 05:27 BUN 32 H (9-20) mg/dL Glucose 145 H (74-99) mg/dL POC Glucose (mg/dL) 146 H 132 H (75-99) mg/dL 10/30/20 Range/Units 05:43 BUN (9-20) mg/dL Glucose (74-99) mg/dL POC Glucose (mg/dL) 142 H (75-99) mg/dL - Imaging and Cardiology Chest x-ray: report reviewed (Stable findings, CHF versus a diffuse pneumonia) Assessment and Plan (1) Esophageal mass Narrative/Plan: Reviewed path with pt, high grade dysplasia, 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 Her2 pending. He had esophageal stent placed by CTS yesterday, he seems to be tolerating swallowing, he has a diet that is advancing. CT of the brain without contrast was neg for malignancy or bleed. Plan for staging PET outpt-sched for 11/09 BUT awaiting [facility] approval F/U with Medical Oncologist for plan of care after PET date confirmed. Current Visit: Yes Status: Acute Priority: High Code(s): K22.8 - OTHER SPECIFIED DISEASES OF ESOPHAGUS SNOMED Code(s): 130734653 Plan: Doctor attests: I performed a history and physical examination of this patient, developed impression and plan of care, discussed with dictator. I agree with dictators note, documented as a scribe.
--- NOTE | 2020-10-30 13:33 | P.PN ---
Subjective Progress Note Date: 10/30/20 CHIEF COMPLAINT: Dysphagia HISTORY OF PRESENT ILLNESS: Patient has an esophageal mass in the mid esophagus. He is status post EGD with biopsy. Pathology report carcinoma in situ cannot exclude superficial lamina propria invasive disease. Patient is currently on TPN for nutrition support. He is status post esophageal stent placement. He is tolerating ground diet. Afebrile. PHYSICAL EXAM: VITAL SIGNS: Reviewed. GENERAL: Well-developed in no acute distress. HEENT: No sclera icterus. Extraocular movements grossly intact. Moist buccal mucosa. Head is atraumatic, normocephalic. ABDOMEN: Soft. Nondistended. Nontender. NEUROLOGIC: Alert and oriented. Cranial nerves II through XII grossly intact. ASSESSMENT: 1. Esophageal mass with esophageal stent placed by cardiothoracic surgeon PLAN: -Patient is tolerating oral intake. We will wean patient off the TPN -Continue supportive care -Patient is stable from surgical standpoint for discharge Physician Production Proofreader note has been reviewed by physician. Signing provider agrees with the documented findings, assessment, and plan of care. Objective - Vital Signs Vital signs: Vital Signs Temp 98 F 10/30/20 11:16 Pulse 77 10/30/20 11:16 Resp 20 10/30/20 11:16 BP 144/77 10/30/20 11:16 Pulse Ox 94 L 10/30/20 11:16 Intake & Output 10/29/20 10/30/20 10/30/20 18:59 06:59 18:59 Intake Total 200 Balance 200 Intake: IV 200 Other: Voiding Method Bedside Commode Bedside Commode Bedside Commode Urinal Urinal Urinal Diaper Diaper Diaper # Voids 2 3 # Bowel Movements 1 - Labs CBC & Chem 7: 10/27/20 05:05 10/30/20 05:27 Labs: Abnormal Lab Results - Last 24 Hours (Table) 10/29/20 10/29/20 10/30/20 Range/Units 17:15 23:53 05:27 BUN 32 H (9-20) mg/dL Glucose 145 H (74-99) mg/dL POC Glucose (mg/dL) 146 H 132 H (75-99) mg/dL 10/30/20 Range/Units 05:43 BUN (9-20) mg/dL Glucose (74-99) mg/dL POC Glucose (mg/dL) 142 H (75-99) mg/dL
--- NOTE | 2020-10-30 14:34 | P.DS ---
Providers Date of admission: 10/21/20 10:30 Expected date of discharge: 10/30/20 Attending physician: Neelam Vargas DO Consults: 10/21/20 10:26 Consult Physician Routine Consulting Provider: Valentino Rivera Consult Reason/Comments: esphogeal mass Do you want consulting provider notified?: Already Contacted 10/21/20 12:04 Consult Physician Routine Consulting Provider: Venkata Nelson Consult Reason/Comments: osteomyelitis Do you want consulting provider notified?: Yes 10/22/20 09:34 Consult Physician Routine Consulting Provider: Leon Maria Consult Reason/Comments: right third toe osteomyelitis Do you want consulting provider notified?: Yes 10/22/20 20:01 Consult Physician Routine Consulting Provider: Keenan Reed Consult Reason/Comments: esophageal mass Do you want consulting provider notified?: Yes 10/25/20 10:46 Consult Physician Routine Consulting Provider: Tr[place]in [place] Consult Reason/Comments: esophageal mass Do you want consulting provider notified?: Yes Primary care physician: Mateo Whitman MD Hospital Course: Patient is an 89-year-old male with a history of hypertension, dyslipidemia, and prior myocardial infarction who presented as a transfer from [facility]. Apparently in the ER there he had undergone a CAT scan which showed an esophageal mass. There he underwent a CT of the thorax without contrast which showed masslike circumferential thickening of the mid esophagus with proximal dilatation and air fluid level. Recommendation for direct visualization due to underlying mass. Enlarged right paratracheal lymph node at the thoracic inlet measuring 13 mm. He was found to have a right toe that was red and swollen, x-ray showed possible osteo and he has was started on keflex and ID was consulted. He was seen by vascular surgery who did not feel there is need for operative management at this point for his toe. 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 Patient was seen by thoracic surgery and underwent esophageal stent placement. 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 Family members at bedside. Plan to discharge to rehab in [place]. After finishing rehabilitation, patient is scheduled for PET scan and plan to follow-up with oncology as directed. Patient Condition at Discharge: Fair Plan - Discharge Summary New Discharge Prescriptions: New RX: cefTRIAXone [Rocephin] 2 gm IVPB HS each Continue RX: Multivitamins, Thera [Multivitamin (formulary)] 1 tab PO DAILY RX: Rivaroxaban [Xarelto] 15 mg PO HS RX: Amiodarone [Cordarone] 100 mg PO HS RX: Levalbuterol Tartrate [Xopenex Hfa Inhaler] 2 puff INHALATION RT-TID PRN PRN Reason: Shortness Of Breath RX: Tamsulosin [Flomax] 0.4 mg PO HS RX: Albuterol Sulfate [Ventolin HFA] 2 puff INHALATION RT-BID PRN PRN Reason: Shortness Of Breath RX: Metoprolol Tartrate [Lopressor] 25 mg PO BID RX: Levothyroxine Sodium [Synthroid] 50 mcg PO DAILY RX: Cholecalciferol [Vitamin D3 (25 Mcg = 1000 Iu)] 50 mcg PO DAILY RX: calcitrioL [Rocaltrol] 0.5 mcg PO WE RX: Atorvastatin [Lipitor] 20 mg PO HS RX: Allopurinol [Zyloprim] 100 mg PO DAILY RX: Furosemide [Lasix] 20 mg PO DAILY RX: Nitroglycerin Sl Tabs [Nitrostat] 0.4 mg SL Q5M PRN PRN Reason: Chest Pain RX: Vitamin C/Biotin [Hair, Skin and Nails Chew] 1 tab PO MOWEFR Discontinued RX: Pregabalin 75 mg PO DAILY RX: amLODIPine [Norvasc] 5 mg PO DAILY Losartan [Cozaar] 25 mg PO DAILY Doxycycline Monohydrate [Monodox] 100 mg PO Q12H Furosemide [Lasix] 40 mg PO DAILY Discharge Medication List RX: Multivitamins, Thera [Multivitamin (formulary)] 1 tab PO DAILY 09/23/16 [History] RX: Amiodarone [Cordarone] 100 mg PO HS 02/10/17 [History] RX: Levalbuterol Tartrate [Xopenex Hfa Inhaler] 2 puff INHALATION RT-TID PRN 02/10/17 [History] RX: Rivaroxaban [Xarelto] 15 mg PO HS 02/10/17 [History] RX: Albuterol Sulfate [Ventolin HFA] 2 puff INHALATION RT-BID PRN 02/22/20 [History] RX: Allopurinol [Zyloprim] 100 mg PO DAILY 02/22/20 [History] RX: Atorvastatin [Lipitor] 20 mg PO HS 02/22/20 [History] RX: Cholecalciferol [Vitamin D3 (25 Mcg = 1000 Iu)] 50 mcg PO DAILY 02/22/20 [History] RX: Levothyroxine Sodium [Synthroid] 50 mcg PO DAILY 02/22/20 [History] RX: Metoprolol Tartrate [Lopressor] 25 mg PO BID 02/22/20 [History] RX: Tamsulosin [Flomax] 0.4 mg PO HS 02/22/20 [History] RX: calcitrioL [Rocaltrol] 0.5 mcg PO WE 02/22/20 [History] RX: Furosemide [Lasix] 20 mg PO DAILY 10/20/20 [History] RX: Nitroglycerin Sl Tabs [Nitrostat] 0.4 mg SL Q5M PRN 10/20/20 [History] RX: Vitamin C/Biotin [Hair, Skin and Nails Chew] 1 tab PO MOWEFR 10/20/20 [History] RX: cefTRIAXone [Rocephin] 2 gm IVPB HS each 10/30/20 [Rx] Follow up Appointment(s)/Referral(s): Keenan Reed MD [STAFF PHYSICIAN] - 1 Week (Office will contact pt to schedule pt for f/u appt with Dr. Reed. Please contact office if you have not been contated for appt within 1 week of PET scan) Mateo Whitman MD [Primary Care Provider] - 1-2 days [facility], [NON-STAFF] - 1 Week [facility] [REFERRING] - 1-2 Days Activity/Diet/Wound Care/Special Instructions: PET scan 11/14/20 at 1245pm PENDING [facility] AUTHORIZATION. IF ANY CHANGES PT WILL BE CONTACTED Postoperative esophageal stent placement instructions: 1. Regurgitation precautions, out of bed for all meals. 2. The patient is to sit up for 2 hours post meal. 3. When lying in bed please elevate head of bed at 30. Discharge Disposition: TRANSFER TO SNF/ECF
[2020-10-30 14:53] VITALS: BP 126/73; PULSE 89
--- NOTE | 2020-10-30 15:47 | PN ---
PROGRESS NOTE DATE OF SERVICE: 10/30/2020 REASON FOR FOLLOWUP: Right third toe cellulitis and osteomyelitis. INTERVAL HISTORY: The patient is afebrile. He is breathing comfortably. Denies having any chest pain, shortness of breath. No abdominal pain. No worsening pain to the right foot. PHYSICAL EXAMINATION: Blood pressure 126/76, pulse of 89, temperature is 98. He is 97% on room air. General description is an elderly male up in the bed in no distress. Respiratory system: Unlabored breathing, clear to auscultation anteriorly. Heart S1, S2. Regular rate and rhythm. The right foot is currently dressed, no drainage noted on the dressing. LABS: BUN of 32, creatinine 1.25. DIAGNOSTIC IMPRESSION AND PLAN: Patient with right third toe cellulitis concerning for underlying osteomyelitis. Empirically treated with Rocephin as cultures could not be obtained. Patient to continue with Rocephin 2 grams daily to finish a 6 week and close outpatient followup. MMODL / IJN: [id number] /
[2020-10-30] MEDS: LACTATED RINGERS 1,000 ML IV SCH (16:06)
== END 2020-10-30 16:35 | DRG 375 ==
LOC: EC 22:47 → 5NMEDONC 10-20 00:28 → OBSVTOIN 10-21 10:30
PROVIDERS: ADMIT Internal Medicine; ATTEND Internal Medicine
PROC: 02HV33Z Insertion of Infusion Device into Superior Vena Cava, Percutaneous Approach (ICD-10-PCS; principal; 2020-10-21)
PROC: 0DB28ZX Excision of Middle Esophagus, Via Natural or Artificial Opening Endoscopic, Diagnostic (ICD-10-PCS; 2020-10-22)
PROC: 0D728DZ Dilation of Middle Esophagus with Intraluminal Device, Via Natural or Artificial Opening Endoscopic (ICD-10-PCS; 2020-10-29)
DX: D00.1 Carcinoma in situ of esophagus (principal); G93.40 Encephalopathy, unspecified; L03.115 Cellulitis of right lower limb; L03.116 Cellulitis of left lower limb; M86.171 Other acute osteomyelitis, right ankle and foot; Z87.891 Personal history of nicotine dependence; E03.9 Hypothyroidism, unspecified; E78.5 Hyperlipidemia, unspecified; G62.9 Polyneuropathy, unspecified; H91.90 Unspecified hearing loss, unspecified ear; I12.9 Hypertensive chronic kidney disease with stage 1 through stage 4 chronic kidney disease, or unspecified chronic kidney disease; I25.10 Atherosclerotic heart disease of native coronary artery without angina pectoris; I25.2 Old myocardial infarction; I48.91 Unspecified atrial fibrillation; L03.031 Cellulitis of right toe; J45.909 Unspecified asthma, uncomplicated; N18.30 Chronic kidney disease, stage 3 unspecified; R13.10 Dysphagia, unspecified; Z20.822 Contact with and (suspected) exposure to COVID-19; Z66 Do not resuscitate; Z99.81 Dependence on supplemental oxygen; G60.0 Hereditary motor and sensory neuropathy; R19.7 Diarrhea, unspecified; Z79.01 Long term (current) use of anticoagulants; Z79.890 Hormone replacement therapy; Z79.899 Other long term (current) drug therapy; Z80.8 Family history of malignant neoplasm of other organs or systems; Z82.49 Family history of ischemic heart disease and other diseases of the circulatory system; Z95.0 Presence of cardiac pacemaker; Z95.5 Presence of coronary angioplasty implant and graft; Z91.81 History of falling; Z87.01 Personal history of pneumonia (recurrent); Z88.0 Allergy status to penicillin; Z88.2 Allergy status to sulfonamides; Z88.8 Allergy status to other drugs, medicaments and biological substances; Z90.49 Acquired absence of other specified parts of digestive tract; Z90.89 Acquired absence of other organs; Z98.890 Other specified postprocedural states
CPT/HCPCS: 36573; 43239; 43266; 70450; 71045; 71046; 71250; 74240; 80048; 80053; 82330; 82565; 82607; 82728; 82747; 83540; 83550; 83605; 83735; 83921; 84100; 84443; 84478; 85025; 85027; 85610; 85652; 86140; 87635; 88305; 88342; 93005; 94640; 94760; 96361; 96365; 96366; 96367; 99284

== ENCOUNTER 2020-12-08 13:59 | Day surgery (SDC) | payer MEDICARE, BC ==
[2020-12-05 11:04] VITALS: BMI 26.7
[~2020-12-08 13:59] MED LIST: LACTATED RINGERS 1,000 ML IV SCH; LIDOCAINE 1% (10MG/ML) FOR IV START INTRADERMA PRN
[2020-12-08] MEDS ORDERED: PROPOFOL 10 MG/ML 20 ML VIAL IV ONE (16:03)
[2020-12-08] MEDS ORDERED: LIDOCAINE 1% INJ 10MG/ML (20 ML MDV) ONE (16:03)
--- NOTE | 2020-12-08 16:09 | P.GSHP ---
History of Present Illness H&P Date: 12/08/20 Chief Complaint: Esophageal cancer, malnutrition This is a 82-year-old male was a safer EGD and PEG tube placement. He has known history of soft her cancer and malnutrition. 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 Hx Peripheral Neuropathy , see Dr Kathleen H&P, has shakes from [facility],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 but is using straight cane, blood 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 per spouse,Sick Sinus Syndrome,rosa m lower leg cellulitis Last Myocardial Infarction Date:: 2016 History of Any Multi-Drug Resistant Organisms: None Reported Past Surgical History: Heart Catheterization With Stent, Hernia Repair, Pacemaker Additional Past Surgical History / Comment(s): 2 heart stents, rosam cataracts Past Anesthesia/Blood Transfusion Reactions: Family History of Problems w/ Anesthesia Additional Past Anesthesia/Blood Transfusion Reaction / Comment(s): family and self- diff coming out Date of Last Stent Placement:: 2016 Type of Cardiac Device: Biventricular Pacemaker Device Placement Date:: 02-21-17 Smoking Status: Former smoker - Past Family History Mother History Unknown: Yes Family Medical History: Myocardial Infarction ([place]) Father History Unknown: Yes Family Medical History: Cancer Additional Family Medical History / Comment(s): Throat cancer Medications and Allergies Home Medications Medication Instructions Recorded Confirmed Type Multivitamins, Thera [Multivitamin 1 tab PO DAILY 09/23/16 12/08/20 History (formulary)] Amiodarone [Cordarone] 100 mg PO HS 02/10/17 12/08/20 History Levalbuterol Tartrate [Xopenex Hfa 2 puff INHALATION RT-TID PRN 02/10/17 12/08/20 History Inhaler] Rivaroxaban [Xarelto] 15 mg PO HS 02/10/17 12/08/20 History Albuterol Sulfate [Ventolin HFA] 2 puff INHALATION RT-BID PRN 02/22/20 12/08/20 History Allopurinol [Zyloprim] 100 mg PO DAILY 02/22/20 12/08/20 History Atorvastatin [Lipitor] 20 mg PO HS 02/22/20 12/08/20 History Cholecalciferol [Vitamin D3 (25 50 mcg PO DAILY 02/22/20 12/08/20 History Mcg = 1000 Iu)] Levothyroxine Sodium [Synthroid] 50 mcg PO DAILY 02/22/20 12/08/20 History Metoprolol Tartrate [Lopressor] 25 mg PO BID 02/22/20 12/08/20 History Tamsulosin [Flomax] 0.4 mg PO HS 02/22/20 12/08/20 History calcitrioL [Rocaltrol] 0.5 mcg PO WE 02/22/20 12/08/20 History Nitroglycerin Sl Tabs [Nitrostat] 0.4 mg SL Q5M PRN 10/20/20 12/08/20 History Cefuroxime Axetil [Ceftin] 500 mg PO BID 12/05/20 12/08/20 History Loratadine 10 mg PO HS 12/05/20 12/08/20 History guaiFENesin [Mucinex] 600 mg PO BID 12/05/20 12/08/20 History Allergies Allergy/AdvReac Type Severity Reaction Status Date / Time Penicillins Allergy Anaphylaxis Verified 12/08/20 15:04 prednisone Allergy Anaphylaxis Verified 12/08/20 15:04 Sulfa (Sulfonamide Allergy Anaphylaxis Verified 12/08/20 15:04 Antibiotics) Surgical - Exam Vital Signs Temp Pulse Resp BP Pulse Ox 97.7 F 73 20 144/64 95 12/08/20 14:55 12/08/20 14:55 12/08/20 14:55 12/08/20 14:55 12/08/20 14:55 - General well developed, well nourished, no distress - Eyes PERRL - ENT normal pinna - Neck no masses - Respiratory normal expansion - Cardiovascular Rhythm: regular - Abdomen Abdomen: soft, non tender Assessment and Plan Assessment: History of esophageal cancer. We will perform for PEG tube placement
--- NOTE | 2020-12-08 16:25 | P.OP ---
Date of Procedure: 12/08/20 Preoperative Diagnosis: Malnutrition Esophageal cancer Postoperative Diagnosis: Micturition Esophageal cancer Procedure(s) Performed: EGD with PEG tube placement Anesthesia: MAC Surgeon: Valentino Rivera Pathology: none sent Condition: stable Disposition: PACU Description of Procedure: The patient's placed on the endoscopy table in the lateral position. He received IV sedation. The gastroscope placed oropharynx passed in the esophagus and into the esophagus. The patient had a previously placed esophageal stent. The top portion of the stent appeared to be not adherent to the esophageal wall. The stent appeared to be a little bit floppy in this area. The scope was maneuvered into the stent. And then the scope was placed down into the stomach. A suitable light reflux was seen the anterior abdominal wall. The skin was anesthetized and then a сергей in the skin was made 11 blade. The needles placed and stomach under direct visualization. The needle was then snared. The wires a placed through the needle. The wire was snared brought to the oropharynx. The PEG tube was placed overtop the wire brought down to the stomach. And secured at the 3 cm smita. The [place] was then placed back down into the stomach. A picture the PEG tube was performed. The gastric was then withdrawn. Patient top she will well and was sent to recovery room in stable condition.
[2020-12-08 16:33] VITALS: RESP 16; TEMP 97.2
[2020-12-08 17:34] VITALS: BP 165/81; PULSE 69
== END 2020-12-08 18:09 | disposition home or self-care (01) ==
LOC: ORWHC2ENDO 13:59
PROVIDERS: ATTEND Surgery
DX: R13.10 Dysphagia, unspecified (principal); E46 Unspecified protein-calorie malnutrition; C15.9 Malignant neoplasm of esophagus, unspecified; I48.91 Unspecified atrial fibrillation; I25.10 Atherosclerotic heart disease of native coronary artery without angina pectoris; I10 Essential (primary) hypertension; E78.5 Hyperlipidemia, unspecified; I25.2 Old myocardial infarction; G47.30 Sleep apnea, unspecified; Z87.01 Personal history of pneumonia (recurrent); R63.4 Abnormal weight loss; G62.9 Polyneuropathy, unspecified; R29.6 Repeated falls; G60.0 Hereditary motor and sensory neuropathy; I49.5 Sick sinus syndrome; L03.116 Cellulitis of left lower limb; L03.115 Cellulitis of right lower limb; Z95.5 Presence of coronary angioplasty implant and graft; Z98.890 Other specified postprocedural states; Z95.0 Presence of cardiac pacemaker; Z98.42 Cataract extraction status, left eye; Z98.41 Cataract extraction status, right eye; Z87.891 Personal history of nicotine dependence; Z82.49 Family history of ischemic heart disease and other diseases of the circulatory system; Z80.0 Family history of malignant neoplasm of digestive organs; Z79.01 Long term (current) use of anticoagulants; Z79.890 Hormone replacement therapy; Z79.899 Other long term (current) drug therapy; Z88.0 Allergy status to penicillin; Z88.2 Allergy status to sulfonamides; Z88.8 Allergy status to other drugs, medicaments and biological substances
CPT/HCPCS: 43246 ×2; J2001; J2704; B4087

== ENCOUNTER → 2020-12-16 | Outpatient (CLI) | payer MEDICARE, BC ==
[2020-12-16 10:17] LABS: HCT 39.1 % (39.0-53.0); HGB 12.5 gm/dL (13.0-17.5); MCH 32.5 pg (25.0-35.0); MCHC 31.9 g/dL (31.0-37.0); MCV 101.7 fL (80.0-100.0); Macrocytosis Slight; Mean Platelet Volume 9.4; Platelet Count 195 k/uL (150-450); RBC 3.84 m/uL (4.30-5.90); RDW 13.9 % (11.5-15.5); WBC 8.6 k/uL (3.8-10.6)
[2020-12-16 10:26] LABS: Potassium 4.2 mmol/L (3.5-5.1)
== END | disposition home or self-care (01) ==
LOC: LABPAT 09:17
PROVIDERS: ATTEND Internal Medicine Clinical Cardiac Electrophysiology
DX: Z01.812 Encounter for preprocedural laboratory examination (principal); I49.5 Sick sinus syndrome
CPT/HCPCS: 36415; 80051; 82565; 84520; 85027

== ENCOUNTER 2020-12-25 05:03 | Emergency (ER) | payer BC, MEDICARE, OTHER ==
[2020-12-25 05:12] VITALS: RESP 18; TEMP 97.4
--- NOTE | 2020-12-25 06:04 | XR ---
EXAMINATION TYPE: XR chest 1V portable DATE OF EXAM: 12/25/2020 COMPARISON: 10/30/2020 HISTORY: Chest pain TECHNIQUE: Single view FINDINGS: There is some patchy infiltrate and atelectasis at both lung bases. There is no gross heart failure. There is left axillary pacemaker. There are chest leads. IMPRESSION: Infiltrate and atelectasis at the lung bases appears increased compared to old exam.
--- NOTE | 2020-12-25 06:06 | CT ---
EXAMINATION TYPE: CT brain wo con DATE OF EXAM: 12/25/2020 COMPARISON: 10/25/2020 HISTORY: acute neuro deficit CT DLP: 1131.5 mGycm Automated exposure control for dose reduction was used. There is cerebral cortical atrophy. There is patchy hypodensity in the periventricular white matter. There is no mass effect nor midline shift. There is no sign of intracranial hemorrhage. There is norm al aeration of the mastoid sinuses. The calvarium is intact. IMPRESSION: Cerebral atrophy and chronic small vessel ischemia. No acute intracranial abnormality. No change comp ared to old exam.
[2020-12-25 06:09] LABS: Calcium 9.1 mg/dL (8.4-10.2); Magnesium 2.3 mg/dL (1.6-2.3); Potassium 4.3 mmol/L (3.5-5.1); Total Bilirubin 0.7 mg/dL (0.2-1.3); Total Protein 6.5 g/dL (6.3-8.2)
[2020-12-25 06:12] LABS: INR 1.1 (<1.2); Partial Thromboplastin Time 29.2 sec (22.0-30.0); Prothrombin Time 11.5 sec (9.0-12.0)
[2020-12-25 06:31] LABS: HCT 38.8 % (39.0-53.0); HGB 13.2 gm/dL (13.0-17.5); MCV 97.1 fL (80.0-100.0); Mean Platelet Volume 10.2; Platelet Count 193 k/uL (150-450); RBC 3.99 m/uL (4.30-5.90); RDW 14.5 % (11.5-15.5)
[2020-12-25 06:44] VITALS: BP 120/64; PULSE 94
[2020-12-25 06:49] LABS: Eosinophils # (M) 0.18 k/uL (0-0.7); Lymphocytes # (M) 0.24 k/uL (1.0-4.8); Monocytes # (M) 1.08 k/uL (0-1.0); Neutrophils % (M) 75 %; Nucleated Red Blood Cells 0 /100 WBC (0-0); Total Cells Counted 100
--- NOTE | 2020-12-25 07:17 | ED ---
General Adult HPI - General Chief complaint: Chest Pain Stated complaint: Shoulder Pain Time Seen by Provider: 12/25/20 05:14 Source: patient, EMS Mode of arrival: EMS - History of Present Illness Initial comments: This patient is an 89-year-old man who presents to have evaluation for pain in the upper portion of the torso. The patient states that he had been sleeping and woke with pain in the right shoulder area. He thought it may be related to the way he was sleeping but then the pain seemed to be going across to his left shoulder also. Patient denies associated symptoms, no dyspnea, diaphoresis, palpitations, nausea or vomiting. -: minutes(s) Location: right, upper extremity Radiation: other Quality: aching Consistency: other (Improving) Improves with: none Worsens with: none Associated Symptoms: denies other symptoms - Related Data Home Medications Medication Instructions Recorded Confirmed Multivitamins, Thera [Multivitamin 1 tab PO DAILY 09/23/16 12/08/20 (formulary)] Amiodarone [Cordarone] 100 mg PO HS 02/10/17 12/08/20 Levalbuterol Tartrate [Xopenex Hfa 2 puff INHALATION RT-TID PRN 02/10/17 12/08/20 Inhaler] Rivaroxaban [Xarelto] 15 mg PO HS 02/10/17 12/08/20 Albuterol Sulfate [Ventolin HFA] 2 puff INHALATION RT-BID PRN 02/22/20 12/08/20 Allopurinol [Zyloprim] 100 mg PO DAILY 02/22/20 12/08/20 Atorvastatin [Lipitor] 20 mg PO HS 02/22/20 12/08/20 Cholecalciferol [Vitamin D3 (25 50 mcg PO DAILY 02/22/20 12/08/20 Mcg = 1000 Iu)] Levothyroxine Sodium [Synthroid] 50 mcg PO DAILY 02/22/20 12/08/20 Metoprolol Tartrate [Lopressor] 25 mg PO BID 02/22/20 12/08/20 Tamsulosin [Flomax] 0.4 mg PO HS 02/22/20 12/08/20 calcitrioL [Rocaltrol] 0.5 mcg PO WE 02/22/20 12/08/20 Nitroglycerin Sl Tabs [Nitrostat] 0.4 mg SL Q5M PRN 10/20/20 12/08/20 Cefuroxime Axetil [Ceftin] 500 mg PO BID 12/05/20 12/08/20 Loratadine 10 mg PO HS 12/05/20 12/08/20 guaiFENesin [Mucinex] 600 mg PO BID 12/05/20 12/08/20 Previous Rx's Medication Instructions Recorded Azithromycin [Zithromax Z-pack (6 250 mg PO DIRECTED #6 tab 12/25/20 tabs)] Allergies Allergy/AdvReac Type Severity Reaction Status Date / Time Penicillins Allergy Anaphylaxis Verified 12/08/20 15:04 prednisone Allergy Anaphylaxis Verified 12/08/20 15:04 Sulfa (Sulfonamide Allergy Anaphylaxis Verified 12/08/20 15:04 Antibiotics) Review of Systems ROS Statement: Those systems with pertinent positive or pertinent negative responses have been documented in the HPI. ROS Other: All systems not noted in ROS Statement are negative. Constitutional: Denies: fever, chills Respiratory: Denies: cough, dyspnea Cardiovascular: Denies: palpitations, dyspnea on exertion, orthopnea, edema, syncope Gastrointestinal: Denies: abdominal pain, nausea, vomiting Genitourinary: Denies: dysuria, hematuria Musculoskeletal: Reports: as per HPI, arthralgia Skin: Denies: rash Neurological: Denies: headache, weakness, numbness, paresthesias Past Medical History Past Medical History: Atrial Fibrillation, Coronary Artery Disease (CAD), Cancer, Hyperlipidemia, Hypertension, Myocardial Infarction ([place]), Pneumonia, Sleep Apnea/CPAP/BIPAP Additional Past Medical History / Comment(s): 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 Hx Peripheral Neuropathy , see Dr Kathleen H&P, 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,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 but is using straight cane, blood 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 per spouse,Sick Sinus Syndrome,rosa m lower leg cellulitis Last Myocardial Infarction Date:: 2016 History of Any Multi-Drug Resistant Organisms: None Reported Past Surgical History: Heart Catheterization With Stent, Hernia Repair, Pacemaker Additional Past Surgical History / Comment(s): 2 heart stents, rosa m cataracts Past Anesthesia/Blood Transfusion Reactions: Family History of Problems w/ Anes thesia Additional Past Anesthesia/Blood Transfusion Reaction / Comment(s): family and self- diff coming out Date of Last Stent Placement:: 2016 Type of Cardiac Device: Biventricular Pacemaker Device Placement Date:: 02-21-17 Past Psychological History: No Psychological Hx Reported Smoking Status: Former smoker Past Alcohol Use History: None Reported Past Drug Use History: None Reported - Past Family History Mother History Unknown: Yes Family Medical History: Myocardial Infarction ([place]) Father History Unknown: Yes Family Medical History: Cancer Additional Family Medical History / Comment(s): Throat cancer General Exam General appearance: alert, in no apparent distress Head exam: Present: atraumatic, normocephalic Eye exam: Present: normal appearance Neck exam: Present: normal inspection, full ROM. Absent: tenderness Respiratory exam: Present: normal lung sounds bilaterally. Absent: respiratory distress, wheezes, rales, rhonchi, stridor Cardiovascular Exam: Present: regular rate, normal rhythm, normal heart sounds. Absent: systolic murmur, diastolic murmur, rubs, gallop GI/Abdominal exam: Present: soft. Absent: distended, tenderness, guarding, rebound Extremities exam: Present: normal inspection, full ROM, normal capillary refill. Absent: tenderness, pedal edema, calf tenderness Back exam: Present: normal inspection. Absent: paraspinal tenderness, vertebral tenderness Neurological exam: Present: alert Skin exam: Present: warm, dry, intact, normal color. Absent: rash Course Vital Signs 12/25/20 12/25/20 12/25/20 05:05 05:27 06:43 Temperature 97.4 F L Pulse Rate 84 101 H 94 Respiratory 18 18 18 Rate Blood Pressure 128/80 119/101 120/64 O2 Sat by Pulse 94 L 93 L 93 L Oximetry Medical Decision Making - Medical Decision Making Patient is 89-year-old man with pain in the right shoulder area that seemed to be spreading to the left. The initial workup is unremarkable. The patient's symptoms have improved. We discussed admission to have telemetry monitoring and so cardiac enzymes, but this point the patient states he would rather go home. He will return if there is recurrence of symptoms. Other return parameters discussed. - Lab Data Result diagrams: 12/25/20 05:45 12/25/20 05:45 Lab Results 12/25/20 12/25/20 12/25/20 Range/Units 05:45 05:45 05:45 WBC 6.0 (3.8-10.6) k/uL RBC 3.99 L (4.30-5.90) m/uL Hgb 13.2 (13.0-17.5) gm/dL Hct 38.8 L (39.0-53.0) % MCV 97.1 (80.0-100.0) fL MCH 33.0 (25.0-35.0) pg MCHC 34.0 (31.0-37.0) g/dL RDW 14.5 (11.5-15.5) % Plt Count 193 (150-450) k/uL MPV 10.2 Neutrophils % (Manual) 75 % Lymphocytes % (Manual) 4 % Monocytes % (Manual) 18 % Eosinophils % (Manual) 3 % Neutrophils # (Manual) 4.50 (1.3-7.7) k/uL Lymphocytes # (Manual) 0.24 L (1.0-4.8) k/uL Monocytes # (Manual) 1.08 H (0-1.0) k/uL Eosinophils # (Manual) 0.18 (0-0.7) k/uL Nucleated RBCs 0 (0-0) /100 WBC Manual Slide Review Performed RBC Morphology Normal PT 11.5 (9.0-12.0) sec INR 1.1 (<1.2) APTT 29.2 (22.0-30.0) sec Sodium 135 L (137-145) mmol/L Potassium 4.3 (3.5-5.1) mmol/L Chloride 103 (98-107) mmol/L Carbon Dioxide 24 (22-30) mmol/L Anion Gap 8 mmol/L BUN 37 H (9-20) mg/dL Creatinine 1.01 (0.66-1.25) mg/dL Est GFR (CKD-EPI)AfAm 77 (>60 ml/min/1.73 sqM) Est GFR (CKD-EPI)NonAf 66 (>60 ml/min/1.73 sqM) Glucose 105 H (74-99) mg/dL Calcium 9.1 (8.4-10.2) mg/dL Magnesium 2.3 (1.6-2.3) mg/dL Total Bilirubin 0.7 (0.2-1.3) mg/dL AST 27 (17-59) U/L ALT 22 (4-49) U/L Alkaline Phosphatase 101 (38-126) U/L Troponin I (0.000-0.034) ng/mL Total Protein 6.5 (6.3-8.2) g/dL Albumin 3.0 L (3.5-5.0) g/dL 12/25/20 Range/Units 05:45 WBC (3.8-10.6) k/uL RBC (4.30-5.90) m/uL Hgb (13.0-17.5) gm/dL Hct (39.0-53.0) % MCV (80.0-100.0) fL MCH (25.0-35.0) pg MCHC (31.0-37.0) g/dL RDW (11.5-15.5) % Plt Count (150-450) k/uL MPV Neutrophils % (Manual) % Lymphocytes % (Manual) % Monocytes % (Manual) % Eosinophils % (Manual) % Neutrophils # (Manual) (1.3-7.7) k/uL Lymphocytes # (Manual) (1.0-4.8) k/uL Monocytes # (Manual) (0-1.0) k/uL Eosinophils # (Manual) (0-0.7) k/uL Nucleated RBCs (0-0) /100 WBC Manual Slide Review RBC Morphology PT (9.0-12.0) sec INR (<1.2) APTT (22.0-30.0) sec Sodium (137-145) mmol/L Potassium (3.5-5.1) mmol/L Chloride (98-107) mmol/L Carbon Dioxide (22-30) mmol/L Anion Gap mmol/L BUN (9-20) mg/dL Creatinine (0.66-1.25) mg/dL Est GFR (CKD-EPI)AfAm (>60 ml/min/1.73 sqM) Est GFR (CKD-EPI)NonAf (>60 ml/min/1.73 sqM) Glucose (74-99) mg/dL Calcium (8.4-10.2) mg/dL Magnesium (1.6-2.3) mg/dL Total Bilirubin (0.2-1.3) mg/dL AST (17-59) U/L ALT (4-49) U/L Alkaline Phosphatase (38-126) U/L Troponin I <0.012 (0.000-0.034) ng/mL Total Protein (6.3-8.2) g/dL Albumin (3.5-5.0) g/dL - EKG Data -: EKG Interpreted by Me EKG shows normal: sinus rhythm (With some possible PACs, rate low 90s), axis (Normal), intervals (Normal), QRS complexes (Normal), ST-T waves Disposition Clinical Impression: Chest pain Disposition: HOME SELF-CARE Condition: Good Instructions (If sedation given, give patient instructions): Chest Pain (ED) Prescriptions: Azithromycin [Zithromax Z-pack (6 tabs)] 250 mg PO DIRECTED #6 tab Is patient prescribed a controlled substance at d/c from ED?: No Referrals: Yimi Patel MD [Primary Care Provider] - 1-2 days
== END 2020-12-25 07:37 | disposition home or self-care (01) ==
LOC: EC 05:03
DX: R07.9 Chest pain, unspecified (principal); M25.511 Pain in right shoulder; I25.2 Old myocardial infarction; I10 Essential (primary) hypertension; I48.91 Unspecified atrial fibrillation; I25.10 Atherosclerotic heart disease of native coronary artery without angina pectoris; E78.5 Hyperlipidemia, unspecified; Z88.0 Allergy status to penicillin; Z88.8 Allergy status to other drugs, medicaments and biological substances; Z88.2 Allergy status to sulfonamides; Z79.01 Long term (current) use of anticoagulants; Z79.899 Other long term (current) drug therapy; Z87.891 Personal history of nicotine dependence
CPT/HCPCS: 36415; 70450; 71045; 80053; 83735; 84484; 85025; 85610; 85730; 93005; 99285

== ENCOUNTER → 2020-12-26 | Outpatient (CLI) | payer MEDICARE, BC | END | disposition home or self-care (01) | LOC: LABPAT 16:13 | PROVIDERS: ATTEND Nurse Practitioner Adult Health | DX: Z01.818 Encounter for other preprocedural examination (principal) | CPT/HCPCS: 87070 ==